=== PATIENT | female | born 1965 | race Caucasian/White ===

== ENCOUNTER 2018-04-23 11:00 | Emergency (ER) | payer OTHER ==
--- NOTE | 2018-04-23 12:38 | ED ---
General Adult HPI - General Chief complaint: Upper Respiratory Infection Stated complaint: cold symptoms, chest congestion Time Seen by Provider: 04/23/18 12:25 Source: patient, RN notes reviewed Mode of arrival: ambulatory Limitations: no limitations - History of Present Illness Initial comments: Patient 52-year-old female presents emergency room today with chief complaint of cough congestion over the last 2 weeks. She doesn't that started as a sinus infection. States it has been down into her chest. She does admit that she's had some sputum production as been clear and green in color. Patient doesn't that she's been treated times for ear infections with steroids and antibiotics in the past. States into the family doctor skin. Emergency room. She denies any other complaints or symptoms at this time. Patient denies any recent fever, chills, shortness of breath, chest pain, back pain, abdominal pain, nausea or vomiting, numbness or tingling, headaches or visual changes, or any other complaints. - Related Data Previous Rx's Medication Instructions Recorded Azithromycin [Zithromax Z-pack] 0 mg PO DIRECTED #6 tab 04/23/18 Fluticasone Propionate [Flonase 1 - 2 spray EA NOSTRIL DAILY 5 04/23/18 Allergy Relief] Days ml predniSONE 40 mg PO DAILY 5 Days tab 04/23/18 Allergies Allergy/AdvReac Type Severity Reaction Status Date / Time codeine Allergy Nausea & Verified 04/23/18 12:47 Vomiting Review of Systems ROS Statement: Those systems with pertinent positive or pertinent negative responses have been documented in the HPI. ROS Other: All systems not noted in ROS Statement are negative. Past Medical History Past Medical History: No Reported History History of Any Multi-Drug Resistant Organisms: None Reported Additional Past Surgical History / Comment(s): kidney bx Past Psychological History: No Psychological Hx Reported Smoking Status: Current every day smoker Past Alcohol Use History: Occasional Past Drug Use History: None Reported General Exam - General Exam Comments Initial Comments: General: The patient is awake and alert, in no distress, and does not appear acutely ill. Eye: Pupils are equal, round and reactive to light. Extra-ocular movements are intact. No nystagmus. There is normal conjunctiva bilaterally. No signs of icterus. Ears, nose, mouth and throat: There are moist mucous membranes and no oral lesions. Neck: The neck is supple, there is no tenderness or JVD. Cardiovascular: There is a regular rate and rhythm. No murmur, rub or gallop is appreciated. Respiratory: Lungs are clear to auscultation, respirations are non-labored, breath sounds are equal. No wheezes, stridor, rales, or rhonchi. Musculoskeletal: Normal ROM, no tenderness. Sensation intact. Strength 5/5. Pulses equal bilaterally 2+. Neurological: A&O x 3. CN II-XII intact, There are no obvious motor or sensory deficits. Coordination appears grossly intact. Speech is normal. Skin: Skin is warm and dry and no rashes or lesions are noted. Psychiatric: Cooperative, appropriate mood & affect, normal judgment. Limitations: no limitations Course Vital Signs 04/23/18 11:12 Temperature 98.2 F Pulse Rate 102 H Respiratory 20 Rate Blood Pressure 127/83 O2 Sat by Pulse 98 Oximetry Medical Decision Making - Medical Decision Making X-ray reviewed negative. Patient does admit that she's had sinus infection that has gone down onto the chest. She's had increased cough congestion. Patient's chest x-ray unremarkable and patient will be treated with antibiotics also course of steroids to cover for bronchitis and sinus infection. Disposition Clinical Impression: Sinusitis, Bronchitis Disposition: HOME SELF-CARE Condition: Good Instructions: Upper Respiratory Infection (ED) Additional Instructions: Please use medication as discussed. Please follow-up with family doctor in the next 2 days of symptoms have not improved. Please return to emergency room if the symptoms increase or worsen or for any other concerns. Prescriptions: Azithromycin [Zithromax Z-pack] 0 mg PO DIRECTED #6 tab Fluticasone Propionate [Flonase Allergy Relief] 1 - 2 spray EA NOSTRIL DAILY 5 Days ml predniSONE 40 mg PO DAILY 5 Days tab Is patient prescribed a controlled substance at d/c from ED?: No Referrals: Paxton Armendariz DO [Primary Care Provider] - 1-2 days Time of Disposition: 13:01
--- NOTE | 2018-04-23 12:56 | XR ---
EXAMINATION TYPE: XR chest 2V DATE OF EXAM: 04/23/2018 COMPARISON: 08/03/2015 HISTORY: 52-year-old female cough and difficulty breathing TECHNIQUE: PA and lateral views FINDINGS: The cardiomediastinal silhouette, aorta, and pulmonary vasculature are within normal limits. Lungs an d pleural spaces are clear. IMPRESSION: No acute cardiopulmonary process.
[2018-04-23 13:38] VITALS: BP 120/82; PULSE 84; RESP 16; TEMP 97.8
== END 2018-04-23 13:40 | disposition home or self-care (01) ==
LOC: EC 11:00
DX: J32.9 Chronic sinusitis, unspecified (principal); J40 Bronchitis, not specified as acute or chronic; F17.200 Nicotine dependence, unspecified, uncomplicated; Z88.5 Allergy status to narcotic agent
CPT/HCPCS: 71046; 99283

== ENCOUNTER 2019-03-13 11:09 | Inpatient (IN) | payer OTHER ==
[2019-03-13] MEDS ORDERED: SODIUM CHLORIDE 0.9% 500 ML 500 ML IV STA (11:39)
[2019-03-13] MEDS ORDERED: PANTOPRAZOLE 40 MG/10 ML VIAL IVP STA (11:39)
[2019-03-13] MEDS ORDERED: MORPHINE SULFATE 4 MG/ML SYRINGE IVP STA (11:40)
[2019-03-13] MEDS ORDERED: ONDANSETRON 4 MG/2 ML VIAL IVP STA (11:40)
--- NOTE | 2019-03-13 11:43 | ED ---
General Adult HPI - General Chief complaint: GI Bleed Stated complaint: back pain, blood in stool Time Seen by Provider: 03/13/19 11:17 Source: patient, RN notes reviewed Mode of arrival: ambulatory Limitations: no limitations - History of Present Illness Initial comments: 53-year-old female without any significant past medical history presents to the emergency department for multiple complaints. It seems patient's main complaint today is weakness. Patient says that a few days ago she started to get very nauseous. States that since that time she has also started to have diarrhea and has not been eating because she has a loss of appetite. States she has generalized pain from her abdomen down to her legs. Patient states she also noticed that diarrhea appears black and she thinks there is blood in her stool. States that she feels like she may have lost consciousness while having a bowel movement yesterday as well. Patient thinks she is dehydrated.Patient has no other complaints at this time including shortness of breath, chest pain, he adache, or visual changes. - Related Data Previous Rx's Medication Instructions Recorded Azithromycin [Zithromax Z-pack] 0 mg PO DIRECTED #6 tab 04/23/18 Fluticasone Propionate [Flonase 1 - 2 spray EA NOSTRIL DAILY 5 04/23/18 Allergy Relief] Days ml predniSONE 40 mg PO DAILY 5 Days tab 04/23/18 Allergies Allergy/AdvReac Type Severity Reaction Status Date / Time codeine Allergy Nausea & Verified 03/13/19 11:16 Vomiting Review of Systems ROS Statement: Those systems with pertinent positive or pertinent negative responses have been documented in the HPI. ROS Other: All systems not noted in ROS Statement are negative. Past Medical History Past Medical History: No Reported History History of Any Multi-Drug Resistant Organisms: None Reported Additional Past Surgical History / Comment(s): kidney bx Past Psychological History: No Psychological Hx Reported Smoking Status: Current every day smoker Past Alcohol Use History: Daily Past Drug Use History: None Reported General Exam Limitations: no limitations General appearance: alert, in no apparent distress Head exam: Present: atraumatic, normocephalic, normal inspection Eye exam: Present: normal appearance, PERRL, EOMI. Absent: scleral icterus, conjunctival injection, periorbital swelling ENT exam: Present: normal exam, mucous membranes moist Neck exam: Present: normal inspection. Absent: tenderness, meningismus, lymphadenopathy Respiratory exam: Present: normal lung sounds bilaterally. Absent: respiratory distress, wheezes, rales, rhonchi, stridor Cardiovascular Exam: Present: regular rate, normal rhythm, normal heart sounds. Absent: systolic murmur, diastolic murmur, rubs, gallop, clicks GI/Abdominal exam: Present: soft (Soft unremarkable abdomen), tenderness (Epigastric tenderness, no tenderness elsewhere in the abdomen.), normal bowel sounds. Absent: distended, guarding, rebound, rigid Extremities exam: Present: normal capillary refill (Capillary refill less than, DP pulse 2+ in RLE), other (Sensation intact, strength 5 out of 5 in lower extremities bilaterally) Neurological exam: Present: alert Psychiatric exam: Present: normal affect, normal mood Course Vital Signs 03/13/19 03/13/19 11:13 12:33 Temperature 97.7 F Pulse Rate 115 H 98 Respiratory 20 16 Rate Blood Pressure 114/82 133/86 O2 Sat by Pulse 100 99 Oximetry EKG Findings - EKG Comments: EKG Findings:: Normal sinus rhythm, ventricular rate 94, OK interval 122, QTc 400, T-wave inversions noted in the precordial leads Medical Decision Making - Medical Decision Making 53-year-old female without any significant past medical history presents for multiple complaints. Patient's main complaint today is weakness. States that she has been nauseous for the past 2 days and has not had an appetite. States she has started to have black diarrhea. States this was happening all night and was multiple episodes. States she feels more weak today and is having some abdominal cramping. On presentation patient has mild tachycardia with otherwise stable vitals. Occult blood is positive. CBC does show a hemoglobin of 10.5. Previously 13.9 however this was 4 years ago. CMP does reveal evidence of dehydration with prerenal azotemia and a BUN to creatinine ratio of 39. Started on IV fluids. EKG was obtained which does show T-wave inversions. Therefore troponin was ordered which was negative. However this will be trended. No previous EKGs to compare this to. Given positive occult blood and weakness as well as dehydration patient will be admitted for GI consultation. - Lab Data Result diagrams: 03/13/19 12:50 03/13/19 12:50 Lab Results 09/04/19 09/04/19 09/04/19 Range/Units 12:20 12:50 12:50 WBC 11.1 H (3.8-10.6) k/uL RBC 3.08 L (3.80-5.40) m/uL Hgb 10.5 L (11.4-16.0) gm/dL Hct 31.1 L (34.0-46.0) % MCV 101.1 H (80.0-100.0) fL MCH 34.0 (25.0-35.0) pg MCHC 33.7 (31.0-37.0) g/dL RDW 15.9 H (11.5-15.5) % Plt Count 376 (150-450) k/uL Neutrophils % 83 % Lymphocytes % 10 % Monocytes % 4 % Eosinophils % 1 % Basophils % 1 % Neutrophils # 9.2 H (1.3-7.7) k/uL Lymphocytes # 1.1 (1.0-4.8) k/uL Monocytes # 0.4 (0-1.0) k/uL Eosinophils # 0.1 (0-0.7) k/uL Basophils # 0.1 (0-0.2) k/uL Macrocytosis Slight PT 9.6 (9.0-12.0) sec INR 0.9 (<1.2) APTT 20.6 L (22.0-30.0) sec Sodium (137-145) mmol/L Potassium (3.5-5.1) mmol/L Chloride (98-107) mmol/L Carbon Dioxide (22-30) mmol/L Anion Gap mmol/L BUN (7-17) mg/dL Creatinine (0.52-1.04) mg/dL Est GFR (CKD-EPI)AfAm (>60 ml/min/1.73 sqM) Est GFR (CKD-EPI)NonAf (>60 ml/min/1.73 sqM) Glucose (74-99) mg/dL Calcium (8.4-10.2) mg/dL Magnesium (1.6-2.3) mg/dL Total Bilirubin (0.2-1.3) mg/dL AST (14-36) U/L ALT (9-52) U/L Alkaline Phosphatase (38-126) U/L Troponin I (0.000-0.034) ng/mL Total Protein (6.3-8.2) g/dL Albumin (3.5-5.0) g/dL Stool Occult Blood Positive H (Negative) Blood Type Blood Type Recheck Bld Type Recheck Status Antibody Screen Spec Expiration Date 03/13/19 03/13/19 03/13/19 Range/Units 12:50 12:50 12:50 WBC (3.8-10.6) k/uL RBC (3.80-5.40) m/uL Hgb (11.4-16.0) gm/dL Hct (34.0-46.0) % MCV (80.0-100.0) fL MCH (25.0-35.0) pg MCHC (31.0-37.0) g/dL RDW (11.5-15.5) % Plt Count (150-450) k/uL Neutrophils % % Lymphocytes % % Monocytes % % Eosinophils % % Basophils % % Neutrophils # (1.3-7.7) k/uL Lymphocytes # (1.0-4.8) k/uL Monocytes # (0-1.0) k/uL Eosinophils # (0-0.7) k/uL Basophils # (0-0.2) k/uL Macrocytosis PT (9.0-12.0) sec INR (<1.2) APTT (22.0-30.0) sec Sodium 138 (137-145) mmol/L Potassium 5.0 (3.5-5.1) mmol/L Chloride 109 H (98-107) mmol/L Carbon Dioxide 21 L (22-30) mmol/L Anion Gap 8 mmol/L BUN 43 H (7-17) mg/dL Creatinine 1.08 H (0.52-1.04) mg/dL Est GFR (CKD-EPI)AfAm 67 (>60 ml/min/1.73 sqM) Est GFR (CKD-EPI)NonAf 58 (>60 ml/min/1.73 sqM) Glucose 121 H (74-99) mg/dL Calcium 9.9 (8.4-10.2) mg/dL Magnesium 2.0 (1.6-2.3) mg/dL Total Bilirubin 0.2 (0.2-1.3) mg/dL AST 48 H (14-36) U/L ALT 47 (9-52) U/L Alkaline Phosphatase 107 (38-126) U/L Troponin I <0.012 (0.000-0.034) ng/mL Total Protein 6.9 (6.3-8.2) g/dL Albumin 4.0 (3.5-5.0) g/dL Stool Occult Blood (Negative) Blood Type O Positive Blood Type Recheck No Previous Record Bld Type Recheck Status CABO Indicated Antibody Screen NEGATIVE Spec Expiration Date 03/16/2019 - 235 Disposition Clinical Impression: Melena, Dehydration, Anemia Disposition: ADMITTED IP TO THIS [facility] Condition: Fair Referrals: Paxton Armendariz DO [Primary Care Provider] - 1-2 days Time of Disposition: 14:31
[2019-03-13 13:22] LABS: Calcium 9.9 mg/dL (8.4-10.2); Total Bilirubin 0.2 mg/dL (0.2-1.3); Total Protein 6.9 g/dL (6.3-8.2)
[2019-03-13 13:23] LABS: Basophils # (A) 0.1 k/uL (0-0.2); Basophils % (A) 1 %; Eosinophils # (A) 0.1 k/uL (0-0.7); Eosinophils % (A) 1 %; HCT 31.1 % (34.0-46.0); HGB 10.5 gm/dL (11.4-16.0); Lymphocytes # (A) 1.1 k/uL (1.0-4.8); Lymphocytes % (A) 10 %; MCHC 33.7 g/dL (31.0-37.0); MCV 101.1 fL (80.0-100.0); Macrocytosis Slight; Mean Platelet Volume 6.9; Monocytes # (A) 0.4 k/uL (0-1.0); Monocytes % (A) 4 %; Neutrophils # (A) 9.2 k/uL (1.3-7.7); Neutrophils % (A) 83 %; Platelet Count 376 k/uL (150-450); RBC 3.08 m/uL (3.80-5.40); RDW 15.9 % (11.5-15.5); WBC 11.1 k/uL (3.8-10.6)
[2019-03-13 13:26] LABS: INR 0.9 (<1.2); Prothrombin Time 9.6 sec (9.0-12.0)
[2019-03-13 13:42] LABS: Partial Thromboplastin Time 20.6 sec (22.0-30.0)
[2019-03-13] MEDS ORDERED: NALOXONE 0.4 MG/ML 1 ML VIAL IV PRN (14:34)
[2019-03-13] MEDS ORDERED: IOPAMIDOL-300 CONTRAST 30 ML VIAL (ORAL USE) PO PRN ×2 (15:42→16:06)
[2019-03-13] MEDS: SODIUM CHLORIDE 0.9% 1,000 ML IV SCH ×2 (15:45→20:01)
[2019-03-13] MEDS ORDERED: LORazepam 0.5 MG TAB PO PRN (15:45)
--- NOTE | 2019-03-13 15:57 | P.HPIM ---
History of Present Illness H&P Date: 03/13/19 53 years old very pleasant female patient of Dr. Armendariz presents in with acute abdominal pain associated with nausea or vomiting and diarrhea that started Monday evening. Patient started having diarrhea on Monday with the black stool followed by a bloody stools yesterday associated with lower a bdominal pain and back pain. She does endorses nausea but denies any vomiting. Patient does document history of peptic ulcer disease when she was in her early 20s. She is a alcohol drinker, drinks 5 days a week 3-4 drinks of Kahlua with milk. Last drink was one week ago as patient is having migraine. Patient is otherwise healthy. On evaluation in the ERPatient had a temp 97.7 pulse rate 1:15 and regular blood pressure 114/82 and saturating well on room air leukocytosis of 11.1 and hemoglobin 10.5 MCV 101.1 chloride 109 bicarb 21 BUN of 43 creatinine 1.08 glucose 121. Patient's presentation appears to be likely diverticulitis but with history of melena peptic ulcer disease cannot be ruled out. Stool studies including C. diff will be sent. Patient to be started on antibiotics including Flagyl and levofloxacin. Review of Systems Constitutional: Denies chills, Denies fever, Denies lethargy, Denies malaise, endorses loss of appetite, Denies weakness, Denies weight loss Eyes: denies decreased vision, denies diplopia, denies discharge, denies pain Ears: deny: decreased hearing Ears, nose, mouth and throat: Denies dental pain, Denies headache, Denies nasal discharge, Denies nose pain Cardiovascular: Denies chest pain, Denies decreased exercise tolerance, Denies edema, Denies high blood pressure, Denies irregular heart beat, Denies palpitations, Denies paroxysmal nocturnal dyspnea, Denies rapid heart beat, Denies shortness of breath Respiratory: Denies congestion, Denies cough, Denies cough with sputum, Denies dyspnea, Denies home oxygen, Denies wheezing Gastrointestinal: Endorses abdominal pain, diarrhea, nausea, melena, bright red blood per rectum Genitourinary: Denies dysuria, Denies flank pain, Denies kidney stones, Denies menorrhagia, Denies urgency, Denies urinary frequency Musculoskeletal: Denies gait dysfunction, Denies limitation of motion, Denies morning stiffness, endorses back pain Integumentary: Denies rash, Denies wounds, Denies brittle nails, Denies change in hair/nails, Denies darkening of skin Neurological: Denies balance difficulties, Denies change in speech, Denies double vision, Denies gait dysfunction, Denies loss of vision, Denies motor disturbance, Denies numbness, Denies paralysis, Denies paresthesias, Denies seizures Psychiatric: Denies anxiety, Denies depression Endocrine: Denies excessive sweating, Denies excessive thirst, Denies high blood sugars, Denies palpitations Hematologic/Lymphatic: Denies easy bruising, Denies lymphadenopathy Past Medical History Past Medical History: No Reported History, GERD/Reflux History of Any Multi-Drug Resistant Organisms: None Reported Additional Past Surgical History / Comment(s): kidney bx Past Psychological History: No Psychological Hx Reported Smoking Status: Current every day smoker Past Alcohol Use History: Daily Past Drug Use History: None Reported - Past Family History Father Family Medical History: No Reported History Mother Family Medical History: Liver Disease, Renal Disease Medications and Allergies Home Medications Medication Instructions Recorded Confirmed Type Ibuprofen [Motrin] 800 mg PO TID PRN 03/13/19 03/13/19 History LORazepam [Ativan] 0.5 mg PO TID PRN 03/13/19 03/13/19 History Phentermine HCl [Adipex-P] 18.75 mg PO DAILY 03/13/19 03/13/19 History Allergies Allergy/AdvReac Type Severity Reaction Status Date / Time codeine Allergy Nausea & Verified 03/13/19 14:43 Vomiting Physical Exam Vitals: Vital Signs Temp Pulse Resp BP Pulse Ox 03/13/19 12:33 98 16 133/86 99 03/13/19 11:13 97.7 F 115 H 20 114/82 100 Intake and Output 03/13/19 03/13/19 03/13/19 06:59 14:59 22:59 Other: Weight 86.183 kg - Constitutional General appearance: cooperative, no acute distress, obese - EENT Eyes: anicteric sclerae, PERRLA, normal appearance ENT: hearing grossly normal - Neck Neck: no lymphadenopathy, normal ROM, no other, no rigidity, no stridor, no thyromegaly - Respiratory Respiratory: bilateral: CTA, negative: diminished, dullness, rales, rhonchi - Cardiovascular Rhythm: regular Heart sounds: normal: S1, S2 Abnormal Heart Sounds: no systolic murmur, no diastolic murmur, no rub, no S3 Gallop, no S4 Gallop, no click, no other - Gastrointestinal General gastrointestinal: normal bowel sounds, soft tender in the pelvic and left lower quadrant no epigastric tenderness - Integumentary Integumentary: no rash - Neurologic Neurologic: CNII-XII intact - Musculoskeletal Musculoskeletal: gait normal, strength equal bilaterally - Psychiatric Psychiatric: A&O x's 3, appropriate affect Results CBC & Chem 7: 03/13/19 12:50 03/13/19 12:50 Labs: Abnormal Lab Results - Last 24 Hours (Table) 03/13/19 03/13/19 03/13/19 Range/Units 12:20 12:50 12:50 WBC 11.1 H (3.8-10.6) k/uL RBC 3.08 L (3.80-5.40) m/uL Hgb 10.5 L (11.4-16.0) gm/dL Hct 31.1 L (34.0-46.0) % MCV 101.1 H (80.0-100.0) fL RDW 15.9 H (11.5-15.5) % Neutrophils # 9.2 H (1.3-7.7) k/uL APTT 20.6 L (22.0-30.0) sec Chloride (98-107) mmol/L Carbon Dioxide (22-30) mmol/L BUN (7-17) mg/dL Creatinine (0.52-1.04) mg/dL Glucose (74-99) mg/dL AST (14-36) U/L Stool Occult Blood Positive H (Negative) 03/13/19 Range/Units 12:50 WBC (3.8-10.6) k/uL RBC (3.80-5.40) m/uL Hgb (11.4-16.0) gm/dL Hct (34.0-46.0) % MCV (80.0-100.0) fL RDW (11.5-15.5) % Neutrophils # (1.3-7.7) k/uL APTT (22.0-30.0) sec Chloride 109 H (98-107) mmol/L Carbon Dioxide 21 L (22-30) mmol/L BUN 43 H (7-17) mg/dL Creatinine 1.08 H (0.52-1.04) mg/dL Glucose 121 H (74-99) mg/dL AST 48 H (14-36) U/L Stool Occult Blood (Negative) Thrombosis Risk Factor Assmnt - DVT/VTE Prophylaxis DVT/VTE Prophylaxis: Mechanical Prophylaxis ordered Assessment and Plan Plan: #1 acute anemia likely secondary to GI bleed with possibility related to alcoholic liver disease. Iron studies and vitamin B12 ordered. Hemoccult pos itive patient presentation appears to be likely diverticulitis versus colitis. Stool studies would C. diff sent. Patient to be initiated on Flagyl and levofloxacin. Continue IV fluids at 75 mL per hour and encourage oral intake of fluids. CBC daily #2 melena. Hemoccult positive rule out peptic ulcer disease and GI consult placed Protonix initiated a [address] abdomen ordered to rule out diverticulitis #3 acute kidney injury K secondary to dehydration, versus GI bleed. Continue IV fluids at 75 mL per hour keep patient nothing by mouth after midnight #4 GI prophylaxis with Protonix 40 IV twice a day #5 DVT prophylaxis with mechanical prophylaxis rule out GI bleed hold heparin #6 disposition patient may need to 1-2 inpatient nights for stabilization
[2019-03-13] MEDS ORDERED: LEVOFLOXACIN 500MG-D5W PMX 500 MG in DEXTROSE/WATER 1 100ML.BAG IVPB SCH (16:00)
[2019-03-13] MEDS: metroNIDAZOLE-NS PMX 500 MG in SALINE 1 100ML.BAG IVPB SCH (16:29)
[2019-03-13] MEDS: MORPHINE SULFATE 2 MG/ML SYRINGE IV PRN ×2 (16:32→20:39)
--- NOTE | 2019-03-13 18:26 | CT ---
EXAMINATION TYPE: CT abdomen pelvis wo con DATE OF EXAM: 03/13/2019 COMPARISON: None HISTORY: Abdominal pain and diarrhea CT DLP: 636.7 mGycm Automated exposure control for dose reduction was used. TECHNIQUE: Helical acquisition of images was performed from the lung bases through the pelvis. FINDINGS: Lung bases are clear. There is no pleural effusion. Heart size is normal. There is no pericardial eff usion. Oral contrast opacification of the bowel is unremarkable. There is fatty infiltration of the liver. Bile ducts are not dilated. Gallbladder appears normal. Spl een appears normal. There is no pancreatic mass. Stomach appears normal. There is no adrenal mass. Kidneys have normal size and contour. There is no hydronephrosis. Ureters a re not dilated. There is no retroperitoneal adenopathy. There are scattered sigmoid diverticula. Blad luz marina distends smoothly. There is no inguinal hernia. There is no free fluid in the pelvis. Appendix appears normal. There is no mesenteric edema. There is no ascites or free air. There is no s ign of a bowel obstruction. Lumbar vertebra have normal spacing and alignment. There is no compression fracture. Bony pelvis is i ntact. I see no focal bone destruction. IMPRESSION: THERE IS SOME FATTY INFILTRATION OF THE LIVER. NO DILATED DUCTS. NO SIGN OF ACUTE ABDOMEN AND PELVIS. MILD SIGMOID DIVERTICULOSIS WITHOUT SIGN OF DIVERTICULITIS.
[2019-03-13] MEDS: PANTOPRAZOLE 40 MG/10 ML VIAL IVP SCH (20:00)
[2019-03-13 22:00] LABS: Basophils # (A) 0.1 k/uL (0-0.2); Basophils % (A) 1 %; Eosinophils # (A) 0.2 k/uL (0-0.7); Eosinophils % (A) 2 %; HCT 27.4 % (34.0-46.0); Lymphocytes # (A) 1.9 k/uL (1.0-4.8); Lymphocytes % (A) 18 %; MCH 32.8 pg (25.0-35.0); MCV 102.3 fL (80.0-100.0); Macrocytosis Slight; Mean Platelet Volume 6.9; Monocytes # (A) 0.7 k/uL (0-1.0); Monocytes % (A) 6 %; Neutrophils # (A) 7.5 k/uL (1.3-7.7); Neutrophils % (A) 69 %; Platelet Count 338 k/uL (150-450); RBC 2.67 m/uL (3.80-5.40); RDW 15.9 % (11.5-15.5); WBC 10.9 k/uL (3.8-10.6)
[2019-03-13 22:01] LABS: HGB 8.8 gm/dL (11.4-16.0)
[2019-03-14] MEDS: metroNIDAZOLE-NS PMX 500 MG in SALINE 1 100ML.BAG IVPB SCH ×2 (00:06→07:38)
[2019-03-14 00:16] LABS: Iron Saturation 21.65 (12.00-45.00)
[2019-03-14] MEDS: MORPHINE SULFATE 2 MG/ML SYRINGE IV PRN ×3 (01:04→16:52)
[2019-03-14 03:36] LABS: Basophils # (A) 0.1 k/uL (0-0.2); Basophils % (A) 1 %; Eosinophils # (A) 0.2 k/uL (0-0.7); Eosinophils % (A) 2 %; HCT 25.4 % (34.0-46.0); HGB 8.3 gm/dL (11.4-16.0); Lymphocytes # (A) 1.7 k/uL (1.0-4.8); Lymphocytes % (A) 19 %; MCH 33.9 pg (25.0-35.0); MCHC 32.8 g/dL (31.0-37.0); MCV 103.1 fL (80.0-100.0); Macrocytosis Slight; Mean Platelet Volume 6.8; Monocytes # (A) 0.4 k/uL (0-1.0); Monocytes % (A) 4 %; Neutrophils # (A) 6.2 k/uL (1.3-7.7); Neutrophils % (A) 70 %; Platelet Count 302 k/uL (150-450); RBC 2.46 m/uL (3.80-5.40); RDW 15.8 % (11.5-15.5); WBC 8.9 k/uL (3.8-10.6)
--- NOTE | 2019-03-14 04:34 | CONS ---
CONSULTATION DATE OF SURGERY: 03/13/2019 REQUESTING PHYSICIAN: Dr. Hsu REASON FOR CONSULTATION: Melena and epigastric pain. HISTORY OF PRESENT ILLNESS: The patient is a 53-year-old pleasant white female who came into the emergency room complaining of epigastric pain associated with nausea, vomiting, and black tarry stools that started on Monday evening. She had at least 10 or 15 of these episodes and came to the emergency room and was noted to have a hemoglobin of 10.5 g/dL and we are consulted for further evaluation. The patient denies any prior history of peptic ulcer disease. She has been taking Motrin every day for the last 1 year for chronic back pain. She did mention that she was diagnosed with peptic ulcer disease several years ago and was treated with Nexium for a few weeks and the symptoms subsided. PAST MEDICAL HISTORY: Significant for GERD and anxiety. MEDICATIONS AT HOME: Motrin, Ativan and Adipex. SOCIAL HISTORY: Chronic smoker. No alcohol use. FAMILY HISTORY: Father unremarkable. Mother had chronic liver disease and of liver cirrhosis a year ago. REVIEW OF SYSTEMS: Cardiopulmonary: No chest pain, shortness of breath. no dysuria hematuria. Musculoskeletal unremarkable. Skin unremarkable. Endocrine unremarkable. Psychiatric unremarkable. Neurology unremarkable. ENT/vision unremarkable. Constitutional: No recent weight loss. No fever, chills, night sweats. Hematology unremarkable. Endocrine unremarkable. PHYSICAL EXAMINATION: She appears comfortable. No apparent distress. Vital signs are stable. Blood pressure is 114/82, pulse is 115, temperature 97.7. HEENT examination unremarkable. Conjunctivae pink. Sclerae anicteric. Oral cavity, no lesions. NECK: No JVD or lymph node enlargement. CHEST: Clear to auscultation. HEART: Regular rate and rhythm. ABDOMEN: Soft. Mild tenderness in the epigastric area. Bowel sounds are positive. No organomegaly. EXTREMITIES: No pedal edema. SKIN: No rashes. NEUROLOGIC: Alert and oriented x3. No focal deficits. LABS: WBC 11.1, hemoglobin 10.5, platelets normal. BUN is 43, creatinine 1.08. PT/INR within normal limits. ALT, AST, bilirubin and alkaline phosphatase are within normal limits. Stool occult blood was positive. IMPRESSION: 1. Epigastric pain associated with nausea, vomiting, and black tarry stools for the last 2 days duration. Hemoglobin is 10.5 g/dL. The patient uses Motrin almost on a daily basis for the last 1 year. Most likely dealing with peptic ulcer disease/erosive gastritis. 2. Lower abdominal pain. The patient is scheduled for a CT of the abdomen and pelvis later today. She is already on empiric antibiotics for possible diverticulitis. 3. Elevated BUN most likely because of upper gastrointestinal source of bleeding. RECOMMENDATIONS: 1. Continue with IV Protonix 40 mg q.12 hours. 2. Start on clear liquid diet after a CT scan is done. 3. We will proceed with an upper endoscopy tomorrow. I discussed with the patient risks, benefits, and complications of the procedure and agreeable to it. 4. In the meantime, await CT abdomen results. We will follow the patient closely during the hospital stay. Thank you for this consultation. MMODL / IJN: [id number] /
[2019-03-14] MEDS: SODIUM CHLORIDE 0.9% 1,000 ML IV SCH ×2 (07:37→16:37)
[2019-03-14] MEDS: PANTOPRAZOLE 40 MG/10 ML VIAL IVP SCH ×2 (07:40→20:05)
[2019-03-14] MEDS ORDERED: PROPOFOL 10 MG/ML 20 ML VIAL IV ONE (07:55)
[2019-03-14] MEDS ORDERED: LIDOCAINE 1% INJ 10MG/ML (20 ML MDV) ONE (07:55)
[2019-03-14] MEDS ORDERED: IV FLUID CONTINUATION 1,000 ML IV ONE (07:59)
[2019-03-14] MEDS ORDERED: EPINEPHrine 10 ML SYRINGE (0.1 MG/ML) MISCELLANE ONE (08:22)
[2019-03-14 08:27] LABS: Basophils # (A) 0.1 k/uL (0-0.2); Basophils % (A) 1 %; Eosinophils # (A) 0.2 k/uL (0-0.7); Eosinophils % (A) 3 %; HCT 23.8 % (34.0-46.0); HGB 8.1 gm/dL (11.4-16.0); Lymphocytes # (A) 1.7 k/uL (1.0-4.8); Lymphocytes % (A) 21 %; MCH 34.1 pg (25.0-35.0); MCHC 34.3 g/dL (31.0-37.0); MCV 99.6 fL (80.0-100.0); Macrocytosis Slight; Mean Platelet Volume 8.7; Monocytes # (A) 0.5 k/uL (0-1.0); Monocytes % (A) 6 %; Neutrophils # (A) 5.3 k/uL (1.3-7.7); Neutrophils % (A) 65 %; Platelet Count 278 k/uL (150-450); RBC 2.39 m/uL (3.80-5.40); RDW 15.8 % (11.5-15.5); WBC 8.1 k/uL (3.8-10.6)
--- NOTE | 2019-03-14 08:48 | P.PCN ---
Date of Procedure: 03/14/19 Description of Procedure: BRIEF HISTORY: 53-year-old female who presented to the hospital with complaints of epigastric abdominal pain associated with nausea, vomiting and black tarry stools. This started earlier in the week and the patient reports at least 10-15 episodes pr ior to presentation to the hospital. Hemoglobin on presentation was 10.5. She reports a long-standing history of Motrin daily for chronic back pain. She also reports a remote history of peptic ulcer disease treated in the past with Nexium therapy. PROCEDURE PERFORMED: Esophagogastroduodenoscopy with epinephrine injection, and Endo Clip placement. PREOPERATIVE DIAGNOSIS: Anemia of acute blood loss, melena. ESTIMATED BLOOD LOSS: Minimal. IV sedation per anesthesia. PROCEDURE: After informed consent was obtained, the patient was brought into the endoscopy unit. IV sedation was administered by Anesthesia under continuous monitoring. Initially the Olympus GIF-190 video endoscope was inserted into the mouth. Esophagus intubated without any difficulty. It was gradually advanced into the stomach and duodenum and carefully examined. The bulb was significant for a cratered 1 cm ulcer with a clot. Lavage was performed and a visible vessel was seen after the clot has been cleared. Epinephrine injection was performed in a circumferential manner around the ulcer with 6 mL of epinephrine injected. 3 endoclips were then deployed with 2 successfully placed over the ulcer. There is no bleeding at the conclusion of the interventions. The second portion of the duodenum appeared normal. The scope at this time was withdrawn to the stomach, adequately insufflated with air, and upon careful examination, mucosa of the antrum, body, cardia and the fundus appeared normal except for some old blood in the stomach which was cleared with lavage. There is also mild scattered erythema and mild gastritis. The scope was then withdrawn into the esophagus. The GE junction was located at 37 cm from the incisors with a small hiatal hernia noted. The esophagus appeared normal. There were no erosions or ulcerations seen and the patient tolerated the procedure well. IMPRESSION: 1. Cratered duodenal ulcer with clot and visible vessel treated with epinephrine injection and Endo Clip placement. 2. Mild gastritis antrum and body. Small hiatal hernia. RECOMMENDATIONS: The findings of this examination were discussed with the patient and hematocrit. Would keep patient nothing by mouth except for ice chips, pills with sips of water for now. Continue to monitor hemoglobin and hematocrit and transfuse as needed. Continue IV PPI therapy. Avoid NSAID use.
--- NOTE | 2019-03-14 15:34 | P.PN ---
Subjective Progress Note Date: 03/14/19 53-year-old very pleasant female patient of Dr. Armendariz presents in with acute abdominal pain associated with nausea or vomiting and diarrhea that started Monday evening. Patient started having diarrhea on Monday with the black stool followed by a bloody stools yesterday associated with lower abdomina l pain and back pain. She does endorses nausea but denies any vomiting. Patient does document history of peptic ulcer disease when she was in her early 20s. She is a alcohol drinker, drinks 5 days a week 3-4 drinks of Kahlua with milk. Last drink was one week ago as patient is having migraine. Patient is otherwise healthy. On evaluation in the ERPatient had a temp 97.7 pulse rate 115 and regular blood pressure 114/82 and saturating well on room air leukocytosis of 11.1 and hemoglobin 10.5 MCV 101.1 chloride 109 bicarb 21 BUN of 43 creatinine 1.08 glucose 121. Patient's presentation appears to be likely diverticulitis but with history of melena peptic ulcer disease cannot be ruled out. Stool studies including C. diff will be sent. Patient to be started on antibiotics including Flagyl and levofloxacin. 03/14: CAT scan of the abdomen and pelvis without contrast revealed fatty infilt ration of the liver. No dilated ducts. No signs of acute abdomen and pelvis. Mild sigmoid diverticulosis without diverticulitis. Flagyl and Levaquin will be discontinued. Dr. Hsu performed EGD with epinephrine injection and Endo Clip placement for crater duodenal ulcer with clot and visible vessel. He recommended nothing by mouth except for ice chips and medications with sips of water for now. Continue to monitor hemoglobin and transfuse as needed, continue IV PPI. Avoid nonsteroidal anti-inflammatory medications. Repeat hemoglobin this morning is 8.1, white count is 8.1, platelet count 278. Objective - Vital Signs Vital signs: Vital Signs Temp 97.6 F 03/14/19 09:05 Pulse 86 03/14/19 09:05 Resp 16 03/14/19 09:05 BP 137/84 03/14/19 09:05 Pulse Ox 100 03/14/19 09:05 Intake & Output 03/13/19 03/14/19 03/14/19 18:59 06:59 18:59 Intake Total 1645 Output Total 750 Balance 895 Weight 86.183 kg Intake: Intake, IV Titration 1600 Amount Sodium Chloride 0.9% 1, 1500 000 ml @ 120 mls/hr IV . Q8H20M [facility] Rx#:[id number] metroNIDAZOLE-NS PMX 500 100 mg In Saline 1 100ml.bag @ 100 mls/hr IVPB Q8HR [facility] Rx#:[id number] Oral 45 Output: Stool 750 Other: Voiding Method Toilet # Voids 1 1 - Exam Review of Systems Constitutional: Denies chills, Denies fever, Denies lethargy, Denies malaise, endorses loss of appetite, Denies weakness, Denies weight loss Eyes: denies decreased vision, denies diplopia, denies discharge, denies pain Ears: deny: decreased hearing Ears, nose, mouth and throat: Denies dental pain, Denies headache, Denies nasal discharge, Denies nose pain Cardiovascular: Denies chest pain, Denies decreased exercise tolerance, Denies edema, Denies high blood pressure, Denies irregular heart beat, Denies palpitations, Denies paroxysmal nocturnal dyspnea, Denies rapid heart beat, Denies shortness of breath Respiratory: Denies congestion, Denies cough, Denies cough with sputum, Denies dyspnea, Denies home oxygen, Denies wheezing Gastrointestinal: Endorses abdominal pain-improved, diarrhea, nausea, melena, bright red blood per rectum Genitourinary: Denies dysuria, Denies flank pain, Denies kidney stones, Denies menorrhagia, Denies urgency, Denies urinary frequency Musculoskeletal: Denies gait dysfunction, Denies limitation of motion, Denies morning stiffness, endorses back pain Integumentary: Denies rash, Denies wounds, Denies brittle nails, Denies change in hair/nails, Denies darkening of skin Neurological: Denies balance difficulties, Denies change in speech, Denies double vision, Denies gait dysfunction, Denies loss of vision, Denies motor disturbance, Denies numbness, Denies paralysis, Denies paresthesias, Denies seizures Psychiatric: Denies anxiety, Denies depression Endocrine: Denies excessive sweating, Denies excessive thirst, Denies high blood sugars, Denies palpitations Hematologic/Lymphatic: Denies easy bruising, Denies lymphadenopathy - Constitutional General appearance: cooperative, no acute distress, obese - EENT Eyes: anicteric sclerae, PERRLA, normal appearance ENT: hearing grossly normal - Neck Neck: no lymphadenopathy, normal ROM, no other, no rigidity, no stridor, no thyromegaly - Respiratory Respiratory: bilateral: CTA, negative: diminished, dullness, rales, rhonchi - Cardiovascular Rhythm: regular Heart sounds: normal: S1, S2 Abnormal Heart Sounds: no systolic murmur, no diastolic murmur, no rub, no S3 Gallop, no S4 Gallop, no click, no other - Gastrointestinal General gastrointestinal: normal bowel sounds, no epigastric tenderness - Integumentary Integumentary: no rash - Neurologic Neurologic: CNII-XII intact - Musculoskeletal Musculoskeletal: gait normal, strength equal bilaterally - Psychiatric Psychiatric: A&O x's 3, appropriate affect - Labs CBC & Chem 7: 03/14/19 06:35 03/13/19 12:50 Labs: Abnormal Lab Results - Last 24 Hours (Table) 03/13/19 03/13/19 03/13/19 Range/Units 12:20 12:50 12:50 WBC 11.1 H (3.8-10.6) k/uL RBC 3.08 L (3.80-5.40) m/uL Hgb 10.5 L (11.4-16.0) gm/dL Hct 31.1 L (34.0-46.0) % MCV 101.1 H (80.0-100.0) fL RDW 15.9 H (11.5-15.5) % Neutrophils # 9.2 H (1.3-7.7) k/uL APTT 20.6 L (22.0-30.0) sec Chloride (98-107) mmol/L Carbon Dioxide (22-30) mmol/L BUN (7-17) mg/dL Creatinine (0.52-1.04) mg/dL Glucose (74-99) mg/dL AST (14-36) U/L Lipase (23-300) U/L Stool Occult Blood Positive H (Negative) 03/13/19 03/13/19 03/13/19 Range/Units 12:50 12:50 21:13 WBC 10.9 H (3.8-10.6) k/uL RBC 2.67 L (3.80-5.40) m/uL Hgb 8.8 L D (11.4-16.0) gm/dL Hct 27.4 L (34.0-46.0) % MCV 102.3 H (80.0-100.0) fL RDW 15.9 H (11.5-15.5) % Neutrophils # (1.3-7.7) k/uL APTT (22.0-30.0) sec Chloride 109 H (98-107) mmol/L Carbon Dioxide 21 L (22-30) mmol/L BUN 43 H (7-17) mg/dL Creatinine 1.08 H (0.52-1.04) mg/dL Glucose 121 H (74-99) mg/dL AST 48 H (14-36) U/L Lipase 334 H (23-300) U/L Stool Occult Blood (Negative) 03/14/19 03/14/19 Range/Units 03:12 06:35 WBC (3.8-10.6) k/uL RBC 2.46 L 2.39 L (3.80-5.40) m/uL Hgb 8.3 L 8.1 L (11.4-16.0) gm/dL Hct 25.4 L 23.8 L (34.0-46.0) % MCV 103.1 H (80.0-100.0) fL RDW 15.8 H 15.8 H (11.5-15.5) % Neutrophils # (1.3-7.7) k/uL APTT (22.0-30.0) sec Chloride (98-107) mmol/L Carbon Dioxide (22-30) mmol/L BUN (7-17) mg/dL Creatinine (0.52-1.04) mg/dL Glucose (74-99) mg/dL AST (14-36) U/L Lipase (23-300) U/L Stool Occult Blood (Negative) Assessment and Plan Plan: #1 Acute GI bleed with acute blood loss anemia secondary to crater duodenal ulcer with clot and visible vessel on EGD with possibility related to alcoholic liver disease. Iron studies and vitamin B12 ordered. Stool studies C. diff sent. Flagyl and levofloxacin will be discontinued as there is no evidence of diverticulitis. Continue IV fluids at 75 mL per hour. Diet is nothing by mouth except for ice chips and medications. CBC every 8 hours. Transfuse if hemoglobin less than 7. #2 melena. Continue as above. CT abdomen as above #3 acute kidney injury secondary to dehydration, versus GI bleed. Continue IV fluids at 75 mL per hour. Repeat lab work in the morning. #4 GI prophylaxis with Protonix 40 IV twice a day #5 DVT prophylaxis with mechanical prophylaxis Discharge plan: Return home Impression and plan of care have been directed as dictated by the signing physician. Cheli Musa nurse practitioner acting as scribe for signing physician.
[2019-03-14 17:14] LABS: Basophils # (A) 0.1 k/uL (0-0.2); Basophils % (A) 1 %; Eosinophils # (A) 0.2 k/uL (0-0.7); Eosinophils % (A) 2 %; HCT 22.3 % (34.0-46.0); HGB 7.6 gm/dL (11.4-16.0); Lymphocytes # (A) 1.4 k/uL (1.0-4.8); Lymphocytes % (A) 16 %; MCH 34.5 pg (25.0-35.0); MCHC 34.1 g/dL (31.0-37.0); MCV 101.2 fL (80.0-100.0); Macrocytosis Slight; Mean Platelet Volume 8.2; Monocytes # (A) 0.4 k/uL (0-1.0); Monocytes % (A) 5 %; Neutrophils # (A) 6.5 k/uL (1.3-7.7); Neutrophils % (A) 74 %; Platelet Count 311 k/uL (150-450); RDW 15.8 % (11.5-15.5); WBC 8.8 k/uL (3.8-10.6)
[2019-03-14 19:42] LABS: Basophils # (A) 0.1 k/uL (0-0.2); Basophils % (A) 1 %; Eosinophils # (A) 0.2 k/uL (0-0.7); Eosinophils % (A) 2 %; Lymphocytes # (A) 1.9 k/uL (1.0-4.8); Lymphocytes % (A) 21 %; MCH 34.2 pg (25.0-35.0); MCHC 33.3 g/dL (31.0-37.0); MCV 102.8 fL (80.0-100.0); Macrocytosis Slight; Monocytes # (A) 0.4 k/uL (0-1.0); Monocytes % (A) 4 %; Neutrophils # (A) 6.3 k/uL (1.3-7.7); Neutrophils % (A) 69 %; Platelet Count 311 k/uL (150-450); RBC 2.34 m/uL (3.80-5.40); RDW 15.7 % (11.5-15.5); WBC 9.1 k/uL (3.8-10.6)
[2019-03-15 03:55] LABS: Basophils % (A) 1 %; Eosinophils # (A) 0.1 k/uL (0-0.7); Eosinophils % (A) 2 %; HCT 21.6 % (34.0-46.0); HGB 7.1 gm/dL (11.4-16.0); Lymphocytes # (A) 1.3 k/uL (1.0-4.8); Lymphocytes % (A) 19 %; Macrocytosis Slight; Mean Platelet Volume 6.3; Monocytes # (A) 0.3 k/uL (0-1.0); Monocytes % (A) 4 %; Neutrophils # (A) 4.6 k/uL (1.3-7.7); Neutrophils % (A) 70 %; Platelet Count 278 k/uL (150-450); RBC 2.16 m/uL (3.80-5.40); RDW 14.9 % (11.5-15.5); WBC 6.6 k/uL (3.8-10.6)
[2019-03-15 04:05] LABS: ALT 42 U/L (9-52); AST 42 U/L (14-36); African American GFR (CKD) >90 (>60 ml/min/1.73 sqM); Albumin 2.9 g/dL (3.5-5.0); Alkaline Phosphatase 80 U/L (38-126); Anion Gap 7 mmol/L; Blood Urea Nitrogen 14 mg/dL (7-17); Calcium 8.5 mg/dL (8.4-10.2); Carbon Dioxide 17 mmol/L (22-30); Chloride 112 mmol/L (98-107); Glucose 80 mg/dL (74-99); Potassium 3.6 mmol/L (3.5-5.1); Sodium 136 mmol/L (137-145); Total Bilirubin 0.2 mg/dL (0.2-1.3); Total Protein 5.4 g/dL (6.3-8.2)
[2019-03-15] MEDS: SODIUM CHLORIDE 0.9% 1,000 ML IV SCH ×2 (06:07→20:59)
[2019-03-15] MEDS: PANTOPRAZOLE 40 MG/10 ML VIAL IVP SCH ×2 (08:07→22:10)
--- NOTE | 2019-03-15 12:52 | P.PN ---
Subjective Progress Note Date: 03/15/19 53-year-old very pleasant female patient of Dr. Armendariz presents in with acute abdominal pain associated with nausea or vomiting and diarrhea that started Monday evening. Patient started having diarrhea on Monday with the black stool followed by a bloody stools yesterday associated with lower abdomina l pain and back pain. She does endorses nausea but denies any vomiting. Patient does document history of peptic ulcer disease when she was in her early 20s. She is a alcohol drinker, drinks 5 days a week 3-4 drinks of Kahlua with milk. Last drink was one week ago as patient is having migraine. Patient is otherwise healthy. On evaluation in the ERPatient had a temp 97.7 pulse rate 115 and regular blood pressure 114/82 and saturating well on room air leukocytosis of 11.1 and hemoglobin 10.5 MCV 101.1 chloride 109 bicarb 21 BUN of 43 creatinine 1.08 glucose 121. Patient's presentation appears to be likely diverticulitis but with history of melena peptic ulcer disease cannot be ruled out. Stool studies including C. diff will be sent. Patient to be started on antibiotics including Flagyl and levofloxacin. 03/14: CAT scan of the abdomen and pelvis without contrast revealed fatty infilt ration of the liver. No dilated ducts. No signs of acute abdomen and pelvis. Mild sigmoid diverticulosis without diverticulitis. Flagyl and Levaquin will be discontinued. Dr. Hsu performed EGD with epinephrine injection and Endo Clip placement for crater duodenal ulcer with clot and visible vessel. He recommended nothing by mouth except for ice chips and medications with sips of water for now. Continue to monitor hemoglobin and transfuse as needed, continue IV PPI. Avoid nonsteroidal anti-inflammatory medications. Repeat hemoglobin this morning is 8.1, white count is 8.1, platelet count 278. 9/6: Patient had a drop in her hemoglobin down to 7.1 and transfuse 1 unit of packed RBCs this morning. She continues to have some epigastric soreness tenderness. She has not had any bowel movements since procedure. IV fluids changed to D5 normal saline. Patient continues on ice chips and medications with sips of water. Diet to be advanced by GI. Repeat CBC ordered for every 8 hours. Objective - Vital Signs Vital signs: Vital Signs Temp 97.9 F 03/15/19 07:00 Pulse 95 03/15/19 07:00 Resp 16 03/15/19 07:00 BP 102/68 03/15/19 07:00 Pulse Ox 100 03/15/19 07:00 Intake & Output 03/14/19 03/15/19 03/15/19 18:59 06:59 18:59 Intake Total 0 Output Total 50 Balance -50 0 Intake: Blood Product 0 Rc As-1 Unit 0 [id number] Output: Stool 50 Other: Voiding Method Toilet # Voids 1 1 # Bowel Movements 1 - Exam Review of Systems Constitutional: Denies chills, Denies fever, Denies lethargy, Denies malaise, endorses loss of appetite, Denies weakness, Denies weight loss Eyes: denies decreased vision, denies diplopia, denies discharge, denies pain Ears: deny: decreased hearing Ears, nose, mouth and throat: Denies dental pain, Denies headache, Denies nasal discharge, Denies nose pain Cardiovascular: Denies chest pain, Denies decreased exercise tolerance, Denies edema, Denies high blood pressure, Denies irregular heart beat, Denies palpitations, Denies paroxysmal nocturnal dyspnea, Denies rapid heart beat, Denies shortness of breath Respiratory: Denies congestion, Denies cough, Denies cough with sputum, Denies dyspnea, Denies home oxygen, Denies wheezing Gastrointestinal: Endorses abdominal pain-improved, diarrhea, nausea, melena, bright red blood per rectum-no bowel movements Genitourinary: Denies dysuria, Denies flank pain, Denies kidney stones, Denies menorrhagia, Denies urgency, Denies urinary frequency Musculoskeletal: Denies gait dysfunction, Denies limitation of motion, Denies morning stiffness, endorses back pain Integumentary: Denies rash, Denies wounds, Denies brittle nails, Denies change in hair/nails, Denies darkening of skin Neurological: Denies balance difficulties, Denies change in speech, Denies double vision, Denies gait dysfunction, Denies loss of vision, Denies motor disturbance, Denies numbness, Denies paralysis, Denies paresthesias, Denies seizures Psychiatric: Denies anxiety, Denies depression Endocrine: Denies excessive sweating, Denies excessive thirst, Denies high blood sugars, Denies palpitations Hematologic/Lymphatic: Denies easy bruising, Denies lymphadenopathy - Constitutional General appearance: cooperative, no acute distress, obese - EENT Eyes: anicteric sclerae, PERRLA, normal appearance ENT: hearing grossly normal - Neck Neck: no lymphadenopathy, normal ROM, no other, no rigidity, no stridor, no thyromegaly - Respiratory Respiratory: bilateral: CTA, negative: diminished, dullness, rales, rhonchi - Cardiovascular Rhythm: regular Heart sounds: normal: S1, S2 Abnormal Heart Sounds: no systolic murmur, no diastolic murmur, no rub, no S3 Gallop, no S4 Gallop, no click, no other - Gastrointestinal General gastrointestinal: normal bowel sounds, no epigastric tenderness - Integumentary Integumentary: no rash - Neurologic Neurologic: CNII-XII intact - Musculoskeletal Musculoskeletal: gait normal, strength equal bilaterally - Psychiatric Psychiatric: A&O x's 3, appropriate affect - Labs CBC & Chem 7: 03/15/19 03:34 03/15/19 03:34 Labs: Abnormal Lab Results - Last 24 Hours (Table) 03/13/19 03/14/19 03/14/19 Range/Units 12:50 14:30 19:04 RBC 2.20 L 2.34 L (3.80-5.40) m/uL Hgb 7.6 L 8.0 L (11.4-16.0) gm/dL Hct 22.3 L 24.0 L (34.0-46.0) % MCV 101.2 H 102.8 H (80.0-100.0) fL RDW 15.8 H 15.7 H (11.5-15.5) % Sodium (137-145) mmol/L Chloride (98-107) mmol/L Carbon Dioxide (22-30) mmol/L AST (14-36) U/L Total Protein (6.3-8.2) g/dL Albumin (3.5-5.0) g/dL Crossmatch See Detail 03/15/19 03/15/19 Range/Units 03:34 03:34 RBC 2.16 L (3.80-5.40) m/uL Hgb 7.1 L (11.4-16.0) gm/dL Hct 21.6 L (34.0-46.0) % MCV (80.0-100.0) fL RDW (11.5-15.5) % Sodium 136 L (137-145) mmol/L Chloride 112 H (98-107) mmol/L Carbon Dioxide 17 L (22-30) mmol/L AST 42 H (14-36) U/L Total Protein 5.4 L (6.3-8.2) g/dL Albumin 2.9 L (3.5-5.0) g/dL Crossmatch Assessment and Plan Plan: #1 Acute GI bleed with acute blood loss anemia secondary to crater duodenal ulcer with clot and visible vessel on EGD with possibility related to alcoholic liver disease. Iron studies and vitamin B12 ordered. Stool studies C. diff sent. Flagyl and levofloxacin will be discontinued as there is no evidence of diverticulitis. Continue IV fluids at 75 mL per hour. Diet is nothing by mouth except for ice chips and medications--to be advanced by GI. Patient transfuse 1 unit packed RBCs. CBC every 8 hours. #2 melena. Continue as above. CT abdomen as above #3 acute kidney injury secondary to dehydration, versus GI bleed. Continue IV fluids at 75 mL per hour. Repeat lab work in the morning. #4 GI prophylaxis with Protonix 40 IV twice a day #5 DVT prophylaxis with mechanical prophylaxis Discharge plan: Return home Impression and plan of care have been directed as dictated by the signing physician. Cheli Musa nurse practitioner acting as scribe for signing physician.
[2019-03-15 13:00] LABS: Anisocytosis Slight; Basophils # (A) 0.1 k/uL (0-0.2); Basophils % (A) 1 %; Eosinophils # (A) 0.2 k/uL (0-0.7); Eosinophils % (A) 2 %; HCT 26.7 % (34.0-46.0); Lymphocytes # (A) 1.3 k/uL (1.0-4.8); Lymphocytes % (A) 17 %; MCHC 34.5 g/dL (31.0-37.0); MCV 95.7 fL (80.0-100.0); Macrocytosis Slight; Mean Platelet Volume 8.1; Monocytes # (A) 0.5 k/uL (0-1.0); Monocytes % (A) 6 %; Neutrophils # (A) 5.6 k/uL (1.3-7.7); Neutrophils % (A) 70 %; Platelet Count 306 k/uL (150-450); RBC 2.78 m/uL (3.80-5.40); RDW 17.9 % (11.5-15.5); WBC 7.9 k/uL (3.8-10.6)
[2019-03-15 13:11] LABS: HGB 9.2 gm/dL (11.4-16.0)
[2019-03-15 20:22] LABS: Anisocytosis Slight; Basophils # (A) 0.1 k/uL (0-0.2); Basophils % (A) 1 %; Eosinophils # (A) 0.2 k/uL (0-0.7); Eosinophils % (A) 3 %; HCT 24.5 % (34.0-46.0); HGB 8.6 gm/dL (11.4-16.0); Lymphocytes # (A) 1.4 k/uL (1.0-4.8); Lymphocytes % (A) 20 %; MCH 33.6 pg (25.0-35.0); MCHC 35.3 g/dL (31.0-37.0); MCV 95.4 fL (80.0-100.0); Mean Platelet Volume 6.7; Monocytes # (A) 0.4 k/uL (0-1.0); Monocytes % (A) 6 %; Neutrophils # (A) 4.9 k/uL (1.3-7.7); Neutrophils % (A) 67 %; Platelet Count 313 k/uL (150-450); RBC 2.56 m/uL (3.80-5.40); RDW 17.8 % (11.5-15.5); WBC 7.3 k/uL (3.8-10.6)
[2019-03-15] MEDS: DEXTROSE 5%-0.9% NACL 1,000 ML IV SCH ×2 (20:59→22:10)
[2019-03-16 05:41] LABS: Anisocytosis Slight; Basophils % (A) 1 %; Eosinophils # (A) 0.2 k/uL (0-0.7); Eosinophils % (A) 3 %; Lymphocytes # (A) 1.2 k/uL (1.0-4.8); Lymphocytes % (A) 18 %; MCH 33.3 pg (25.0-35.0); MCHC 34.6 g/dL (31.0-37.0); MCV 96.2 fL (80.0-100.0); Macrocytosis Slight; Mean Platelet Volume 6.6; Monocytes # (A) 0.5 k/uL (0-1.0); Monocytes % (A) 7 %; Neutrophils # (A) 4.7 k/uL (1.3-7.7); Neutrophils % (A) 68 %; Platelet Count 319 k/uL (150-450); RDW 18.1 % (11.5-15.5); WBC 6.9 k/uL (3.8-10.6)
[2019-03-16] MEDS: SODIUM CHLORIDE 0.9% 1,000 ML IV SCH (08:07)
[2019-03-16] MEDS: DEXTROSE 5%-0.9% NACL 1,000 ML IV SCH (08:07)
[2019-03-16] MEDS: PANTOPRAZOLE 40 MG/10 ML VIAL IVP SCH (08:07)
[2019-03-16 08:34] VITALS: BP 121/77; PULSE 78; RESP 16; TEMP 98.1
--- NOTE | 2019-03-16 11:18 | P.PN ---
Subjective Progress Note Date: 03/15/19 Principal diagnosis: Upper GI bleed Patient is seen lying in bed reporting no bowel movements today. Last bowel movement was yesterday. No abdominal pain. Has tolerated diet. Objective - Vital Signs Vital signs: Vital Signs Temp 98.1 F 03/16/19 07:00 Pulse 78 03/16/19 07:00 Resp 16 03/16/19 07:00 BP 121/77 03/16/19 07:00 Pulse Ox 99 03/16/19 07:00 Intake & Output 03/15/19 03/16/19 03/16/19 18:59 06:59 18:59 Intake Total 310 20 Balance 310 20 Intake: Oral 20 Blood Product 310 Rc As-1 Unit 310 [id number] Other: Voiding Method Toilet # Voids 1 1 - Exam On physical examination, patient appears comfortable in no apparent distress. HEAD: Normocephalic, atraumatic. EYES: No scleral icterus. No conjunctival injection. MOUTH: No lesions, tongue midline. NECK: Trachea midline, no gross abnormalities. CHEST: Clear to auscultation with no wheezing or rhonchi appreciated. HEART: Regular rate and rhythm. ABDOMEN: Soft, obese. Bowel sounds are positive. No organomegaly. No guarding or rigidity. EXTREMITIES: No pedal edema. SKIN: No rashes, no jaundice. NEUROLOGIC: Alert and oriented x3. No focal deficits. - Labs CBC & Chem 7: 03/16/19 04:50 03/15/19 03:34 Labs: Abnormal Lab Results - Last 24 Hours (Table) 03/15/19 03/15/19 03/16/19 Range/Units 10:55 20:04 04:50 RBC 2.78 L 2.56 L 2.70 L (3.80-5.40) m/uL Hgb 9.2 L D 8.6 L 9.0 L (11.4-16.0) gm/dL Hct 26.7 L 24.5 L 26.0 L (34.0-46.0) % RDW 17.9 H 17.8 H 18.1 H (11.5-15.5) % Microbiology - Last 24 Hours (Table) 03/15/19 01:00 Stool Culture - Preliminary Stool Assessment and Plan (1) Anemia associated with acute blood loss Narrative/Plan: 53-year-old female presenting with complaints of melena and found to have anemia of acute blood loss. EGD was performed and significant for a large duodenal ulcer treated with epinephrine injection and clip placement. Patient has remained hemodynamically stable and hemoglobin has also remained stable. Diet advance to full liquids today, with plan for advancement to low fiber tomorrow if she remains stable. Current Visit: Yes Status: Acute Code(s): D62 - ACUTE POSTHEMORRHAGIC ANEMIA SNOMED Code(s): 378317423 (2) GI bleed due to NSAIDs Current Visit: Yes Status: Acute Code(s): K92.2 - GASTROINTESTINAL HEMORRHAGE, UNSPECIFIED; T39.395A - ADVERSE EFFECT OF NONSTEROIDAL ANTI- INFLAMMATORY DRUGS, INIT SNOMED Code(s): 96329158 (3) Melena Current Visit: Yes Status: Acute Code(s): K92.1 - MELENA SNOMED Code(s): 7603710 Plan: supportive care Okay for full liquids, advance to low fiber tomorrow if stable Continue 40 mg Protonix IV twice a day, with plan for discharge on 40 mg by mouth twice a day Avoid NSAID use Okay for discharge when medically stable Thank you for allowing us to participate in the care of the patient, the GI service will stand by, please call us back with any questions or concerns
--- NOTE | 2019-03-16 12:10 | P.DS ---
Providers Date of admission: 03/13/19 15:07 Expected date of discharge: 03/16/19 Attending physician: Ani Gonzalez MD Consults: 03/13/19 14:34 Consult Physician Routine Consulting Provider: Valeria Cordero Consult Reason/Comments: melena Do you want consulting provider notified?: Yes Primary care physician: Paxton Armendariz [facility] Course: 53-year-old very pleasant female patient of Dr. Armendariz presents in with acute abdominal pain associated with nausea or vomiting and diarrhea that started Monday evening. Patient started having diarrhea on Monday with the black stool followed by a bloody stools yesterday associated with lower abdominal pain and back pain. She does endorses nausea but denies any vomiting. Patient does document history of peptic ulcer disease when she was in her early 20s. She is a alcohol drinker, drinks 5 days a week 3-4 drinks of Kahlua with milk. Last drink was one week ago as patient is having migraine. Patient is otherwise healthy. On evaluation in the ERPatient had a temp 97.7 pulse rate 115 and regular blood pressure 114/82 and saturating well on room air leukocytosis of 11.1 and hemoglobin 10.5 MCV 101.1 chloride 109 bicarb 21 BUN of 43 creatinine 1.08 glucose 121. Patient's presentation appears to be likely diverticulitis but with history of melena peptic ulcer disease cannot be ruled out. Stool studies including C. diff will be sent. Patient to be started on antibiotics including Flagyl and levofloxacin. 03/14: CAT scan of the abdomen and pelvis without contrast revealed fatty infiltration of the liver. No dilated ducts. No signs of acute abdomen and pelvis. Mild sigmoid diverticulosis without diverticulitis. Flagyl and Levaquin will be discontinued. Dr. Hsu performed EGD with epinephrine injection and Endo Clip placement for crater duodenal ulcer with clot and visible vessel. He recommended nothing by mouth except for ice chips and medications with sips of water for now. Continue to monitor hemoglobin and transfuse as needed, continue IV PPI. Avoid nonsteroidal anti-inflammatory medications. Repeat hemoglobin this morning is 8.1, white count is 8.1, platelet count 278. 9/6: Patient had a drop in her hemoglobin down to 7.1 and transfuse 1 unit of packed RBCs this morning. She continues to have some epigastric soreness tenderness. She has not had any bowel movements since procedure. IV fluids changed to D5 normal saline. Patient continues on ice chips and medications with sips of water. Diet to be advanced by GI. Repeat CBC ordered for every 8 hours. 03/16: Patient's diet was advanced to full liquids by Dr. Hsu yesterday. Patient has been tolerating. No nausea or vomiting. She continues to have mild epigastric pain and tenderness. Hemoglobin this morning is at 9.0. Patient states she still has some cramping during abdomen when she eats. She did have a bowel movement yesterday that was dark. No bowel movement today. We will advance diet to soft and if she tolerates this well, discharge home if cleared by GI. Discharge diagnoses: #1 Acute GI bleed with acute blood loss anemia secondary to crater duodenal ulcer with clot and visible vessel on EGD with possibility related to alcoholic liver disease. #2 melena. #3 acute kidney injury secondary to dehydration #4 alcohol abuse Discharge plan: Return home Impression and plan of care have been directed as dictated by the signing physician. Cheli Musa nurse practitioner acting as scribe for signing physician. Patient Condition at Discharge: Good Plan - Discharge Summary Discharge Rx Participant: Yes New Discharge Prescriptions: New Pantoprazole Sodium [Protonix] 40 mg PO BID #60 tablet. Continue Phentermine HCl [Adipex-P] 18.75 mg PO DAILY LORazepam [Ativan] 0.5 mg PO TID PRN PRN Reason: Anxiety Discontinued Ibuprofen [Motrin] 800 mg PO TID PRN PRN Reason: Pain Discharge Medication List LORazepam [Ativan] 0.5 mg PO TID PRN 03/13/19 [History] Phentermine HCl [Adipex-P] 18.75 mg PO DAILY 03/13/19 [History] Pantoprazole Sodium [Protonix] 40 mg PO BID #60 tablet. 03/16/19 [Rx] Follow up Appointment(s)/Referral(s): Paxton Armendariz DO [Primary Care Provider] - 1 Week Hiren Hsu MD [STAFF PHYSICIAN] - 1 Week Activity/Diet/Wound Care/Special Instructions: Alcohol abstinence Discharge Disposition: HOME SELF-CARE
[2019-03-16 13:30] LABS: Anisocytosis Slight; Basophils # (A) 0.1 k/uL (0-0.2); Basophils % (A) 1 %; Eosinophils # (A) 0.2 k/uL (0-0.7); Eosinophils % (A) 2 %; HCT 27.6 % (34.0-46.0); HGB 9.1 gm/dL (11.4-16.0); Lymphocytes # (A) 1.3 k/uL (1.0-4.8); Lymphocytes % (A) 19 %; MCH 31.4 pg (25.0-35.0); MCHC 32.9 g/dL (31.0-37.0); MCV 95.4 fL (80.0-100.0); Mean Platelet Volume 6.3; Monocytes # (A) 0.3 k/uL (0-1.0); Monocytes % (A) 5 %; Neutrophils # (A) 4.6 k/uL (1.3-7.7); Neutrophils % (A) 69 %; Platelet Count 359 k/uL (150-450); RBC 2.89 m/uL (3.80-5.40); RDW 16.9 % (11.5-15.5); WBC 6.7 k/uL (3.8-10.6)
== END 2019-03-16 14:12 | disposition home or self-care (01) | DRG 378 ==
LOC: EC 11:09 → 4SSUR 15:07
PROVIDERS: ADMIT Internal Medicine; ATTEND Internal Medicine
PROC: 0W3P8ZZ Control Bleeding in Gastrointestinal Tract, Via Natural or Artificial Opening Endoscopic (ICD-10-PCS; principal; 2019-03-14 08:00)
PROC: 3E0G8GC Introduction of Other Therapeutic Substance into Upper GI, Via Natural or Artificial Opening Endoscopic (ICD-10-PCS; 2019-03-14 08:00)
DX: K26.4 Chronic or unspecified duodenal ulcer with hemorrhage (principal); D62 Acute posthemorrhagic anemia; N17.9 Acute kidney failure, unspecified; D72.829 Elevated white blood cell count, unspecified; E86.0 Dehydration; F10.10 Alcohol abuse, uncomplicated; F17.210 Nicotine dependence, cigarettes, uncomplicated; G43.909 Migraine, unspecified, not intractable, without status migrainosus; K21.9 Gastro-esophageal reflux disease without esophagitis; K29.60 Other gastritis without bleeding; K44.9 Diaphragmatic hernia without obstruction or gangrene; K57.30 Diverticulosis of large intestine without perforation or abscess without bleeding; K70.9 Alcoholic liver disease, unspecified; K76.0 Fatty (change of) liver, not elsewhere classified; T39.395A Adverse effect of other nonsteroidal anti-inflammatory drugs [NSAID], initial encounter; Z79.899 Other long term (current) drug therapy; Z79.1 Long term (current) use of non-steroidal anti-inflammatories (NSAID); M54.9 Dorsalgia, unspecified
CPT/HCPCS: 36415; 43243; 43255; 74176; 80053; 82272; 82728; 83540; 83550; 83690; 83735; 83993; 84484; 85025; 85610; 85730; 86850; 86900; 86901; 86920; 87045; 87046; 93005; 96374; 96375; 99285

== ENCOUNTER → 2019-04-24 | Outpatient (CLI) | payer OTHER ==
[2019-04-24 13:21] LABS: Anisocytosis Slight; Basophils # (A) 0.1 k/uL (0-0.2); Basophils % (A) 1 %; Eosinophils # (A) 0.2 k/uL (0-0.7); Eosinophils % (A) 3 %; HGB 10.3 gm/dL (11.4-16.0); Hypochromasia Moderate; Lymphocytes # (A) 1.3 k/uL (1.0-4.8); Lymphocytes % (A) 18 %; MCH 28.4 pg (25.0-35.0); MCHC 30.3 g/dL (31.0-37.0); MCV 93.8 fL (80.0-100.0); Mean Platelet Volume 6.1; Monocytes # (A) 0.5 k/uL (0-1.0); Monocytes % (A) 7 %; Neutrophils # (A) 4.8 k/uL (1.3-7.7); Neutrophils % (A) 67 %; Platelet Count 478 k/uL (150-450); RBC 3.62 m/uL (3.80-5.40); RDW 17.6 % (11.5-15.5); WBC 7.2 k/uL (3.8-10.6)
[2019-04-24 18:54] LABS: Iron Saturation 79.8 (12.00-45.00)
== END | disposition home or self-care (01) ==
LOC: LABWHC1 10:32
PROVIDERS: ATTEND Internal Medicine
DX: D50.9 Iron deficiency anemia, unspecified (principal)
CPT/HCPCS: 36415; 82728; 83540; 83550; 85025

== ENCOUNTER 2019-05-06 12:47 | Day surgery (SDC) | payer OTHER ==
[2019-05-03 10:26] VITALS: BMI 28.1
[~2019-05-06 12:47] MED LIST: LACTATED RINGERS 1,000 ML IV SCH
[2019-05-06 13:03] VITALS: RESP 16; TEMP 97
[2019-05-06] MEDS ORDERED: LIDOCAINE 1% 20 ML VIAL (10MG/ML) FOR IV START INTRADERMA ONE (13:04)
[2019-05-06] MEDS ORDERED: MIDAZOLAM 2 MG/2 ML VIAL ONE (13:30)
[2019-05-06] MEDS ORDERED: fentaNYL (PF) 50 MCG/ML 2 ML AMP ONE (13:30)
[2019-05-06] MEDS ORDERED: PROPOFOL 10 MG/ML 20 ML VIAL IV ONE (13:30)
--- NOTE | 2019-05-06 14:01 | P.PCN ---
Date of Procedure: 05/06/19 Description of Procedure: Brief history: Patient is a pleasant scheduled for an elective upper endoscopy as well as colonoscopy as a part of evaluation of iron deficiency anemia. Initially the patient had been seen in the hospital with complaints of vomiting and epigastric pain. At that time she was found to have a large duodenal ulcer and had reported use of Excedrin and Motrin frequently. The patient was seen in office in follow-up where she continued to report fatigue with a hemoglobin found to be 10.9 on on 03/19/2019. Currently she is on iron supplementation for iron deficiency anemia and is longer taking NSAID medications. Procedure performed: Esophagogastroduodenoscopy with biopsies Colonoscopy with biopsy Estimated blood loss: Minimal. Preoperative diagnosis: Iron deficiency anemia, no prior colonoscopies reported last this Anesthesia: MAC Procedure: After informed consent was obtained from the patient was brought into the endoscopy unit and IV sedation was administered by anesthesia under continuous monitoring. Initially upper endoscopy was done. The Olympus GF 160 video endoscope was inserted inserted into the mouth and esophagus intubated without any difficulty and was gradually advanced into the stomach and duodenum and carefully examined. The bulb and second part of the duodenum appeared normal, with previously seen cratered ulcer well-healed and biopsies taken. The scope was then withdrawn into the stomach adequately insufflated with air and upon careful examination the antrum and body, cardia and fundus appeared normal, except for some mild scattered erythema in the antrum and body suggestive of mild gastritis with biopsies taken. The scope was then withdrawn into the esophagus. The GE junction was located at 37 cm to the incisors, with a 3 cm hiatal hernia noted. It appeared regular with no erythema erosions or ulcerations. Rest of the esophagus appeared normal. Patient tolerated the procedure well. At this time the patient continued to remain sedation. Initial digital rectal examination was normal. Olympus CF 190 video colonoscope was then inserted into the rectum and gradually advanced to the cecum without any difficulty. Careful examination was performed as the scope was gradually being withdrawn. The prep was excellent. The cecum, ascending colon, transverse colon, descending colon, sigmoid colon and rectum appeared normal, with the terminal ileum intubated and appeared normal as well. Multiple small mouth diverticula in the sigmoid colon noted. Some erythema in the cecum likely related to barotrauma biopsies of the right colon taken. Retroflexion was performed in the rectum and no lesions were noted. Patient tolerated the procedure well. Impression: 1. Well-healed duodenal ulcer. Mild gastritis antrum body, biopsied. Duodenal biopsies. Hiatal hernia. 2. Normal-appearing colon from rectum to cecum, and normal-appearing terminal ileum. Mild sigmoid diverticulosis. Right colon biopsies. Recommendations: Findings of this examination were discussed with the patient as well as
[2019-05-06 14:43] VITALS: BP 135/86; PULSE 77
== END 2019-05-06 14:45 | disposition home or self-care (01) ==
LOC: ORWHC2ENDO 12:47
PROVIDERS: ATTEND Internal Medicine
DX: K29.50 Unspecified chronic gastritis without bleeding (principal); K29.80 Duodenitis without bleeding; K44.9 Diaphragmatic hernia without obstruction or gangrene; K21.9 Gastro-esophageal reflux disease without esophagitis; K52.9 Noninfective gastroenteritis and colitis, unspecified; D50.9 Iron deficiency anemia, unspecified; K57.30 Diverticulosis of large intestine without perforation or abscess without bleeding; F17.210 Nicotine dependence, cigarettes, uncomplicated; F41.9 Anxiety disorder, unspecified; Z88.5 Allergy status to narcotic agent; Z79.899 Other long term (current) drug therapy; Z98.890 Other specified postprocedural states; Z79.1 Long term (current) use of non-steroidal anti-inflammatories (NSAID); Z87.11 Personal history of peptic ulcer disease
CPT/HCPCS: 88305; 45380; 43239; J2250; J3010; J2704

== ENCOUNTER 2019-05-31 14:19 | Emergency (ER) | payer OTHER ==
[2019-05-31 14:27] VITALS: TEMP 97.4
[2019-05-31] MEDS ORDERED: ONDANSETRON 4 MG/2 ML VIAL IVP STA (14:42)
[2019-05-31] MEDS ORDERED: SODIUM CHLORIDE 0.9% 1,000 ML IV STA (14:42)
[2019-05-31] MEDS ORDERED: HYDROmorphone 0.5 MG/0.5 ML SYRINGE IVP STA (14:42)
[2019-05-31 15:29] LABS: Albumin 4.9 g/dL (3.5-5.0); Calcium 10.8 mg/dL (8.4-10.2); Potassium 4.8 mmol/L (3.5-5.1); Total Bilirubin 0.5 mg/dL (0.2-1.3); Total Protein 9.1 g/dL (6.3-8.2)
[2019-05-31 15:37] LABS: Anisocytosis Slight; Basophils # (A) 0.2 k/uL (0-0.2); Basophils % (A) 2 %; Eosinophils # (A) 0.1 k/uL (0-0.7); Eosinophils % (A) 2 %; HCT 43.1 % (34.0-46.0); Hypochromasia Slight; Lymphocytes # (A) 1.5 k/uL (1.0-4.8); Lymphocytes % (A) 19 %; MCH 29.3 pg (25.0-35.0); MCHC 32.5 g/dL (31.0-37.0); MCV 90.2 fL (80.0-100.0); Mean Platelet Volume 6.2; Monocytes # (A) 0.6 k/uL (0-1.0); Monocytes % (A) 8 %; Neutrophils # (A) 5.4 k/uL (1.3-7.7); Neutrophils % (A) 67 %; Platelet Count 535 k/uL (150-450); RBC 4.78 m/uL (3.80-5.40); RDW 18.9 % (11.5-15.5); WBC 8.1 k/uL (3.8-10.6)
[2019-05-31 15:38] LABS: D-Dimer 0.43 mg/L FEU (<0.60); INR 0.9 (<1.2); Partial Thromboplastin Time 23.9 sec (22.0-30.0); Prothrombin Time 9.5 sec (9.0-12.0)
[2019-05-31 15:45] LABS: Appearance,Urine Clear (Clear); Bacteria,Urine Rare /hpf; Bilirubin,Urine Negative (Negative); Blood,Urine Negative (Negative); Color,Urine Yellow; Glucose,Urine (UA) Trace (Negative); Hyaline Casts,Urine 19 /lpf (0-2); Ketones,Urine Trace (Negative); Leukocyte Esterase,Urine Small (Negative); Mucus,Urine Few /hpf; Nitrite,Urine Negative (Negative); PH, Urine 5.5 (5.0-8.0); Protein,Urine 1+ (Negative); RBC,Urine 1 /hpf (0-5); Specific Gravity,Urine 1.024 (1.001-1.035); Squamous Epithelial Cell,Urine 2 /hpf (0-4)
--- NOTE | 2019-05-31 15:45 | ED ---
Abdominal Pain HPI - General Chief Complaint: Abdominal Pain Stated Complaint: ulcer pain, sent by DR. hurd headed Time Seen by Provider: 05/31/19 14:31 Source: patient, RN notes reviewed Mode of arrival: ambulatory Limitations: no limitations - History of Present Illness Initial Comments: This 53-year-old female presents emergency Department with multiple complaints. Patient states that she's been having right flank pain, nausea vomiting and abdominal pain last few days. Patient is concern as she was recently diagnosed with an ulcer and had anemia associated with. She states her hemoglobin has been stable and was discontinued off her iron supplement. Patient states though she's been having symptoms consistent last time besides that she has not had any dark stools she states that she feels fatigued, having exertional dyspnea denies any chest pain or resting shortness of breath. Patient states that she's had decreased urine output decreased appetite. Patient has no history kidney stone or any prior kidney infections no dysuria no hematuria noted. - Related Data Home Medications Medication Instructions Recorded Confirmed LORazepam [Ativan] 0.5 mg PO HS PRN 03/13/19 05/06/19 Phentermine HCl [Adipex-P] 18.75 mg PO DAILY 03/13/19 05/06/19 Ferrous Sulfate [Iron] 325 mg PO DAILY 05/03/19 05/06/19 Guaifen/Phenyleph/Acetaminophn 1 each PO DIRECTED PRN 05/03/19 05/06/19 [Tylenol Sinus Severe Caplet] Previous Rx's Medication Instructions Recorded Pantoprazole Sodium [Protonix] 40 mg PO BID #60 tablet. 03/16/19 Allergies Allergy/AdvReac Type Severity Reaction Status Date / Time codeine Allergy Nausea & Verified 05/31/19 14:27 Vomiting Review of Systems ROS Statement: Those systems with pertinent positive or pertinent negative responses have been documented in the HPI. ROS Other: All systems not noted in ROS Statement are negative. Past Medical History Past Medical History: Osteoarthritis (OA) Additional Past Medical History / Comment(s): occ migraines, sinus congestion from allergies, hx pleurisy, bleeding ulcer Mar 2019, change in bowel movements, anemia, History of Any Multi-Drug Resistant Organisms: None Reported Additional Past Surgical History / Comment(s): kidney biopsy, laparoscopy, Past Anesthesia/Blood Transfusion Reactions: Previous Problems w/ Anesthesia Additional Past Anesthesia/Blood Transfusion Reaction / Comment(s): had blood transfusion 03/2019-no problems, "takes a while to come out" Past Psychological History: No Psychological Hx Reported Smoking Status: Current every day smoker Past Alcohol Use History: Daily Past Drug Use History: None Reported - Past Family History Father Family Medical History: No Reported History Mother Family Medical History: No Reported History General Exam Limitations: no limitations General appearance: alert, in no apparent distress Head exam: Present: atraumatic, normocephalic, normal inspection Eye exam: Present: normal appearance, PERRL, EOMI. Absent: scleral icterus, conjunctival injection, periorbital swelling ENT exam: Present: normal exam, normal oropharynx, mucous membranes moist Neck exam: Present: normal inspection, full ROM. Absent: tenderness, meningismus, lymphadenopathy Respiratory exam: Present: normal lung sounds bilaterally. Absent: respiratory distress, wheezes, rales, rhonchi, stridor Cardiovascular Exam: Present: regular rate, normal rhythm, normal heart sounds. Absent: systolic murmur, diastolic murmur, rubs, gallop, clicks GI/Abdominal exam: Present: soft, tenderness (Mild right-sided), normal bowel sounds. Absent: distended, guarding, rebound, rigid Back exam: Present: CVA tenderness (R). Absent: CVA tenderness (L) Neurological exam: Present: alert, oriented X3, CN II-XII intact Skin exam: Present: warm, dry, intact, normal color. Absent: rash Course Vital Signs 05/31/19 05/31/19 14:25 16:04 Temperature 97.4 F L Pulse Rate 55 L 81 Respiratory 20 18 Rate Blood Pressure 144/88 141/92 O2 Sat by Pulse 99 99 Oximetry Medical Decision Making - Medical Decision Making Patient had labs, urinalysis, EKG. Patient CT is unremarkable left shoulder mild dehydration she was hydrated patient's symptoms do improve. Patient does have some mild occasional exertional dyspnea advise follow-up for neck. There are no acute EKG changes troponin is negative. Patient is comfortable discharged and return parameters were discussed. - Lab Data Result diagrams: 05/31/19 15:03 05/31/19 15:03 Lab Results 05/31/19 05/31/19 05/31/19 Range/Units 15:03 15:03 15:03 WBC 8.1 (3.8-10.6) k/uL RBC 4.78 (3.80-5.40) m/uL Hgb 14.0 D (11.4-16.0) gm/dL Hct 43.1 (34.0-46.0) % MCV 90.2 (80.0-100.0) fL MCH 29.3 (25.0-35.0) pg MCHC 32.5 (31.0-37.0) g/dL RDW 18.9 H (11.5-15.5) % Plt Count 535 H (150-450) k/uL Neutrophils % 67 % Lymphocytes % 19 % Monocytes % 8 % Eosinophils % 2 % Basophils % 2 % Neutrophils # 5.4 (1.3-7.7) k/uL Lymphocytes # 1.5 (1.0-4.8) k/uL Monocytes # 0.6 (0-1.0) k/uL Eosinophils # 0.1 (0-0.7) k/uL Basophils # 0.2 (0-0.2) k/uL Hypochromasia Slight Anisocytosis Slight PT (9.0-12.0) sec INR (<1.2) APTT (22.0-30.0) sec D-Dimer (<0.60) mg/L FEU Sodium 138 (137-145) mmol/L Potassium 4.8 (3.5-5.1) mmol/L Chloride 106 (98-107) mmol/L Carbon Dioxide 20 L (22-30) mmol/L Anion Gap 12 mmol/L BUN 22 H (7-17) mg/dL Creatinine 1.20 H (0.52-1.04) mg/dL Est GFR (CKD-EPI)AfAm 59 (>60 ml/min/1.73 sqM) Est GFR (CKD-EPI)NonAf 51 (>60 ml/min/1.73 sqM) Glucose 109 H (74-99) mg/dL Calcium 10.8 H (8.4-10.2) mg/dL Total Bilirubin 0.5 (0.2-1.3) mg/dL AST 54 H (14-36) U/L ALT 48 (9-52) U/L Alkaline Phosphatase 141 H (38-126) U/L Troponin I <0.012 (0.000-0.034) ng/mL Total Protein 9.1 H (6.3-8.2) g/dL Albumin 4.9 (3.5-5.0) g/dL Amylase 89 (30-110) U/L Lipase 382 H (23-300) U/L Urine Color Urine Appearance (Clear) Urine pH (5.0-8.0) Ur Specific [place] (1.001-1.035) Urine Protein (Negative) Urine Glucose (UA) (Negative) Urine Ketones (Negative) Urine Blood (Negative) Urine Nitrite (Negative) Urine Bilirubin (Negative) Urine Urobilinogen (<2.0) mg/dL Ur Leukocyte Esterase (Negative) Urine RBC (0-5) /hpf Urine WBC (0-5) /hpf Ur Squamous Epith Cells (0-4) /hpf Urine Bacteria (None) /hpf Hyaline Casts (0-2) /lpf Urine Mucus (None) /hpf 05/31/19 05/31/19 Range/Units 15:03 15:35 WBC (3.8-10.6) k/uL RBC (3.80-5.40) m/uL Hgb (11.4-16.0) gm/dL Hct (34.0-46.0) % MCV (80.0-100.0) fL MCH (25.0-35.0) pg MCHC (31.0-37.0) g/dL RDW (11.5-15.5) % Plt Count (150-450) k/uL Neutrophils % % Lymphocytes % % Monocytes % % Eosinophils % % Basophils % % Neutrophils # (1.3-7.7) k/uL Lymphocytes # (1.0-4.8) k/uL Monocytes # (0-1.0) k/uL Eosinophils # (0-0.7) k/uL Basophils # (0-0.2) k/uL Hypochromasia Anisocytosis PT 9.5 (9.0-12.0) sec INR 0.9 (<1.2) APTT 23.9 (22.0-30.0) sec D-Dimer 0.43 (<0.60) mg/L FEU Sodium (137-145) mmol/L Potassium (3.5-5.1) mmol/L Chloride (98-107) mmol/L Carbon Dioxide (22-30) mmol/L Anion Gap mmol/L BUN (7-17) mg/dL Creatinine (0.52-1.04) mg/dL Est GFR (CKD-EPI)AfAm (>60 ml/min/1.73 sqM) Est GFR (CKD-EPI)NonAf (>60 ml/min/1.73 sqM) Glucose (74-99) mg/dL Calcium (8.4-10.2) mg/dL Total Bilirubin (0.2-1.3) mg/dL AST (14-36) U/L ALT (9-52) U/L Alkaline Phosphatase (38-126) U/L Troponin I (0.000-0.034) ng/mL Total Protein (6.3-8.2) g/dL Albumin (3.5-5.0) g/dL Amylase (30-110) U/L Lipase (23-300) U/L Urine Color Yellow Urine Appearance Clear (Clear) Urine pH 5.5 (5.0-8.0) Ur Specific [place] 1.024 (1.001-1.035) Urine Protein 1+ H (Negative) Urine Glucose (UA) Trace H (Negative) Urine Ketones Trace H (Negative) Urine Blood Negative (Negative) Urine Nitrite Negative (Negative) Urine Bilirubin Negative (Negative) Urine Urobilinogen 2.0 (<2.0) mg/dL Ur Leukocyte Esterase Small H (Negative) Urine RBC 1 (0-5) /hpf Urine WBC 2 (0-5) /hpf Ur Squamous Epith Cells 2 (0-4) /hpf Urine Bacteria Rare H (None) /hpf Hyaline Casts 19 H (0-2) /lpf Urine Mucus Few H (None) /hpf Disposition Clinical Impression: Nausea & vomiting, Dehydration, Abdominal pain, Dyspnea Disposition: HOME SELF-CARE Condition: Stable Instructions (If sedation given, give patient instructions): Abdominal Pain (ED) Additional Instructions: Please return to the Emergency Department if symptoms worsen or any other concerns. Is patient prescribed a controlled substance at d/c from ED?: No Referrals: Paxton Armendariz DO [Primary Care Provider] - 1-2 days Time of Disposition: 17:21
--- NOTE | 2019-05-31 16:50 | CT ---
EXAMINATION TYPE: CT abdomen pelvis w con DATE OF EXAM: 05/31/2019 HISTORY: Abdominal and right flank pain. CT DLP: 915mGycm Automated Exposure Control for Dose Reduction was Utilized. CONTRAST: CT scan of the abdomen and pelvis is performed with IV Contrast, patient injected with 80 mL of Isovu e 300. COMPARISON: 03/13/2019 FINDINGS: LUNG BASES: Mild subsegmental dependent atelectasis. LIVER/GB: No significant abnormality is appreciated. Hepatic parenchyma is diffusely hypoattenuated i n comparison to that of the spleen, most commonly seen in hepatic steatosis. This finding limits eval uation for hepatic masses. Probable focal fatty sparing around the gallbladder fossa. No intrahepatic biliary ductal dilatation. No cholelithiasis on CT. PANCREAS: No significant abnormality is seen. SPLEEN: No significant abnormality is seen. No spinal megaly. ADRENALS: No nodules or thickening. KIDNEYS: Kidneys enhance and excrete symmetrically without hydronephrosis. Retroaortic left renal vei n is incidentally seen. BOWEL: Appendix is air-filled and within normal limits. There are scattered colonic diverticula witho ut pericolonic fat stranding. Bowel is overall suboptimally distended.. LYMPH NODES: No greater than 1cm abdominal or pelvic lymph nodes are appreciated. OSSEOUS STRUCTURES: No significant abnormality is seen. OTHER: Moderate calcific atheromatous change of the abdominal aorta and its branches. IMPRESSION: 1. No acute CT finding is seen to account for patient's clinical symptoms. No CT evidence of bowel ob struction, acute appendicitis, or hydronephrosis of either kidney. 2. At least moderate grade hepatic steatosis with probable focal fatty sparing.
[2019-05-31 17:27] VITALS: BP 148/92; PULSE 78; RESP 16
== END 2019-05-31 17:35 | disposition home or self-care (01) ==
LOC: EC 14:19
DX: E86.0 Dehydration (principal); R10.9 Unspecified abdominal pain; R11.2 Nausea with vomiting, unspecified; R06.09 Other forms of dyspnea; M19.90 Unspecified osteoarthritis, unspecified site; D64.9 Anemia, unspecified; F17.200 Nicotine dependence, unspecified, uncomplicated; Z88.5 Allergy status to narcotic agent; Z79.891 Long term (current) use of opiate analgesic; Z79.899 Other long term (current) drug therapy; Z87.19 Personal history of other diseases of the digestive system
CPT/HCPCS: 36415; 93005; 85379; 80053; 82150; 83690; 84484; 85025; 85610; 85730; 81001; 74177; 99284; 96374; 96375; 96361; J2405; J1170; Q9967

== ENCOUNTER → 2019-08-07 | Outpatient (CLI) | payer OTHER ==
--- NOTE | 2019-08-07 12:36 | XR ---
EXAMINATION TYPE: XR chest 2V DATE OF EXAM: 08/07/2019 COMPARISON: 04/23/2018 HISTORY: Shortness of breath. TECHNIQUE: Frontal and lateral views of the chest are obtained. FINDINGS: There is no focal air space opacity, pleural effusion, or pneumothorax seen. The cardiac silhouette size is within normal limits. The osseous structures are intact. Mild multilevel degener ative change of the thoracic spine. IMPRESSION: No acute cardiopulmonary process.
--- NOTE | 2019-08-07 12:42 | P.STRESS ---
- Stress Test Note Stress Test Results/Findings: Exam Performed: stress test Exam Date: 08/07/19 Reason for Exam: CHEST PAIN Height: 11 ft 8 in Weight: 165 kg Protocol: OWEN Stage: 1 Duration of Exercise: 3:47 MINUTES Resting Heart Rate: 82 Resting Blood Pressure: 146/100 Maximum Achieved Heart Rate: 137 Maximum Achieved Blood Pressure: 215/95 85% PMHR: 140 100% PMHR: 165 METS: 5.4 Technologist Comment: Stress Test Results/Findings: This is a 53-year-old female being evaluated for chest pain and shortness of breath. History of smoking. Stress data: Recent EKG showed sinus rhythm with T-wave inversions in inferolateral leads. Blood pressure at rest is 146 100 with pulse rate of 82. Patient walked on the Owen protocol for 3 minutes and 47 seconds achieving a maximal heart rate of 137 with blood pressure 215/95. EKGs taken during the exercise showed mild ST-T changes in inferolateral leads, which are felt to be nonspecific. Given his baseline EKG abnormalities. Patient complained of shortness of breath but no chest pain . Final impression: #1. Nondiagnostic stress test because of baseline EKG changes #2 patient complained of shortness of breath with exercise #3. Patient has hypertensive response to exercise #4. Occasional PVCs are noted
--- NOTE | 2019-08-07 13:00 | ECHOF ---
Referral Reason:R07.9 chest pain MEASUREMENTS -------- HEIGHT: 170.2 cm WEIGHT: 83.9 kg BP: 146/100 RVIDd: 3.0 cm (< 3.3) IVSd: 1.2 cm (0.6 - 1.1) LVIDd: 3.7 cm (3.9 - 5.3) LVPWd: 1.2 cm (0.6 - 1.1) IVSs: 1.6 cm LVIDs: 2.4 cm LVPWs: 1.6 cm LA Diam: 3.0 cm (2.7 - 3.8) LAESV Index (A-L): 17.98 ml/m Ao Diam: 2.8 cm (2.0 - 3.7) AV Cusp: 1.9 cm (1.5 - 2.6) MV EXCURSION: 13.991 mm (> 18.000) MV EF SLOPE: 82 mm/s (70 - 150) EPSS: 0.3 cm MV E Sang: 0.64 m/s MV DecT: 236 ms MV A Sang: 0.75 m/s MV E/A Ratio: 0.86 RAP: 5.00 mmHg RVSP: 29.49 mmHg TAPSE: 25.38 mm FINDINGS -------- Sinus rhythm. This was a technically good study. The left ventricular size is normal. There is borderline concentric left ventricular hypertrophy. Overall left ventricular systolic function is normal with, an EF between 60 - 65 %. The right ventricle is normal in size. Normal LA size by volume 22+/-6 ml/m2. The right atrium is normal in size. Interatrial and interventricular septum intact. The aortic valve is trileaflet and appears structurally normal. Trace amount of aortic regurgitatio n. There is trace to mild mitral regurgitation. Mild tricuspid regurgitation present. Right ventricular systolic pressure is normal at < 35 mmHg. Trace/mild (physiologic) pulmonic regurgitation. The aortic root size is normal. Normal inferior vena cava with normal inspiratory collapse consistent with estimated right atrial pre ssure of 5 mmHg. There is no pericardial effusion. CONCLUSIONS -------- 1. Sinus rhythm. 2. This was a technically good study. 3. The left ventricular size is normal. 4. There is borderline concentric left ventricular hypertrophy. 5. Overall left ventricular systolic function is normal with, an EF between 60 - 65 %. 6. The right ventricle is normal in size. 7. Normal LA size by volume 22+/-6 ml/m2. 8. The right atrium is normal in size. 9. Interatrial and interventricular septum intact. 10. The aortic valve is trileaflet and appears structurally normal. 11. Trace amount of aortic regurgitation. 12. There is trace to mild mitral regurgitation. 13. Mild tricuspid regurgitation present. 14. Right ventricular systolic pressure is normal at < 35 mmHg. 15. Trace/mild (physiologic) pulmonic regurgitation. 16. The aortic root size is normal. 17. Normal inferior vena cava with normal inspiratory collapse consistent with estimated right atrial pressure of 5 mmHg. 18. There is no pericardial effusion. [employer] DISPATCHER: Latha Avila RDCS
== END | disposition home or self-care (01) ==
LOC: RADNMMAIN 10:23
PROVIDERS: ATTEND Family Medicine
DX: I08.1 Rheumatic disorders of both mitral and tricuspid valves (principal); R07.9 Chest pain, unspecified; F17.210 Nicotine dependence, cigarettes, uncomplicated
CPT/HCPCS: 71046; 93017; 93306

== ENCOUNTER → 2019-09-05 | Outpatient (CLI) | payer OTHER ==
--- NOTE | 2019-09-05 08:19 | US ---
EXAMINATION TYPE: US venous doppler duplex LE DATE OF EXAM: 09/05/2019 7:50 AM COMPARISON: NONE CLINICAL HISTORY: I70.213 claudication. Pain SIDE PERFORMED: Bilateral TECHNIQUE: The lower extremity deep venous system is examined utilizing real time linear array sonog celine with graded compression, doppler sonography and color-flow sonography. VESSELS IMAGED: External Iliac Vein (EIV) Common Femoral Vein Deep Femoral Vein Greater Saphenous Vein * Femoral Vein Popliteal Vein Small Saphenous Vein * Proximal Calf Veins (* superficial vessels) Right Leg: Negative for DVT Left Leg: Negative for DVT IMPRESSION: 1. Bilateral lower extremity ultrasound negative for deep venous thrombosis.
== END | disposition home or self-care (01) ==
LOC: RADUSWWP 07:27
PROVIDERS: ATTEND Family Medicine
DX: I70.213 Atherosclerosis of native arteries of extremities with intermittent claudication, bilateral legs (principal); Z88.5 Allergy status to narcotic agent
CPT/HCPCS: 93970

== ENCOUNTER 2019-09-27 14:15 | Emergency (ER) | payer OTHER ==
[2019-09-27] MEDS ORDERED: PANTOPRAZOLE 40 MG/10 ML VIAL IVP STA (14:40)
[2019-09-27] MEDS ORDERED: SODIUM CHLORIDE 0.9% 1,000 ML IV STA (14:40)
[2019-09-27] MEDS ORDERED: MORPHINE SULFATE 4 MG/ML SYRINGE IV STA (14:42)
--- NOTE | 2019-09-27 15:13 | ED ---
General Adult HPI - General Chief complaint: Abdominal Pain Stated complaint: abd & back pain Time Seen by Provider: 09/27/19 14:28 Source: patient, RN notes reviewed, old records reviewed Mode of arrival: ambulatory Limitations: no limitations - History of Present Illness Initial comments: 53-year-old female patient presents to ED for evaluation of abdominal pain. Patient does report that she has history of a peptic ulcer which was bleeding in March 2019. Since then she has had a upper and lower GI scope which apparently showed that the ulcer was healing. Patient states that the plastic states she's been having right lower quadrant abdominal pain and cramping. She reports that she has also been having very dark stools. Reports that she had one episode of nausea and emesis. Denies any other complaints. Denies any dysuria. She does take Protonix 40 mg once per day. Patient denies any coronavirus exposures fevers or cough. Patient reports that she was in this emergency department one month ago for the same symptoms. Denies any si gnificant change. Systemic: Pt denies fatigue, fever/chills, rash. Pt denies weakness, night sweats, weight loss. Neuro: Pt denies headache, visual disturbances, syncope or pre-syncope. HEENT: Pt denies ocular discharge or irritation, otalgia, rhinorrhea, pharyngitis or notable lymphadenopathy. Cardiopulmonary: Pt denies chest pain, SOB, heart palpitations, dyspnea on exertion. . : Pt denies dysuria, burning w/ urination, frequency/urgency. Denies new onset urinary or bowel incontinence. MSK: Pt denies myalgia, loss of strength or function in extremities. Neuro: Pt denies new onset weakness, paresthesias. - Related Data Home Medications Medication Instructions Recorded Confirmed LORazepam [Ativan] 0.5 mg PO HS PRN 03/13/19 05/06/19 Phentermine HCl [Adipex-P] 18.75 mg PO DAILY 03/13/19 05/06/19 Ferrous Sulfate [Iron] 325 mg PO DAILY 05/03/19 05/06/19 Guaifen/Phenyleph/Acetaminophn 1 each PO DIRECTED PRN 05/03/19 05/06/19 [Tylenol Sinus Severe Caplet] Previous Rx's Medication Instructions Recorded Pantoprazole Sodium [Protonix] 40 mg PO BID #60 tablet. 03/16/19 Allergies Allergy/AdvReac Type Severity Reaction Status Date / Time azithromycin Allergy Nausea & Verified 09/27/19 14:24 [From Zithromax Z-Francisco] Vomiting & Diarrhea codeine Allergy Nausea & Verified 09/27/19 14:24 Vomiting Review of Systems ROS Statement: Those systems with pertinent positive or pertinent negative responses have been documented in the HPI. ROS Other: All systems not noted in ROS Statement are negative. Past Medical History Past Medical History: GERD/Reflux, Osteoarthritis (OA) Additional Past Medical History / Comment(s): occ migraines, sinus congestion from allergies, hx pleurisy, bleeding ulcer Mar 2019, change in bowel movements, anemia, fatty liver disease, bleeding ulcer in 03/28 History of Any Multi-Drug Resistant Organisms: None Reported Additional Past Surgical History / Comment(s): kidney biopsy, laparoscopy, Past Anesthesia/Blood Transfusion Reactions: Previous Problems w/ Anesthesia Additional Past Anesthesia/Blood Transfusion Reaction / Comment(s): had blood transfusion 03/2019-no problems, "takes a while to come out" Past Psychological History: Anxiety Smoking Status: Current every day smoker Past Alcohol Use History: Occasional Past Drug Use History: None Reported - Past Family History Father Family Medical History: No Reported History Mother Family Medical History: No Reported History General Exam - General Exam Comments Initial Comments: Constitutional: NAD, AOX3, Pt has pleasant affect. HEENT: NC/AT, trachea midline, neck supple, no lymphadenopathy. Posterior pharynx non erythematous, without exudates. External ears appear normal, without discharge. Mucous membranes moist. Eyes PERRLA, EOM intact. There is no scleral icterus. No pallor noted. Cardiopulmonary: RRR, no murmurs, rubs or gallops, no JVD noted. Lungs CTAB in anterior and posterior fraire. No peripheral edema. Abdominal exam: Abdomen soft and non-distended. Abdomen mildly tender to palpation in right lower quadrant region. No guarding or rigidity. No CVA tenderness.. Bowel sounds active in LLQ. No hepatosplenomegaly. No ecchymosis. Fecal occult was performed chaperoned by PAULY Hernandez. Neuro: CN II-XII grossly intact. No nuchal rigidity. No raccon eyes, no wang sign, no hemotympanum. No cervical spinal tenderness. MSK: No posterior calf tenderness bilaterally, homans sign negative bilaterally. Posterior tibialis and radial pulse +2 bilaterally. Sensation intact in upper and lower extremities. Full active ROM in upper and lower extremities, 5/5 stregnth. Limitations: no limitations Course Vital Signs 09/27/19 09/27/19 09/27/19 14:19 15:15 16:20 Temperature 98.0 F 98.6 F Pulse Rate 99 80 82 Respiratory 18 20 16 Rate Blood Pressure 154/78 133/88 136/88 O2 Sat by Pulse 100 98 98 Oximetry Medical Decision Making - Medical Decision Making 53-year-old female patient presents to ED for evaluation of abdominal pain. Patient does report that she has history of a peptic ulcer which was bleeding in March 2019. Since then she has had a upper and lower GI scope which apparently showed that the ulcer was healing. Patient states that the plastic states she's been having right lower quadrant abdominal pain and cramping. She reports that she has also been having very dark stools. Reports that she had one episode of nausea and emesis. Denies any other complaints. Denies any dysuria. She does take Protonix 40 mg once per day. Patient denies any coronavirus exposures fevers or cough. Patient reports that she was in this emergency department one month ago for the same symptoms. Denies any significant change. Patient will tender stable, afebrile. Physical exam displayed right lower quadrant region mildly tender to palpation. No CVA tenderness. Laboratory investigations are obtained and while does show mildly elevated liver enzymes and calcium does not show any acute change from prior. UA is unremarkable. Fecal occult blood is negative. Abdominal x-ray displayed nonacute bowel gas pattern. Patient feeling much improved. Patient is declining CT at this time as she has had 2 within the last few months for similar complaints and wishes to decline due to radiation burden. Pt will be discharged, will follow up with PCP and return to ED if condition worsens in anyway. Case discussed with Dr. Ware. - Lab Data Result diagrams: 09/27/19 14:52 09/27/19 14:52 Lab Results 09/27/19 09/27/19 09/27/19 Range/Units 14:52 14:52 14:52 WBC 9.2 (3.8-10.6) k/uL RBC 4.70 (3.80-5.40) m/uL Hgb 13.3 (11.4-16.0) gm/dL Hct 41.8 (34.0-46.0) % MCV 88.8 (80.0-100.0) fL MCH 28.2 (25.0-35.0) pg MCHC 31.7 (31.0-37.0) g/dL RDW 17.0 H (11.5-15.5) % Plt Count 395 (150-450) k/uL Neutrophils % (Manual) 72 % Lymphocytes % (Manual) 18 % Monocytes % (Manual) 7 % Eosinophils % (Manual) 3 % Neutrophils # (Manual) 6.62 (1.3-7.7) k/uL Lymphocytes # (Manual) 1.66 (1.0-4.8) k/uL Monocytes # (Manual) 0.64 (0-1.0) k/uL Eosinophils # (Manual) 0.28 (0-0.7) k/uL Nucleated RBCs 0 (0-0) /100 WBC Manual Slide Review Performed Poikilocytosis (manual Present Anisocytosis Slight Sodium 137 (137-145) mmol/L Potassium 4.7 (3.5-5.1) mmol/L Chloride 106 (98-107) mmol/L Carbon Dioxide 19 L (22-30) mmol/L Anion Gap 12 mmol/L BUN 17 (7-17) mg/dL Creatinine 1.33 H (0.52-1.04) mg/dL Est GFR (CKD-EPI)AfAm 52 (>60 ml/min/1.73 sqM) Est GFR (CKD-EPI)NonAf 45 (>60 ml/min/1.73 sqM) Glucose 105 H (74-99) mg/dL Plasma Lactic Acid Rafael (0.7-2.0) mmol/L Calcium 10.5 H (8.4-10.2) mg/dL Total Bilirubin 0.5 (0.2-1.3) mg/dL AST 47 H (14-36) U/L ALT 34 (4-34) U/L Alkaline Phosphatase 153 H (38-126) U/L Total Protein 8.9 H (6.3-8.2) g/dL Albumin 5.1 H (3.5-5.0) g/dL Lipase 252 (23-300) U/L Urine Color Yellow Urine Appearance Clear (Clear) Urine pH 6.0 (5.0-8.0) Ur Specific Hardy 1.024 (1.001-1.035) Urine Protein 1+ H (Negative) Urine Glucose (UA) Negative (Negative) Urine Ketones Trace H (Negative) Urine Blood Negative (Negative) Urine Nitrite Negative (Negative) Urine Bilirubin Negative (Negative) Urine Urobilinogen 2.0 (<2.0) mg/dL Ur Leukocyte Esterase Trace H (Negative) Urine RBC 1 (0-5) /hpf Urine WBC 3 (0-5) /hpf Ur Squamous Epith Cells 3 (0-4) /hpf Urine Bacteria Rare H (None) /hpf Hyaline Casts 47 H (0-2) /lpf Urine Mucus Few H (None) /hpf Stool Occult Blood (Negative) 09/27/19 09/27/19 Range/Units 14:52 14:52 WBC (3.8-10.6) k/uL RBC (3.80-5.40) m/uL Hgb (11.4-16.0) gm/dL Hct (34.0-46.0) % MCV (80.0-100.0) fL MCH (25.0-35.0) pg MCHC (31.0-37.0) g/dL RDW (11.5-15.5) % Plt Count (150-450) k/uL Neutrophils % (Manual) % Lymphocytes % (Manual) % Monocytes % (Manual) % Eosinophils % (Manual) % Neutrophils # (Manual) (1.3-7.7) k/uL Lymphocytes # (Manual) (1.0-4.8) k/uL Monocytes # (Manual) (0-1.0) k/uL Eosinophils # (Manual) (0-0.7) k/uL Nucleated RBCs (0-0) /100 WBC Manual Slide Review Poikilocytosis (manual Anisocytosis Sodium (137-145) mmol/L Potassium (3.5-5.1) mmol/L Chloride (98-107) mmol/L Carbon Dioxide (22-30) mmol/L Anion Gap mmol/L BUN (7-17) mg/dL Creatinine (0.52-1.04) mg/dL Est GFR (CKD-EPI)AfAm (>60 ml/min/1.73 sqM) Est GFR (CKD-EPI)NonAf (>60 ml/min/1.73 sqM) Glucose (74-99) mg/dL Plasma Lactic Acid Rafael 2.0 (0.7-2.0) mmol/L Calcium (8.4-10.2) mg/dL Total Bilirubin (0.2-1.3) mg/dL AST (14-36) U/L ALT (4-34) U/L Alkaline Phosphatase (38-126) U/L Total Protein (6.3-8.2) g/dL Albumin (3.5-5.0) g/dL Lipase (23-300) U/L Urine Color Urine Appearance (Clear) Urine pH (5.0-8.0) Ur Specific Hardy (1.001-1.035) Urine Protein (Negative) Urine Glucose (UA) (Negative) Urine Ketones (Negative) Urine Blood (Negative) Urine Nitrite (Negative) Urine Bilirubin (Negative) Urine Urobilinogen (<2.0) mg/dL Ur Leukocyte Esterase (Negative) Urine RBC (0-5) /hpf Urine WBC (0-5) /hpf Ur Squamous Epith Cells (0-4) /hpf Urine Bacteria (None) /hpf Hyaline Casts (0-2) /lpf Urine Mucus (None) /hpf Stool Occult Blood Negative (Negative) Disposition Clinical Impression: Abdominal pain Disposition: HOME SELF-CARE Condition: Stable Instructions (If sedation given, give patient instructions): Abdominal Pain (ED) Additional Instructions: Follow-up with primary care provider and Dr. Hsu tomorrow. Return to ED if condition worsens in anyway. Is patient prescribed a controlled substance at d/c from ED?: No Referrals: Paxton Armendariz DO [Primary Care Provider] - 1-2 days Hiren Hsu MD [Family Provider] - 1-2 days
[2019-09-27 15:14] LABS: Appearance,Urine Clear (Clear); Bacteria,Urine Rare /hpf; Bilirubin,Urine Negative (Negative); Blood,Urine Negative (Negative); Color,Urine Yellow; Glucose,Urine (UA) Negative (Negative); Hyaline Casts,Urine 47 /lpf (0-2); Ketones,Urine Trace (Negative); Leukocyte Esterase,Urine Trace (Negative); Mucus,Urine Few /hpf; Nitrite,Urine Negative (Negative); Protein,Urine 1+ (Negative); RBC,Urine 1 /hpf (0-5); Specific Gravity,Urine 1.024 (1.001-1.035); Squamous Epithelial Cell,Urine 3 /hpf (0-4); WBC,Urine 3 /hpf (0-5)
[2019-09-27 15:22] LABS: Anisocytosis Slight; HCT 41.8 % (34.0-46.0); HGB 13.3 gm/dL (11.4-16.0); MCH 28.2 pg (25.0-35.0); MCHC 31.7 g/dL (31.0-37.0); MCV 88.8 fL (80.0-100.0); Mean Platelet Volume 7.4; Platelet Count 395 k/uL (150-450); WBC 9.2 k/uL (3.8-10.6)
[2019-09-27 15:36] LABS: Eosinophils # (M) 0.28 k/uL (0-0.7); Lymphocytes # (M) 1.66 k/uL (1.0-4.8); Monocytes # (M) 0.64 k/uL (0-1.0); Neutrophils # (M) 6.62 k/uL (1.3-7.7); Neutrophils % (M) 72 %; Nucleated Red Blood Cells 0 /100 WBC (0-0); Total Cells Counted 100
[2019-09-27 15:37] LABS: Poikilocytosis (M) Present
[2019-09-27 15:50] LABS: Albumin 5.1 g/dL (3.5-5.0); Calcium 10.5 mg/dL (8.4-10.2); Potassium 4.7 mmol/L (3.5-5.1); Total Bilirubin 0.5 mg/dL (0.2-1.3); Total Protein 8.9 g/dL (6.3-8.2)
--- NOTE | 2019-09-27 16:21 | XR ---
Abdomen 2 view HISTORY: Pain 2 views the abdomen Correlation CT dated 08/28/2019 The lung bases are clear. There is no evident pneumoperitoneum or bowel obstruction. There are overly ing cardiac leads. Bone mineralization is normal. Phlebolith present within the left pelvis. IMPRESSION: Nonobstructive bowel gas pattern.
[2019-09-27 17:59] VITALS: BP 137/78; PULSE 87; RESP 18; TEMP 98.4
== END 2019-09-27 17:20 | disposition home or self-care (01) ==
LOC: EC 14:15
DX: R10.31 Right lower quadrant pain (principal); I49.8 Other specified cardiac arrhythmias; R74.8 Abnormal levels of other serum enzymes; R11.2 Nausea with vomiting, unspecified; K92.1 Melena; D64.9 Anemia, unspecified; F17.200 Nicotine dependence, unspecified, uncomplicated; Z88.1 Allergy status to other antibiotic agents; Z88.5 Allergy status to narcotic agent; Z87.11 Personal history of peptic ulcer disease
CPT/HCPCS: 36415; 93005; 80053; 83605; 83690; 85025; 82272; 81001; 74019; 96374; 96361; 99285; J2270

== ENCOUNTER → 2019-11-20 | Outpatient (CLI) | payer SELFPAY | END | disposition home or self-care (01) | LOC: LABWHC1 07:09 | PROVIDERS: ATTEND Family Medicine | DX: R05 Cough (principal); R06.02 Shortness of breath | CPT/HCPCS: 87635 ==

== ENCOUNTER → 2019-11-29 | Outpatient (CLI) | payer OTHER ==
[2019-11-29 11:11] LABS: Anisocytosis Slight; Basophils # (A) 0.1 k/uL (0-0.2); Basophils % (A) 1 %; Eosinophils # (A) 0.3 k/uL (0-0.7); Eosinophils % (A) 3 %; HGB 11.9 gm/dL (11.4-16.0); Hypochromasia Moderate; Lymphocytes # (A) 1.5 k/uL (1.0-4.8); Lymphocytes % (A) 14 %; MCH 27.9 pg (25.0-35.0); MCHC 31.3 g/dL (31.0-37.0); MCV 89.2 fL (80.0-100.0); Mean Platelet Volume 7.2; Monocytes # (A) 0.6 k/uL (0-1.0); Monocytes % (A) 6 %; Neutrophils # (A) 7.8 k/uL (1.3-7.7); Neutrophils % (A) 72 %; Platelet Count 453 k/uL (150-450); RBC 4.26 m/uL (3.80-5.40); RDW 16.3 % (11.5-15.5); WBC 10.8 k/uL (3.8-10.6)
[2019-11-29 15:27] LABS: % Iron Saturation 11.03 (12.00-45.00)
[2019-11-29 15:50] LABS: Ferritin 11.5 ng/mL (10.0-291.0)
== END | disposition home or self-care (01) ==
LOC: LABWHC1 09:24
PROVIDERS: ATTEND Internal Medicine
DX: D50.9 Iron deficiency anemia, unspecified (principal)
CPT/HCPCS: 36415; 82728; 83540; 83550; 85025

== ENCOUNTER → 2020-06-18 | Outpatient (CLI) | payer OTHER ==
--- NOTE | 2020-06-18 09:16 | XR ---
EXAMINATION TYPE: XR lumbosacral spine min 4V DATE OF EXAM: 06/18/2020 COMPARISON: None HISTORY: Pain TECHNIQUE: Five-view lumbar spine FINDINGS: There 5 lumbar-type vertebral bodies. Pedicles are intact. Disc heights are preserved. Vert ebral body heights are preserved. Alignment is normal. Early facet degenerative change may be in the lower lumbar spine. IMPRESSION: 1. No acute abnormality lumbar spine
--- NOTE | 2020-06-18 09:53 | XR ---
EXAMINATION TYPE: XR pelvis AP view DATE OF EXAM: 06/18/2020 COMPARISON: None HISTORY: Low back pain TECHNIQUE: AP pelvis FINDINGS: Femoral heads articulate with the acetabulum. No acute fractures or dislocations are eviden t. Sacroiliac joints and symphysis pubis are normal. Normal bowel gas is present. IMPRESSION: 1. Normal AP pelvis
--- NOTE | 2020-06-22 11:06 | MM ---
Reason for exam: screening (asymptomatic). Last mammogram was performed 8 years and 1 month ago. History: Patient is postmenopausal. Family history of breast cancer in aunt. Took hormonal contraceptives for 30 years. Physical Findings: A clinical breast exam by your physician is recommended on an annual basis and results should be correlated with mammographic findings. MG Screening Mammo w CAD Bilateral CC and MLO view(s) were taken. Prior study comparison: May 14, 2012, mammogram, performed at [facility]. There are scattered fibroglandular densities. No significant changes when compared with prior studies. ASSESSMENT: Benign, BI-RAD 2 RECOMMENDATION: Routine screening mammogram of both breasts in 1 year.
== END | disposition home or self-care (01) ==
LOC: RADMAMWWP 08:02
PROVIDERS: ATTEND Family Medicine
DX: Z12.31 Encounter for screening mammogram for malignant neoplasm of breast (principal); Z80.3 Family history of malignant neoplasm of breast; M25.551 Pain in right hip; G89.29 Other chronic pain
CPT/HCPCS: 72110; 72170; 77067

== ENCOUNTER → 2020-09-09 | Outpatient (CLI) | payer OTHER ==
--- NOTE | 2020-09-09 08:57 | US ---
EXAMINATION TYPE: US gallbladder DATE OF EXAM: 09/09/2020 COMPARISON: CT 08/28/19 CLINICAL HISTORY: 54-year-old female K80.20 w/o cholecystitis , K82.8 diseases of gallbladder. Abdomi nal pain and vomiting. TECHNIQUE: Multiple sonographic images of the right upper quadrant are obtained. FINDINGS: EXAM MEASUREMENTS: Liver Length: 18.0 cm Gallbladder Wall: 0.1 cm CBD: 0.2 cm Right Kidney: 10.1 x 5.9 x 4.3 cm Pancreas: No gross anomaly. Liver: Echogenic and attenuating. This secondarily limits assessment for focal lesions. Hypoechoic a efrem measuring 2 cm on the gallbladder fossa suggesting focal fatty sparing. Gallbladder: No stones seen Evidence for sonographic Michael's sign: No CBD: wnl Right Kidney: No hydronephrosis. IMPRESSION: 1. Moderate to severe hepatic steatosis. Correlate with LFTs, lipid profile, and patient risk factors . 2. No gallstones or biliary ductal dilatation.
== END ==
LOC: RADUSWWP 06:55
PROVIDERS: ATTEND Surgery
DX: K76.0 Fatty (change of) liver, not elsewhere classified (principal)
CPT/HCPCS: 76705

== ENCOUNTER → 2020-09-10 | Outpatient (CLI) | payer OTHER ==
--- NOTE | 2020-09-10 15:59 | NM ---
EXAMINATION TYPE: NM hepatobiliary w CCK DATE OF EXAM: 09/10/2020 COMPARISON: Gallbladder ultrasound from yesterday. HISTORY: Right upper quadrant pain. Disease of gallbladder. TECHNIQUE: After the intravenous administration of 4.9 mCi Tc 99m Mebrofenin hepatobiliary scintigrap hy is performed. Immediate images post injection. FINDINGS: There is satisfactory initial accumulation of tracer by the liver. The gallbladder is visualized wit hin 30 minutes. The small bowel activity is noted within 25 minutes. At one hour CCK was administer ed, patient was injected with 1.8 mcg of Kinevac, and gallbladder ejection fraction is calculated at 10 %, diminished from the the normal range. Therefore there is no scintigraphic evidence of cystic o r common bile duct obstruction to suggest acute cholecystitis . IMPRESSION: Ejection fraction is 10%, diminished from the normal range, scintigraphic findings consis tent with underlying gallbladder dyskinesia.
== END ==
LOC: RADNMMAIN 12:51
PROVIDERS: ATTEND Surgery
DX: K82.8 Other specified diseases of gallbladder (principal)
CPT/HCPCS: 78227; A9537; J2805

== ENCOUNTER 2020-09-28 06:22 | Day surgery (SDC) | payer OTHER ==
[2020-09-23 15:39] VITALS: BMI 30.4
[~2020-09-28 06:22] MED LIST changes: +ACETAMINOPHEN TAB 500 MG TAB PO PRN; +DEXAMETHASONE SOD PHOSPHATE 4 MG/ML 1 ML VIAL IV ONE; +HEPARIN SODIUM,PORCINE 5,000 UNIT/ML 1 ML VIAL SQ PRN; -LACTATED RINGERS 1,000 ML IV SCH; +ONDANSETRON 4 MG/2 ML VIAL IVP ONE
[2020-09-28] MEDS ORDERED: LIDOCAINE 1% (10MG/ML) FOR IV START INTRADERMA ONE (07:13)
[2020-09-28] MEDS: LACTATED RINGERS 1,000 ML IV SCH ×2 (07:14→09:26)
[2020-09-28] MEDS ORDERED: BUPIVACAINE-EPI 0.5%-1:200,000 10 ML VIAL SQ ONE ×2 (07:28→08:00)
[2020-09-28] MEDS ORDERED: PHENYLEPHRINE-0.9% NACL SYG 1,000 MCG/10 ML SYRINGE ONE (07:41)
[2020-09-28] MEDS ORDERED: KETOROLAC 15 MG/ML 1 ML VIAL ONE (07:41)
[2020-09-28] MEDS ORDERED: fentaNYL (PF) 50 MCG/ML 2 ML AMP ONE (07:41)
[2020-09-28] MEDS ORDERED: SUCCINYLCHOLINE CHLORIDE 100 MG/5 ML SYR IV ONE (07:41)
[2020-09-28] MEDS ORDERED: ROCURONIUM 10 MG/ML (5 ML VIAL) IV ONE (07:41)
[2020-09-28] MEDS ORDERED: LIDOCAINE 1% INJ 10MG/ML (20 ML MDV) ONE (07:41)
[2020-09-28] MEDS ORDERED: NEOSTIGMINE 1 MG/ML 10 ML VIAL ONE (07:41)
[2020-09-28] MEDS ORDERED: GLYCOPYRROLATE 0.2 MG/ML 2 ML VIAL ONE (07:41)
[2020-09-28] MEDS ORDERED: PROPOFOL 10 MG/ML 20 ML VIAL IV ONE (07:41)
[2020-09-28] MEDS ORDERED: SUGAMMADEX SODIUM 500 MG/5 ML SDV IV ONE (07:41)
[2020-09-28] MEDS ORDERED: MIDAZOLAM 2 MG/2 ML VIAL ONE (07:41)
--- NOTE | 2020-09-28 08:34 | P.GSHP ---
History of Present Illness H&P Date: 09/28/20 Chief Complaint: Right upper quadrant pain Is a 54-year-old female who presents today for laparoscopic cholecystectomy. Patient's complaints were quadrant pain. Her recent HIDA scan shows abnormal ejection fraction consistent with chronic cholecystitis. Past Medical History Past Medical History: GERD/Reflux, GI Bleed, Liver Disease, Osteoarthritis (OA) Additional Past Medical History / Comment(s): occ migraines, sinus congestion from allergies, hx pleurisy, bleeding ulcer Mar 2019, hx anemia, fatty liver disease, hiatal hernia, IBS/constipation. History of Any Multi-Drug Resistant Organisms: None Reported Past Surgical History: Heart Catheterization Additional Past Surgical History / Comment(s): kidney biopsy, laparoscopy, Past Anesthesia/Blood Transfusion Reactions: Previous Problems w/ Anesthesia, Family History of Problems w/ Anesthesia, Motion Sickness Additional Past Anesthesia/Blood Transfusion Reaction / Comment(s): had blood transfusion 03/2019-no problems, "takes a while to come out", 'sister had hard time coming out of it" Smoking Status: Current every day smoker - Past Family History Father Family Medical History: No Reported History Mother Family Medical History: No Reported History Medications and Allergies Home Medications Medication Instructions Recorded Confirmed Type Phentermine HCl [Adipex-P] 18.75 mg PO DIRECTED 03/13/19 09/28/20 History Pantoprazole Sodium [Protonix] 40 mg PO BID #60 tablet. 03/16/19 09/28/20 Rx Amitriptyline HCl [Elavil] 25 mg PO HS 09/23/20 09/28/20 History Aspirin [Adult Low Dose Aspirin EC] 81 mg PO DAILY 09/23/20 09/28/20 History Atorvastatin [Lipitor] 20 mg PO HS 09/23/20 09/28/20 History Brimonidine(Dose Unknown) 1 drop RIGHT EYE BID 09/23/20 09/28/20 History Dicyclomine [Bentyl] 20 mg PO QID PRN 09/23/20 09/28/20 History LORazepam [Ativan] 1 mg PO BID PRN 09/23/20 09/28/20 History Sennosides/Docusate Sodium [Esther 1 tab PO HS 09/23/20 09/28/20 History Colace] Verapamil HCl [Verapamil ER] 120 mg PO QAM 09/23/20 09/28/20 History Allergies Allergy/AdvReac Type Severity Reaction Status Date / Time azithromycin Allergy Nausea & Verified 09/28/20 06:55 [From Zithromax Z-Francisco] Vomiting & Diarrhea codeine Allergy Nausea & Verified 09/28/20 06:55 Vomiting Surgical - Exam Vital Signs Temp Pulse Resp BP Pulse Ox 97.7 F 98 16 124/84 96 09/28/20 07:12 09/28/20 07:12 09/28/20 07:12 09/28/20 07:12 09/28/20 07:12 - General well developed, well nourished, no distress - Eyes PERRL - ENT normal pinna - Neck no masses - Respiratory normal expansion - Cardiovascular Rhythm: regular - Abdomen Abdomen: soft, non tender Assessment and Plan Assessment: Chronically status. We'll perform laparoscopic cholecystectomy.
[2020-09-28] MEDS ORDERED: ONDANSETRON 4 MG/2 ML VIAL IVP ONE (08:40)
[2020-09-28 08:47] VITALS: RESP 16
[2020-09-28 08:51] VITALS: TEMP 96.9
[2020-09-28] MEDS: HYDROmorphone 0.5 MG/0.5 ML SYRINGE IVP PRN ×2 (09:10→09:15)
[2020-09-28 09:35] VITALS: PULSE 82
[2020-09-28 10:24] VITALS: BP 121/73
--- NOTE | 2020-10-07 11:20 | P.OP ---
Date of Procedure: 10/07/20 Preoperative Diagnosis: Cholecystitis Postoperative Diagnosis: Cholecystitis Procedure(s) Performed: Laparoscopic cholecystectomy Anesthesia: FERN Surgeon: Florencio Stewart Estimated Blood Loss (ml): 5 Pathology: other (gallBladder) Condition: stable Disposition: PACU Description of Procedure: The patient was placed on the operating table. The patient received a general endotracheal tube anesthesia. The patients abdomen was prepped and draped in the usual sterile fashion. Through an infraumbilical stab incision, the fascia of the anterior abdominal wall was grasped with a pair of Kochers and then the Veress needle was placed in the peritoneal cavity. Position of the Veress needle was confirmed with positive drop test. The abdomen was then insufflated. After adequate insufflation, the 10 mm trocar was placed in the peritoneal cavity. Following this the laparoscope was placed in the peritoneal cavity. The patient was placed in the head-up, right side up position and then a 5 mm trocar was placed in the right lateral and right subcostal position under direct visualization. A 8 mm trocar was placed in the epigastric position. The gallbladder was grasped in the fundus and infundibulum. Traction on the gallbladder was placed in the lateral and the cephalad positions. The triangle of Calot was visualized.. The cystic duct was bluntly dissected until the union of the cystic duct and common bile duct was seen. A critical view of safety was achieved. The cystic duct was then divided and sealed with the Harmonic scissors. A PDS Endoloop was then placed throughout the cystic duct stump. The cystic artery divided and sealed with the Harmonic scissors. The gallbladder was then removed from the liver bed using Harmonic scissors. The gallbladder was then extracted through the epigastric port site. Operative field was checked for any bleeding spots and Harmonic scissors was used to coagulate the liver bed. The abdomen was irrigated. The trocars were removed. The skin was closed using interrupted 3-0 Vicryl suture. Dermabond dressing were applied. The patient tolerated the procedure well.
== END 2020-09-28 10:49 | disposition home or self-care (01) ==
LOC: OR 06:22
PROVIDERS: ATTEND Surgery
DX: K81.1 Chronic cholecystitis (principal); K21.9 Gastro-esophageal reflux disease without esophagitis; K76.0 Fatty (change of) liver, not elsewhere classified; M19.90 Unspecified osteoarthritis, unspecified site; K44.9 Diaphragmatic hernia without obstruction or gangrene; K58.1 Irritable bowel syndrome with constipation; F17.210 Nicotine dependence, cigarettes, uncomplicated; Z87.19 Personal history of other diseases of the digestive system; Z86.69 Personal history of other diseases of the nervous system and sense organs; Z87.09 Personal history of other diseases of the respiratory system; Z86.2 Personal history of diseases of the blood and blood-forming organs and certain disorders involving the immune mechanism; Z98.890 Other specified postprocedural states; Z91.89 Other specified personal risk factors, not elsewhere classified; Z87.898 Personal history of other specified conditions; Z79.899 Other long term (current) drug therapy; Z79.82 Long term (current) use of aspirin; Z88.1 Allergy status to other antibiotic agents; Z88.5 Allergy status to narcotic agent; Z97.2 Presence of dental prosthetic device (complete) (partial); Z84.89 Family history of other specified conditions
CPT/HCPCS: 88304; 47562; J2250; J1644; J1100; J2710; J0690; J2405; J2001; J3010; J1885; J2370; J0330; J2704; J1170

== ENCOUNTER → 2021-11-04 | Outpatient (CLI) | payer OTHER ==
--- NOTE | 2021-11-05 13:58 | MM ---
Reason for exam: screening (asymptomatic). Last mammogram was performed 1 year and 5 months ago. History: Patient is postmenopausal. Family history of breast cancer in aunt. Took hormonal contraceptives for 30 years. Physical Findings: A clinical breast exam by your physician is recommended on an annual basis and results should be correlated with mammographic findings. MG Screening Mammo w CAD Bilateral CC and MLO view(s) were taken. Prior study comparison: June 18, 2020, bilateral MG screening mammo w CAD. May 14, 2012, mammogram, performed at [facility]. There are scattered fibroglandular densities. No significant changes when compared with prior studies. ASSESSMENT: Benign, BI-RAD 2 RECOMMENDATION: Routine screening mammogram of both breasts in 1 year.
== END | disposition home or self-care (01) ==
LOC: RADMAMWWP 09:26
PROVIDERS: ATTEND Family Medicine
DX: Z12.31 Encounter for screening mammogram for malignant neoplasm of breast (principal); Z78.0 Asymptomatic menopausal state; Z80.3 Family history of malignant neoplasm of breast
CPT/HCPCS: 77067

== ENCOUNTER → 2021-12-21 | Outpatient (CLI) | payer OTHER ==
--- NOTE | 2021-12-22 05:31 | MR ---
EXAMINATION TYPE: MR pelvis wo con DATE OF EXAM: 12/21/2021 COMPARISON: None HISTORY: Pelvic pain, low abdominal pain, perineal pain. Multiplanar multiecho imaging of the pelvis with no contrast. Uterus is anteverted and has normal size and contour. Endometrium appears normal. No free fluid in th e pelvis. The bladder distends smoothly. No sign of inguinal hernia. No evidence of a pelvic mass. No adnexal mass. The bony pelvis is intact. Hip joints appear normal. Sacroiliac joints are intact. No evidence of pelvic lymphadenopathy. Rectum appears normal. There are few sigmoid diverticula without diverticulitis. IMPRESSION: Negative MR scan of the pelvis. No evidence of a pelvic mass. No free fluid. Mild sigmoid diverticulo sis.
== END | disposition home or self-care (01) ==
LOC: RADMRIMAIN 16:23
PROVIDERS: ATTEND Family Medicine
DX: K57.30 Diverticulosis of large intestine without perforation or abscess without bleeding (principal)
CPT/HCPCS: 72195

== ENCOUNTER → 2022-03-09 | Outpatient (CLI) | payer OTHER ==
--- NOTE | 2022-03-09 11:25 | XR ---
EXAMINATION TYPE: XR chest 2V DATE OF EXAM: 03/09/2022 COMPARISON: NONE HISTORY: Shortness of breath TECHNIQUE: Frontal and lateral views of the chest are obtained. FINDINGS: Scattered senescent parenchymal changes noted. Hyperinflation compatible with COPD. No evidence for infiltrate. No evidence for atelectasis. Heart size is stable. Mediastinal structures are stable and grossly unremarkable. No evidence for hilar prominence. Degenerative changes dorsal spine. IMPRESSION: 1. No evidence for acute pulmonary disease.
== END | disposition home or self-care (01) ==
LOC: RADXRMAIN 10:58
PROVIDERS: ATTEND Family Medicine
DX: R06.02 Shortness of breath (principal); Z87.891 Personal history of nicotine dependence
CPT/HCPCS: 71046

== ENCOUNTER 2022-04-11 10:32 | Emergency (ER) | payer OTHER ==
[2022-04-11 11:00] VITALS: RESP 18; TEMP 97.7
[2022-04-11] MEDS ORDERED: KETOROLAC 15 MG/ML 1 ML VIAL IVP STA (11:16)
[2022-04-11] MEDS ORDERED: SODIUM CHLORIDE 0.9% 500 ML 500 ML IV STA (11:16)
[2022-04-11] MEDS ORDERED: PANTOPRAZOLE 40 MG/10 ML VIAL IVP STA (11:18)
--- NOTE | 2022-04-11 11:20 | ED ---
General Adult HPI - General Chief complaint: Nausea/Vomiting/Diarrhea Stated complaint: Chest and abd pain Time Seen by Provider: 04/11/22 11:04 Source: patient, RN notes reviewed, old records reviewed Mode of arrival: ambulatory Limitations: no limitations - History of Present Illness Initial comments: Nontoxic-appearing 56-year-old female presents to the emergency room with epigastric type abdominal pain for one week. Patient states has not had a bowel movement in 3 or 4 days. She does have a history of irritable bowel syndrome. She denies any fevers, nausea or vomiting. She does have a history of GERD and states her pain is epigastric in nature. -: week(s) (1) Location: abdomen (epigastric) Radiation: non-radiation Severity scale (1-10): 8 Quality: constant Consistency: constant Improves with: none Worsens with: other (palpation) Associated Symptoms: other (low back pain, no bowel movement in 3 days) Treatments Prior to Arrival: none - Related Data Home Medications Medication Instructions Recorded Confirmed Atorvastatin [Lipitor] 20 mg PO HS 09/23/20 04/11/22 Dicyclomine [Bentyl] 20 mg PO BID 09/23/20 04/11/22 LORazepam [Ativan] 1 mg PO BID PRN 09/23/20 04/11/22 Verapamil HCl [Verapamil ER] 120 mg PO DAILY 09/23/20 04/11/22 Amitriptyline HCl [Elavil] 50 mg PO HS 04/11/22 04/11/22 Brimonidine Tartrate [Alphagan P 1 drop RIGHT EYE BID 04/11/22 04/11/22 0.2% Ophth Soln] Cyclobenzaprine [Flexeril] 10 mg PO HS 04/11/22 04/11/22 Docusate [Colace] 100 mg PO HS 04/11/22 04/11/22 Ergocalciferol [Vitamin D2 (1250 1,250 mcg PO NAVAS 04/11/22 04/11/22 Mcg = 98968 Iu)] Omeprazole 40 mg PO DAILY 04/11/22 04/11/22 Allergies Allergy/AdvReac Type Severity Reaction Status Date / Time azithromycin AdvReac Nausea & Verified 04/11/22 13:17 [From Zithromax Z-Francisco] Vomiting & Diarrhea codeine AdvReac Nausea & Verified 04/11/22 13:17 Vomiting Review of Systems ROS Statement: Those systems with pertinent positive or pertinent negative responses have been documented in the HPI. ROS Other: All systems not noted in ROS Statement are negative. Past Medical History Past Medical History: GERD/Reflux, GI Bleed, Liver Disease, Osteoarthritis (OA) Additional Past Medical History / Comment(s): occ migraines, sinus congestion from allergies, hx pleurisy, bleeding ulcer Mar 2019, hx anemia, fatty liver disease, hiatal hernia, IBS/constipation. History of Any Multi-Drug Resistant Organisms: None Reported Past Surgical History: Heart Catheterization Additional Past Surgical History / Comment(s): kidney biopsy, laparoscopy, Past Anesthesia/Blood Transfusion Reactions: Previous Problems w/ Anesthesia, Family History of Problems w/ Anesthesia, Motion Sickness Additional Past Anesthesia/Blood Transfusion Reaction / Comment(s): had blood transfusion 03/2019-no problems, "takes a while to come out", 'sister had hard time coming out of it" Past Psychological History: Anxiety Smoking Status: Current every day smoker Past Alcohol Use History: Daily Past Drug Use History: None Reported - Past Family History Father Family Medical History: No Reported History Mother Family Medical History: No Reported History General Exam Limitations: no limitations General appearance: alert, in no apparent distress Head exam: Present: atraumatic Neck exam: Present: full ROM. Absent: tenderness, meningismus Respiratory exam: Present: normal lung sounds bilaterally. Absent: respiratory distress, wheezes, rales, rhonchi, stridor, chest wall tenderness, accessory muscle use Cardiovascular Exam: Present: tachycardia GI/Abdominal exam: Present: soft, tenderness (Epigastric), normal bowel sounds. Absent: distended, guarding, rebound, rigid Extremities exam: Present: full ROM, normal capillary refill. Absent: pedal edema Back exam: Present: normal inspection, full ROM, tenderness (Lumbar sacral). Absent: CVA tenderness (R), CVA tenderness (L), rash noted Neurological exam: Present: alert, oriented X3 Psychiatric exam: Present: normal affect, normal mood Skin exam: Present: warm, dry, intact, normal color. Absent: cyanosis, diaphoretic, petechiae, pallor Course Vital Signs 04/11/22 04/11/22 10:55 16:06 Temperature 97.7 F Pulse Rate 109 H 94 Respiratory 18 18 Rate Blood Pressure 117/84 113/84 O2 Sat by Pulse 100 100 Oximetry - Reevaluation(s) Reevaluation #1: 04/11/22 14:23 On reassessment patient states that the pain is now in her chest and worse with palpation. 04/11/22 18:52 Time: 14:23 EKG Findings - EKG Comments: EKG Findings:: Repeat EKG done at 1500 shows sinus rhythm with a ventricular rate of 84, HI interval 0.1 0.3, QRS 0.7, QTC 0.373. No evidence of ST elevation - EKG Results: EKG: sinus rhythm EKG shows: tachycardia (Ventricular rate 103, HI interval 0.134, QRS 0.74, QTC 0.405; left axis deviation; T-wave inversion in leads 1, 2 and V3 compared to old dated 09/27/2019) Medical Decision Making - Medical Decision Making Patient presents with multiple complaints including epigastric discomfort with nausea, body aches, low back pain and palpable chest pain. She does have history of GERD, fatty liver disease, osteoarthritis, migraines, and irritable bowel syndrome. Surgical history of cholecystectomy. X-ray shows nonspecific bowel gas pattern without dilated loops of small bowel or large bowel. No pneumoperitoneum. Fecal matter and gas throughout the colon and rectum. There is no evidence of leukocytosis, hemoglobin and hematocrit are stable. Patient was given Bentyl, Toradol, Protonix, GI cocktail and IV fluids. On reassessment, patient complains of chest pain that is worse with palpation. Lungs sounds are clear to auscultation. Patient has no cough. Troponin 2 is negative. EKG shows sinus rhythm at a rate of [address] elevation Patient has been afebrile. Vital signs are stable. At this time I do not have a source for all of the patient's symptoms. We did discuss the possibility of viral illness causing costochondritis combined with nausea and body aches. She'll be referred to her primary care doctor this week and directed to return to the emergency room with any new or concerning symptoms. Case discussed with Dr. La who was also at bedside to speak with patient. - Lab Data Result diagrams: 04/11/22 11:28 04/11/22 11:28 Lab Results 04/11/22 04/11/22 04/11/22 Range/Units 11:28 11:28 11:28 WBC 9.6 (3.8-10.6) k/uL RBC 4.37 (3.80-5.40) m/uL Hgb 13.5 (11.4-16.0) gm/dL Hct 41.2 (34.0-46.0) % MCV 94.3 (80.0-100.0) fL MCH 30.8 (25.0-35.0) pg MCHC 32.7 (31.0-37.0) g/dL RDW 17.1 H (11.5-15.5) % Plt Count 418 (150-450) k/uL MPV 7.7 Neutrophils % 78 % Lymphocytes % 12 % Monocytes % 5 % Eosinophils % 3 % Basophils % 1 % Neutrophils # 7.5 (1.3-7.7) k/uL Lymphocytes # 1.1 (1.0-4.8) k/uL Monocytes # 0.4 (0-1.0) k/uL Eosinophils # 0.3 (0-0.7) k/uL Basophils # 0.1 (0-0.2) k/uL Anisocytosis Slight PT 9.5 (9.0-12.0) sec INR 0.8 (<1.2) APTT 23.9 (22.0-30.0) sec Sodium 133 L (137-145) mmol/L Potassium 4.6 (3.5-5.1) mmol/L Chloride 101 (98-107) mmol/L Carbon Dioxide 16 L (22-30) mmol/L Anion Gap 16 mmol/L BUN 16 (7-17) mg/dL Creatinine 1.38 H (0.52-1.04) mg/dL Est GFR (CKD-EPI)AfAm 49 (>60 ml/min/1.73 sqM) Est GFR (CKD-EPI)NonAf 42 (>60 ml/min/1.73 sqM) Glucose 90 (74-99) mg/dL Plasma Lactic Acid Rafael (0.7-2.0) mmol/L Calcium 10.2 (8.4-10.2) mg/dL Total Bilirubin 0.6 (0.2-1.3) mg/dL AST 35 (14-36) U/L ALT 28 (4-34) U/L Alkaline Phosphatase 157 H (38-126) U/L Troponin I (0.000-0.034) ng/mL Total Protein 7.9 (6.3-8.2) g/dL Albumin 4.7 (3.5-5.0) g/dL Amylase 52 (30-110) U/L Lipase 259 (23-300) U/L Urine Color Urine Appearance (Clear) Urine pH (5.0-8.0) Ur Specific [place] (1.001-1.035) Urine Protein (Negative) Urine Glucose (UA) (Negative) Urine Ketones (Negative) Urine Blood (Negative) Urine Nitrite (Negative) Urine Bilirubin (Negative) Urine Urobilinogen (<2.0) mg/dL Ur Leukocyte Esterase (Negative) Urine RBC (0-5) /hpf Urine WBC (0-5) /hpf Ur Squamous Epith Cells (0-4) /hpf Urine Bacteria (None) /hpf Hyaline Casts (0-2) /lpf Urine Mucus (None) /hpf 04/11/22 04/11/22 04/11/22 Range/Units 11:28 11:28 13:28 WBC (3.8-10.6) k/uL RBC (3.80-5.40) m/uL Hgb (11.4-16.0) gm/dL Hct (34.0-46.0) % MCV (80.0-100.0) fL MCH (25.0-35.0) pg MCHC (31.0-37.0) g/dL RDW (11.5-15.5) % Plt Count (150-450) k/uL MPV Neutrophils % % Lymphocytes % % Monocytes % % Eosinophils % % Basophils % % Neutrophils # (1.3-7.7) k/uL Lymphocytes # (1.0-4.8) k/uL Monocytes # (0-1.0) k/uL Eosinophils # (0-0.7) k/uL Basophils # (0-0.2) k/uL Anisocytosis PT (9.0-12.0) sec INR (<1.2) APTT (22.0-30.0) sec Sodium (137-145) mmol/L Potassium (3.5-5.1) mmol/L Chloride (98-107) mmol/L Carbon Dioxide (22-30) mmol/L Anion Gap mmol/L BUN (7-17) mg/dL Creatinine (0.52-1.04) mg/dL Est GFR (CKD-EPI)AfAm (>60 ml/min/1.73 sqM) Est GFR (CKD-EPI)NonAf (>60 ml/min/1.73 sqM) Glucose (74-99) mg/dL Plasma Lactic Acid Rafael 1.8 (0.7-2.0) mmol/L Calcium (8.4-10.2) mg/dL Total Bilirubin (0.2-1.3) mg/dL AST (14-36) U/L ALT (4-34) U/L Alkaline Phosphatase (38-126) U/L Troponin I <0.012 (0.000-0.034) ng/mL Total Protein (6.3-8.2) g/dL Albumin (3.5-5.0) g/dL Amylase (30-110) U/L Lipase (23-300) U/L Urine Color Yellow Urine Appearance Clear (Clear) Urine pH 6.0 (5.0-8.0) Ur Specific [place] 1.023 (1.001-1.035) Urine Protein 1+ H (Negative) Urine Glucose (UA) Negative (Negative) Urine Ketones 2+ H (Negative) Urine Blood Negative (Negative) Urine Nitrite Negative (Negative) Urine Bilirubin 2+ H (Negative) Urine Urobilinogen 4.0 (<2.0) mg/dL Ur Leukocyte Esterase Negative (Negative) Urine RBC <1 (0-5) /hpf Urine WBC 1 (0-5) /hpf Ur Squamous Epith Cells <1 (0-4) /hpf Urine Bacteria Rare H (None) /hpf Hyaline Casts 45 H (0-2) /lpf Urine Mucus Few H (None) /hpf 04/11/22 Range/Units 14:59 WBC (3.8-10.6) k/uL RBC (3.80-5.40) m/uL Hgb (11.4-16.0) gm/dL Hct (34.0-46.0) % MCV (80.0-100.0) fL MCH (25.0-35.0) pg MCHC (31.0-37.0) g/dL RDW (11.5-15.5) % Plt Count (150-450) k/uL MPV Neutrophils % % Lymphocytes % % Monocytes % % Eosinophils % % Basophils % % Neutrophils # (1.3-7.7) k/uL Lymphocytes # (1.0-4.8) k/uL Monocytes # (0-1.0) k/uL Eosinophils # (0-0.7) k/uL Basophils # (0-0.2) k/uL Anisocytosis PT (9.0-12.0) sec INR (<1.2) APTT (22.0-30.0) sec Sodium (137-145) mmol/L Potassium (3.5-5.1) mmol/L Chloride (98-107) mmol/L Carbon Dioxide (22-30) mmol/L Anion Gap mmol/L BUN (7-17) mg/dL Creatinine (0.52-1.04) mg/dL Est GFR (CKD-EPI)AfAm (>60 ml/min/1.73 sqM) Est GFR (CKD-EPI)NonAf (>60 ml/min/1.73 sqM) Glucose (74-99) mg/dL Plasma Lactic Acid Rafael (0.7-2.0) mmol/L Calcium (8.4-10.2) mg/dL Total Bilirubin (0.2-1.3) mg/dL AST (14-36) U/L ALT (4-34) U/L Alkaline Phosphatase (38-126) U/L Troponin I <0.012 (0.000-0.034) ng/mL Total Protein (6.3-8.2) g/dL Albumin (3.5-5.0) g/dL Amylase (30-110) U/L Lipase (23-300) U/L Urine Color Urine Appearance (Clear) Urine pH (5.0-8.0) Ur Specific [place] (1.001-1.035) Urine Protein (Negative) Urine Glucose (UA) (Negative) Urine Ketones (Negative) Urine Blood (Negative) Urine Nitrite (Negative) Urine Bilirubin (Negative) Urine Urobilinogen (<2.0) mg/dL Ur Leukocyte Esterase (Negative) Urine RBC (0-5) /hpf Urine WBC (0-5) /hpf Ur Squamous Epith Cells (0-4) /hpf Urine Bacteria (None) /hpf Hyaline Casts (0-2) /lpf Urine Mucus (None) /hpf Disposition Clinical Impression: Abdominal pain, Acute costochondritis Disposition: HOME SELF-CARE Condition: Good Instructions (If sedation given, give patient instructions): Costochondritis (ED), Abdominal Pain (ED) Additional Instructions: Increase your fluid intake. Continue taking your previously prescribed medications. Follow up with the primary care doctor this week and advise him of your complaints of chest pain. Discuss with your primary care doctor the potential need for endoscopy to check for any ulcerations. Return to the emergency room with any new or concerning symptoms including fever, persistent nausea vomiting, or worsening chest pain. Is patient prescribed a controlled substance at d/c from ED?: No Referrals: Paxton Armendariz DO [Primary Care Provider] - 1-2 days Time of Disposition: 15:43
[2022-04-11 11:39] LABS: Anisocytosis Slight; Basophils # (A) 0.1 k/uL (0-0.2); Basophils % (A) 1 %; Eosinophils # (A) 0.3 k/uL (0-0.7); Eosinophils % (A) 3 %; HCT 41.2 % (34.0-46.0); HGB 13.5 gm/dL (11.4-16.0); Lymphocytes # (A) 1.1 k/uL (1.0-4.8); Lymphocytes % (A) 12 %; MCH 30.8 pg (25.0-35.0); MCHC 32.7 g/dL (31.0-37.0); MCV 94.3 fL (80.0-100.0); Mean Platelet Volume 7.7; Monocytes # (A) 0.4 k/uL (0-1.0); Monocytes % (A) 5 %; Neutrophils # (A) 7.5 k/uL (1.3-7.7); Neutrophils % (A) 78 %; Platelet Count 418 k/uL (150-450); RBC 4.37 m/uL (3.80-5.40); RDW 17.1 % (11.5-15.5); WBC 9.6 k/uL (3.8-10.6)
[2022-04-11 11:51] LABS: INR 0.8 (<1.2); Partial Thromboplastin Time 23.9 sec (22.0-30.0); Prothrombin Time 9.5 sec (9.0-12.0)
[2022-04-11 12:03] LABS: Albumin 4.7 g/dL (3.5-5.0); Calcium 10.2 mg/dL (8.4-10.2); Potassium 4.6 mmol/L (3.5-5.1); Total Bilirubin 0.6 mg/dL (0.2-1.3); Total Protein 7.9 g/dL (6.3-8.2)
--- NOTE | 2022-04-11 13:28 | XR ---
EXAMINATION TYPE: XR KUB DATE OF EXAM: 04/11/2022 11:36 AM INDICATION: Patient age:Female; 56 years old; Reason for study: abdominal pain; PHH. COMPARISON: None. TECHNIQUE: One radiographic view of the abdomen was obtained. FINDINGS: Small osseous molly projecting over the right kidney could represent nonobstructing stone m easuring 4 mm. The bowel gas pattern is nonspecific without dilated loops of small or large bowel. Th ere is no evidence for organomegaly or pneumoperitoneum. The osseous structures are intact. Fecal m aterial and gas are demonstrated throughout the colon and rectum. IMPRESSION: Possible right renal calculus.
[2022-04-11] MEDS ORDERED: MAG HYDROX/AL HYDROX/SIMETH 30 ML, HYOSCYAMINE ELIXIR 10 ML, LIDOCAINE VISCOUS 2% 10 ML PO STA ×3 (13:39)
[2022-04-11 13:45] LABS: Appearance,Urine Clear (Clear); Bacteria,Urine Rare /hpf; Bilirubin,Urine 2+ (Negative); Blood,Urine Negative (Negative); Color,Urine Yellow; Glucose,Urine (UA) Negative (Negative); Hyaline Casts,Urine 45 /lpf (0-2); Ketones,Urine 2+ (Negative); Leukocyte Esterase,Urine Negative (Negative); Mucus,Urine Few /hpf; Nitrite,Urine Negative (Negative); Protein,Urine 1+ (Negative); RBC,Urine <1 /hpf (0-5); Specific Gravity,Urine 1.023 (1.001-1.035); Squamous Epithelial Cell,Urine <1 /hpf (0-4); WBC,Urine 1 /hpf (0-5)
[2022-04-11] MEDS ORDERED: DICYCLOMINE 20 MG TAB PO STA (14:09)
[2022-04-11 16:07] VITALS: BP 113/84; PULSE 94
== END 2022-04-11 16:08 | disposition home or self-care (01) ==
LOC: EC 10:32
DX: M94.0 Chondrocostal junction syndrome [Tietze] (principal); K21.9 Gastro-esophageal reflux disease without esophagitis; M19.90 Unspecified osteoarthritis, unspecified site; F41.9 Anxiety disorder, unspecified; F17.200 Nicotine dependence, unspecified, uncomplicated; Z88.1 Allergy status to other antibiotic agents; Z88.5 Allergy status to narcotic agent; Z79.899 Other long term (current) drug therapy
CPT/HCPCS: 36415; 93005; 80053; 82150; 83605; 83690; 84484; 85025; 85610; 85730; 81001; 74018; 99285; 96374; 96375; 96361 ×4; J1885; C9113

== ENCOUNTER 2022-04-15 14:03 | Emergency (ER) | payer OTHER ==
[2022-04-15] MEDS ORDERED: ASPIRIN 81 MG PO STA (17:40)
[2022-04-15] MEDS ORDERED: SODIUM CHLORIDE 0.9% 1,000 ML IV STA (17:40)
[2022-04-15] MEDS ORDERED: ONDANSETRON 4 MG/2 ML VIAL IVP STA (17:42)
[2022-04-15] MEDS ORDERED: MORPHINE SULFATE 4 MG/ML SYRINGE IVP STA ×2 (17:42→20:00)
[2022-04-15] MEDS ORDERED: MAG HYDROX/AL HYDROX/SIMETH 30 ML, HYOSCYAMINE ELIXIR 10 ML, LIDOCAINE VISCOUS 2% 10 ML PO STA ×3 (17:42)
--- NOTE | 2022-04-15 18:31 | XR ---
EXAMINATION TYPE: XR chest 2V DATE OF EXAM: 04/15/2022 COMPARISON: 03/09/2022 HISTORY: Chest pain TECHNIQUE: 2 views FINDINGS: Heart and mediastinum are normal. Lungs are clear. Diaphragm is normal. Bony thorax is inta ct. IMPRESSION: Normal chest. No change.
[2022-04-15 18:38] LABS: Albumin 4.3 g/dL (3.5-5.0); Calcium 10.1 mg/dL (8.4-10.2); Magnesium 1.7 mg/dL (1.6-2.3); Potassium 4.2 mmol/L (3.5-5.1); Total Bilirubin 0.3 mg/dL (0.2-1.3); Total Protein 7.1 g/dL (6.3-8.2)
[2022-04-15 18:41] LABS: Anisocytosis Slight; HCT 36.3 % (34.0-46.0); HGB 12.2 gm/dL (11.4-16.0); MCH 30.8 pg (25.0-35.0); MCHC 33.6 g/dL (31.0-37.0); MCV 91.8 fL (80.0-100.0); Mean Platelet Volume 8.6; Platelet Count 395 k/uL (150-450); RBC 3.95 m/uL (3.80-5.40); RDW 17.4 % (11.5-15.5)
[2022-04-15 18:47] LABS: INR 0.9 (<1.2); Partial Thromboplastin Time 24.6 sec (22.0-30.0); Prothrombin Time 9.6 sec (9.0-12.0)
--- NOTE | 2022-04-15 18:56 | ED ---
General Adult HPI - General Chief complaint: Chest Pain Stated complaint: Chest Pain,ABD Pain,Leg Pain Time Seen by Provider: 04/15/22 17:30 Source: patient, RN notes reviewed, old records reviewed Mode of arrival: wheelchair Limitations: no limitations - History of Present Illness Initial comments: Patient is a 48-year-old female with past medical history remarkable for acid reflux, motor disease, prior GI bleed who presents emergency Department comp laining of chest pain and stomach pain. Was previously evaluated here on Monday, work up was negative and she was discharged home. Describes the pain as sharp and achy sensation located she states in her chest but points to her epigastric abdomen. Denies any lower abdominal pain in the right lower quadrant but does endorse mild left lower quadrant abdominal pain. Pain does not radiate from one side to the other. Endorses nausea. Denies diarrhea. He is passing flatus. Last bowel movement she thinks is 4 days ago but she also hasn't been eating much. Denies any chest pain otherwise, shortness of breath. Denies fevers, chills, cough. Denies any headaches. His no other acute complaints at this time. States that the left lower quadrant abdominal pain does somewhat go down into her leg. Presents for further evaluation due to recurrence of her pain. - Related Data Home Medications Medication Instructions Recorded Confirmed Atorvastatin [Lipitor] 20 mg PO HS 09/23/20 04/15/22 Dicyclomine [Bentyl] 20 mg PO BID 09/23/20 04/15/22 LORazepam [Ativan] 1 mg PO BID PRN 09/23/20 04/15/22 Verapamil HCl [Verapamil ER] 120 mg PO DAILY 09/23/20 04/15/22 Amitriptyline HCl [Elavil] 50 mg PO HS 04/11/22 04/15/22 Brimonidine Tartrate [Alphagan P 1 drop RIGHT EYE BID 04/11/22 04/15/22 0.2% Ophth Soln] Cyclobenzaprine [Flexeril] 10 mg PO HS 04/11/22 04/15/22 Docusate [Colace] 100 mg PO HS 04/11/22 04/15/22 Ergocalciferol [Vitamin D2 (1250 1,250 mcg PO NAVAS 04/11/22 04/15/22 Mcg = 59590 Iu)] Omeprazole 40 mg PO DAILY 04/11/22 04/15/22 Aspirin EC [Ecotrin Low Dose] 81 mg PO DAILY 04/15/22 04/15/22 Previous Rx's Medication Instructions Recorded Famotidine 20 mg PO DAILY 7 Days #7 tablet 04/15/22 HYDROcodone/APAP 5-325MG [[place] 1 tab PO Q6HR PRN 3 Days #12 tab 04/15/22 5-325] Mag Hydrox/Al Hydrox/Simeth 30 ml PO BID PRN #300 ml 04/15/22 [Maalox] Ondansetron Odt [Zofran Odt] 4 mg PO Q8HR PRN #6 tab 04/15/22 Allergies Allergy/AdvReac Type Severity Reaction Status Date / Time azithromycin AdvReac Nausea & Verified 04/15/22 20:51 [From Zithromax Z-Francisco] Vomiting & Diarrhea codeine AdvReac Nausea & Verified 04/15/22 20:51 Vomiting Review of Systems ROS Statement: Those systems with pertinent positive or pertinent negative responses have been documented in the HPI. Review of Systems: CONST: Denies fever EYES: Denies blurry vision ENT: Denies nasal congestion C/V: Endorses chest pain, but points to her stomach. RESP: Denies shortness of breath GI: Endorses abdominal pain : Denies dysuria SKIN: Denies rash. MSK: Denies joint pain. NEURO: Denies headache ROS Other: All systems not noted in ROS Statement are negative. Past Medical History Past Medical History: GERD/Reflux, GI Bleed, Liver Disease, Osteoarthritis (OA) Additional Past Medical History / Comment(s): occ migraines, sinus congestion from allergies, hx pleurisy, bleeding ulcer Mar 2019, hx anemia, fatty liver disease, hiatal hernia, IBS/constipation. History of Any Multi-Drug Resistant Organisms: None Reported Past Surgical History: Heart Catheterization Additional Past Surgical History / Comment(s): kidney biopsy, laparoscopy, Past Anesthesia/Blood Transfusion Reactions: Previous Problems w/ Anesthesia, Family History of Problems w/ Anesthesia, Motion Sickness Additional Past Anesthesia/Blood Transfusion Reaction / Comment(s): had blood transfusion 03/2019-no problems, "takes a while to come out", 'sister had hard time coming out of it" Past Psychological History: Anxiety Smoking Status: Current every day smoker Past Alcohol Use History: Daily Past Drug Use History: None Reported - Past Family History Father Family Medical History: No Reported History Mother Family Medical History: No Reported History General Exam - General Exam Comments Initial Comments: General: Appears in no acute distress. HEAD: Normal with no signs of head trauma. EYES: PERRLA, EOMI, conjunctiva normal, no discharge. ENT: Hearing grossly intact, normal oropharynx. RESPIRATORY: Clear breath sounds bilaterally. No wheezes, rales, or rhonchi. C/V: Regular rate and rhythm. S1 and S2 auscultated, no edema, peripheral pulses 2+ and intact throughout ABD: Abdomen is soft, nondistended. Tender to palpation left lower quadrant as well as epigastric abdominal regions. No guarding. No peritoneal signs. No rebound tenderness. No CVA tenderness to percussion. EXT: Normal range of motion, no obvious deformity SKIN: No rashes or lesions observed on exposed skin. NEURO: Alert and oriented 4. Limitations: no limitations Course Vital Signs 04/15/22 04/15/22 04/15/22 14:18 17:16 17:17 Temperature 98 F Pulse Rate 47 L 89 Pulse Rate [ 86 [employer] ] Respiratory 18 16 Rate Blood Pressure 83/58 126/93 O2 Sat by Pulse 100 100 Oximetry 04/15/22 04/15/22 19:55 21:53 Temperature 98.2 F Pulse Rate 96 75 Pulse Rate [ [employer] ] Respiratory 20 18 Rate Blood Pressure 140/92 112/81 O2 Sat by Pulse 96 98 Oximetry Medical Decision Making - Medical Decision Making A 7 patient's presentation and physical exam, I'm concerned for possible cardiac etiology for her current symptoms. She is having primarily abdominal pain now, and we will repeat abdominal laboratory studies. They do not obtain a computed tomography scan last time, and we will obtain a CT abdomen and pelvis. She'll be symptomatic be treated as well with IV medications. Patient was in agreement this plan. Vital signs within normal limits. I evaluated the patient and she was placed in a room and at bedside when I evaluated her, vital signs are within normal limits. We'll continue to monitor. She was in agreement this plan. EKG showed no signs of acute ischemia. A second EKG was also obtained which also showed no signs of acute ischemia. Laboratory studies remarkable for mild hyponatremia of 134. Urinalysis is still pending. Remainder of the abdominal labs are unremarkable. Chest x-ray shows no acute cardio pulmonary process. Patient's laboratory studies are remarkable for an undetectable troponin. Remainder of the labs are within normal limits. Chest x-ray shows no acute cardio pulmonary process. Abdominal CT reveals diverticulosis without diverticulitis. No other findings. There is concern for possible infiltrate in the right lower lobe, however she has no upper respiratory symptoms. I discussed the results of the patient. She is feeling improved. I will discharge her home at this time. I did recommend that she obtain both EGD as well as colonoscopy with her GI specialist. She has an appointment with them soon. She was in agreement this plan. Strict return precautions were discussed. She states she already has a appointment with her follow GI doctor. I will provide the patient with a prescription for Zofran, Maalox, famotidine, [place]. I instructed the patient to follow up with their PCP in the next 1-3 days. I explained that the patient should return to the emergency department if they experience any worsening symptoms. Strict return precautions were discussed with the patient. The patient expressed understanding of these instructions. I answered all questions that the patient had. The patient was discharged home in good condition with their prescriptions and follow up information. - Lab Data Result diagrams: 04/15/22 18:12 04/15/22 18:12 Lab Results 04/15/22 04/15/22 04/15/22 Range/Units 18:12 18:12 18:12 WBC 7.8 (3.8-10.6) k/uL RBC 3.95 (3.80-5.40) m/uL Hgb 12.2 (11.4-16.0) gm/dL Hct 36.3 (34.0-46.0) % MCV 91.8 (80.0-100.0) fL MCH 30.8 (25.0-35.0) pg MCHC 33.6 (31.0-37.0) g/dL RDW 17.4 H (11.5-15.5) % Plt Count 395 (150-450) k/uL MPV 8.6 Neutrophils % (Manual) 74 % Lymphocytes % (Manual) 14 % Monocytes % (Manual) 10 % Eosinophils % (Manual) 2 % Neutrophils # (Manual) 5.77 (1.3-7.7) k/uL Lymphocytes # (Manual) 1.09 (1.0-4.8) k/uL Monocytes # (Manual) 0.78 (0-1.0) k/uL Eosinophils # (Manual) 0.16 (0-0.7) k/uL Nucleated RBCs 1 H (0-0) /100 WBC Polychromasia Present Anisocytosis Slight PT 9.6 (9.0-12.0) sec INR 0.9 (<1.2) APTT 24.6 (22.0-30.0) sec Sodium (137-145) mmol/L Potassium (3.5-5.1) mmol/L Chloride (98-107) mmol/L Carbon Dioxide (22-30) mmol/L Anion Gap mmol/L BUN (7-17) mg/dL Creatinine (0.52-1.04) mg/dL Est GFR (CKD-EPI)AfAm (>60 ml/min/1.73 sqM) Est GFR (CKD-EPI)NonAf (>60 ml/min/1.73 sqM) Glucose (74-99) mg/dL Calcium (8.4-10.2) mg/dL Magnesium (1.6-2.3) mg/dL Total Bilirubin (0.2-1.3) mg/dL AST (14-36) U/L ALT (4-34) U/L Alkaline Phosphatase (38-126) U/L Troponin I (0.000-0.034) ng/mL Total Protein (6.3-8.2) g/dL Albumin (3.5-5.0) g/dL Amylase (30-110) U/L Lipase (23-300) U/L Urine Color Yellow Urine Appearance Clear (Clear) Urine pH 6.0 (5.0-8.0) Ur Specific [place] >1.050 H (1.001-1.035) Urine Protein 1+ H (Negative) Urine Glucose (UA) Negative (Negative) Urine Ketones 2+ H (Negative) Urine Blood Negative (Negative) Urine Nitrite Negative (Negative) Urine Bilirubin 1+ H (Negative) Urine Urobilinogen 2.0 (<2.0) mg/dL Ur Leukocyte Esterase Negative (Negative) Urine RBC 1 (0-5) /hpf Urine WBC 2 (0-5) /hpf Ur Squamous Epith Cells 1 (0-4) /hpf Hyaline Casts 4 H (0-2) /lpf Urine Mucus Few H (None) /hpf 04/15/22 04/15/22 Range/Units 18:12 18:12 WBC (3.8-10.6) k/uL RBC (3.80-5.40) m/uL Hgb (11.4-16.0) gm/dL Hct (34.0-46.0) % MCV (80.0-100.0) fL MCH (25.0-35.0) pg MCHC (31.0-37.0) g/dL RDW (11.5-15.5) % Plt Count (150-450) k/uL MPV Neutrophils % (Manual) % Lymphocytes % (Manual) % Monocytes % (Manual) % Eosinophils % (Manual) % Neutrophils # (Manual) (1.3-7.7) k/uL Lymphocytes # (Manual) (1.0-4.8) k/uL Monocytes # (Manual) (0-1.0) k/uL Eosinophils # (Manual) (0-0.7) k/uL Nucleated RBCs (0-0) /100 WBC Polychromasia Anisocytosis PT (9.0-12.0) sec INR (<1.2) APTT (22.0-30.0) sec Sodium 134 L (137-145) mmol/L Potassium 4.2 (3.5-5.1) mmol/L Chloride 103 (98-107) mmol/L Carbon Dioxide 17 L (22-30) mmol/L Anion Gap 14 mmol/L BUN 15 (7-17) mg/dL Creatinine 1.23 H (0.52-1.04) mg/dL Est GFR (CKD-EPI)AfAm 56 (>60 ml/min/1.73 sqM) Est GFR (CKD-EPI)NonAf 49 (>60 ml/min/1.73 sqM) Glucose 91 (74-99) mg/dL Calcium 10.1 (8.4-10.2) mg/dL Magnesium 1.7 (1.6-2.3) mg/dL Total Bilirubin 0.3 (0.2-1.3) mg/dL AST 27 (14-36) U/L ALT 20 (4-34) U/L Alkaline Phosphatase 153 H (38-126) U/L Troponin I <0.012 (0.000-0.034) ng/mL Total Protein 7.1 (6.3-8.2) g/dL Albumin 4.3 (3.5-5.0) g/dL Amylase 47 (30-110) U/L Lipase 254 (23-300) U/L Urine Color Urine Appearance (Clear) Urine pH (5.0-8.0) Ur Specific [place] (1.001-1.035) Urine Protein (Negative) Urine Glucose (UA) (Negative) Urine Ketones (Negative) Urine Blood (Negative) Urine Nitrite (Negative) Urine Bilirubin (Negative) Urine Urobilinogen (<2.0) mg/dL Ur Leukocyte Esterase (Negative) Urine RBC (0-5) /hpf Urine WBC (0-5) /hpf Ur Squamous Epith Cells (0-4) /hpf Hyaline Casts (0-2) /lpf Urine Mucus (None) /hpf - EKG Data -: EKG Interpreted by Me EKG Comments: 12-lead Electrocardiogram Interpretation Note EKG was reviewed and interpreted by myself. 12-lead ECG performed at 1422 is interpreted by me as revealing sinus tachycardia at a rate of 107 beats per minute. [place] is normal. CT intervals 136 ms, QRS duration is 76 ms, QTC is 350 milliseconds.. There were no ST or T wave abnormalities to suggest myocardial ischemia or injury. R wave progression across the precordium was satisfactory. By my interpretation this EKG is non-diagnostic for acute ischemia. 12-lead Electrocardiogram Interpretation Note EKG was reviewed and interpreted by myself. 12-lead ECG performed at 1707 is interpreted by me as revealing normal sinus rhythm at a rate of 95 beats per minute. [place] is normal. CT interval is 135 ms, QRS duration 77 ms, QTc is 291 ms.. There were no ST or T wave abnormalities to suggest myocardial ischemia or injury. R wave progression across the precordium was satisfactory. By my interpretation this EKG is non-diagnostic for acute ischemia. There is a good deal of baseline artifact which makes interpretation difficult in the lateral precordial leads. Disposition Clinical Impression: Abdominal pain of unknown cause, Diverticulosis Disposition: HOME SELF-CARE Condition: Good Instructions (If sedation given, give patient instructions): Diverticulosis (ED), Abdominal Pain (ED) Prescriptions: Famotidine 20 mg PO DAILY 7 Days #7 tablet Mag Hydrox/Al Hydrox/Simeth [Maalox] 30 ml PO BID PRN #300 ml PRN Reason: Dyspepsia HYDROcodone/APAP 5-325MG [[place] 5-325] 1 tab PO Q6HR PRN 3 Days #12 tab PRN Reason: Pain Ondansetron Odt [Zofran Odt] 4 mg PO Q8HR PRN #6 tab PRN Reason: Nausea Is patient prescribed a controlled substance at d/c from ED?: Yes When asked, does pt state using other controlled substances?: No If prescribed controlled substance>3 days was MAPS reviewed?: Prescribed <3 Days If opioid is for acute pain is fill amount 7 days or less?: Yes If Rx opioid, was Start Talking consent form obtained?: Yes Referrals: Paxton Armendariz DO [Primary Care Provider] - 1-2 days Time of Disposition: 21:15
[2022-04-15 18:59] LABS: Eosinophils # (M) 0.16 k/uL (0-0.7); Lymphocytes # (M) 1.09 k/uL (1.0-4.8); Monocytes # (M) 0.78 k/uL (0-1.0); Neutrophils # (M) 5.77 k/uL (1.3-7.7); Neutrophils % (M) 74 %; Nucleated Red Blood Cells 1 /100 WBC (0-0); Polychromasia Present; Total Cells Counted 100; WBC 7.8 k/uL (3.8-10.6)
--- NOTE | 2022-04-15 19:58 | CT ---
EXAMINATION TYPE: CT abdomen pelvis w con DATE OF EXAM: 04/15/2022 COMPARISON: None HISTORY: abdominal pain CT DLP: 1003.9 mGycm Automated exposure control for dose reduction was used. CONTRAST: Performed with IV Contrast, patient injected with 80 mL of Isovue 370. Images obtained from the diaphragm to the floor of the pelvis with the IV contrast. There is a rounded 1.5 cm reticular subpleural infiltrate right lower lobe posteriorly. No pleural ef fusion. Heart size is normal. No pericardial effusion. Liver spleen and stomach pancreas appear intac t. The bile duct are not dilated. There are clips from cholecystectomy. There is no adrenal mass. Kid neys have normal size. No hydronephrosis. Ureters are not dilated. Delayed images show normal renal e xcretion. Appendix is posterior and appears normal. No retroperitoneal adenopathy. The bladder disten ds smoothly. No inguinal hernia. No free fluid in the pelvis. There are some sigmoid diverticula. No diverticulitis. There is no mesenteric edema. No ascites or free air. No sign of a bowel obstruction. Delayed images show normal renal excretion. The lumbar vertebrae have normal spacing and alignment. No compression f racture. Posterior elements are intact. Bony pelvis is intact. The hip joints are intact. IMPRESSION: Normal appendix. No renal stone or obstruction. There is colonic diverticulosis without diverticuliti s. There is a small area of subpleural low-density reticular infiltrate in the right lower lobe. This area is not included on previous exam. This is likely inflammatory.
[2022-04-15 21:16] LABS: Appearance,Urine Clear (Clear); Bilirubin,Urine 1+ (Negative); Blood,Urine Negative (Negative); Color,Urine Yellow; Glucose,Urine (UA) Negative (Negative); Hyaline Casts,Urine 4 /lpf (0-2); Ketones,Urine 2+ (Negative); Leukocyte Esterase,Urine Negative (Negative); Mucus,Urine Few /hpf; Nitrite,Urine Negative (Negative); Protein,Urine 1+ (Negative); RBC,Urine 1 /hpf (0-5); Squamous Epithelial Cell,Urine 1 /hpf (0-4); WBC,Urine 2 /hpf (0-5)
[2022-04-15 21:18] LABS: Specific Gravity,Urine >1.050 (1.001-1.035)
[2022-04-15] MEDS ORDERED: LIDOCAINE VISCOUS 2% 15 ML CUP MUCOUS MEM STA (21:30)
[2022-04-15 21:55] VITALS: BP 112/81; PULSE 75; RESP 18; TEMP 98.2
== END 2022-04-15 21:55 | disposition home or self-care (01) ==
LOC: EC 14:03
DX: K57.30 Diverticulosis of large intestine without perforation or abscess without bleeding (principal); Z88.5 Allergy status to narcotic agent; Z88.1 Allergy status to other antibiotic agents; K21.9 Gastro-esophageal reflux disease without esophagitis; F17.200 Nicotine dependence, unspecified, uncomplicated
CPT/HCPCS: 36415; 80053; 82150; 83690; 83735; 84484; 85025; 85610; 85730; 81001; 71046; 74177; 99285; 96374; 96375; 96376; 96361; J2270; J2405; Q9967

== ENCOUNTER → 2022-05-06 | Outpatient (CLI) | payer OTHER ==
--- NOTE | 2022-05-06 11:40 | XR ---
EXAMINATION TYPE: XR lumbosacral spine min 4V DATE OF EXAM: 05/06/2022 CLINICAL HISTORY: pain COMPARISON: NONE TECHNIQUE: Frontal, lateral, and oblique images of the lumbar spine are obtained. FINDINGS: There are 5 lumbar type vertebral bodies identified. The lumbar spine shows satisfactory alignment without evidence of acute fracture or dislocation. Vertebral body heights are within normal limits. Disc spaces are well preserved. The overlying soft tissue appears unremarkable. IMPRESSION: No acute fracture or dislocation is seen in the lumbar spine.ICD 10 NO FRACTURE, INITIAL EVALUATION
== END | disposition home or self-care (01) ==
LOC: RADXRMAIN 10:08
PROVIDERS: ATTEND Family Medicine
DX: R52 Pain, unspecified (principal)
CPT/HCPCS: 72110

== ENCOUNTER → 2022-10-12 | Outpatient (CLI) | payer OTHER ==
[2022-10-12 21:54] LABS: ALT 29 U/L (8-44); AST 33 U/L (13-35); African American GFR (CKD) 60.7 (60.0-200.0); Albumin 4.1 g/dL (3.8-4.9); Albumin/Globulin Ratio 1.43 (1.60-3.17); Alkaline Phosphatase 144 U/L (41-126); BUN/Creat Ratio 8.03 Ratio (12.00-20.00); Blood Urea Nitrogen 9.2 mg/dL (9.0-27.0); Calcium 9.6 mg/dL (8.7-10.3); Carbon Dioxide 23.4 mmol/L (20.0-27.5); Chloride 101 mmol/L (96-109); Globulin 2.8 g/dL (1.6-3.3); Glucose 93 mg/dL (70-110); Non-African American GFR(CKD) 52.4 (60.0-200.0); Potassium 4.8 mmol/L (3.5-5.5); Sodium 137 mmol/L (135-145); Total Bilirubin <0.15 mg/dL (0.30-1.20); Total Protein 6.9 g/dL (6.2-8.2)
[2022-10-12 22:20] LABS: Chol/HDL Ratio 6.08 Ratio
== END | disposition home or self-care (01) ==
LOC: LABWHC1 11:56
PROVIDERS: ATTEND Family Medicine
DX: E78.5 Hyperlipidemia, unspecified (principal); M54.50 Low back pain, unspecified
CPT/HCPCS: 36415; 80053; 80061; 83721; 84439; 84443; 85379

== ENCOUNTER 2023-03-21 12:58 | Emergency (ER) | payer OTHER ==
[2023-03-21 13:06] VITALS: TEMP 98
[2023-03-21] MEDS ORDERED: HYDROmorphone 0.5 MG/0.5 ML SYRINGE IVP STA ×2 (13:35→15:34)
--- NOTE | 2023-03-21 14:06 | XR ---
EXAMINATION TYPE: XR ribs LT w pa chest xray DATE OF EXAM: 03/21/2023 Comparison: 04/15/2022 Clinical History: 57-year-old female with left rib pain after fall Findings: Heart normal size. However, somewhat prominent appearance to the superior mediastinum. Interstitial p rominence and mild patchy left basilar opacity. No pneumothorax or pleural effusion. There are minima lly offset fractures of the left lateral eighth, ninth, 10th ribs. Impression: 1. Minimally displaced fractures of the left lateral eighth, ninth, and 10th ribs. No pneumothorax or pleural effusion seen. 2. Interstitial prominence could reflect bronchitis or atypical pneumonias. 3. Prominent appearance to the superior mediastinum may be projectional due to AP technique. Recommen d dedicated high-quality PA view to exclude any abnormal mediastinal widening.
--- NOTE | 2023-03-21 14:40 | ED ---
Fall HPI - General Chief Complaint: Fall Stated Complaint: L Rib Pain Time Seen by Provider: 03/21/23 13:02 Source: patient, EMS, RN notes reviewed Mode of arrival: EMS Limitations: no limitations - History of Present Illness Initial Comments: 57-year-old female presents emergency from via EMS chief complaint of left-sided rib injury. Patient states she slipped rest night on her porch/back patient herself on the edge. Patient went left-sided rib pain no head injury no loss conscious no hip pain. Patient did receive fentanyl by EMS. - Related Data Home Medications Medication Instructions Recorded Confirmed Atorvastatin [Lipitor] 20 mg PO HS 09/23/20 04/15/22 Dicyclomine [Bentyl] 20 mg PO BID 09/23/20 04/15/22 LORazepam [Ativan] 1 mg PO BID PRN 09/23/20 04/15/22 Verapamil HCl [Verapamil ER] 120 mg PO DAILY 09/23/20 04/15/22 Amitriptyline HCl [Elavil] 50 mg PO HS 04/11/22 04/15/22 Brimonidine Tartrate [Alphagan P 1 drop RIGHT EYE BID 04/11/22 04/15/22 0.2% Ophth Soln] Cyclobenzaprine [Flexeril] 10 mg PO HS 04/11/22 04/15/22 Docusate [Colace] 100 mg PO HS 04/11/22 04/15/22 Ergocalciferol [Vitamin D2 (1250 1,250 mcg PO NAVAS 04/11/22 04/15/22 Mcg = 35467 Iu)] Omeprazole 40 mg PO DAILY 04/11/22 04/15/22 Aspirin EC [Ecotrin Low Dose] 81 mg PO DAILY 04/15/22 04/15/22 Previous Rx's Medication Instructions Recorded Famotidine 20 mg PO DAILY 7 Days #7 tablet 04/15/22 HYDROcodone/APAP 5-325MG [[place] 1 tab PO Q6HR PRN 3 Days #12 tab 04/15/22 5-325] Mag Hydrox/Al Hydrox/Simeth 30 ml PO BID PRN #300 ml 04/15/22 [Maalox] Ondansetron Odt [Zofran Odt] 4 mg PO Q8HR PRN #6 tab 04/15/22 HYDROcodone/APAP 7.5-325MG [[place] 1 tab PO Q6HR PRN 3 Days #12 tab 03/21/23 7.5-325] Allergies Allergy/AdvReac Type Severity Reaction Status Date / Time azithromycin AdvReac Nausea & Verified 04/15/22 20:51 [From Zithromax Z-Francisco] Vomiting & Diarrhea codeine AdvReac Nausea & Verified 04/15/22 20:51 Vomiting Review of Systems ROS Statement: Those systems with pertinent positive or pertinent negative responses have been documented in the HPI. ROS Other: All systems not noted in ROS Statement are negative. Past Medical History Past Medical History: GERD/Reflux, GI Bleed, Liver Disease, Osteoarthritis (OA) Additional Past Medical History / Comment(s): occ migraines, sinus congestion from allergies, hx pleurisy, bleeding ulcer Mar 2019, hx anemia, fatty liver disease, hiatal hernia, IBS/constipation. History of Any Multi-Drug Resistant Organisms: None Reported Past Surgical History: Heart Catheterization Additional Past Surgical History / Comment(s): kidney biopsy, laparoscopy, Past Anesthesia/Blood Transfusion Reactions: Previous Problems w/ Anesthesia, Family History of Problems w/ Anesthesia, Motion Sickness Additional Past Anesthesia/Blood Transfusion Reaction / Comment(s): had blood transfusion 03/2019-no problems, "takes a while to come out", 'sister had hard time coming out of it" Past Psychological History: Anxiety Smoking Status: Current some day smoker Past Alcohol Use History: Daily Past Drug Use History: None Reported - Past Family History Father Family Medical History: No Reported History Mother Family Medical History: No Reported History General Exam Limitations: no limitations General appearance: alert, in no apparent distress Head exam: Present: atraumatic, normocephalic, normal inspection Neck exam: Present: normal inspection, full ROM. Absent: tenderness, meningismus, lymphadenopathy Respiratory exam: Present: normal lung sounds bilaterally, chest wall tenderness. Absent: respiratory distress, wheezes, rales, rhonchi, stridor Cardiovascular Exam: Present: regular rate, normal rhythm, normal heart sounds. Absent: systolic murmur, diastolic murmur, rubs, gallop, clicks GI/Abdominal exam: Present: soft, normal bowel sounds. Absent: distended, tenderness, guarding, rebound, rigid Course Vital Signs 03/21/23 13:00 Temperature 98.0 F Pulse Rate 98 Respiratory 20 Rate Blood Pressure 125/87 O2 Sat by Pulse 93 L Oximetry Medical Decision Making - Medical Decision Making Was pt. sent in by a medical professional or institution (GEORGE Gant, MANAGER GOVERNMENT, urgent care, hospital, or fpc...) When possible be specific @ -No Did you speak to anyone other than the patient for history (EMS, parent, family, police, friend...)? What history was obtained from this source @ -EMS providing prehospital care, treatment and complaint Did you review nursing and triage notes (agree or disagree)? Why? @ -I reviewed and agree with nursing and triage notes Were old charts reviewed (outside hosp., previous admission, EMS record, old EKG, old radiological studies, urgent care reports/EKG's, fpc records)? Report findings @ -No old charts were reviewed Differential Diagnosis (chest pain, altered mental status, abdominal pain women, abdominal pain men, vaginal bleeding, weakness, fever, dyspnea, syncope, headache, dizziness, GI bleed, back pain, seizure, CVA, palpatations, mental health, musculoskeletal)? @ -Pneumothorax, rib contusion, rib fracture EKG interpreted by me (3pts min.). @ -None X-rays interpreted by me (1pt min.). @ -Rib x-rays show was 2 rib fractures or pneumothorax CT interpreted by me (1pt min.). @ -CT chest showing rib fractures 7-8-9-10 labs no pneumothorax there is small effusion, subcutaneous emphysema U/S interpreted by me (1pt. min.). @ -None done What testing was considered but not performed or refused? (CT, X-rays, U/S, labs)? Why? @ -None What meds were considered but not given or refused? Why? @ -None Did you discuss the management of the patient with other professionals (professionals i.e. GEORGE Gant, MANAGER GOVERNMENT, lab, RT, psych nurse, social media specialist, office rental clerk, teacher, school services officer, egg caser)? Give summary @ -No Was smoking cessation discussed for >3mins.? @ -No Was critical care preformed (if so, how long)? @ -No Were there social determinants of health that impacted care today? How? (Homelessness, low income, unemployed, alcoholism, drug addiction, transportation, low edu. Level, literacy, decrease access to med. care, retirement, rehab)? @ -No Was there de-escalation of care discussed even if they declined (Discuss DNR or withdrawal of care, Hospice)? DNR status @ -No What co-morbidities impacted this encounter? (DM, HTN, Smoking, COPD, CAD, Cancer, CVA, ARF, Chemo, Hep., AIDS, mental health diagnosis, sleep apnea, morbid obesity)? @ -None Was patient admitted / discharged? Hospital course, mention meds given and route, prescriptions, significant lab abnormalities, going to OR and other pertinent info. @ -Patient provided adequate pain control patient is discharged with incentive spirometer, analgesics. Patient's agrees this plan return for any worsening changes symptoms Undiagnosed new problem with uncertain prognosis? @ -No Drug Therapy requiring intensive monitoring for toxicity (Heparin, Nitro, Insulin, Cardizem)? @ -No Were any procedures done? @ -No Diagnosis/symptom? @ -Multiple rib fractures, fall Acute, or Chronic, or Acute on Chronic? @ -Acute Uncomplicated (without systemic symptoms) or Complicated (systemic symptoms)? @ -Uncomplicated, Side effects of treatment? @ -No Exacerbation, Progression, or Severe Exacerbation? @ -No Poses a threat to life or bodily function? How? (Chest pain, [place], [place], pneumonia, PE, COPD, DKA, ARF, appy, cholecystitis, CVA, Diverticulitis, Homicidal, Suicidal, threat to staff... and all critical care pts) @ -No Disposition Clinical Impression: Fall, Multiple fractures of ribs of left side Disposition: HOME SELF-CARE Condition: Stable Instructions (If sedation given, give patient instructions): Rib Fracture (ED) Additional Instructions: Please return to the Emergency Department if symptoms worsen or any other concerns. Prescriptions: HYDROcodone/APAP 7.5-325MG [[place] 7.5-325] 1 tab PO Q6HR PRN 3 Days #12 tab PRN Reason: pain Is patient prescribed a controlled substance at d/c from ED?: Yes When asked, does pt state using other controlled substances?: No If prescribed controlled substance>3 days was MAPS reviewed?: Prescribed <3 Days If opioid is for acute pain is fill amount 7 days or less?: Yes If Rx opioid, was Start Talking consent form obtained?: Yes Referrals: Paxton Armendariz DO [Primary Care Provider] - 1-2 days Time of Disposition: 15:45
--- NOTE | 2023-03-21 15:00 | CT ---
EXAMINATION TYPE: CT chest wo con DATE OF EXAM: 03/21/2023 COMPARISON: None HISTORY: fall CT DLP: 427.[address] of the chest was performed with lung and mediastinal window settings submitted. The la ck of contrast limits evaluation of the vascular, mediastinal and parenchymal structures including th e upper abdomen. LUNGS: The lungs are clear and free of infiltrate. No atelectasis. No pulmonary nodule or mass is de tected. Small left-sided pleural effusion could reflect a degree of hemothorax with Hounsfield unit m easurement of 27. There is evidence of basilar subpleural fibrosis and mild compressive atelectasis. MEDIASTINUM/DALTON: Thoracic aorta is of normal caliber with limited evaluation given lack of contrast . The heart is not enlarged. No evidence for mediastinal mass. No lymph nodes greater than 1cm. UPPER ABDOMEN: Small hiatal hernia noted. OTHER: Ribs 11 and 12 are not included on the field of view. Noted are fractures of left lateral ribs 7, 8, 9 and 10 with adjacent subcutaneous emphysema. IMPRESSION: 1. Ribs 11 and 12 are not included on the field of view. Noted are fractures of left lateral ribs 7, 8, 9 and 10 with adjacent subcutaneous emphysema. 2. No sizable pneumothorax present. 3. Small left pleural effusion may reflect hemopneumothorax.
[2023-03-21] MEDS ORDERED: KETOROLAC 15 MG/ML 1 ML VIAL IVP STA (15:34)
[2023-03-21 16:20] VITALS: BP 117/82; PULSE 91; RESP 18
== END 2023-03-21 16:42 | disposition home or self-care (01) ==
LOC: EC 12:58
DX: S22.42XA Multiple fractures of ribs, left side, initial encounter for closed fracture (principal); J90 Pleural effusion, not elsewhere classified; K21.9 Gastro-esophageal reflux disease without esophagitis; F41.9 Anxiety disorder, unspecified; F17.200 Nicotine dependence, unspecified, uncomplicated; Z79.82 Long term (current) use of aspirin; Z79.899 Other long term (current) drug therapy; Z88.1 Allergy status to other antibiotic agents; Z88.5 Allergy status to narcotic agent; W01.0XXA Fall on same level from slipping, tripping and stumbling without subsequent striking against object, initial encounter
CPT/HCPCS: 71101; 71250; 99285; 96374; 96375; 96376; J1885; J1170

== ENCOUNTER 2023-03-23 14:54 | Inpatient (IN) | payer OTHER ==
--- NOTE | 2023-03-23 16:24 | CT ---
EXAMINATION TYPE: CT brain clarence urias DATE OF EXAM: 03/23/2023 COMPARISON: None HISTORY: Fall. CT DLP: 1620.[address] of the brain was performed. The ventricles, basal cisterns and sulci overlying the cerebral convexities demonstrate mild enlargem ent. There is no evidence for intracranial hemorrhage or sulcal effacement. There is decreased attenuatio n about the periventricular white matter and deep white matter of both cerebral hemispheres, compatib le with chronic small vessel ischemia. No mass effects are seen. If symptoms persist consider MRI. Osseous calvarium is intact. IMPRESSION: 1. Age related atrophic and chronic small vessel ischemic change without acute intracranial process seen at this time. CT Cervical Spine: Unenhanced CT of the cervical spine was performed with bone and soft tissue window settings submitted . Coronal and sagittal reconstruction is obtained. There is normal alignment and prevertebral soft tissues. No evidence for acute cervical fracture . Scattered degenerative disc disease and spondylosis. Biapical scarring. IMPRESSION: 1. No evidence for acute fracture or subluxation of the cervical spine.
--- NOTE | 2023-03-23 16:34 | ED ---
General Adult HPI - General Chief complaint: Weakness Stated complaint: immobillity Time Seen by Provider: 03/23/23 15:12 Source: patient, EMS, RN notes reviewed, old records reviewed Mode of arrival: EMS - History of Present Illness Initial comments: 57-year-old female presenting for evaluation of right leg weakness. Patient states she woke this morning and had difficulty ambulating secondary to weakness. She states she woke at 8 AM. She states she had gone to bed without complaint although she is uncertain of exactly the time course of her symptoms. She states she did fall 2 days prior and has known rib fractures. She denies head or neck trauma with this fall. She denies back pain or back trauma with the fall. She denies any pain in the right extremity she states she can feel it normally but is unable to move it. - Related Data Home Medications Medication Instructions Recorded Confirmed Atorvastatin [Lipitor] 20 mg PO HS 09/23/20 03/23/23 LORazepam [Ativan] 1 mg PO BID PRN 09/23/20 03/23/23 Verapamil HCl [Verapamil ER] 120 mg PO DAILY 09/23/20 03/23/23 Amitriptyline HCl [Elavil] 50 mg PO HS 04/11/22 03/23/23 Brimonidine Tartrate [Alphagan P 1 drop RIGHT EYE BID 04/11/22 03/23/23 0.2% Ophth Soln] Cyclobenzaprine [Flexeril] 10 mg PO HS 04/11/22 03/23/23 Ergocalciferol [Vitamin D2 (1250 1,250 mcg PO NAVAS 04/11/22 03/23/23 Mcg = 69810 Iu)] Omeprazole 40 mg PO DAILY 04/11/22 03/23/23 Aspirin EC [Ecotrin Low Dose] 81 mg PO DAILY 04/15/22 03/23/23 Gabapentin [Neurontin] 300 mg PO TID 03/23/23 03/23/23 HYDROcodone/APAP 7.5-325MG [[place] 1 tab PO Q6HR PRN 03/23/23 03/23/23 7.5-325] Allergies Allergy/AdvReac Type Severity Reaction Status Date / Time azithromycin AdvReac Nausea & Verified 04/15/22 20:51 [From Zithromax Z-Francisco] Vomiting & Diarrhea codeine AdvReac Nausea & Verified 04/15/22 20:51 Vomiting Review of Systems ROS Statement: Those systems with pertinent positive or pertinent negative responses have been documented in the HPI. ROS Other: All systems not noted in ROS Statement are negative. Past Medical History Past Medical History: GERD/Reflux, GI Bleed, Liver Disease, Osteoarthritis (OA) Additional Past Medical History / Comment(s): occ migraines, sinus congestion from allergies, hx pleurisy, bleeding ulcer Mar 2019, hx anemia, fatty liver disease, hiatal hernia, IBS/constipation. History of Any Multi-Drug Resistant Organisms: None Reported Past Surgical History: Heart Catheterization Additional Past Surgical History / Comment(s): kidney biopsy, laparoscopy, Past Anesthesia/Blood Transfusion Reactions: Previous Problems w/ Anesthesia, Family History of Problems w/ Anesthesia, Motion Sickness Additional Past Anesthesia/Blood Transfusion Reaction / Comment(s): had blood transfusion 03/2019-no problems, "takes a while to come out", 'sister had hard time coming out of it" Past Psychological History: Anxiety Smoking Status: Current some day smoker Past Alcohol Use History: Daily Past Drug Use History: None Reported - Past Family History Father Family Medical History: No Reported History Mother Family Medical History: No Reported History General Exam General appearance: alert, in no apparent distress Head exam: Present: atraumatic, normocephalic Eye exam: Present: normal appearance, PERRL ENT exam: Present: mucous membranes dry Neck exam: Present: normal inspection, full ROM. Absent: tenderness Respiratory exam: Present: chest wall tenderness. Absent: respiratory distress Cardiovascular Exam: Present: regular rate, normal rhythm GI/Abdominal exam: Present: soft. Absent: distended, tenderness Extremities exam: Present: full ROM, normal capillary refill. Absent: tenderness, calf tenderness Back exam: Present: normal inspection. Absent: tenderness, paraspinal tenderness, vertebral tenderness Neurological exam: Present: alert, oriented X3, CN II-XII intact, motor sensory deficit (Right leg paralysis) Psychiatric exam: Present: anxious Skin exam: Present: warm, dry, intact. Absent: cyanosis, diaphoretic Course Vital Signs 03/23/23 03/23/23 03/23/23 14:59 15:56 16:10 Pulse Rate 100 99 91 Respiratory 20 18 20 Rate Blood Pressure 127/86 127/86 130/75 O2 Sat by Pulse 94 L 93 L 94 L Oximetry 03/23/23 03/23/23 03/23/23 16:11 16:30 16:45 Pulse Rate 91 88 90 Respiratory 20 18 16 Rate Blood Pressure 130/75 133/84 117/74 O2 Sat by Pulse 94 L 93 L 95 Oximetry 03/23/23 03/23/23 03/23/23 17:00 17:15 17:30 Pulse Rate 90 93 86 Respiratory 16 16 18 Rate Blood Pressure 128/77 117/86 133/82 O2 Sat by Pulse 16 L 94 L 94 L Oximetry 03/23/23 17:45 Pulse Rate 86 Respiratory 18 Rate Blood Pressure 139/82 O2 Sat by Pulse 94 L Oximetry - Reevaluation(s) Reevaluation #1: 03/23/23 [address] Casas, covering for stroke. Reevaluation #2: 03/23/23 19:25 Patient reevaluated, symptoms have significantly improved, she is moving her right leg she has persistent weakness but this is significantly improved. Medical Decision Making - Medical Decision Making Was pt. sent in by a medical professional or institution (, PA, VAULT CUSTODIAN, urgent care, hospital, or group home...) When possible be specific @ -No Did you speak to anyone other than the patient for history (EMS, parent, family, police, friend...)? What history was obtained from this source @ -No Did you review nursing and triage notes (agree or disagree)? Why? @ -I reviewed and agree with nursing and triage notes Were old charts reviewed (outside hosp., previous admission, EMS record, old EKG, old radiological studies, urgent care reports/EKG's, group home records)? Report findings @ -No old charts were reviewed Differential Diagnosis (chest pain, altered mental status, abdominal pain women, abdominal pain men, vaginal bleeding, weakness, fever, dyspnea, syncope, headache, dizziness, GI bleed, back pain, seizure, CVA, palpatations, mental health, musculoskeletal)? @ -Differential CVA Ischemic stroke, hemorrhagic stroke, brain tumor, atypical migraine, Wernicke's encephalopathy, seizure, multiple sclerosis, meningitis, encephalitis, hypoglycemia, Guillain-Puentes, electrolytes disturbance, myasthenia gravis.... This is not meant to be an all-inclusive list EKG interpreted by me (3pts min.). @Sinus rhythm, low voltage, rate of 88, MA interval 136, QRS duration 80, QTC 372, no ST segment elevation T-wave flattening and inversion in the lateral precordial leads. X-rays interpreted by me (1pt min.). @ -None done CT interpreted by me (1pt min.). @ -CT brain negative for intracranial hemorrhage or mass effect, CT angiography negative for stenosis or acute occlusion. U/S interpreted by me (1pt. min.). @ -None done What testing was considered but not performed or refused? (CT, X-rays, U/S, l abs)? Why? @ -None What meds were considered but not given or refused? Why? @ -None Did you discuss the management of the patient with other professionals (professionals i.e. , PA, VAULT CUSTODIAN, lab, RT, psych nurse, rn social services, online merchandising specialist, teacher, flight communications officer, case management associate)? Give summary @ -Dr. Campa Was smoking cessation discussed for >3mins.? @ -No Was critical care preformed (if so, how long)? @ -No Were there social determinants of health that impacted care today? How? (Homelessness, low income, unemployed, alcoholism, drug addiction, transportation, low edu. Level, literacy, decrease access to med. care, residential, rehab)? @ -No Was there de-escalation of care discussed even if they declined (Discuss DNR or withdrawal of care, Hospice)? DNR status @ -No What co-morbidities impacted this encounter? (DM, HTN, Smoking, COPD, CAD, Cancer, CVA, ARF, Chemo, Hep., AIDS, mental health diagnosis, sleep apnea, morbid obesity)? @ -[Alcohol abuse, Was patient admitted / discharged? Hospital course, mention meds given and route, prescriptions, significant lab abnormalities, going to OR and other pertinent info. @ -57-year-old female presented for gait instability, right leg weakness. On exam the patient was initially completely flaccid paralysis in the right leg. She had described some arm symptoms which had resolved prior to arrival. Her symptoms began with waking up this morning about 8 AM. She was not a candidate for TPA given the duration of symptoms. However she was a code stroke activation and I discussed the case with the stroke neurologist. She received a CT of the brain without contrast and CT angiography which were negative. Patient's symptoms improved while she was in the emergency department however she will require further stroke evaluation. She's will be admitted to internal medicine with neurology on consult. Undiagnosed new problem with uncertain prognosis? @ -No Drug Therapy requiring intensive monitoring for toxicity (Heparin, Nitro, Insulin, Cardizem)? @ -No Were any procedures done? @ -[Right leg weakness, rule out CVA Diagnosis/symptom? @Acute Acute, or Chronic, or Acute on Chronic? @ -default Uncomplicated (without systemic symptoms) or Complicated (systemic symptoms)? @ -default Side effects of treatment? @ -No Exacerbation, Progression, or Severe Exacerbation? @ -No Poses a threat to life or bodily function? How? (Chest pain, [place], [place], pneumonia, PE, COPD, DKA, ARF, appy, cholecystitis, CVA, Diverticulitis, Homicidal, Suicidal, threat to staff... and all critical care pts) @ -[Yes, CVA - Lab Data Result diagrams: 03/23/23 16:24 03/23/23 16:24 Lab Results 03/23/23 03/23/23 03/23/23 Range/Units 16:23 16:23 16:24 WBC 8.7 (3.8-10.6) k/uL RBC 3.20 L (3.80-5.40) m/uL Hgb 10.6 L (11.4-16.0) gm/dL Hct 32.3 L (34.0-46.0) % MCV 100.8 H (80.0-100.0) fL MCH 33.0 (25.0-35.0) pg MCHC 32.7 (31.0-37.0) g/dL RDW 16.8 H (11.5-15.5) % Plt Count 265 (150-450) k/uL MPV 7.4 Neutrophils % 81 % Lymphocytes % 10 % Monocytes % 5 % Eosinophils % 2 % Basophils % 0 % Neutrophils # 7.0 (1.3-7.7) k/uL Lymphocytes # 0.8 L (1.0-4.8) k/uL Monocytes # 0.5 (0-1.0) k/uL Eosinophils # 0.2 (0-0.7) k/uL Basophils # 0.0 (0-0.2) k/uL Anisocytosis Slight Macrocytosis Slight PT (9.0-12.0) sec INR (<1.2) APTT (22.0-30.0) sec Sodium (137-145) mmol/L Potassium (3.5-5.1) mmol/L Chloride (98-107) mmol/L Carbon Dioxide (22-30) mmol/L Anion Gap mmol/L BUN (7-17) mg/dL Creatinine (0.52-1.04) mg/dL Est GFR (CKD-EPI)AfAm (>60 ml/min/1.73 sqM) Est GFR (CKD-EPI)NonAf (>60 ml/min/1.73 sqM) Glucose (74-99) mg/dL POC Glucose (mg/dL) (70-110) mg/dL POC Glu [employer]hanger Contractor ID Plasma Lactic Acid Rafael 1.4 (0.7-2.0) mmol/L Calcium (8.4-10.2) mg/dL Magnesium (1.6-2.3) mg/dL Total Bilirubin (0.2-1.3) mg/dL AST (14-36) U/L ALT (4-34) U/L Alkaline Phosphatase (38-126) U/L Troponin I <0.012 (0.000-0.034) ng/mL Total Protein (6.3-8.2) g/dL Albumin (3.5-5.0) g/dL Serum Alcohol mg/dL 03/23/23 03/23/23 03/23/23 Range/Units 16:24 16:24 16:44 WBC (3.8-10.6) k/uL RBC (3.80-5.40) m/uL Hgb (11.4-16.0) gm/dL Hct (34.0-46.0) % MCV (80.0-100.0) fL MCH (25.0-35.0) pg MCHC (31.0-37.0) g/dL RDW (11.5-15.5) % Plt Count (150-450) k/uL MPV Neutrophils % % Lymphocytes % % Monocytes % % Eosinophils % % Basophils % % Neutrophils # (1.3-7.7) k/uL Lymphocytes # (1.0-4.8) k/uL Monocytes # (0-1.0) k/uL Eosinophils # (0-0.7) k/uL Basophils # (0-0.2) k/uL Anisocytosis Macrocytosis PT 9.5 (9.0-12.0) sec INR 0.9 (<1.2) APTT 17.1 L (22.0-30.0) sec Sodium 134 L (137-145) mmol/L Potassium 3.8 (3.5-5.1) mmol/L Chloride 106 (98-107) mmol/L Carbon Dioxide 24 (22-30) mmol/L Anion Gap 4 mmol/L BUN 18 H (7-17) mg/dL Creatinine 1.20 H (0.52-1.04) mg/dL Est GFR (CKD-EPI)AfAm 57 (>60 ml/min/1.73 sqM) Est GFR (CKD-EPI)NonAf 50 (>60 ml/min/1.73 sqM) Glucose 96 (74-99) mg/dL POC Glucose (mg/dL) 99 (70-110) mg/dL POC Glu [employer] Contractor ID October Plasma Lactic Acid Rafael (0.7-2.0) mmol/L Calcium 9.2 (8.4-10.2) mg/dL Magnesium 1.6 (1.6-2.3) mg/dL Total Bilirubin 0.5 (0.2-1.3) mg/dL AST 37 H (14-36) U/L ALT 25 (4-34) U/L Alkaline Phosphatase 129 H (38-126) U/L Troponin I (0.000-0.034) ng/mL Total Protein 6.2 L (6.3-8.2) g/dL Albumin 3.4 L (3.5-5.0) g/dL Serum Alcohol <10 mg/dL Disposition Clinical Impression: Right leg weakness, CVA (cerebral vascular accident) Disposition: ADMITTED IP TO THIS HOSP Condition: Stable Is patient prescribed a controlled substance at d/c from ED?: No Referrals: None,Stated [Primary Care Provider] - 1-2 days Time of Disposition: 19:30
[2023-03-23 16:47] LABS: Glucose,Whole Blood 99 mg/dL (70-110)
[2023-03-23 16:49] LABS: Anisocytosis Slight; Basophils % (A) 0 %; Eosinophils # (A) 0.2 k/uL (0-0.7); Eosinophils % (A) 2 %; HCT 32.3 % (34.0-46.0); HGB 10.6 gm/dL (11.4-16.0); Lymphocytes # (A) 0.8 k/uL (1.0-4.8); Lymphocytes % (A) 10 %; MCHC 32.7 g/dL (31.0-37.0); MCV 100.8 fL (80.0-100.0); Macrocytosis Slight; Mean Platelet Volume 7.4; Monocytes # (A) 0.5 k/uL (0-1.0); Monocytes % (A) 5 %; Neutrophils % (A) 81 %; Platelet Count 265 k/uL (150-450); RDW 16.8 % (11.5-15.5); WBC 8.7 k/uL (3.8-10.6)
--- NOTE | 2023-03-23 16:57 | CT ---
EXAMINATION TYPE: CT angio head neck CT DLP: 1620 mGycm, Automated exposure control for dose reduction was used. DATE OF EXAM: 03/23/2023 4:39 PM COMPARISON: CT same day. CLINICAL INDICATION:Female, 57 years old with history of right leg weakness; PHH, TECHNIQUE: Axially acquired helical CT angiogram of the head and neck was obtained with contrast. Axi al images are supplemented with 3D reconstructions [facility] NASCET criteria used. Contrast used: 100 cc of Isovue-370. Oral contrast used: None. FINDINGS: CTA HEAD: No evidence of acute intracranial hemorrhage, mass effect, or midline shift. The ventricles, sulci, a nd cisterns are unremarkable. The visualized portions of the internal carotid arteries, middle cerebral arteries, anterior cerebral arteries, and posterior cerebral arteries are patent. The basilar and vertebral arteries are patent. CTA NECK: Right Carotid System: The common carotid artery and external carotid artery are patent. The carotid bifurcation demonstrate s no evidence of hemodynamically significant stenosis. The remaining portions of the internal carotid artery demonstrate normal size without significant narrowing. Left Carotid System: The common carotid artery and external carotid artery are patent. The carotid bifurcation demonstrate s no evidence of hemodynamically significant stenosis. The remaining portions of the internal carotid artery demonstrate normal size without significant narrowing. Vertebral arteries are patent without evidence hemodynamically significant stenosis. There is a three-vessel aortic arch. The origins of the great vessels are patent. No evidence of hemo dynamically significant stenosis. Upper thorax: Mild centrilobular emphysema changes in the lung apices. IMPRESSION: 1. No evidence of dissection of the cervical internal carotid arteries or vertebral arteries or any e vidence of significant stenosis at the carotid bifurcations. 2. No evidence of intracranial high-grade stenosis or intracranial aneurysm.
[2023-03-23 17:02] LABS: ALT 25 U/L (4-34); AST 37 U/L (14-36); African American GFR (CKD) 57 (>60 ml/min/1.73 sqM); Albumin 3.4 g/dL (3.5-5.0); Alcohol <10 mg/dL; Alkaline Phosphatase 129 U/L (38-126); Anion Gap 4 mmol/L; Blood Urea Nitrogen 18 mg/dL (7-17); Calcium 9.2 mg/dL (8.4-10.2); Carbon Dioxide 24 mmol/L (22-30); Chloride 106 mmol/L (98-107); Glucose 96 mg/dL (74-99); Magnesium 1.6 mg/dL (1.6-2.3); Non-African American GFR(CKD) 50 (>60 ml/min/1.73 sqM); Potassium 3.8 mmol/L (3.5-5.1); Sodium 134 mmol/L (137-145); Total Bilirubin 0.5 mg/dL (0.2-1.3); Total Protein 6.2 g/dL (6.3-8.2)
[2023-03-23 17:14] LABS: INR 0.9 (<1.2); Prothrombin Time 9.5 sec (9.0-12.0)
[2023-03-23] MEDS ORDERED: SODIUM CHLORIDE 0.9% 1,000 ML IV ONE (17:16)
[2023-03-23] MEDS ORDERED: ASPIRIN 325 MG TAB PO STA (17:16)
[2023-03-23 17:37] LABS: Partial Thromboplastin Time 17.1 sec (22.0-30.0)
[2023-03-23] MEDS ORDERED: HYDROmorphone 0.5 MG/0.5 ML SYRINGE IVP STA (17:40)
[2023-03-23] MEDS ORDERED: THIAMINE 100 MG/ML 2 ML VIAL IM STA (19:10)
[2023-03-23] MEDS ORDERED: LORazepam 2 MG/ML INJ IV PRN ×3 (19:10)
[2023-03-23] MEDS: SODIUM CHLORIDE 0.9% 1,000 ML IV SCH (20:01)
[2023-03-23] MEDS: ATORVASTATIN 80 MG TAB PO SCH (21:07)
[2023-03-23] MEDS: HYDROmorphone 0.5 MG/0.5 ML SYRINGE IVP PRN (21:09)
[2023-03-24] MEDS: HYDROmorphone 0.5 MG/0.5 ML SYRINGE IVP PRN ×4 (02:53→20:10)
[2023-03-24 03:35] LABS: Appearance,Urine Clear (Clear); Bacteria,Urine Few /hpf; Bilirubin,Urine Negative (Negative); Blood,Urine Negative (Negative); Color,Urine Yellow; Glucose,Urine (UA) Negative (Negative); Ketones,Urine Negative (Negative); Leukocyte Esterase,Urine Moderate (Negative); Mucus,Urine Rare /hpf; Nitrite,Urine Positive (Negative); PH, Urine 5.5 (5.0-8.0); Protein,Urine 1+ (Negative); RBC,Urine 2 /hpf (0-5); Squamous Epithelial Cell,Urine 8 /hpf (0-4); Urobilinogen,Urine <2.0 mg/dL (<2.0); WBC,Urine 37 /hpf (0-5)
[2023-03-24 03:36] LABS: Specific Gravity,Urine >1.050 (1.001-1.035)
[2023-03-24] MEDS: THIAMINE 100 MG TAB PO SCH (08:39)
[2023-03-24 08:50] LABS: LDL Cholesterol,Calculated 133.2 mg/dL (0.0-131.0)
[2023-03-24] MEDS ORDERED: ASPIRIN 325 MG TAB PO SCH (09:00)
[2023-03-24] MEDS ORDERED: ACETAMINOPHEN TAB 325 MG TAB PO PRN (09:28)
[2023-03-24] MEDS ORDERED: ONDANSETRON 4 MG/2 ML VIAL IVP PRN (09:28)
[2023-03-24] MEDS: PANTOPRAZOLE 40 MG TABLET PO SCH (11:44)
[2023-03-24] MEDS: GABAPENTIN 100 MG CAP PO SCH ×3 (11:44→20:10)
[2023-03-24] MEDS: BRIMONIDINE TARTRATE 0.2% DROPS 5 ML BTL RIGHT EYE SCH ×2 (11:45→20:11)
[2023-03-24] MEDS: KETOROLAC 15 MG/ML 1 ML VIAL IVP SCH ×3 (14:12→23:29)
--- NOTE | 2023-03-24 15:36 | P.CNNES ---
History of Present Illness Consult date: 03/24/23 Requesting physician: Wesley Ware Reason for Consult: right leg weakness History of Present Illness: This is a 57-year-old woman who presents to the emergency department because of right leg weakness and numbness. Patient was not great historian. She stated that in the last 1 week she noticed that she is having numbness and weakness in the right lower extremity. She's been having the recurrent falls in the last couple months. He does have minimal lower back pain denies any radiation. Denies any urinary or bowel incontinence overall frequency. She feels subjectively she has some weakness in the right upper extremity. But mostly it's her right lower extremity that's weak and numb. Denies any speech difficulty or swallowing difficulty. Denies any visual disturbance. As stated earlier, she stated she has been having falls in the last couple months and she followed up with Dr. Davis and she got MRI of the brain cervical thoracic lumbar as outpatient within last 1-2 month. She was told that she has a disc herniation in the lower back and she had the small minor strokes on MRI the brain. She denies any head trauma. Otherwise does not recall any stroke besides from the imaging. Some other workup during his hospital visit consisted of Urinalysis is positive for nitrates, urine leukocyte Estrace is moderate and urine white blood cell 37 which seems suggestive of underlying ureter tract infection Serum alcohol was less than 10 Calcium is 9.6, magnesium is 1.6, AST is 37 ALTs 25 Lipid panel is triglyceride of 208, cholesterol 235, LDLs [address] of the head is reported as age-related atrophic and chronic small vessel ischemic change without acute intracranial process seen at this time. I personally reviewed the CT of the head and I agree with the report CT cervical spine is reported as no evidence of acute or subluxation cervical spine. I agree there is no significant stenosis on the CT cervical spine. CT angiography of the head and neck is reported as no evidence of dissection cervical internal carotid artery or vertebral artery or any evidence of significant stenosis at the carotid bifurcation. No evidence of intracranial high-grade stenosis or intracranial aneurysm. Review of Systems 10 point system was reviewed and the pertinent positive and negative as per HPI. Past Medical History Past Medical History: GERD/Reflux, GI Bleed, Liver Disease, Osteoarthritis (OA) Additional Past Medical History / Comment(s): occ migraines, sinus congestion from allergies, hx pleurisy, bleeding ulcer Mar 2019, hx anemia, fatty liver disease, hiatal hernia, IBS/constipation. History of Any Multi-Drug Resistant Organisms: None Reported Past Surgical History: Heart Catheterization Additional Past Surgical History / Comment(s): kidney biopsy, laparoscopy, Past Anesthesia/Blood Transfusion Reactions: Previous Problems w/ Anesthesia, Family History of Problems w/ Anesthesia, Motion Sickness Additional Past Anesthesia/Blood Transfusion Reaction / Comment(s): had blood transfusion 03/2019-no problems, "takes a while to come out", 'sister had hard time coming out of it" Past Psychological History: Anxiety Smoking Status: Current some day smoker Past Alcohol Use History: Daily Additional Past Alcohol Use History / Comment(s): smokes 1/2 PPD, has smoked for 30 yrs, Past Drug Use History: None Reported - Past Family History Father Family Medical History: No Reported History Mother Family Medical History: No Reported History Medications and Allergies Home Medications Medication Instructions Recorded Confirmed Type Atorvastatin [Lipitor] 20 mg PO HS 09/23/20 03/23/23 History LORazepam [Ativan] 1 mg PO BID PRN 09/23/20 03/23/23 History Verapamil HCl [Verapamil ER] 120 mg PO DAILY 09/23/20 03/23/23 History Amitriptyline HCl [Elavil] 50 mg PO HS 04/11/22 03/23/23 History Brimonidine Tartrate [Alphagan P 1 drop RIGHT EYE BID 04/11/22 03/23/23 History 0.2% Ophth Soln] Cyclobenzaprine [Flexeril] 10 mg PO HS 04/11/22 03/23/23 History Ergocalciferol [Vitamin D2 (1250 1,250 mcg PO NAVAS 04/11/22 03/23/23 History Mcg = 87835 Iu)] Omeprazole 40 mg PO DAILY 04/11/22 03/23/23 History Aspirin EC [Ecotrin Low Dose] 81 mg PO DAILY 04/15/22 03/23/23 History Gabapentin [Neurontin] 300 mg PO TID 03/23/23 03/23/23 History HYDROcodone/APAP 7.5-325MG [[place] 1 tab PO Q6HR PRN 03/23/23 03/23/23 History 7.5-325] Allergies Allergy/AdvReac Type Severity Reaction Status Date / Time azithromycin AdvReac Nausea & Verified 04/15/22 20:51 [From Zithromax Z-Francisco] Vomiting & Diarrhea codeine AdvReac Nausea & Verified 04/15/22 20:51 Vomiting Physical Examination - Vital Signs Vital Signs: Vital Signs Temp Pulse Pulse Resp BP BP Pulse Ox 03/24/23 11:49 86 16 129/81 92 L 03/24/23 08:08 94 L 03/24/23 08:00 97.5 F L 83 16 129/86 92 L 03/24/23 04:00 91 16 100/63 94 L 03/24/23 00:00 87 16 110/72 94 L 03/23/23 20:55 98.1 F 81 16 164/83 94 L 03/23/23 20:00 98 16 131/87 95 03/23/23 19:45 86 16 145/87 95 03/23/23 19:30 88 16 139/99 94 L 03/23/23 19:15 96 18 148/89 94 L 03/23/23 19:14 96 16 148/82 94 L 03/23/23 19:00 90 157/86 95 03/23/23 18:45 86 16 139/82 95 03/23/23 18:30 86 16 133/82 95 03/23/23 18:15 93 18 117/86 94 L 03/23/23 18:00 93 16 128/77 95 03/23/23 17:45 86 18 139/82 94 L 03/23/23 17:30 86 18 133/82 94 L 03/23/23 17:15 93 16 117/86 94 L 03/23/23 17:00 90 16 128/77 16 L 03/23/23 16:45 90 16 117/74 95 03/23/23 16:30 88 18 133/84 93 L 03/23/23 16:11 91 20 130/75 94 L 03/23/23 16:10 91 20 130/75 94 L 03/23/23 15:56 99 18 127/86 93 L FiO2 03/24/23 11:49 03/24/23 08:08 21 03/24/23 08:00 03/24/23 04:00 03/24/23 00:00 03/23/23 20:55 03/23/23 20:00 03/23/23 19:45 03/23/23 19:30 03/23/23 19:15 03/23/23 19:14 03/23/23 19:00 03/23/23 18:45 03/23/23 18:30 03/23/23 18:15 03/23/23 18:00 03/23/23 17:45 03/23/23 17:30 03/23/23 17:15 03/23/23 17:00 03/23/23 16:45 03/23/23 16:30 03/23/23 16:11 03/23/23 16:10 03/23/23 15:56 Intake and Output 03/24/23 03/24/23 03/24/23 06:59 14:59 22:59 Intake Total 540 Balance 540 Intake: Oral 540 Other: Voiding Method Toilet Toilet # Voids 1 GENERAL: The patient is sitting on side of bed and is not in acute distress. NEUROLOGICAL: Higher mental function: The patient is awake, alert, oriented to self, place and time. Patient is following commands. No aphasia and no neglect. Cranial nerves: The pupils are round, equal and reactive to light and accommodation. Visual fraire are full to confrontation throughout. Extraocular movement is intact no nystagmus is noted. Facial sensation is normal to touch throughout. The facial strength is normal throughout. Hearing is mildly decreased bilaterally to hand rub. Tongue is midline and moved [id number] without any difficulty. No dysarthria is noted. Shoulder shrug is normal bila terally. Motor: The strength is right lower extremity is 4-4+. Otherwise 5 over 5 throughout. Normal tone and bulk. Cerebellum: Normal finger to nose bilaterally. Sensation: Sensation is normal to touch throughout. Reflexes (right/left): Right patellar and ankle are 1+. Otherwise 2+ throughout. Plantars are downgoing bilaterally. Results - Laboratory Findings CBC and BMP: 03/23/23 16:24 03/23/23 16:24 Abnormal Lab Findings: Abnormal Labs 03/23/23 03/23/23 03/23/23 16:24 16:24 16:24 RBC 3.20 L Hgb 10.6 L Hct 32.3 L MCV 100.8 H RDW 16.8 H Lymphocytes # 0.8 L APTT 17.1 L Sodium 134 L BUN 18 H Creatinine 1.20 H AST 37 H Alkaline Phosphatase 129 H Total Protein 6.2 L Albumin 3.4 L Triglycerides Cholesterol LDL Cholesterol, Calc VLDL Cholesterol, Calc HDL Cholesterol Ur Specific [place] Urine Protein Urine Nitrite Ur Leukocyte Esterase Urine WBC Urine WBC Clumps Ur Squamous Epith Cells Urine Bacteria Urine Mucus 03/23/23 03/24/23 16:24 03:03 RBC Hgb Hct MCV RDW Lymphocytes # APTT Sodium BUN Creatinine AST Alkaline Phosphatase Total Protein Albumin Triglycerides 208.00 H Cholesterol 235.00 H LDL Cholesterol, Calc 133.2 H VLDL Cholesterol, Calc 41.60 H HDL Cholesterol 60.20 H Ur Specific [place] >1.050 H Urine Protein 1+ H Urine Nitrite Positive H Ur Leukocyte Esterase Moderate H Urine WBC 37 H Urine WBC Clumps Occasional H Ur Squamous Epith Cells 8 H Urine Bacteria Few H Urine Mucus Rare H Assessment and Plan Assessment: This is a 57-year-old woman who has been having recurrent falls for the past couple months and in the last 1 week she noticed that she's having right lower extremity weakness with numbness. She had MRI brain and cervical thoracic rashawn mbar at her neurologist office (Dr. Davis) and was told she had the discrimination in the lumbar region. Recurrent falls with right lower extremity weakness and numbness on examination she had hyporeflexia: Probable right lumbar radiculopathy. Stroke is low on differential Dyslipidemia History of alcohol use Plan: We'll obtain her MRI imaging results from her neurologist office that she had in last one to 2 month in which she had MRI the brain cervical thoracic lumbar. Recommend orthopedic consultation Is on aspirin 81 mg and Lipitor 80 mg daily at bedtime. She is on thiamine 100 mg daily for alcohol use Patient had TSH in 01/31/2023 which was normal and the free T4 was also normal. She also had hemoglobin A1c during that time and it was normal 5.5. No need for repeat it. I ordered vitamin B12 and folate level. PT OT are consulted We'll defer the rest of the medical management to primary team Plan discussed with the patient and the primary team [employer] Thank you for the consultation Time with Patient: Greater than 30
--- NOTE | 2023-03-24 16:35 | P.HPIM ---
History of Present Illness H&P Date: 03/24/23 This is a pleasant 57 year old female with medical history of TIA, Gastroesophageal reflux disease, migraine, osteoarthritis and spinal disc herniation, fatty liver disease, former smoker and daily alcohol use. Patient presents to the ER with complaints of right leg heaviness and weakness started yesterday morning around 8am. Patient also reports mild right upper extremity weakness. Patient did slip and fall on her deck stairs 3 days ago came in to the ER for evaluation and then and was found to have left lateral 7, 8,9,10 ribs minimally displaced. There was a small left pleural effusion may reflect hemopneumothorax also noted. Patient was discharged home. Patient presents now with concern for stroke. Neurology has been consulted. Had a head and cervical spine CT showing age related atrophic and chronic small vessel ischemic change no acute process seen and no acute fracture or subluxation of the cervical spine. CT angiography head and neck shows no dissection of the cervical ICA's or vertebral arteries. No high grade stenosis or aneurysm. Patient reports heaviness and weakness in the right leg and having difficulty with mobility, straight leg raise test is positive and feel this may be more of a musculoskeletal injury from the fall. Patient admits to lower back worse than her usual pain about a 6/10. Some radiation into the right leg. Does report having an outpatient MRI done at [facility] and states it showed disc herniation, reports will be obtained. Blood work shows normal white blood cell count, hemoglobin of 10.6, MCV 100.8, sodium 134, BUN 18, creatinine 1.20. Troponin negative. Triglycerides 208, cholesterol 235, LDL 133, HDL 60. Urinalysis is abnomal patient does not report dysuria, urgency or frequency. Also not having any loss of bowel or bladder. REVIEW OF SYSTEMS: CONSTITUTIONAL: No fever, no malaise, no fatigue. HEENT: No recent visual problems or hearing problems. Denied any sore throat. CARDIOVASCULAR: No chest pain, orthopnea, PND, no palpitations, no syncope. PULMONARY: No shortness of breath, no cough, no hemoptysis. GASTROINTESTINAL: No diarrhea, no nausea, no vomiting, no abdominal pain. NEUROLOGICAL: No headaches. Reports weakness and leg heaviness on the right HEMATOLOGICAL: Denies any bleeding or petechiae. GENITOURINARY: Denies any burning micturition, frequency, or urgency. MUSCULOSKELETAL/RHEUMATOLOGICAL: Reports left sided rib pain ENDOCRINE: Denies any polyuria or polydipsia. The rest of the 14-point review of systems is negative. PHYSICAL EXAMINATION: GENERAL: The patient is alert and oriented x3, not in any acute distress. Well developed, well nourished. HEENT: Pupils are round and equally reacting to light. EOMI. No scleral icterus. No conjunctival pallor. Normocephalic, atraumatic. No pharyngeal erythema. No thyromegaly. CARDIOVASCULAR: S1 and S2 present. No murmurs, rubs, or gallops. PULMONARY: Chest is clear to auscultation, no wheezing or crackles. ABDOMEN: Soft, nontender, nondistended, normoactive bowel sounds. No palpable organomegaly. MUSCULOSKELETAL: No joint swelling or deformity. EXTREMITIES: No cyanosis, clubbing, or pedal edema. Bilateral upper extremity strength 5/5, patient having pain throughout exam due to the rib fractures on the left. The right leg has limited mobilty and worsening back pain with straight leg raise. NEUROLOGICAL: Right lower extremity weakness SKIN: No rashes. Assesssment Right lower extremity weakness and heaviness s/p fall rule out acute stroke vs. musculoskeletal injury. Fall with trauma and left sided rib fracture to rib # 7-10 Chronic alcohol abuse Hyperlipidemia history of fatty liver disease and component of alcoholic hepatitis Hyponatremia Mild acute kidney injury likely prerenal Macrocytic anemia Pt reports history of "multiple areas of mini stroke" Gastroesophageal reflux disease Hx of GI bleed due to bleeding ulcer Anxiety Former nicotine use quit 30 days ago GI prophylaxis DVT prophylaxis Plan Neurology and orthopedics consultation Echocardiogram ordered as part of stroke work up PT/OT consultation Patient started on ativan CIWA protocol Pain management in place Will order incentive spirometer and f/u chest xray Check vitamin B12 and Folate, repeat labs in AM The impression and plan of care has been dictated by Katherine Acuña Nurse Practitioner as directed. Dr. Janae MD I have performed a history and physical examination and medical decision making of this patient, discussed the same with the dictator, and agree with the dictators assessment and plan as written, documented as a scribe. Based on total visit time, I have performed more than 50% of this visit. Past Medical History Past Medical History: GERD/Reflux, GI Bleed, Liver Disease, Osteoarthritis (OA) Additional Past Medical History / Comment(s): occ migraines, sinus congestion from allergies, hx pleurisy, bleeding ulcer Mar 2019, hx anemia, fatty liver disease, hiatal hernia, IBS/constipation. History of Any Multi-Drug Resistant Organisms: None Reported Past Surgical History: Heart Catheterization Additional Past Surgical History / Comment(s): kidney biopsy, laparoscopy, Past Anesthesia/Blood Transfusion Reactions: Previous Problems w/ Anesthesia, Family History of Problems w/ Anesthesia, Motion Sickness Additional Past Anesthesia/Blood Transfusion Reaction / Comment(s): had blood transfusion 03/2019-no problems, "takes a while to come out", 'sister had hard t ede coming out of it" Past Psychological History: Anxiety Smoking Status: Current some day smoker Past Alcohol Use History: Daily Additional Past Alcohol Use History / Comment(s): smokes 1/2 PPD, has smoked for 30 yrs, Past Drug Use History: None Reported - Past Family History Father Family Medical History: No Reported History Mother Family Medical History: No Reported History Medications and Allergies Home Medications Medication Instructions Recorded Confirmed Type Atorvastatin [Lipitor] 20 mg PO HS 09/23/20 03/23/23 History LORazepam [Ativan] 1 mg PO BID PRN 09/23/20 03/23/23 History Verapamil HCl [Verapamil ER] 120 mg PO DAILY 09/23/20 03/23/23 History Amitriptyline HCl [Elavil] 50 mg PO HS 04/11/22 03/23/23 History Brimonidine Tartrate [Alphagan P 1 drop RIGHT EYE BID 04/11/22 03/23/23 History 0.2% Ophth Soln] Cyclobenzaprine [Flexeril] 10 mg PO HS 04/11/22 03/23/23 History Ergocalciferol [Vitamin D2 (1250 1,250 mcg PO NAVAS 04/11/22 03/23/23 History Mcg = 08136 Iu)] Omeprazole 40 mg PO DAILY 04/11/22 03/23/23 History Aspirin EC [Ecotrin Low Dose] 81 mg PO DAILY 04/15/22 03/23/23 History Gabapentin [Neurontin] 300 mg PO TID 03/23/23 03/23/23 History HYDROcodone/APAP 7.5-325MG [[place] 1 tab PO Q6HR PRN 03/23/23 03/23/23 History 7.5-325] Allergies Allergy/AdvReac Type Severity Reaction Status Date / Time azithromycin AdvReac Nausea & Verified 04/15/22 20:51 [From Zithromax Z-Francisco] Vomiting & Diarrhea codeine AdvReac Nausea & Verified 04/15/22 20:51 Vomiting Physical Exam Vitals: Vital Signs Temp Pulse Pulse Resp BP BP Pulse Ox 03/24/23 08:08 94 L 03/24/23 08:00 97.5 F L 83 16 129/86 92 L 03/24/23 04:00 91 16 100/63 94 L 03/24/23 00:00 87 16 110/72 94 L 03/23/23 20:55 98.1 F 81 16 164/83 94 L 03/23/23 20:00 98 16 131/87 95 03/23/23 19:45 86 16 145/87 95 03/23/23 19:30 88 16 139/99 94 L 03/23/23 19:15 96 18 148/89 94 L 03/23/23 19:14 96 16 148/82 94 L 03/23/23 19:00 90 157/86 95 03/23/23 18:45 86 16 139/82 95 03/23/23 18:30 86 16 133/82 95 03/23/23 18:15 93 18 117/86 94 L 03/23/23 18:00 93 16 128/77 95 03/23/23 17:45 86 18 139/82 94 L 03/23/23 17:30 86 18 133/82 94 L 03/23/23 17:15 93 16 117/86 94 L 03/23/23 17:00 90 16 128/77 16 L 03/23/23 16:45 90 16 117/74 95 03/23/23 16:30 88 18 133/84 93 L 03/23/23 16:11 91 20 130/75 94 L 03/23/23 16:10 91 20 130/75 94 L 03/23/23 15:56 99 18 127/86 93 L 03/23/23 14:59 100 20 127/86 94 L FiO2 03/24/23 08:08 21 03/24/23 08:00 03/24/23 04:00 03/24/23 00:00 03/23/23 20:55 03/23/23 20:00 03/23/23 19:45 03/23/23 19:30 03/23/23 19:15 03/23/23 19:14 03/23/23 19:00 03/23/23 18:45 03/23/23 18:30 03/23/23 18:15 03/23/23 18:00 03/23/23 17:45 03/23/23 17:30 03/23/23 17:15 03/23/23 17:00 03/23/23 16:45 03/23/23 16:30 03/23/23 16:11 03/23/23 16:10 03/23/23 15:56 03/23/23 14:59 Intake and Output 03/23/23 03/24/23 03/24/23 22:59 06:59 14:59 Intake Total 540 540 Balance 540 540 Intake: Oral 540 540 Other: Voiding Method Toilet Toilet # Voids 1 1 Weight 83.915 kg Results CBC & Chem 7: 03/23/23 16:24 03/23/23 16:24 Labs: Abnormal Lab Results - Last 24 Hours (Table) 03/23/23 03/23/23 03/23/23 Range/Units 16:24 16:24 16:24 RBC 3.20 L (3.80-5.40) m/uL Hgb 10.6 L (11.4-16.0) gm/dL Hct 32.3 L (34.0-46.0) % MCV 100.8 H (80.0-100.0) fL RDW 16.8 H (11.5-15.5) % Lymphocytes # 0.8 L (1.0-4.8) k/uL APTT 17.1 L (22.0-30.0) sec Sodium 134 L (137-145) mmol/L BUN 18 H (7-17) mg/dL Creatinine 1.20 H (0.52-1.04) mg/dL AST 37 H (14-36) U/L Alkaline Phosphatase 129 H (38-126) U/L Total Protein 6.2 L (6.3-8.2) g/dL Albumin 3.4 L (3.5-5.0) g/dL Triglycerides (0.00-149.00) mg/dL Cholesterol (0.00-200.00) mg/dL LDL Cholesterol, Calc (0.0-131.0) mg/dL VLDL Cholesterol, Calc (5.00-40.00) mg/dL HDL Cholesterol (40.00-60.00) mg/dL Ur Specific [place] (1.001-1.035) Urine Protein (Negative) Urine Nitrite (Negative) Ur Leukocyte Esterase (Negative) Urine WBC (0-5) /hpf Urine WBC Clumps (None) /hpf Ur Squamous Epith Cells (0-4) /hpf Urine Bacteria (None) /hpf Urine Mucus (None) /hpf 03/23/23 03/24/23 Range/Units 16:24 03:03 RBC (3.80-5.40) m/uL Hgb (11.4-16.0) gm/dL Hct (34.0-46.0) % MCV (80.0-100.0) fL RDW (11.5-15.5) % Lymphocytes # (1.0-4.8) k/uL APTT (22.0-30.0) sec Sodium (137-145) mmol/L BUN (7-17) mg/dL Creatinine (0.52-1.04) mg/dL AST (14-36) U/L Alkaline Phosphatase (38-126) U/L Total Protein (6.3-8.2) g/dL Albumin (3.5-5.0) g/dL Triglycerides 208.00 H (0.00-149.00) mg/dL Cholesterol 235.00 H (0.00-200.00) mg/dL LDL Cholesterol, Calc 133.2 H (0.0-131.0) mg/dL VLDL Cholesterol, Calc 41.60 H (5.00-40.00) mg/dL HDL Cholesterol 60.20 H (40.00-60.00) mg/dL Ur Specific [place] >1.050 H (1.001-1.035) Urine Protein 1+ H (Negative) Urine Nitrite Positive H (Negative) Ur Leukocyte Esterase Moderate H (Negative) Urine WBC 37 H (0-5) /hpf Urine WBC Clumps Occasional H (None) /hpf Ur Squamous Epith Cells 8 H (0-4) /hpf Urine Bacteria Few H (None) /hpf Urine Mucus Rare H (None) /hpf Assessment and Plan Time with Patient: Less than 30
--- NOTE | 2023-03-24 17:41 | CA ---
Transthoracic Echo Report Name: Kate Mccullough Age: 57 Gender: F : 1965 Exam Date: 03/24/2023 07:33 Exam Location: [place] [facility] Ht (in): 67 Wt (lb): 185 Ordering Physician: Wesley Ware MD Attending/Referring Phys: [id number], Jeanie Announcer Bradley Beltran Procedure CPT: Indications: Thrombus Cardiac Hx: Technical Quality: Technically difficult study Contrast 1: Total Dose (mL): Contrast 2: Total Dose (mL): MEASUREMENTS (Male / Female) Normal Values 2D ECHO LV Diastolic Diameter PLAX 3.9 cm 4.2 - 5.9 / 3.9 - 5.3 cm LV Systolic Diameter PLAX 2.8 cm IVS Diastolic Thickness 1.1 cm 0.6 - 1.0 / 0.6 - 0.9 cm LVPW Diastolic Thickness 1.3 cm 0.6 - 1.0 / 0.6 - 0.9 cm LV Relative Wall Thickness 0.6 RV Internal Dim ED PLAX 2.5 cm LVOT Diameter 2.1 cm Aortic Root Diameter 3.0 cm LA Systolic Diameter LX 2.2 cm 3.0 - 4.0 / 2.7 - 3.8 cm LV Diastolic Volume MOD BP 37.7 cm??? 67 - 155 / 56 - 104 cm??? LV Systolic Volume MOD BP 13.5 cm??? 22 - 58 / 19 - 49 cm??? LV Ejection Fraction MOD BP 64.2 % >= 55 % LV Cardiac Index MOD BP 1142.5 cm???/min???m??? LV Diastolic Volume MOD 4C 47.3 cm??? LV Systolic Volume MOD 4C 15.4 cm??? LV Ejection Fraction MOD 4C 67.4 % LV Cardiac Index MOD 4C 1504.0 cm???/min???m??? LV Diastolic Length 4C 7.1 cm LV Systolic Length 4C 6.0 cm LV Diastolic Volume MOD 2C 28.4 cm??? LV Systolic Volume MOD 2C 12.0 cm??? LV Ejection Fraction MOD 2C 57.7 % LV Cardiac Index MOD 2C 774.6 cm???/min???m??? LV Diastolic Length 2C 6.6 cm LV Systolic Length 2C 6.1 cm LA Volume 29.3 cm??? 18 - 58 / 22 - 52 cm??? Ascending Aorta Diameter 3.2 cm DOPPLER AV Peak Velocity 100.7 cm/s AV Peak Gradient 4.1 mmHg LVOT Peak Velocity 106.4 cm/s LVOT Peak Gradient 4.5 mmHg AV Area Cont Eq pk 3.6 cm??? MV Peak Velocity 91.4 cm/s MV Peak Gradient 3.3 mmHg MV Mean Velocity 47.0 cm/s MV Mean Gradient 1.1 mmHg MV Velocity Time Integral 24.7 cm MR Peak Velocity 381.5 cm/s MR Peak Gradient 58.2 mmHg Mitral E Point Velocity 63.7 cm/s Mitral A Point Velocity 86.1 cm/s Mitral E to A Ratio 0.7 MV Deceleration Time 250.1 ms MV E' Velocity 7.5 cm/s Mitral E to MV E' Ratio 8.5 TR Peak Velocity 154.3 cm/s TR Peak Gradient 9.5 mmHg Right Ventricular Systolic Press 14.5 mmHg FINDINGS Left Ventricle Normal LV size and wall thickness. Left ventricular ejection fraction is estimated at 60-65 %.normal left ventricular wall motion. Right Ventricle Normal right ventricular size. Right Atrium Normal right atrial size. Left Atrium Normal left atrial size. Mitral Valve Structurally normal mitral valve. Trace MR. Aortic Valve Trileaflet aortic valve. No aortic valve stenosis or regurgitation. Tricuspid Valve Tricuspid valve not well visualized. Trace TR. Pulmonic Valve Pulmonic valve not well visualized. No pulmonic regurgitation. Pericardium Normal pericardium. Aorta Normal size aortic root and proximal ascending aorta. CONCLUSIONS 1. Normal left ventricle size and systolic function 2. Trace mitral and tricuspid regurgitation Previewed by: Dr. Marco Cummins MD (Electronically Signed) Final Date: 24 March 2023 17:40
--- NOTE | 2023-03-24 19:41 | XR ---
EXAMINATION TYPE: XR chest 2V DATE OF EXAM: 03/24/2023 COMPARISON: 03/21/2023 HISTORY: Shortness of breath TECHNIQUE: Frontal and lateral views of the chest are obtained. FINDINGS: Scattered senescent parenchymal changes noted. Hyperinflation compatible with COPD. No evidence for infiltrate. Basilar linear atelectasis without sizable effusion. No pneumothorax pres ent. Heart size is stable. Mediastinal structures are stable and grossly unremarkable. No evidence for hilar prominence. Left-sided rib fractures are redemonstrated. IMPRESSION: 1. Basilar linear atelectasis without sizable effusion. No pneumothorax present.
[2023-03-24] MEDS: HEPARIN SODIUM,PORCINE 5,000 UNIT/ML 1 ML VIAL SQ SCH (20:10)
[2023-03-24] MEDS: MAGNESIUM OXIDE 400 MG TAB PO SCH (20:10)
[2023-03-24] MEDS: AMITRIPTYLINE HCL 50 MG TAB PO SCH (20:10)
[2023-03-24] MEDS: ATORVASTATIN 80 MG TAB PO SCH (20:10)
[2023-03-25] MEDS: SODIUM CHLORIDE 0.9% 1,000 ML IV SCH ×2 (04:24→08:10)
[2023-03-25] MEDS: HYDROmorphone 0.5 MG/0.5 ML SYRINGE IVP PRN (04:25)
[2023-03-25] MEDS: PANTOPRAZOLE 40 MG TABLET PO SCH (06:05)
[2023-03-25] MEDS: KETOROLAC 15 MG/ML 1 ML VIAL IVP SCH ×4 (06:05→23:17)
[2023-03-25] MEDS: HEPARIN SODIUM,PORCINE 5,000 UNIT/ML 1 ML VIAL SQ SCH ×2 (08:08→20:32)
[2023-03-25] MEDS: MAGNESIUM OXIDE 400 MG TAB PO SCH ×2 (08:08→20:32)
[2023-03-25] MEDS: HYDROcodone/APAP 7.5-325MG 1 EACH TAB PO PRN ×3 (08:08→23:16)
[2023-03-25] MEDS: ASPIRIN 81 MG PO SCH (08:09)
[2023-03-25] MEDS: GABAPENTIN 100 MG CAP PO SCH ×3 (08:09→20:32)
[2023-03-25] MEDS: THIAMINE 100 MG TAB PO SCH (08:09)
[2023-03-25] MEDS: BRIMONIDINE TARTRATE 0.2% DROPS 5 ML BTL RIGHT EYE SCH ×2 (08:13→20:32)
[2023-03-25 08:37] LABS: African American GFR (CKD) 68 (>60 ml/min/1.73 sqM); Anion Gap 6 mmol/L; Blood Urea Nitrogen 14 mg/dL (7-17); Calcium 8.9 mg/dL (8.4-10.2); Carbon Dioxide 16 mmol/L (22-30); Chloride 113 mmol/L (98-107); Glucose 72 mg/dL (74-99); Magnesium 1.7 mg/dL (1.6-2.3); Non-African American GFR(CKD) 59 (>60 ml/min/1.73 sqM); Sodium 135 mmol/L (137-145)
[2023-03-25] MEDS ORDERED: MAGNESIUM SULFATE-D5W PMX 1 GM in DEXTROSE/WATER 1 100ML.BAG IVPB ONE (09:09)
--- NOTE | 2023-03-25 11:34 | P.PN ---
Subjective Progress Note Date: 03/25/23 The patient is seen at bedside and feels about the same. Denies of any new neurological issues. Objective - Vital Signs Vital signs: Vital Signs Temp 97.8 F 03/25/23 08:00 Pulse 91 03/25/23 08:00 Resp 16 03/25/23 08:00 BP 135/85 03/25/23 08:00 Pulse Ox 95 03/25/23 08:00 FiO2 21 03/24/23 08:08 Intake & Output 03/24/23 03/25/23 03/25/23 18:59 06:59 18:59 Intake Total 180 1080 Output Total 200 Balance 180 880 Intake: Oral 180 1080 Output: Urine 200 Other: Voiding Method Toilet Toilet Toilet # Voids 1 - Exam GENERAL: The patient is laying in bed and is not in acute distress. NEUROLOGICAL: Higher mental function: The patient is awake, alert, oriented to self, place and time. Patient is following commands. No aphasia and no neglect. Cranial nerves: The pupils are round, equal and reactive to light and accomm odation. Visual fraire are full to confrontation throughout. Extraocular movement is intact no nystagmus is noted. Facial sensation is normal to touch throughout. The facial strength is normal throughout. Hearing is mildly decreased bilaterally to hand rub. Tongue is midline and moved [id number] without any difficulty. No dysarthria is noted. Shoulder shrug is normal bilaterally. Motor: The strength is right lower extremity is 4-4+. Otherwise 5 over 5 throughout. Normal tone and bulk. Cerebellum: Normal finger to nose bilaterally. Sensation: Sensation is normal to touch throughout. Reflexes (right/left): Right patellar and ankle are 1+. Otherwise 2+ throughout. Plantars are downgoing bilaterally. Some other workup during his hospital visit consisted of Urinalysis is positive for nitrates, urine leukocyte Estrace is moderate and urine white blood cell 37 which seems suggestive of underlying ureter tract infection Serum alcohol was less than 10 Calcium is 9.6, magnesium is 1.6, AST is 37 ALTs 25 Vitamin B-12 is 505 Folate level is 4 Lipid panel is triglyceride of 208, cholesterol 235, LDLs [address] of the head is reported as age-related atrophic and chronic small vessel ischemic change without acute intracranial process seen at this time. I pe rsonally reviewed the CT of the head and I agree with the report CT cervical spine is reported as no evidence of acute or subluxation cervical spine. I agree there is no significant stenosis on the CT cervical spine. CT angiography of the head and neck is reported as no evidence of dissection cervical internal carotid artery or vertebral artery or any evidence of significant stenosis at the carotid bifurcation. No evidence of intracranial high-grade stenosis or intracranial aneurysm. 2D echo was reported as normal left ventricle size and systolic function. Trace mitral and tricuspid regurgitation. - Labs CBC & Chem 7: 03/23/23 16:24 03/25/23 06:56 Labs: Abnormal Lab Results - Last 24 Hours (Table) 03/23/23 03/25/23 Range/Units 16:23 06:56 Sodium 135 L (137-145) mmol/L Chloride 113 H (98-107) mmol/L Carbon Dioxide 16 L (22-30) mmol/L Glucose 72 L (74-99) mg/dL Folate 4.00 L (4.40-31.00) ng/mL Assessment and Plan Assessment: This is a 57-year-old woman who has been having recurrent falls for the past couple months and in the last 1 week she noticed that she's having right lower extremity weakness with numbness. She had MRI brain and cervical thoracic lumbar at her neurologist office (Dr. Davis) and was told she had the dis crimination in the lumbar region. Recurrent falls with right lower extremity weakness and numbness on examination she had hyporeflexia: Probable right lumbar radiculopathy. Stroke is low on differential Folate deficiency (4 and normal level is 4.4-31) Dyslipidemia History of alcohol use Plan: We'll obtain her MRI imaging results from her neurologist office (Dr. Davis's office) that she had in last 1-2 month in which she had MRI the brain cervical thoracic lumbar. Recommend orthopedic consultation Is on aspirin 81 mg and Lipitor 80 mg daily at bedtime. For folate deficiency, she was started on folic acid 1mg daily. She is on thiamine 100 mg daily for alcohol use Patient had TSH in 01/31/2023 which was normal and the free T4 was also normal. She also had hemoglobin A1c during that time and it was normal 5.5. No need for repeat it. 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
[2023-03-25] MEDS: FOLIC ACID 1 MG TAB PO SCH (12:21)
--- NOTE | 2023-03-25 14:38 | P.CNOR ---
History of Present Illness - [facility] Consult date: 03/25/23 Consult reason: other (Right lower extremity weakness) History of present illness: Patient is a 57-year-old female who presented to [facility] for her hospital on 03/23/2023 with strokelike symptoms. Patient underwent significant imaging and lab testing. Patient is being followed by both internal medicine and neurology. Due to the right leg weakness, our orthopedic team was also consulted. Acute stroke workup at this time has been negative. Patient was evaluated at bedside today, she is resting in her hospital bed. Patient admits to chronic low back pain. She states that she's been dealing with the right lower extremity symptoms for the last few months. She states over the last few weeks has gotten worse, she has fallen a few times. Her most recent fall resulted in a few left-sided rib fractures which she was evaluated at this hospital for. Patient has been seeing a pain doctor in the area, ap parently she had a brain, cervical, thoracic and lumbar spine MRI done about 12 months ago. They are in the process of getting these reports. Patient has not followed up with that DrAdolfo since having those tests. Patient does take gabapentin for neuropathy of the bilateral lower extremities, she was also placed on Flexeril. Patient denies any narcotic drug use at this time for her pain. Patient denies any previous lumbar surgery or bilateral lower extremity surgery. Patient states that her back has been bothering her on and off for many years. She feels that the weakness in the right lower extremity has been getting worse over the last few months. She denies any lili weakness to the bilateral upper extremities. She does state she feels she has carpal tunnel the bilateral hands which she is done with 3 years also. Normally she does not utilize a walker or cane for ambulation. She denies any left lower extremity symptoms at this time. She denies any loss of bowel or bladder function at this time. Review of Systems Constitutional: Reports as per [facility] Past Medical History Past Medical History: GERD/Reflux, GI Bleed, Liver Disease, Osteoarthritis (OA) Additional Past Medical History / Comment(s): occ migraines, sinus congestion from allergies, hx pleurisy, bleeding ulcer Mar 2019, hx anemia, fatty liver disease, hiatal hernia, IBS/constipation. History of Any Multi-Drug Resistant Organisms: None Reported Past Surgical History: Heart Catheterization Additional Past Surgical History / Comment(s): kidney biopsy, laparoscopy, Past Anesthesia/Blood Transfusion Reactions: Previous Problems w/ Anesthesia, Family History of Problems w/ Anesthesia, Motion Sickness Additional Past Anesthesia/Blood Transfusion Reaction / Comm: had blood transf usion 03/2019-no problems, "takes a while to come out", 'sister had hard time coming out of it" Past Psychological History: Anxiety Smoking Status: Current some day smoker Past Alcohol Use History: Daily Additional Past Alcohol Use History / Comment(s): smokes 1/2 PPD, has smoked for 30 yrs, Past Drug Use History: None Reported - Past Family History Father Family Medical History: No Reported History Mother Family Medical History: No Reported History Medications and Allergies Home Medications Medication Instructions Recorded Confirmed Type Atorvastatin [Lipitor] 20 mg PO HS 09/23/20 03/23/23 History LORazepam [Ativan] 1 mg PO BID PRN 09/23/20 03/23/23 History Verapamil HCl [Verapamil ER] 120 mg PO DAILY 09/23/20 03/23/23 History Amitriptyline HCl [Elavil] 50 mg PO HS 04/11/22 03/23/23 History Brimonidine Tartrate [Alphagan P 1 drop RIGHT EYE BID 04/11/22 03/23/23 History 0.2% Ophth Soln] Cyclobenzaprine [Flexeril] 10 mg PO HS 04/11/22 03/23/23 History Ergocalciferol [Vitamin D2 (1250 1,250 mcg PO NAVAS 04/11/22 03/23/23 History Mcg = 38151 Iu)] Omeprazole 40 mg PO DAILY 04/11/22 03/23/23 History Aspirin EC [Ecotrin Low Dose] 81 mg PO DAILY 04/15/22 03/23/23 History Gabapentin [Neurontin] 300 mg PO TID 03/23/23 03/23/23 History HYDROcodone/APAP 7.5-325MG [York 1 tab PO Q6HR PRN 03/23/23 03/23/23 History 7.5-325] Allergies Allergy/AdvReac Type Severity Reaction Status Date / Time azithromycin AdvReac Nausea & Verified 04/15/22 20:51 [From Zithromax Z-Francisco] Vomiting & Diarrhea codeine AdvReac Nausea & Verified 04/15/22 20:51 Vomiting Physical Examination Gen: AOx3, NAD VSS stable at this time Integument: No obvious open lesions or sores are visualized throughout cervical, thoracic or lumbar spine. Bruising is noted in the left flank, likely from previous fall Palpation: No significant tenderness with palpation of the midline or paraspinal region of the cervical, thoracic or lumbar spine. No significant tenderness to the SI joints bilaterally. No point tenderness is appreciated to the bilateral upper or lower extremities Range of motion: Full range of motion in all major muscle groups of the bilateral upper and lower extremity's, no focal deficits Sensory Exam: Senory exam to light touch is intact C5-T1 Senosry exam to light touch is intact L2-S1 Motor: 5/5 strength appreciated in the bilateral upper extremities with shoulder abduction, shoulder elevation, elbow extension, elbow flexion, wrist extension, wrist flexion, program analyst 5/5 strength appreciated in the left lower extremity with hip flexion, knee extension, knee flexion, plantar flexion, dorsiflexion, EHL, FHL 4+/5 strength appreciated in the right lower extremity with hip flexion, 4/5 strength appreciated in the right lower extremity with knee extension, knee flexion, 4-/5 strength appreciated in the right lower extremity with plantar flexion, dorsiflexion, EHL, FHL Reflexes: Negative Idalmis's bilaterally, negative Babinski bilaterally, negative clonus bilaterally Special Test: Negative straight leg raise bilaterally Negative logroll maneuver bilaterally Results - Labs Labs: Abnormal Lab Results - Last 24 Hours (Table) 03/23/23 03/25/23 Range/Units 16:23 06:56 Sodium 135 L (137-145) mmol/L Chloride 113 H (98-107) mmol/L Carbon Dioxide 16 L (22-30) mmol/L Glucose 72 L (74-99) mg/dL Folate 4.00 L (4.40-31.00) ng/mL H & H 03/23/23 Range/Units 16:24 Hgb 10.6 L (11.4-16.0) gm/dL Hct 32.3 L (34.0-46.0) % Coagulation 03/23/23 Range/Units 16:24 INR 0.9 (<1.2) Result Diagrams: 03/23/23 16:24 03/25/23 06:56 Assessment and Plan Assessment: Low back pain Right lower extremity weakness Right lower extremity radiculopathy Other medical comorbidities Plan: I was able to discuss the case, this including imaging findings and physical exam findings of my attending Dr. Bradford. No emergent orthopedic surgical intervention recommended at this time Recommend obtaining both images and reports of cervical, thoracic and lumbar spine MRI Recommending conservative measures initially, this including continuous use of gabapentin and Flexeril. Could consider IV steroid taper versus oral steroid ta per Consider pain management consult for possible RENEA depending MRI results DVT prophylaxis per primary medical service Other medical special recommendations appreciated We'll continue to follow during hospital stay Time with Patient: Less than 30
[2023-03-25] MEDS: AMITRIPTYLINE HCL 50 MG TAB PO SCH (20:32)
[2023-03-25] MEDS: ATORVASTATIN 80 MG TAB PO SCH (20:32)
--- NOTE | 2023-03-25 22:58 | P.PN ---
Subjective Progress Note Date: 03/25/23 This is a pleasant 57 year old female with medical history of TIA, Gastroesophageal reflux disease, migraine, osteoarthritis and spinal disc herniation, fatty liver disease, former smoker and daily alcohol use. Patient presents to the ER with complaints of right leg heaviness and weakness started yesterday morning around 8am. Patient also reports mild right upper extremity weakness. Patient did slip and fall on her deck stairs 3 days ago came in to the ER for evaluation and then and was found to have left lateral 7, 8,9,10 ribs minimally displaced. There was a small left pleural effusion may reflect hemopneumothorax also noted. Patient was discharged home. Patient presents now with concern for stroke. Neurology has been consulted. Had a head and cervical spine CT showing age related atrophic and chronic small vessel ischemic change no acute process seen and no acute fracture or subluxation of the cervical spine. CT angiography head and neck shows no dissection of the cervical ICA's or vertebral arteries. No high grade stenosis or aneurysm. Patient reports heaviness and weakness in the right leg and having difficulty with mobility, straight leg raise test is positive and feel this may be more of a musculoskeletal injury from the fall. Patient admits to lower back worse than her usual pain about a 6/10. Some radiation into the right leg. Does report having an outpatient MRI done at [facility] and states it showed disc herniation, reports will be obtained. Blood work shows normal white blood cell count, hemoglobin of 10.6, MCV 100.8, sodium 134, BUN 18, creatinine 1.20. Troponin negative. Triglycerides 208, cholesterol 235, LDL 133, HDL 60. Urinalysis is abnomal patient does not report dysuria, urgency or frequency. Also not having any loss of bowel or bladder. 03/25/2023 Patient evaluated on medical floor. no acute complaints. No evidence of acute alcohol withdrawal. Patient continues to report lower back pain. Pending evaluation by orthopedics. F/U chest xray shows basilar linear atelectasis without sizable effusion. Hyperinflation compatible with COPD. No pneumothorax present. Echocardiogram showing normal LV size and systolic function and trace MR and TR. Creatinine has normalized. REVIEW OF SYSTEMS: CONSTITUTIONAL: No fever, no malaise, no fatigue. HEENT: No recent visual problems or hearing problems. Denied any sore throat. CARDIOVASCULAR: No chest pain, orthopnea, PND, no palpitations, no syncope. PULMONARY: No shortness of breath, no cough, no hemoptysis. GASTROINTESTINAL: No diarrhea, no nausea, no vomiting, no abdominal pain. NEUROLOGICAL: No headaches. Reports weakness and leg heaviness on the right PHYSICAL EXAMINATION: GENERAL: The patient is alert and oriented x3, not in any acute distress. Well developed, well nourished. HEENT: Pupils are round and equally reacting to light. EOMI. No scleral icterus. No conjunctival pallor. Normocephalic, atraumatic. No pharyngeal erythema. No thyromegaly. CARDIOVASCULAR: S1 and S2 present. No murmurs, rubs, or gallops. PULMONARY: Chest is clear to auscultation, no wheezing or crackles. ABDOMEN: Soft, nontender, nondistended, normoactive bowel sounds. No palpable organomegaly. MUSCULOSKELETAL: No joint swelling or deformity. EXTREMITIES: No cyanosis, clubbing, or pedal edema. Bilateral upper extremity strength 5/5, patient having pain throughout exam due to the rib fractures on the left. The right leg has limited mobilty and worsening back pain with straight leg raise. NEUROLOGICAL: Right lower extremity weakness SKIN: No rashes. Assesssment Right lower extremity weakness and heaviness s/p fall rule out acute stroke vs. musculoskeletal injury. Fall with trauma and left sided rib fracture to rib # 7-10 Chronic alcohol abuse Hyperlipidemia history of fatty liver disease and component of alcoholic hepatitis Hyponatremia Mild acute kidney injury likely prerenal Macrocytic anemia Pt reports history of "multiple areas of mini stroke" Gastroesophageal reflux disease Hx of GI bleed due to bleeding ulcer Anxiety Former nicotine use quit 30 days ago GI prophylaxis DVT prophylaxis Plan Neurology and orthopedics consultation PT/OT consultation Patient started on ativan CIWA protocol Pain management in place Continue incentive spirometer The impression and plan of care has been dictated by Katherine Acuña Nurse Practitioner as directed. Dr. Janae MD I have performed a history and physical examination and medical decision making of this patient, discussed the same with the dictator, and agree with the dictators assessment and plan as written, documented as a scribe. Based on total visit time, I have performed more than 50% of this visit. Objective - Vital Signs Vital signs: Vital Signs Temp 97.6 F 03/25/23 20:00 Pulse 83 03/25/23 20:00 Resp 16 03/25/23 20:00 BP 134/77 03/25/23 20:00 Pulse Ox 91 L 03/25/23 20:00 FiO2 21 03/24/23 08:08 Intake & Output 03/25/23 03/25/23 03/26/23 06:59 18:59 06:59 Intake Total 1080 1360 540 Output Total 200 Balance 880 1360 540 Intake: Intake, IV Titration 700 Amount Magnesium Sulfate-D5w Pmx 100 1 gm In Dextrose/Water 1 100ml.bag @ 100 mls/hr IVPB ONCE ONE Rx#: [id number] Sodium Chloride 0.9% 1, 600 000 ml @ 75 mls/hr IV . [id number] [facility] Rx#:[id number] Oral 1080 660 540 Output: Urine 200 Other: Voiding Method Toilet Toilet Toilet # Voids 1 1 - Labs CBC & Chem 7: 03/23/23 16:24 03/25/23 06:56 Labs: Abnormal Lab Results - Last 24 Hours (Table) 03/25/23 Range/Units 06:56 Sodium 135 L (137-145) mmol/L Chloride 113 H (98-107) mmol/L Carbon Dioxide 16 L (22-30) mmol/L Glucose 72 L (74-99) mg/dL Assessment and Plan Time with Patient: Less than 30
[2023-03-26] MEDS: KETOROLAC 15 MG/ML 1 ML VIAL IVP SCH ×4 (06:06→23:42)
[2023-03-26] MEDS: PANTOPRAZOLE 40 MG TABLET PO SCH (06:06)
[2023-03-26 06:50] LABS: African American GFR (CKD) 61 (>60 ml/min/1.73 sqM); Anion Gap 3 mmol/L; Blood Urea Nitrogen 14 mg/dL (7-17); Calcium 8.9 mg/dL (8.4-10.2); Carbon Dioxide 22 mmol/L (22-30); Chloride 112 mmol/L (98-107); Glucose 86 mg/dL (74-99); Non-African American GFR(CKD) 53 (>60 ml/min/1.73 sqM); Potassium 4.1 mmol/L (3.5-5.1); Sodium 137 mmol/L (137-145)
[2023-03-26] MEDS: ASPIRIN 81 MG PO SCH (08:42)
[2023-03-26] MEDS: HEPARIN SODIUM,PORCINE 5,000 UNIT/ML 1 ML VIAL SQ SCH ×2 (08:42→19:51)
[2023-03-26] MEDS: THIAMINE 100 MG TAB PO SCH (08:42)
[2023-03-26] MEDS: FOLIC ACID 1 MG TAB PO SCH (08:42)
[2023-03-26] MEDS: HYDROcodone/APAP 7.5-325MG 1 EACH TAB PO PRN ×2 (08:42→19:50)
[2023-03-26] MEDS: MAGNESIUM OXIDE 400 MG TAB PO SCH ×2 (08:42→19:50)
[2023-03-26] MEDS: GABAPENTIN 100 MG CAP PO SCH ×3 (08:42→19:50)
[2023-03-26] MEDS ORDERED: CYCLOBENZAPRINE 5 MG TAB PO PRN (09:04)
--- NOTE | 2023-03-26 11:00 | P.PN ---
Subjective Progress Note Date: 03/26/23 I am following-up with patient and she feels she is about the same. Pending her work-up from her neurologist (Dr. Davis) to be send to us. Objective - Vital Signs Vital signs: Vital Signs Temp 97.6 F 03/25/23 20:00 Pulse 86 03/26/23 08:00 Resp 16 03/26/23 08:00 BP 135/72 03/26/23 08:00 Pulse Ox 95 03/26/23 08:00 FiO2 21 03/24/23 08:08 Intake & Output 03/25/23 03/26/23 03/26/23 18:59 06:59 18:59 Intake Total 1360 540 Balance 1360 540 Intake: Intake, IV Titration 700 Amount Magnesium Sulfate-D5w Pmx 100 1 gm In Dextrose/Water 1 100ml.bag @ 100 mls/hr IVPB ONCE ONE Rx#: [id number] Sodium Chloride 0.9% 1, 600 000 ml @ 75 mls/hr IV . [id number] [facility] Rx#:[id number] Oral 660 540 Other: Voiding Method Toilet Toilet # Voids 1 - Labs CBC & Chem 7: 03/23/23 16:24 03/26/23 06:23 Labs: Abnormal Lab Results - Last 24 Hours (Table) 03/26/23 Range/Units 06:23 Chloride 112 H (98-107) mmol/L Creatinine 1.14 H (0.52-1.04) mg/dL Assessment and Plan Assessment: This is a 57-year-old woman who has been having recurrent falls for the past couple months and in the last 1 week she noticed that she's having right lower extremity weakness with numbness. She had MRI brain and cervical thoracic lumbar at her neurologist office (Dr. Davis) and was told she had the discrimination in the lumbar region. Recurrent falls with right lower extremity weakness and numbness on examination she had hyporeflexia: Probable right lumbar radiculopathy. Stroke is low on di fferential Folate deficiency (4 and normal level is 4.4-31) Dyslipidemia History of alcohol use Plan: We'll obtain her MRI imaging results from her neurologist office (Dr. Davis's office) that she had in last 1-2 month in which she had MRI the brain cervical thoracic lumbar. Orthopedic team is on board. Is on aspirin 81 mg and Lipitor 80 mg daily at bedtime. For folate deficiency, she was started on folic acid 1mg daily. She is on thiamine 100 mg daily for alcohol use Patient had TSH in 01/31/2023 which was normal and the free T4 was also normal. She also had hemoglobin A1c during that time and it was normal 5.5. No need for repeat it. 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 Time with Patient: Less than 30
[2023-03-26] MEDS: BRIMONIDINE TARTRATE 0.2% DROPS 5 ML BTL RIGHT EYE SCH ×2 (11:43→19:51)
--- NOTE | 2023-03-26 12:35 | P.PN ---
Subjective Progress Note Date: 03/26/23 Principal diagnosis: Low back pain, right lower extremity weakness Patient was evaluated today at bedside, she is resting comfortably. Patient states his symptoms remain about the same. She states that she did have a episode of the right leg giving out on her when she was attempting to go to the bathroom yesterday. She denies any loss of bowel or bladder function at this ti me. She denies headaches, lightheadedness, chest pain or shortness of breath. Objective - Vital Signs Vital signs: Vital Signs Temp 97.6 F 03/25/23 20:00 Pulse 86 03/26/23 08:00 Resp 16 03/26/23 08:00 BP 135/72 03/26/23 08:00 Pulse Ox 95 03/26/23 08:00 FiO2 21 03/24/23 08:08 Intake & Output 03/25/23 03/26/23 03/26/23 18:59 06:59 18:59 Intake Total 1360 540 Balance 1360 540 Intake: Intake, IV Titration 700 Amount Magnesium Sulfate-D5w Pmx 100 1 gm In Dextrose/Water 1 100ml.bag @ 100 mls/hr IVPB ONCE ONE Rx#: [id number] Sodium Chloride 0.9% 1, 600 000 ml @ 75 mls/hr IV . [id number] [facility] Rx#:[id number] Oral 660 540 Other: Voiding Method Toilet Toilet # Voids 1 - Exam Gen: AOx3, NAD VSS stable at this time Integument: No obvious open lesions or sores are visualized throughout cervical, thoracic or lumbar spine. Bruising is noted in the left flank, likely from previous fall Palpation: No significant tenderness with palpation of the midline or paraspinal region of the cervical, thoracic or lumbar spine. No significant tenderness to the SI joints bilaterally. No point tenderness is appreciated to the bilateral upper or lower extremities Range of motion: Full range of motion in all major muscle groups of the bilateral upper and lower extremity's, no focal deficits Sensory Exam: Senory exam to light touch is intact C5-T1 Senosry exam to light touch is intact L2-S1 Motor: 5/5 strength appreciated in the bilateral upper extremities with shoulder abduction, shoulder elevation, elbow extension, elbow flexion, wrist extension, wrist flexion, residential installer 5/5 strength appreciated in the left lower extremity with hip flexion, knee extension, knee flexion, plantar flexion, dorsiflexion, EHL, FHL 4+/5 strength appreciated in the right lower extremity with hip flexion, 4/5 strength appreciated in the right lower extremity with knee extension, knee flexion, 4-/5 strength appreciated in the right lower extremity with plantar flexion, dorsiflexion, EHL, FHL Reflexes: Negative Idalmis's bilaterally, negative Babinski bilaterally, negative clonus bilaterally Special Test: Negative straight leg raise bilaterally Negative logroll maneuver bilaterally - Labs CBC & Chem 7: 03/23/23 16:24 03/26/23 06:23 Labs: Abnormal Lab Results - Last 24 Hours (Table) 03/26/23 Range/Units 06:23 Chloride 112 H (98-107) mmol/L Creatinine 1.14 H (0.52-1.04) mg/dL Assessment and Plan Assessment: Low back pain Right lower extremity weakness Right lower extremity radiculopathy Other medical comorbidities Plan: Continue conservative measures initially, this including continuous use of gabapentin and Flexeril. Could consider IV steroid taper versus oral steroid taper Consider pain management consult for possible RENEA depending MRI results DVT prophylaxis per primary medical service Other medical special recommendations appreciated Discharge planning: Pending patient's overall symptoms, hopeful follow-up in the outpatient setting with Dr. Bradford. Discussed the patient the need to have both report and disc of the cervical, thoracic and lumbar spine MRIs to review and discuss. Time with Patient: Less than 30
--- NOTE | 2023-03-26 13:01 | P.PN ---
Subjective Progress Note Date: 03/26/23 This is a pleasant 57 year old female with medical history of TIA, Gastroesophageal reflux disease, migraine, osteoarthritis and spinal disc herniation, fatty liver disease, former smoker and daily alcohol use. Patient presents to the ER with complaints of right leg heaviness and weakness started yesterday morning around 8am. Patient also reports mild right upper extremity weakness. Patient did slip and fall on her deck stairs 3 days ago came in to the ER for evaluation and then and was found to have left lateral 7, 8,9,10 ribs minimally displaced. There was a small left pleural effusion may reflect hemopneumothorax also noted. Patient was discharged home. Patient presents now with concern for stroke. Neurology has been consulted. Had a head and cervical spine CT showing age related atrophic and chronic small vessel ischemic change no acute process seen and no acute fracture or subluxation of the cervical spine. CT angiography head and neck shows no dissection of the cervical ICA's or vertebral arteries. No high grade stenosis or aneurysm. Patient reports heaviness and weakness in the right leg and having difficulty with mobility, straight leg raise test is positive and feel this may be more of a musculoskeletal injury from the fall. Patient admits to lower back worse than her usual pain about a 6/10. Some radiation into the right leg. Does report having an outpatient MRI done at [facility] and states it showed disc herniation, reports will be obtained. Blood work shows normal white blood cell count, hemoglobin of 10.6, MCV 100.8, sodium 134, BUN 18, creatinine 1.20. Troponin negative. Triglycerides 208, cholesterol 235, LDL 133, HDL 60. Urinalysis is abnomal patient does not report dysuria, urgency or frequency. Also not having any loss of bowel or bladder. 03/25/2023 Patient evaluated on medical floor. no acute complaints. No evidence of acute alcohol withdrawal. Patient continues to report lower back pain. Pending evaluation by orthopedics. F/U chest xray shows basilar linear atelectasis without sizable effusion. Hyperinflation compatible with COPD. No pneumothorax present. Echocardiogram showing normal LV size and systolic function and trace MR and TR. Creatinine has normalized. 03/26/2023 Patient evaluated today sitting up in the bed. She does report improvement in her low back pain. There is bruising to the lumbar region. She was seen in consultation by orthopedics who would like to see the reports of the cervical thoracic and lumbar MRI. Reports likely will be obtained on Monday as this is the weekend. Pending MRI reports patient may be a candidate for pain management services. Sodium is 137. Hemodynamically she is stable. She is still pending PT consultation. REVIEW OF SYSTEMS: CONSTITUTIONAL: No fever, no malaise, no fatigue. HEENT: No recent visual problems or hearing problems. Denied any sore throat. CARDIOVASCULAR: No chest pain, orthopnea, PND, no palpitations, no syncope. PULMONARY: No shortness of breath, no cough, no hemoptysis. GASTROINTESTINAL: No diarrhea, no nausea, no vomiting, no abdominal pain. NEUROLOGICAL: No headaches. Reports weakness and leg heaviness on the right PHYSICAL EXAMINATION: GENERAL: The patient is alert and oriented x3, not in any acute distress. Well developed, well nourished. HEENT: Pupils are round and equally reacting to light. EOMI. No scleral icterus. No conjunctival pallor. Normocephalic, atraumatic. No pharyngeal erythema. No thyromegaly. CARDIOVASCULAR: S1 and S2 present. No murmurs, rubs, or gallops. PULMONARY: Chest is clear to auscultation, no wheezing or crackles. ABDOMEN: Soft, nontender, nondistended, normoactive bowel sounds. No palpable o rganomegaly. MUSCULOSKELETAL: No joint swelling or deformity. EXTREMITIES: No cyanosis, clubbing, or pedal edema. Bilateral upper extremity strength 5/5, patient having pain throughout exam due to the rib fractures on the left. The right leg has limited mobilty and worsening back pain with straight leg raise. NEUROLOGICAL: Right lower extremity weakness SKIN: No rashes. She has ecchymosis to the lumbar region. Assesssment Right lower extremity weakness and heaviness s/p fall likely due to m usculoskeletal injury and lumbar radiculopathy. Neurology felt stroke is less likely. Fall with trauma and left sided rib fracture to rib # 7-10 Chronic alcohol abuse Hyperlipidemia history of fatty liver disease and component of alcoholic hepatitis Hyponatremia Mild acute kidney injury likely prerenal Macrocytic anemia Pt reports history of "multiple areas of mini stroke" Gastroesophageal reflux disease Hx of GI bleed due to bleeding ulcer Anxiety Former nicotine use quit 30 days ago GI prophylaxis DVT prophylaxis Plan Neurology and orthopedics consultation PT/OT consultation Patient started on ativan CIWA protocol no signs of acute alcohol withdrawal. Pain management in place and pending MRI results may need pain management consultation. Patient does state that pain is better today. Continue incentive spirometer The impression and plan of care has been dictated by Katherine Acuña, Nurse Practitioner as directed. Dr. Janae MD I have performed a history and physical examination and medical decision making of this patient, discussed the same with the dictator, and agree with the dictators assessment and plan as written, documented as a scribe. Based on total visit time, I have performed more than 50% of this visit. Objective - Vital Signs Vital signs: Vital Signs Temp 97.6 F 03/25/23 20:00 Pulse 86 03/26/23 08:00 Resp 16 03/26/23 08:00 BP 135/72 03/26/23 08:00 Pulse Ox 95 03/26/23 08:00 FiO2 21 03/24/23 08:08 Intake & Output 03/25/23 03/26/23 03/26/23 18:59 06:59 18:59 Intake Total 1360 540 Balance 1360 540 Intake: Intake, IV Titration 700 Amount Magnesium Sulfate-D5w Pmx 100 1 gm In Dextrose/Water 1 100ml.bag @ 100 mls/hr IVPB ONCE ONE Rx#: [id number] Sodium Chloride 0.9% 1, 600 000 ml @ 75 mls/hr IV . [id number] [facility] Rx#:[id number] Oral 660 540 Other: Voiding Method Toilet Toilet # Voids 1 - Labs CBC & Chem 7: 03/23/23 16:24 03/26/23 06:23 Labs: Abnormal Lab Results - Last 24 Hours (Table) 03/26/23 Range/Units 06:23 Chloride 112 H (98-107) mmol/L Creatinine 1.14 H (0.52-1.04) mg/dL Assessment and Plan Time with Patient: Less than 30
[2023-03-26] MEDS: AMITRIPTYLINE HCL 50 MG TAB PO SCH (19:50)
[2023-03-26] MEDS: ATORVASTATIN 80 MG TAB PO SCH (19:51)
[2023-03-27] MEDS: PANTOPRAZOLE 40 MG TABLET PO SCH (06:29)
[2023-03-27] MEDS: KETOROLAC 15 MG/ML 1 ML VIAL IVP SCH ×2 (06:29→11:34)
[2023-03-27] MEDS: FOLIC ACID 1 MG TAB PO SCH (08:09)
[2023-03-27] MEDS: GABAPENTIN 100 MG CAP PO SCH (08:09)
[2023-03-27] MEDS: MAGNESIUM OXIDE 400 MG TAB PO SCH (08:09)
[2023-03-27] MEDS: THIAMINE 100 MG TAB PO SCH (08:09)
[2023-03-27] MEDS: HEPARIN SODIUM,PORCINE 5,000 UNIT/ML 1 ML VIAL SQ SCH (08:09)
[2023-03-27] MEDS: BRIMONIDINE TARTRATE 0.2% DROPS 5 ML BTL RIGHT EYE SCH (08:09)
[2023-03-27] MEDS: ASPIRIN 81 MG PO SCH (08:09)
--- NOTE | 2023-03-27 08:34 | P.PN ---
Subjective Progress Note Date: 03/27/23 Principal diagnosis: Low back pain Right lower extremity weakness Patient seen and examined this morning. Patient is resting comfortably in bed. Patient reports she attempted to ambulate to the restroom and her right leg became weak and she needed to grab handrails to support herself. Instructed patient to use a walker when ambulating to prevent falls. Patient verbalizes understanding. She reports that she does have a walker at home. Informed patient that PT will be in to work with her today. If patient is feeling well and is safe to be discharged home today, she is cleared from Orthopedic standpoint. She has been instructed to follow up outpatient and bring in her MRI discs and reports. Objective - Vital Signs Vital signs: Vital Signs Temp 98.4 F 03/26/23 20:00 Pulse 96 03/27/23 04:00 Resp 16 03/27/23 04:00 BP 132/80 03/27/23 04:00 Pulse Ox 98 03/27/23 04:00 FiO2 21 03/24/23 08:08 Intake & Output 03/26/23 03/27/23 03/27/23 18:59 06:59 18:59 Other: Voiding Method Toilet Toilet # Voids 1 - Exam Inspection: Negative for any open fractures, ecchymosis, significant erythema/ulcers. Sensation: Sensation is equal, symmetric, bilaterally intact throughout the upper and lower extremities Palpation: Nontender to palpation throughout bilateral upper and lower extremities and throughout spine exam Range of motion: Patient does have full range of motion bilateral upper and lower extremities on exam Motor: 5/5 in all major motor groups in the bilateral upper and left lower extremities, 4/5 in right lower extremity Special tests: Negative Homans bilaterally. Negative Idalmis bilaterally. Negative clonus bilaterally. Neurovascular: Radial pulse intact, 2+ bilaterally. Cap refill under 3 seconds in digits upper extremities. - Labs CBC & Chem 7: 03/23/23 16:24 03/26/23 06:23 Assessment and Plan Assessment: Low back pain Right lower extremity weakness Right lower extremity radiculopathy Other medical comorbidities Plan: Continue conservative measures with use of Gabapentin and Flexeril. May benefit from a trial of IV vs Oral steroids. DVT prophylaxis per primary medical service Other medical special recommendations appreciated Discharge planning: Pending patient's overall symptoms, follow-up in the outpatient setting with Dr. Bradford. Discussed the patient the need to have both report and disc of the cervical, thoracic and lumbar spine MRIs to review and discuss at follow up. I reviewed and discussed this case with my attending Dr. Bradford, whom has reviewed this chart and films and is in agreement with assessment and plan of care as outlined above. I have personally seen and examined the patient, performed the documentation and the assessment and plan as written. Number of minutes spent on the visit: 20m.
[2023-03-27 10:01] VITALS: TEMP 98.1
[2023-03-27 12:04] VITALS: BP 160/92; PULSE 90; RESP 17
--- NOTE | 2023-03-29 19:22 | P.DS ---
Providers Date of admission: 03/23/23 19:15 Attending physician: Christos Mccoy Consults: 03/23/23 19:14 Consult Physician Routine Consulting Provider: Vance Daniel Consult Reason/Comments: Rt leg weakness Do you want consulting provider notified?: Yes 03/25/23 08:53 Consult Physician Stat Consulting Provider: Trey Bradford Consult Reason/Comments: back pain rt leg weakness Do you want consulting provider notified?: Yes Primary care physician: Paxton Armendariz [facility] Course: Final Diagnosis Right lower extremity weakness and heaviness s/p fall likely due to musculoskeletal injury and lumbar radiculopathy. Neurology felt stroke is less likely. Fall with trauma and left sided rib fracture to rib # 7-10 Chronic alcohol abuse Hyperlipidemia history of fatty liver disease and component of alcoholic hepatitis Hyponatremia Mild acute kidney injury likely prerenal Macrocytic anemia Pt reports history of "multiple areas of mini stroke" Gastroesophageal reflux disease Hx of GI bleed due to bleeding ulcer Anxiety Former nicotine use quit 30 days ago GI prophylaxis DVT prophylaxis Discharge Disposition Patient is stable for discharge home. Recommending to use walker for ambulating and transfers. Patient to obtain MRI of cervical thoracic and lumbar spine from [facility] and bring to follow up appointment with Dr. Bradford. Patient advised for total alcohol cessation patient verabalizes agreement and understanding. Continue home medications of gabapentin, flexeril and norco. Atorvastatin was increased to 40 mg HS. Started on low dose amlodipine for blood pressure control. Also recommending thiamine supplementation. Repeat BMP in 2 to 3 days. Follow up with PCP Dr Armendariz, [facility] and Dr. Galvan office. Hospital Course This is a pleasant 57 year old female with medical history of TIA, Gastroesophageal reflux disease, migraine, osteoarthritis and spinal disc herniation, fatty liver disease, former smoker and daily alcohol use. Patient presents to the ER with complaints of right leg heaviness and weakness started yesterday morning around 8am. Patient also reports mild right upper extremity weakness. Patient did slip and fall on her deck stairs 3 days ago came in to the ER for evaluation and then and was found to have left lateral 7, 8,9,10 ribs minimally displaced. There was a small left pleural effusion may reflect h emopneumothorax also noted. Patient was discharged home. Patient presents now with concern for stroke. Neurology has been consulted. Had a head and cervical spine CT showing age related atrophic and chronic small vessel ischemic change no acute process seen and no acute fracture or subluxation of the cervical spine. CT angiography head and neck shows no dissection of the cervical ICA's or vertebral arteries. No high grade stenosis or aneurysm. Patient reports heaviness and weakness in the right leg and having difficulty with mobility, straight leg raise test is positive and feel this may be more of a musculoskeletal injury from the fall. Patient admits to lower back worse than her usual pain about a 6/10. Some radiation into the right leg. Does report having an outpatient MRI done at [facility] and states it showed disc herniation, reports will be obtained. Blood work shows normal white blood cell count, hemoglobin of 10.6, MCV 100.8, sodium 134, BUN 18, creatinine 1.20. Troponin negative. Triglycerides 208, cholesterol 235, LDL 133, HDL 60. Urinalysis is abnomal patient does not report dysuria, urgency or frequency. Also not having any loss of bowel or bladder. Addmitted with neurology consultation. Patient had Echocardiogram showing normal LV size and systolic function and trace MR and TR. Creatinine has normalized. Neurology felt stroke less likely and feels symptoms are likely musculoskeletal which is more likely due to the recent fall with injury. Orthopedics was consulted and evaluated the patient will make further recommendations outpatient once MRI reports are obtained from neurology office. She does report improvement in her low back pain. There is bruising to the lumbar region. Physical therapy saw the patient and recommending home with homecare. Patient has not had any evidence of acute alcohol withdrawal. Labs are showing sodium 137, BUN 14, creatinine 1.14. Denying chest pain, Denying shortness of breath. No dizziness or lightheadedne ss. Back pain about 3/10. Urinating without difficulty. Does have continued right leg weakness with knee buckling. Lungs are clear S1 S2 auscultated abdomen is soft and nontender. Focal neurological exam is negative. Patient will be discharged home with above recommendations. Please see medication reconciliation for a list of current medications. Thank you for allowing us to participate in the care of this patient. The impression and plan of care has been dictated by Katherine Acuña, Nurse Practitioner as directed. Dr. Janae MD I have performed a history and physical examination and medical decision making of this patient, discussed the same with the dictator, and agree with the dictators assessment and plan as written, documented as a scribe. Based on total visit time, I have performed more than 50% of this visit. Patient Condition at Discharge: Stable Plan - Discharge Summary Discharge Rx Participant: Yes New Discharge Prescriptions: New Folic Acid 1 mg PO DAILY #30 tab amLODIPine [Norvasc] 2.5 mg PO DAILY #30 tablet Pantoprazole [Protonix] 40 mg PO AC-BRKFST #30 tab Thiamine [Vitamin B-1] 100 mg PO DAILY #30 tab Atorvastatin [Lipitor] 40 mg PO DAILY #30 tablet Continue LORazepam [Ativan] 1 mg PO BID PRN PRN Reason: Anxiety Brimonidine Tartrate [Alphagan P 0.2% Ophth Soln] 1 drop RIGHT EYE BID Ergocalciferol [Vitamin D2 (1250 Mcg = 09146 Iu)] 1,250 mcg PO NAVAS Omeprazole 40 mg PO DAILY HYDROcodone/APAP 7.5-325MG [[place] 7.5-325] 1 tab PO Q6HR PRN PRN Reason: Pain Gabapentin [Neurontin] 300 mg PO TID Amitriptyline HCl [Elavil] 50 mg PO HS Cyclobenzaprine [Flexeril] 10 mg PO HS Aspirin EC [Ecotrin Low Dose] 81 mg PO DAILY Discontinued Verapamil HCl [Verapamil ER] 120 mg PO DAILY Atorvastatin [Lipitor] 20 mg PO HS Discharge Medication List LORazepam [Ativan] 1 mg PO BID PRN 09/23/20 [History] Amitriptyline HCl [Elavil] 50 mg PO HS 04/11/22 [History] Brimonidine Tartrate [Alphagan P 0.2% Ophth Soln] 1 drop RIGHT EYE BID 04/11/22 [History] Cyclobenzaprine [Flexeril] 10 mg PO HS 04/11/22 [History] Ergocalciferol [Vitamin D2 (1250 Mcg = 74580 Iu)] 1,250 mcg PO NAVAS 04/11/22 [History] Omeprazole 40 mg PO DAILY 04/11/22 [History] Aspirin EC [Ecotrin Low Dose] 81 mg PO DAILY 04/15/22 [History] Gabapentin [Neurontin] 300 mg PO TID 03/23/23 [History] HYDROcodone/APAP 7.5-325MG [[place] 7.5-325] 1 tab PO Q6HR PRN 03/23/23 [History] Atorvastatin [Lipitor] 40 mg PO DAILY #30 tablet 03/27/23 [Rx] Folic Acid 1 mg PO DAILY #30 tab 03/27/23 [Rx] Pantoprazole [Protonix] 40 mg PO AC-BRKFST #30 tab 03/27/23 [Rx] Thiamine [Vitamin B-1] 100 mg PO DAILY #30 tab 03/27/23 [Rx] amLODIPine [Norvasc] 2.5 mg PO DAILY #30 tablet 03/27/23 [Rx] Follow up Appointment(s)/Referral(s): [facility], [NON-STAFF] - Paxton Armendariz DO [Primary Care Provider] - 1-2 Days Luly Davis MD [Medical Doctor] - 1 Week Trey Bradford DO [Doctor of Osteopathic Medicine] - 1 Week Ambulatory/Diagnostic Orders: Basic Metabolic Panel [LAB.AMB] Time Frame: 3 Days, Location: None Selected Activity/Diet/Wound Care/Special Instructions: Recommend to avoid alcohol Continue on gabapentin and flexeril Get records from [facility] the cervical, thoracic and lumbar MRI and bring to Dr. Bradford's office at your follow up appointment Recommend to repeat labs in 2 to 3 days Continue to use walker for ambulating Continue incentive spirometer 10 x an hour while awake Discharge/Stand Alone Forms: AA Meetings [place], Who Do I Call?, Community Resources, Help In The Home, Outpatient Counseling, In Substance Abuse Facilities, Personal Financial Aid Officer Discharge Disposition: HOME SELF-CARE
== END 2023-03-27 14:47 | disposition home or self-care (01) | DRG 45 ==
LOC: EC 14:54 → 3SCARD 19:15
PROVIDERS: ADMIT Hospitalist; ATTEND Hospitalist
DX: I63.9 Cerebral infarction, unspecified (principal); K76.0 Fatty (change of) liver, not elsewhere classified; E53.8 Deficiency of other specified B group vitamins; E78.5 Hyperlipidemia, unspecified; F41.9 Anxiety disorder, unspecified; G89.29 Other chronic pain; K58.9 Irritable bowel syndrome, unspecified; K70.10 Alcoholic hepatitis without ascites; D64.9 Anemia, unspecified; J98.11 Atelectasis; J44.9 Chronic obstructive pulmonary disease, unspecified; M54.16 Radiculopathy, lumbar region; K21.9 Gastro-esophageal reflux disease without esophagitis; M19.90 Unspecified osteoarthritis, unspecified site; I08.1 Rheumatic disorders of both mitral and tricuspid valves; R29.6 Repeated falls; Z79.82 Long term (current) use of aspirin; Z79.899 Other long term (current) drug therapy; Z86.73 Personal history of transient ischemic attack (TIA), and cerebral infarction without residual deficits; Z87.891 Personal history of nicotine dependence; Z88.1 Allergy status to other antibiotic agents; Z88.5 Allergy status to narcotic agent; Z91.81 History of falling; Z87.19 Personal history of other diseases of the digestive system
CPT/HCPCS: 36415; 70450; 70496; 70498; 71046; 72125; 80048; 80053; 80061; 80320; 81001; 82607; 82746; 82747; 83605; 83735; 84484; 85025; 85610; 85730; 93005; 93306; 94760; 96361; 96372; 96374; 99285

== ENCOUNTER 2023-04-29 07:43 | Emergency (ER) | payer OTHER ==
[2023-04-29 07:48] VITALS: TEMP 97.8
--- NOTE | 2023-04-29 08:05 | ED ---
General Adult HPI - General Chief complaint: Neuro Symptoms/Deficit Stated complaint: Poss Stroke, Fall Time Seen by Provider: 04/29/23 07:50 Source: patient, EMS, RN notes reviewed, old records reviewed Mode of arrival: EMS Limitations: altered mental status - History of Present Illness Initial comments: This is a 57-year-old female who presents emergency Department complaining of having left-sided paralysis sided facial droop. Patient states last time she was normal was 11:00 last night. Patient states she woke up this morning and her right side of her face was drooping and she could not move her arm and barely move her leg. Patient denies any significant head trauma. Patient denies any recent fever chills per patient denies any chest pain difficulty breathing or palpitations. Patient denies any back pain. Patient states any abdominal pain. - Related Data Home Medications Medication Instructions Recorded Confirmed LORazepam [Ativan] 1 mg PO BID PRN 09/23/20 03/23/23 Amitriptyline HCl [Elavil] 50 mg PO HS 04/11/22 03/23/23 Brimonidine Tartrate [Alphagan P 1 drop RIGHT EYE BID 04/11/22 03/23/23 0.2% Ophth Soln] Cyclobenzaprine [Flexeril] 10 mg PO HS 04/11/22 03/23/23 Ergocalciferol [Vitamin D2 (1250 1,250 mcg PO NAVAS 04/11/22 03/23/23 Mcg = [id number] Iu)] Omeprazole 40 mg PO DAILY 04/11/22 03/23/23 Aspirin EC [Ecotrin Low Dose] 81 mg PO DAILY 04/15/22 03/23/23 Gabapentin [Neurontin] 300 mg PO TID 03/23/23 03/23/23 HYDROcodone/APAP 7.5-325MG [[place] 1 tab PO Q6HR PRN 03/23/23 03/23/23 7.5-325] Previous Rx's Medication Instructions Recorded Atorvastatin [Lipitor] 40 mg PO DAILY #30 tablet 03/27/23 Folic Acid 1 mg PO DAILY #30 tab 03/27/23 Pantoprazole [Protonix] 40 mg PO AC-BRKFST #30 tab 03/27/23 Thiamine [Vitamin B-1] 100 mg PO DAILY #30 tab 03/27/23 amLODIPine [Norvasc] 2.5 mg PO DAILY #30 tablet 03/27/23 Allergies Allergy/AdvReac Type Severity Reaction Status Date / Time azithromycin AdvReac Nausea & Verified 04/29/23 08:46 [From Zithromax Z-Francisco] Vomiting & Diarrhea codeine AdvReac Nausea & Verified 04/29/23 08:46 Vomiting Review of Systems ROS Statement: Those systems with pertinent positive or pertinent negative responses have been documented in the HPI. ROS Other: All systems not noted in ROS Statement are negative. Past Medical History Past Medical History: GERD/Reflux, GI Bleed, Liver Disease, Osteoarthritis (OA) Additional Past Medical History / Comment(s): occ migraines, sinus congestion from allergies, hx pleurisy, bleeding ulcer Mar 2019, hx anemia, fatty liver disease, hiatal hernia, IBS/constipation. History of Any Multi-Drug Resistant Organisms: None Reported Past Surgical History: Heart Catheterization Additional Past Surgical History / Comment(s): kidney biopsy, laparoscopy, Past Anesthesia/Blood Transfusion Reactions: Previous Problems w/ Anesthesia, Family History of Problems w/ Anesthesia, Motion Sickness Additional Past Anesthesia/Blood Transfusion Reaction / Comment(s): had blood transfusion 03/2019-no problems, "takes a while to come out", 'sister had hard time coming out of it" Past Psychological History: Anxiety Smoking Status: Current some day smoker Past Alcohol Use History: Daily Past Drug Use History: None Reported - Past Family History Father Family Medical History: No Reported History Mother Family Medical History: No Reported History General Exam - General Exam Comments Initial Comments: GENERAL: Patient is well-developed and well-nourished. Patient is nontoxic and well- hydrated and is in no acute distress. ENT: Neck is soft and supple. No significant lymphadenopathy is noted. Oropharynx is clear. Moist mucous membranes. Neck has full range of motion without eliciting any pain. EYES: The sclera were anicteric and conjunctiva were pink and moist. Extraocular movements were intact and pupils were equal round and reactive to light. Eyelids were unremarkable. PULMONARY: Unlabored respirations. Good breath sounds bilaterally. No audible rales rhonchi or wheezing was noted. CARDIOVASCULAR: There is a regular rate and rhythm without any murmurs gallops or rubs. ABDOMEN: Soft and nontender with normal bowel sounds. No palpable organomegaly was noted. There is no palpable pulsatile mass. SKIN: Skin is clear with no lesions or rashes and otherwise unremarkable. NEUROLOGIC: Patient is alert and oriented x3. Patient has complete paralysis of the left side of her face. Patient has complete paralysis of the left arm and she has 2 out of 5 strength in the dorsi and plantar flexion of her left leg. Patient has decreased sensation in both arm and leg. MUSCULOSKELETAL: Normal extremities with adequate strength and full range of motion. LYMPHATICS: No significant lymphadenopathy is noted PSYCHIATRIC: Normal psychiatric evaluation. Limitations: altered mental status Course Vital Signs 04/29/23 04/29/23 04/29/23 07:44 08:02 08:15 Temperature 97.8 F Pulse Rate 76 70 100 Respiratory 20 18 18 Rate Blood Pressure 130/75 135/84 135/84 O2 Sat by Pulse 98 93 L 98 Oximetry Medical Decision Making - Medical Decision Making EKG was interpreted by myself. EKG shows a sinus rhythm at 97 bpm AR interval 135 QRS C5 Q-T intervals 55 QTC is 409. Patient's EKG shows no ST segment elevation or depression.. Was pt. sent in by a medical professional or institution (, PA, MAINTENANCE CRAFTSMAN, urgent care, hospital, or jail...) When possible be specific @ -No Did you speak to anyone other than the patient for history (EMS, parent, family, police, friend...)? What history was obtained from this source @ -EMS gave us quite a bit of the history Did you review nursing and triage notes (agree or disagree)? Why? @ -I reviewed and agree with nursing and triage notes Were old charts reviewed (outside hosp., previous admission, EMS record, old EKG, old radiological studies, urgent care reports/EKG's, jail records)? Report findings @ -I reviewed Prior charts and prior lab work on this patient. Differential Diagnosis (chest pain, altered mental status, abdominal pain women, abdominal pain men, vaginal bleeding, weakness, fever, dyspnea, syncope, headache, dizziness, GI bleed, back pain, seizure, CVA, palpatations, mental h ealth, musculoskeletal)? @ -Differential CVA Ischemic stroke, hemorrhagic stroke, brain tumor, atypical migraine, Wernicke's encephalopathy, seizure, multiple sclerosis, meningitis, encephalitis, hypoglycemia, Guillain-Puentes, electrolytes disturbance, myasthenia gravis.... This is not meant to be an all-inclusive list EKG interpreted by me (3pts min.). @ -As above X-rays interpreted by me (1pt min.). @ -Chest x-ray shows no acute abnormality CT interpreted by me (1pt min.). @ -CT of the brain shows no acute abnormality. CTA was read by the radiologist showed no significant stenosis and Dr. Sandhu stated that he believed there to be some fairly significant stenosis. U/S interpreted by me (1pt. min.). @ -None done What testing was considered but not performed or refused? (CT, X-rays, U/S, labs)? Why? @ -None What meds were considered but not given or refused? Why? @ -None Did you discuss the management of the patient with other professionals (professionals i.e. , PA, MAINTENANCE CRAFTSMAN, lab, RT, psych nurse, social professionals, photographer's assistant, teacher, quality officer, pillowcase turner)? Give summary @ -I spoke with Dr. Sandhu on 2 occasions. He wanted the patient transferred to [facility] I spoke with the [facility] ER doctor Dr. molina and they accept the transfer Was smoking cessation discussed for >3mins.? @ -No Was critical care preformed (if so, how long)? @ -35 minutes Were there social determinants of health that impacted care today? How? (Homelessness, low income, unemployed, alcoholism, drug addiction, tr ansportation, low edu. Level, literacy, decrease access to med. care, correction, rehab)? @ -No Was there de-escalation of care discussed even if they declined (Discuss DNR or withdrawal of care, Hospice)? DNR status @ -No What co-morbidities impacted this encounter? (DM, HTN, Smoking, COPD, CAD, Cancer, CVA, ARF, Chemo, Hep., AIDS, mental health diagnosis, sleep apnea, morbid obesity)? @ -None Was patient admitted / discharged? Hospital course, mention meds given and route, prescriptions, significant lab abnormalities, going to OR and other pertinent info. @ -Patient was brought in and a code stroke was called. Patient had a CT and a CTA head and neck. Patient symptoms drastically improved. Patient received 180 of Brilinta 325 of aspirin and Lipitor 80 and a liter of fluid Undiagnosed new problem with uncertain prognosis? @ -No Drug Therapy requiring intensive monitoring for toxicity (Heparin, Nitro, Insulin, Cardizem)? @ -No Were any procedures done? @ -No Diagnosis/symptom? @ -CVA Acute, or Chronic, or Acute on Chronic? @ -Acute Uncomplicated (without systemic symptoms) or Complicated (systemic symptoms)? @ -Complicated Side effects of treatment? @ -No Exacerbation, Progression, or Severe Exacerbation? @ -No Poses a threat to life or bodily function? How? (Chest pain, [place], [place], pneumonia, PE, COPD, DKA, ARF, appy, cholecystitis, CVA, Diverticulitis, Homicidal, Suicidal, threat to staff... and all critical care pts) @ -Yes this could lead to worsening symptoms and - Lab Data Result diagrams: 04/29/23 07:53 04/29/23 07:53 Lab Results 04/29/23 04/29/23 04/29/23 Range/Units 07:53 07:53 07:53 WBC 14.9 H (3.8-10.6) k/uL RBC 3.84 (3.80-5.40) m/uL Hgb 11.6 (11.4-16.0) gm/dL Hct 36.9 (34.0-46.0) % MCV 96.1 (80.0-100.0) fL MCH 30.1 (25.0-35.0) pg MCHC 31.3 (31.0-37.0) g/dL RDW 15.6 H (11.5-15.5) % Plt Count 397 (150-450) k/uL MPV 8.6 Neutrophils % 81 % Lymphocytes % 6 % Monocytes % 4 % Eosinophils % 6 % Basophils % 0 % Neutrophils # 12.0 H (1.3-7.7) k/uL Lymphocytes # 1.0 (1.0-4.8) k/uL Monocytes # 0.6 (0-1.0) k/uL Eosinophils # 0.9 H (0-0.7) k/uL Basophils # 0.0 (0-0.2) k/uL Hypochromasia Moderate Sodium 140 (137-145) mmol/L Potassium 3.8 (3.5-5.1) mmol/L Chloride 109 H (98-107) mmol/L Carbon Dioxide 14 L (22-30) mmol/L Anion Gap 17 mmol/L BUN 10 (7-17) mg/dL Creatinine 1.33 H (0.52-1.04) mg/dL Est GFR (CKD-EPI)AfAm 50 (>60 ml/min/1.73 sqM) Est GFR (CKD-EPI)NonAf 44 (>60 ml/min/1.73 sqM) Glucose 113 H (74-99) mg/dL Calcium 9.6 (8.4-10.2) mg/dL Total Bilirubin 0.4 (0.2-1.3) mg/dL AST 50 H (14-36) U/L ALT 33 (4-34) U/L Alkaline Phosphatase 139 H (38-126) U/L Creatine Kinase 143 H (30-135) U/L Troponin I <0.012 (0.000-0.034) ng/mL Total Protein 7.1 (6.3-8.2) g/dL Albumin 3.8 (3.5-5.0) g/dL Critical Care Time Critical Care Time: Yes Total Critical Care Time: 35 Disposition Clinical Impression: CVA (cerebral vascular accident) Disposition: OTHER INSTITUTION NOT DEFINED Referrals: Paxton Armendariz DO [Primary Care Provider] - 1-2 days Time of Disposition: 08:55 - Out of Hospital Transfer - Req. Specs Out of Hospital Transfer - Requested Specifics: Other Emergency Center ([facility])
--- NOTE | 2023-04-29 08:06 | CT ---
EXAMINATION TYPE: CT brain wo con CT DLP: 1075.6 mGycm, Automated exposure control for dose reduction was used. DATE OF EXAM: 04/29/2023 7:56 AM COMPARISON: None. CLINICAL INDICATION:Female, 57 years old with history of Neuro deficit, acute, stroke suspected, CODE STROKE TECHNIQUE: Brain: Axial CT images of the brain were obtained with coronal and sagittal reformats created and rev iewed. Contrast used: None. Oral contrast used: None. FINDINGS: Brain: Extra-axial spaces: No abnormal extra-axial fluid collections. Ventricular system: Within normal limits Cerebral parenchyma: No acute intraparenchymal hemorrhage or mass effect. The rosario-white junction is well differentiated. Cerebellum: Unremarkable. Mass effect: No evidence of midline shift. Intracranial vasculature: Mild atherosclerotic calcifications of the intracranial vessels. Soft tissues: Normal. Calvarium/osseous structures: No depressed skull fracture. Paranasal sinuses and mastoid air cells: No significant fluid in the paranasal sinuses. Visualized orbits: Orbital contents are intact. MRI is more sensitive for detecting acute processes such as infarct, and may be considered if clinica lly warranted. IMPRESSION: No acute intracranial CT abnormality.
[2023-04-29] MEDS ORDERED: SODIUM CHLORIDE 0.9% 1,000 ML IV ONE (08:15)
[2023-04-29] MEDS ORDERED: TICAGRELOR 90 MG TAB PO STA (08:16)
[2023-04-29] MEDS ORDERED: ASPIRIN 325 MG TAB PO STA (08:16)
[2023-04-29] MEDS ORDERED: ATORVASTATIN 80 MG TAB PO STA (08:17)
[2023-04-29 08:40] LABS: ALT 33 U/L (4-34); AST 50 U/L (14-36); African American GFR (CKD) 50 (>60 ml/min/1.73 sqM); Albumin 3.8 g/dL (3.5-5.0); Alkaline Phosphatase 139 U/L (38-126); Anion Gap 17 mmol/L; Blood Urea Nitrogen 10 mg/dL (7-17); Calcium 9.6 mg/dL (8.4-10.2); Carbon Dioxide 14 mmol/L (22-30); Chloride 109 mmol/L (98-107); Creatine Kinase 143 U/L (30-135); Glucose 113 mg/dL (74-99); Non-African American GFR(CKD) 44 (>60 ml/min/1.73 sqM); Potassium 3.8 mmol/L (3.5-5.1); Sodium 140 mmol/L (137-145); Total Bilirubin 0.4 mg/dL (0.2-1.3); Total Protein 7.1 g/dL (6.3-8.2)
--- NOTE | 2023-04-29 08:42 | CT ---
EXAMINATION TYPE: CT angio head neck CT DLP: 544.3 mGycm, Automated exposure control for dose reduction was used. DATE OF EXAM: 04/29/2023 8:19 AM COMPARISON: Same day noncontrast CT head. CLINICAL INDICATION:Female, 57 years old with history of Neuro deficit, acute, stroke suspected; PHH, Fall, possible stroke TECHNIQUE: Axially acquired helical CT angiogram of the head and neck was obtained with contrast. Axi al images are supplemented with 3D reconstructions which were post-processed at an independent workst atcritical access hospital. NASCET criteria used. Contrast used:65 mL of Isovue 370 with IV Contrast, Oral contrast used: None. FINDINGS: CTA HEAD: No evidence of acute intracranial hemorrhage, mass effect, or midline shift. The ventricles, sulci, a nd cisterns are unremarkable. Mild atherosclerotic calcification of the carotid siphons. The visualized portions of the internal ca rotid arteries, middle cerebral arteries, anterior cerebral arteries, and posterior cerebral arteries are patent. The basilar and vertebral arteries are patent. CTA NECK: Right Carotid System: The common carotid artery and external carotid artery are patent. Mild atherosclerotic calcification of the proximal right external carotid. The carotid bifurcation demonstrates no evidence of hemodynam ically significant stenosis. The remaining portions of the internal carotid artery demonstrate normal size without significant narrowing. Left Carotid System: The common carotid artery and external carotid artery are patent. The carotid bifurcation demonstrate s no evidence of hemodynamically significant stenosis. The remaining portions of the internal carotid artery demonstrate normal size without significant narrowing. Vertebral arteries are patent without evidence hemodynamically significant stenosis. There is a three-vessel aortic arch. The origins of the great vessels are patent, with mild narrowing of the proximal right brachiocephalic artery by calcified plaque.. No evidence of hemodynamically si gnificant stenosis. Upper thorax: Moderate background emphysematous changes. [id number]-[id number] left pleural effusion with associated opacity, likely compressive atelectasis. Small groundglass infiltrate in the right upper lobe. Osseous structures show mild degenerative changes without acute bony abnormality. IMPRESSION: 1. No evidence of dissection of the cervical internal carotid arteries or vertebral arteries or any evidence of significant stenosis at the carotid bifurcations. 2. No evidence of intracranial high-grade stenosis, major vascular occlusion, or intracranial aneury sm. 3. Moderate pulmonary emphysematous changes. 4. Small to moderate left pleural effusion with associated opacity, likely compressive atelectasis. 5. Small groundglass infiltrate in the right upper lobe, can be seen with infectious/inflammatory pr ocess.
[2023-04-29 08:45] LABS: Basophils % (A) 0 %; Eosinophils # (A) 0.9 k/uL (0-0.7); Eosinophils % (A) 6 %; HCT 36.9 % (34.0-46.0); HGB 11.6 gm/dL (11.4-16.0); Hypochromasia Moderate; Lymphocytes % (A) 6 %; MCH 30.1 pg (25.0-35.0); MCHC 31.3 g/dL (31.0-37.0); MCV 96.1 fL (80.0-100.0); Mean Platelet Volume 8.6; Monocytes # (A) 0.6 k/uL (0-1.0); Monocytes % (A) 4 %; Neutrophils % (A) 81 %; Platelet Count 397 k/uL (150-450); RBC 3.84 m/uL (3.80-5.40); RDW 15.6 % (11.5-15.5); WBC 14.9 k/uL (3.8-10.6)
--- NOTE | 2023-04-29 08:51 | XR ---
EXAM: XR chest 1V portable CLINICAL INDICATION:Female, 57 years old with history of altered mental status; [facility] COMPARISON: 03/24/2023 TECHNIQUE: Chest single view. FINDINGS: Lines/tubes/devices: None. Cardiomediastinum: Cardiac silhouette appears normal in size. Unremarkable mediastinal silhouette. Vasculature: Mild central congestion. Lungs/pleura: Obscured left costophrenic angle suggesting small to moderate pleural effusion. Adjacent opacity like ly atelectasis, with infection not excluded in the proper setting. No sizable pleural effusion on the right. No pneumothorax seen. Bones/soft tissues: Bony thorax appears grossly intact as seen. Regional soft tissues appear unremarkable. IMPRESSION: 1. Mild pulmonary vascular congestion. 2. Small to moderate left pleural effusion. Adjacent opacity likely atelectasis, with infection not excluded in the proper setting.
[2023-04-29 08:58] LABS: INR 0.9 (<1.2); Prothrombin Time 9.6 sec (10.0-12.5)
[2023-04-29 09:49] VITALS: BP 142/86; PULSE 18; RESP 20
== END 2023-04-29 09:40 | disposition other institution (70) ==
LOC: EC 07:43
DX: I63.9 Cerebral infarction, unspecified (principal); J90 Pleural effusion, not elsewhere classified; F41.9 Anxiety disorder, unspecified; K21.9 Gastro-esophageal reflux disease without esophagitis; M19.90 Unspecified osteoarthritis, unspecified site; F17.200 Nicotine dependence, unspecified, uncomplicated; Z88.1 Allergy status to other antibiotic agents; Z88.5 Allergy status to narcotic agent; Z79.899 Other long term (current) drug therapy; Z79.82 Long term (current) use of aspirin
CPT/HCPCS: 36415; 93005; 80053; 82550; 84484; 85025; 85610; 85730; 71045; 70496; 70450; 70498; 99291; 96360; Q9967

== ENCOUNTER → 2023-08-21 | Outpatient (CLI) | payer OTHER ==
--- NOTE | 2023-08-21 18:21 | BD ---
EXAMINATION TYPE: Axial Bone Density DATE OF EXAM: 08/21/2023 CLINICAL HISTORY: 57 years old Female. ICD-10 CODE: M81.0 osteoporosis Height: 67.5 Weight: 157.5 FRAX RISK QUESTIONS: Alcohol (3 or more units per day): no Family History (Parent hip fracture): no Glucocorticoids (More than 3mos): no (Ex: prednisone, prednisolone, methylprednisolone, dexamethasone, and hydrocortisone). History of Fracture in Adulthood: yes Secondary Osteoporosis: 1. Type 1 Diabetes: no 2. Hyperthyroidism: no 3. Menopause before 45: no 4. Malnutrition: no 5. Chronic liver disease: no Rheumatoid Arthritis: no Current Tobacco Use: no RISK FACTORS HISTORY OF: Surgery to Spine/Hip(right/left)/Wrist (right/left): no EXAM MEASUREMENTS: Bone mineral densitometry was performed using the [employer] System. Bone mineral density as measured about the Lumbar spine is: ----- L1-L4(G/cm2): 1.293 T Score Values are as follows: ----- L1: 0.7 ----- L2: 0.8 ----- L3: 1.7 ----- L4: 0.3 ----- L1-L4: 0.9 Z Score Values are as follows: ----- L1: 1.7 ----- L2: 1.7 ----- L3: 2.7 ----- L4: 1.3 ----- L1-L4: 1.9 Bone mineral density : baseline Bone mineral density about the R hip (g/cm2): 1.139 Bone mineral density about the L hip (g/cm2): 1.138 T Score values are as follows: -----R Neck: 0.0 -----L Neck: 0.0 -----R Total: 1.0 -----L Total: 1.0 Z Score values are as follows: -----R Neck: 1.1 -----L Neck: 1.0 -----R Total: 1.8 -----L Total: 1.8 Bone mineral density : baseline FRAX%s: The graph provided illustrates a 10.5% chance for a major osteoporotic fx and a 0.3% chance f or the hips probability for fx in 10 years time. IMPRESSION: Normal (Values between +1 and -1 indicate normal bone mass). Consider repeating this study in 5 year s or sooner if there is some new clinical indication. NOTE: T-SCORE=SD OF THE YOUNG ADULT MEAN.
--- NOTE | 2023-08-22 08:20 | MM ---
Reason for Exam: Screening (asymptomatic). Last mammogram was performed 1 year(s) and 10 month(s) ago. Patient History: Menarche at age 15. First Full-Term at age 25. Postmenopausal. Patient used Hormonal Contraceptives for 30 years. Maternal aunt had breast cancer. Risk Values: Ada 5 year model risk: 1.4%. NCI Lifetime model risk: 7.6%. Prior Study Comparison: 05/14/2012 Screening Mammogram, [facility]. 06/18/2020 Bilateral Screening Mammogram, [facility]. 11/04/2021 Bilateral Screening Mammogram, [facility]. Tissue Density: The breast tissue is almost entirely fat. Findings: Analyzed By CAD. There is no suspicious group of microcalcifications or new suspicious mass. Overall Assessment: Negative, BI-RAD 1 Management: Screening Mammogram of both breasts in [address] [facility] will attempt to contact patient to return for supplemental views and ultrasound if indicated. Patient should continue monthly self-breast exams. A clinical breast exam by your physician is recommended on an annual basis. This exam should not preclude additional follow-up of suspicious palpable abnormalities. Note on Ada scores and lifetime risk: 1. A Ada score greater than 3% is considered moderate risk. If this is the case, consider specialist referral to assess eligibility for a risk reducing agent. 2. If overall lifetime risk for the development of breast cancer is 20% or higher, the patient may qualify for future screening with alternating mammogram and breast MRI. Electronically signed and approved by: Wesley Rivera DO
== END | disposition home or self-care (01) ==
LOC: RADMAMWWP 15:27
PROVIDERS: ATTEND Family Medicine
DX: Z12.31 Encounter for screening mammogram for malignant neoplasm of breast (principal); M81.0 Age-related osteoporosis without current pathological fracture; Z78.0 Asymptomatic menopausal state; Z80.3 Family history of malignant neoplasm of breast
CPT/HCPCS: 77067; 77080

== ENCOUNTER 2023-09-12 09:10 | Day surgery (SDC) | payer OTHER ==
[2023-09-08 16:34] VITALS: BMI 24.0
[2023-09-12] MEDS: SODIUM CHLORIDE 0.9% 500 ML 500 ML IV ONE (09:38)
[2023-09-12 09:48] VITALS: TEMP 98
[2023-09-12] MEDS ORDERED: fentaNYL (PF) 50 MCG/ML 2 ML AMP ONE (10:14)
[2023-09-12] MEDS: BENZOCAINE SPRAY 1 CAN TOPICAL ONE (10:40)
[2023-09-12] MEDS: fentaNYL (PF) 50 MCG/ML 2 ML AMP IVP ONE (10:41)
[2023-09-12] MEDS: MIDAZOLAM 2 MG/2 ML VIAL IVP ONE (10:41)
[2023-09-12 10:57] VITALS: RESP 14
[2023-09-12 11:33] VITALS: BP 139/76
--- NOTE | 2023-09-12 11:38 | ECHOT ---
TRANSESOPHAGEAL ECHOCARDIOGRAM INDICATIONS: Recurrent episodes of TIA. PROCEDURE NOTE: After obtaining informed consent, transesophageal echocardiogram is performed in left lateral position using an Omniplane probe. Local and IV sedation were obtained using Xylocaine spray, 2 mg of Versed, and 50 mcg of fentanyl. The patient tolerated the procedure well without any obvious immediate complications. The patient received moderate conscious sedation. Total sedation time was 10 minutes. FINDINGS: 1. There is no intracardiac thrombus within the left atrial appendage, left atrium, right atrium, or right ventricle are seen. 2. Left ventricle has normal size and systolic function. 3. Mitral valve is anatomically normal. There is mild mitral regurgitation noted. Aortic valve is a 3-leaflet valve. There is no evidence of aortic stenosis or regurgitation. Tricuspid valve appears normal. Aorta appears normal. Interatrial septum, there is lipomatous hypertrophy of the interatrial septum noted. There is no evidence of zrux-cv-carsv shunt by color-flow Doppler. There is evidence of zhuvq-uv-oezu shunt with agitated saline contrast study. CONCLUSION: This transesophageal echo reveals PFO with evidence of uqcyf-uv-uuqs shunt on agitated saline contrast study. PLAN: I am going to have Dr. Coe review the GENA and if necessary perform Amplatz device closure. MMODL / IJN: [id number] /
[2023-09-12 12:07] VITALS: PULSE 86
== END 2023-09-12 12:03 | disposition home or self-care (01) ==
LOC: CATHCVL 09:10
PROVIDERS: ATTEND Internal Medicine Cardiovascular Disease
DX: I34.0 Nonrheumatic mitral (valve) insufficiency (principal); Q21.12 Patent foramen ovale; G45.9 Transient cerebral ischemic attack, unspecified; I10 Essential (primary) hypertension; E78.5 Hyperlipidemia, unspecified; Z79.82 Long term (current) use of aspirin; Z79.899 Other long term (current) drug therapy; Z88.5 Allergy status to narcotic agent
CPT/HCPCS: 93312; 93320; 93325; J2250; J3010

== ENCOUNTER 2023-10-11 09:31 | Day surgery (SDC) | payer OTHER ==
[~2023-10-11 09:31] MED LIST changes: -ACETAMINOPHEN TAB 500 MG TAB PO PRN; +ALPRAZolam 0.25 MG TAB PO PRN; +ALPRAZolam 0.5 MG TAB PO PRN; +ASPIRIN 325 MG TAB PO STA; -DEXAMETHASONE SOD PHOSPHATE 4 MG/ML 1 ML VIAL IV ONE; -HEPARIN SODIUM,PORCINE 5,000 UNIT/ML 1 ML VIAL SQ PRN; +NITROGLYCERIN SL TABS 0.4 MG TAB SUBLINGUAL PRN; -ONDANSETRON 4 MG/2 ML VIAL IVP ONE
[2023-10-11] MEDS: SODIUM CHLORIDE 0.9% 1,000 ML in EMPTY BAG 1 BAG IV ONE (09:53)
[2023-10-11 09:57] VITALS: RESP 18; TEMP 97.7
[2023-10-11] MEDS ORDERED: LIDOCAINE 1% INJ 10MG/ML (20 ML MDV) ONE (09:58)
[2023-10-11 10:11] LABS: Anisocytosis Slight; Basophils # (A) 0.1 k/uL (0-0.2); Basophils % (A) 1 %; Eosinophils # (A) 0.2 k/uL (0-0.7); Eosinophils % (A) 2 %; HCT 35.7 % (34.0-46.0); HGB 11.1 gm/dL (11.4-16.0); Lymphocytes # (A) 1.7 k/uL (1.0-4.8); Lymphocytes % (A) 16 %; MCH 29.6 pg (25.0-35.0); MCHC 31.1 g/dL (31.0-37.0); MCV 95.2 fL (80.0-100.0); Mean Platelet Volume 7.2; Monocytes # (A) 0.4 k/uL (0-1.0); Monocytes % (A) 4 %; Neutrophils # (A) 7.6 k/uL (1.3-7.7); Neutrophils % (A) 73 %; Platelet Count 621 k/uL (150-450); RBC 3.75 m/uL (3.80-5.40); RDW 16.7 % (11.5-15.5); WBC 10.4 k/uL (3.8-10.6)
[2023-10-11] MEDS ORDERED: HEPARIN SODIUM 1,000 UN/ML (10ML VL) ONE (10:17)
[2023-10-11] MEDS: LIDOCAINE 1% INJ 10MG/ML (20 ML MDV) SQ ONE (10:26)
[2023-10-11] MEDS: MIDAZOLAM 2 MG/2 ML VIAL IVP ONE ×3 (10:27→10:42)
[2023-10-11] MEDS: HEPARIN SODIUM 1,000 UN/ML (10ML VL) IVP ONE (10:32)
[2023-10-11] MEDS ORDERED: fentaNYL (PF) 50 MCG/ML 2 ML AMP ONE (10:33)
[2023-10-11] MEDS: fentaNYL (PF) 50 MCG/1 ML VIAL IVP ONE (10:34)
--- NOTE | 2023-10-11 11:18 | P.PCN ---
Date of Procedure: 10/11/23 Operative Findings: Intracardiac echocardiogram (ICE) procedure PERFORMING PHYSICIAN: Zhang Coe MD, RPVI PROCEDURE PERFORMED: 1. Intracardiac echocardiogram imaging. 2. Ultrasound-guided access of right common femoral vein x 2 INDICATION: Stroke in this 57-year-old female patient who underwent transesophageal echocardiogram and was found to have patent porter ovale APPROACH: Right common femoral vein 2 COMPLICATION: None. LEVEL OF SEDATION: Moderate with sedation length of 32 minutes. PROCEDURE DESCRIPTION: After obtaining informed consent, the patient was brought to the cardiac pathology laboratory technologist. The right common femoral vein was cannulated x2 using micropuncture technique under ultrasound guidance, the micropuncture wire passed easily, then I placed two 8-Nigerien sheath in the right groin. Subsequently I cannulated the left common femoral vein with the same technique and I placed an 8-Nigerien sheath there as well. At that point, anticoagulation was initiated using heparin and the patient was given a bolus of 5,000 units of heparin IV with continuous ACT monitoring throughout the procedure. After that, the intracardiac echocardiogram probe was advanced through one of the venous sheath all the way to the right atrium where we did interrogate the interatrial septum and in spite of multiple attempts across the PFO I was unsuccessful. I did interrogation of the interatrial septum using color-flow Doppler but there is no flow across the interatrial septum. At that point I decided to do a bubble study. Bubble study was performed and showed no crossing across the interatrial septum. The PFO probably sealed. At that point we decided to stop. The procedure was completed with no complication. The right common femoral vein was sealed using Vascade. The procedure was completed without any complication. POSTPROCEDURE MANAGEMENT: The patient to be seen as an outpatient with Dr. Cordero
[2023-10-11 15:12] VITALS: BP 131/74; PULSE 76
== END 2023-10-11 15:03 | disposition home or self-care (01) ==
LOC: CATHCVL 09:31
PROVIDERS: ATTEND Internal Medicine Interventional Cardiology
DX: I63.9 Cerebral infarction, unspecified (principal); I10 Essential (primary) hypertension; E78.2 Mixed hyperlipidemia; Z88.5 Allergy status to narcotic agent; Z79.82 Long term (current) use of aspirin; Z79.899 Other long term (current) drug therapy
CPT/HCPCS: 93580; 93662; 86900; 86901; 85025; 86850; 86870; 86880; J2250; J0690; J2001; J1644; J3010

== ENCOUNTER 2023-11-03 09:56 | Inpatient (IN) | payer OTHER ==
[2023-11-03 10:27] LABS: Glucose,Whole Blood 140 mg/dL (70-110)
[2023-11-03 10:53] LABS: ALT 31 U/L (4-34); AST 77 U/L (14-36); African American GFR (CKD) 30 (>60 ml/min/1.73 sqM); Alkaline Phosphatase 121 U/L (38-126); Anion Gap 11 mmol/L; Blood Urea Nitrogen 15 mg/dL (7-17); Calcium 9.5 mg/dL (8.4-10.2); Carbon Dioxide 17 mmol/L (22-30); Chloride 111 mmol/L (98-107); Glucose 131 mg/dL (74-99); Non-African American GFR(CKD) 26 (>60 ml/min/1.73 sqM); Potassium 5.4 mmol/L (3.5-5.1); Sodium 139 mmol/L (137-145); Total Bilirubin 0.4 mg/dL (0.2-1.3); Total Protein 7.3 g/dL (6.3-8.2)
--- NOTE | 2023-11-03 10:53 | ED ---
Fall HPI - General Chief Complaint: Fall Stated Complaint: Fall Time Seen by Provider: 11/03/23 10:32 Source: patient, family, EMS, RN notes reviewed Mode of arrival: EMS Limitations: altered mental status - History of Present Illness Initial Comments: This is a 57-year-old female who presents to the emergency department for a fall. Per EMS, the patient had a fall and was found outside on the ground. It is unclear when the patient fell or how she fell. She did hit her head and is on blood thinners. Patient currently covered in bruises. Patient is somewhat confused on initial discussion. I called the patient's sister for additional information. States that the patient lives with her father. Her father found her on the porch detention on the deck outside and detention in the house. He is not sure how long she had been there and was unable to move her. Family states that she had a stroke several months ago and has been struggling to recover since. Patient believes that she only fell this morning, however family again is not entirely sure. MD Complaint: fall - Related Data Home Medications Medication Instructions Recorded Confirmed LORazepam [Ativan] 1 mg PO BID PRN 09/23/20 11/03/23 Amitriptyline HCl [Elavil] 50 mg PO HS 04/11/22 11/03/23 Brimonidine Tartrate [Alphagan P 1 drop RIGHT EYE BID 04/11/22 11/03/23 0.2% Ophth Soln] Cyclobenzaprine [Flexeril] 10 mg PO BID PRN 04/11/22 11/03/23 Ergocalciferol [Vitamin D2 (1250 1,250 mcg PO NAVAS 04/11/22 11/03/23 Mcg = 34466 Iu)] Omeprazole 40 mg PO DAILY 04/11/22 11/03/23 Aspirin EC [Ecotrin Low Dose] 81 mg PO DAILY 04/15/22 11/03/23 Gabapentin [Neurontin] 300 mg PO TID 03/23/23 11/03/23 Albuterol Inhaler [Ventolin Hfa 1 - 2 puff INHALATION RT-Q6H PRN 09/08/23 11/03/23 Inhaler] Atorvastatin [Lipitor] 40 mg PO HS 09/08/23 11/03/23 Dicyclomine HCl 20 mg PO BID 09/08/23 11/03/23 Multivitamins, Thera [Multivitamin 1 tab PO DAILY 09/08/23 11/03/23 (formulary)] Ticagrelor [Brilinta] 90 mg PO BID 09/08/23 11/03/23 Tiotropium Br/Olodaterol HCl 2 puff INHALATION RT-DAILY 09/08/23 11/03/23 [Stiolto Respimat Inhal Forbes] HYDROcodone/APAP 7.5-325MG [Donna 1 tab PO TID 11/03/23 11/03/23 7.5-325] Levofloxacin [Levaquin] 500 mg PO DAILY 11/03/23 11/03/23 Nicotine 21Mg/24Hr Patch [Habitrol] 1 patch TRANSDERM DAILY 11/03/23 11/03/23 Allergies Allergy/AdvReac Type Severity Reaction Status Date / Time azithromycin AdvReac Nausea & Verified 11/03/23 11:26 [From Zithromax Z-Francisco] Vomiting & Diarrhea codeine AdvReac Nausea & Verified 11/03/23 11:26 Vomiting Review of Systems ROS Statement: Those systems with pertinent positive or pertinent negative responses have been documented in the HPI. ROS Other: All systems not noted in ROS Statement are negative. 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,had left facial [id number] w/ Dr Janelle Oneill,occ migraines, sinus congestion from allergies, hx pleurisy, bleeding ulcer Mar 2019, hx anemia, fatty liver disease, hiatal hernia, IBS/constipation,fatty liver History of Any Multi-Drug Resistant Organisms: None Reported Past Surgical History: Heart Catheterization Additional Past Surgical History / Comment(s): kidney biopsy, laparoscopy Past Anesthesia/Blood Transfusion Reactions: Previous Problems w/ Anesthesia, Family History of Problems w/ Anesthesia, Motion Sickness Additional Past Anesthesia/Blood Transfusion Reaction / Comment(s): had blood transfusion 03/2019-no problems, "takes a while to come out", 'sister had hard time coming out of it" Past Psychological History: Anxiety Smoking Status: Current every day smoker Past Alcohol Use History: Daily Past Drug Use History: None Reported - Past Family History Father Family Medical History: No Reported History Mother Family Medical History: Liver Disease Additional Family Medical History / Comment(s): fatty liver disease General Exam Limitations: no limitations General appearance: alert, in no apparent distress Head exam: Present: atraumatic, normocephalic, normal inspection Eye exam: Present: normal appearance, PERRL, EOMI. Absent: scleral icterus, conjunctival injection, periorbital swelling Respiratory exam: Present: normal lung sounds bilaterally. Absent: respiratory distress, wheezes, rales, rhonchi, stridor Cardiovascular Exam: Present: regular rate, normal rhythm, normal heart sounds. Absent: systolic murmur, diastolic murmur, rubs, gallop, clicks GI/Abdominal exam: Present: soft, normal bowel sounds. Absent: distended, tenderness, guarding, rebound, rigid Extremities exam: Present: other (Swelling, ecchymosis, and abrasions to the bilateral knees. There is also ecchymosis to the bilateral shoulders. 2+ radial pulses and 2+ DP and PT pulses.) Neurological exam: Present: alert, oriented X3, CN II-XII intact Psychiatric exam: Present: normal affect, normal mood Skin exam: Present: other (Patient has diffuse ecchymosis to the chest, abdomen, pelvis, and upper and lower extremities. No obvious deformities.) Course Vital Signs 11/03/23 11/03/23 11/03/23 10:10 10:20 10:40 Temperature 91.8 F L Pulse Rate 93 93 90 Respiratory 20 16 18 Rate Blood Pressure 98/80 98/80 107/83 O2 Sat by Pulse 99 99 98 Oximetry 11/03/23 11/03/23 11/03/23 10:50 11:00 11:10 Temperature Pulse Rate 86 86 83 Respiratory 22 22 14 Rate Blood Pressure 117/91 119/83 128/87 O2 Sat by Pulse 98 98 100 Oximetry 11/03/23 11/03/23 11/03/23 11:20 11:30 12:00 Temperature Pulse Rate 86 88 89 Respiratory 18 22 22 Rate Blood Pressure 137/88 150/80 112/82 O2 Sat by Pulse 99 98 99 Oximetry 11/03/23 11/03/23 11/03/23 12:10 12:20 13:00 Temperature 97.0 F L Pulse Rate 87 87 90 Respiratory 20 22 22 Rate Blood Pressure 117/97 135/87 145/98 O2 Sat by Pulse 98 99 98 Oximetry 11/03/23 11/03/23 11/03/23 18:42 20:26 20:52 Temperature 98.8 F 99.3 F Pulse Rate 96 98 93 Respiratory 20 18 Rate Blood Pressure 120/84 114/76 O2 Sat by Pulse 98 97 Oximetry 11/03/23 11/03/23 11/03/23 21:03 21:16 23:10 Temperature Pulse Rate 97 100 87 Respiratory 18 18 Rate Blood Pressure 126/75 107/62 O2 Sat by Pulse 98 97 Oximetry 11/04/23 11/04/23 11/04/23 00:29 04:00 05:00 Temperature Pulse Rate 88 88 87 Respiratory 18 18 18 Rate Blood Pressure 109/69 130/78 136/80 O2 Sat by Pulse 98 96 97 Oximetry 11/04/23 11/04/23 11/04/23 06:00 07:00 08:00 Temperature Pulse Rate 84 86 82 Respiratory 18 16 16 Rate Blood Pressure 133/82 134/70 130/74 O2 Sat by Pulse 96 96 97 Oximetry 11/04/23 11/04/23 11/04/23 08:04 08:15 09:00 Temperature Pulse Rate 89 90 88 Respiratory 16 Rate Blood Pressure 136/78 O2 Sat by Pulse 97 Oximetry 11/04/23 11/04/23 11/04/23 10:52 11:13 16:13 Temperature Pulse Rate 86 60 89 Respiratory 18 18 18 Rate Blood Pressure 135/77 115/72 123/87 O2 Sat by Pulse 98 99 96 Oximetry Medical Decision Making - Medical Decision Making This is a 57 year old female who presents to the emergency department for a fall and weakness. Was pt. sent in by a medical professional or institution? @ -No Did you speak to anyone other than the patient for history? @ -EMS and the patient's sister provided the majority of the information. Did you review nursing and triage notes? @ -Yes, and I agree, it is accurate with regards to the patient's symptoms. Were old charts reviewed? @ -No Differential Diagnosis? @ -Differential Weakness: Hypoglycemia, shock, sepsis, hyponatremia, anemia, infection, OH, ETOH, adverse medicine reaction, overdose, stroke, this is not meant to be an all-inclusive list. EKG interpreted by me (3pts min.)? @ -EKG interpreted by me demonstrating the following: Sinus rhythm. Ventricular rate 95 bpm, MA interval 158 ms, QRS duration 87 ms, QTc 420 ms. X-rays interpreted by me (1pt min.)? @ -X-rays of the bilateral knees, clavicles, and shoulders obtained. My interpretation identifies no acute fractures. CT interpreted by me (1pt min.)? @ -Computed tomography scan of the brain and c-spine obtained. My interpretation identifies no evidence of an acute intracranial hemorrhage, skull fracture, or cervical spine fracture. CT scan of the chest, abdomen, and pelvis obtained. My interpretation identifies left-sided rib fractures. U/S interpreted by me (1pt. min.)? @ -Not obtained What testing was considered but not performed? (CT, X-rays, U/S, labs)? Why? @ -None What meds were considered but not given? Why? @ -None Did you discuss the management of the patient with other professionals? @ -Yes, Dr. Stewart, who accepts the patient for admission to trauma. Did you reconcile home meds? @ -Yes Was smoking cessation discussed for >3mins.? @ -No Was critical care preformed (if so, how long)? @ -No Were there social determinants of health that impacted care today? How? (Homelessness, low income, unemployed, alcoholism, drug addiction, tr ansportation, low edu. Level, literacy, decrease access to med. care, fpc, rehab)? @ -No Was there de-escalation of care discussed even if they declined? (Discuss DNR or withdrawal of care, Hospice)? @ -No What co-morbidities impacted this encounter? (DM, HTN, Smoking, COPD, CAD, Cancer, CVA, Hep., AIDS, mental health diagnosis, sleep apnea, morbid obesity)? @ -Hx of CVA Was patient admitted / discharged? @ -Admitted. Patient had a rectal temperature of 91.8 F on arrival. She was given multiple warm blankets and a bear hugger was applied. Lab work demonstrates leukocytosis with a white blood cell count of 20.7. Creatinine elevated at 2.03 and GFR 26, which is decreased from patient's baseline renal function. She also has a lactic acid of 5.4 and creatinine kinase of 2026. Urinalysis negative for signs of infection. She was hydrated with a total of 2.5 L of IV fluids and started on maintenance fluids at 150 mL an hour. Tetanus vaccine was updated due to abrasions on the patient's extremities. CT scan of the brain and C-spine demonstrates interval development of extensive encephalomalacia to the right MCA territory relating to interval infarct. There is also an old small area of superior left frontal paramedian cortical infarct which was present in 2022. Additionally, there is a new fluid collection measuring 3.8 cm above the sternal notch probably arising from a degenerative and subluxed left sternoclavicular joint. They advised correlation for any palpable abnormality. CT scan of the chest, abdomen, and pelvis obtained as well. This demonstrates minimally displaced fractures of the left lateral eighth, ninth, and 10th ribs. However, she did have a chest CT scan on 03/21/2023 due to a fall. At that time she also had left lateral rib fractures to 7, 8, 9, and 10. CT scan from today also demonstrates possible T7 spinous process fracture. Patient admitted to trauma surgery due to presentation being related to a fall. Consult placed for anesthesia and pulmonology with regards to the rib fractures. Neurology consult placed due to history of stroke and interval development of encephalomalacia. Orthopedics consulted for possible T7 fracture. Medicine consulted for medical management. Undiagnosed new problem with uncertain prognosis? @ -None Drug Therapy requiring intensive monitoring for toxicity (Heparin, Nitro, I nsulin, Cardizem)? @ -None Were any procedures done? @ -None Diagnosis/symptom? @ -Fall, rhabdomyolysis, PRESTON, rib fractures, T7 fracture Acute, or Chronic, or Acute on Chronic? @ -Acute Uncomplicated (without systemic symptoms) or Complicated (systemic symptoms)? @ -Complicated Side effects of treatment? @ -None Exacerbation, Progression, or Severe Exacerbation] @ -Not applicable Poses a threat to life or bodily function? @ -Yes This case was discussed in detail with the attending ED physician, Dr. Fernando. Presentation, findings, and treatment plan discussed in detail as well. - Lab Data Result diagrams: 11/04/23 08:21 11/04/23 08:21 Lab Results 11/03/23 11/03/23 11/03/23 Range/Units 10:26 10:30 10:30 WBC (3.8-10.6) k/uL RBC (3.80-5.40) m/uL Hgb (11.4-16.0) gm/dL Hct (34.0-46.0) % MCV (80.0-100.0) fL MCH (25.0-35.0) pg MCHC (31.0-37.0) g/dL RDW (11.5-15.5) % Plt Count (150-450) k/uL MPV Neutrophils % % Lymphocytes % % Monocytes % % Eosinophils % % Basophils % % Neutrophils # (1.3-7.7) k/uL Lymphocytes # (1.0-4.8) k/uL Monocytes # (0-1.0) k/uL Eosinophils # (0-0.7) k/uL Basophils # (0-0.2) k/uL Hypochromasia PT (10.0-12.5) sec INR (<1.2) APTT (22.0-30.0) sec Sodium 139 (137-145) mmol/L Potassium 5.4 H (3.5-5.1) mmol/L Chloride 111 H (98-107) mmol/L Carbon Dioxide 17 L (22-30) mmol/L Anion Gap 11 mmol/L BUN 15 (7-17) mg/dL Creatinine 2.03 H (0.52-1.04) mg/dL Est GFR (CKD-EPI)AfAm 30 (>60 ml/min/1.73 sqM) Est GFR (CKD-EPI)NonAf 26 (>60 ml/min/1.73 sqM) Glucose 131 H (74-99) mg/dL POC Glucose (mg/dL) 140 H (70-110) mg/dL POC Glu Lugger ID Grayson Wong Lactic Ac Sepsis Rflx Plasma Lactic Acid Rafael 5.4 H* (0.7-2.0) mmol/L Calcium 9.5 (8.4-10.2) mg/dL Phosphorus (2.5-4.5) mg/dL Magnesium (1.6-2.3) mg/dL Total Bilirubin 0.4 (0.2-1.3) mg/dL AST 77 H (14-36) U/L ALT 31 (4-34) U/L Alkaline Phosphatase 121 (38-126) U/L Creatine Kinase 2027 H* (30-135) U/L Troponin I (0.000-0.034) ng/mL Total Protein 7.3 (6.3-8.2) g/dL Albumin 4.0 (3.5-5.0) g/dL Blood Type Blood Type Recheck Bld Type Recheck Status Antibody Screen Antibody Identification Direct Antiglob Test Spec Expiration Date 11/03/23 11/03/23 11/03/23 Range/Units 10:30 10:30 10:30 WBC 20.7 H (3.8-10.6) k/uL RBC 3.67 L (3.80-5.40) m/uL Hgb 11.0 L (11.4-16.0) gm/dL Hct 35.5 (34.0-46.0) % MCV 96.9 (80.0-100.0) fL MCH 29.9 (25.0-35.0) pg MCHC 30.9 L (31.0-37.0) g/dL RDW 15.3 (11.5-15.5) % Plt Count 505 H (150-450) k/uL MPV 7.7 Neutrophils % 84 % Lymphocytes % 6 % Monocytes % 7 % Eosinophils % 0 % Basophils % 0 % Neutrophils # 17.4 H (1.3-7.7) k/uL Lymphocytes # 1.3 (1.0-4.8) k/uL Monocytes # 1.4 H (0-1.0) k/uL Eosinophils # 0.0 (0-0.7) k/uL Basophils # 0.1 (0-0.2) k/uL Hypochromasia Slight PT 10.3 (10.0-12.5) sec INR 0.9 (<1.2) APTT 21.6 L (22.0-30.0) sec Sodium (137-145) mmol/L Potassium (3.5-5.1) mmol/L Chloride (98-107) mmol/L Carbon Dioxide (22-30) mmol/L Anion Gap mmol/L BUN (7-17) mg/dL Creatinine (0.52-1.04) mg/dL Est GFR (CKD-EPI)AfAm (>60 ml/min/1.73 sqM) Est GFR (CKD-EPI)NonAf (>60 ml/min/1.73 sqM) Glucose (74-99) mg/dL POC Glucose (mg/dL) (70-110) mg/dL POC Glu Lugger ID Lactic Ac Sepsis Rflx Plasma Lactic Acid Rafael (0.7-2.0) mmol/L Calcium (8.4-10.2) mg/dL Phosphorus (2.5-4.5) mg/dL Magnesium (1.6-2.3) mg/dL Total Bilirubin (0.2-1.3) mg/dL AST (14-36) U/L ALT (4-34) U/L Alkaline Phosphatase (38-126) U/L Creatine Kinase (30-135) U/L Troponin I <0.012 (0.000-0.034) ng/mL Total Protein (6.3-8.2) g/dL Albumin (3.5-5.0) g/dL Blood Type Blood Type Recheck Bld Type Recheck Status Antibody Screen Antibody Identification Direct Antiglob Test Spec Expiration Date 11/03/23 11/03/23 11/03/23 Range/Units 10:30 10:35 11:14 WBC (3.8-10.6) k/uL RBC (3.80-5.40) m/uL Hgb (11.4-16.0) gm/dL Hct (34.0-46.0) % MCV (80.0-100.0) fL MCH (25.0-35.0) pg MCHC (31.0-37.0) g/dL RDW (11.5-15.5) % Plt Count (150-450) k/uL MPV Neutrophils % % Lymphocytes % % Monocytes % % Eosinophils % % Basophils % % Neutrophils # (1.3-7.7) k/uL Lymphocytes # (1.0-4.8) k/uL Monocytes # (0-1.0) k/uL Eosinophils # (0-0.7) k/uL Basophils # (0-0.2) k/uL Hypochromasia PT (10.0-12.5) sec INR (<1.2) APTT (22.0-30.0) sec Sodium (137-145) mmol/L Potassium (3.5-5.1) mmol/L Chloride (98-107) mmol/L Carbon Dioxide (22-30) mmol/L Anion Gap mmol/L BUN (7-17) mg/dL Creatinine (0.52-1.04) mg/dL Est GFR (CKD-EPI)AfAm (>60 ml/min/1.73 sqM) Est GFR (CKD-EPI)NonAf (>60 ml/min/1.73 sqM) Glucose (74-99) mg/dL POC Glucose (mg/dL) (70-110) mg/dL POC Glu Lugger ID Lactic Ac Sepsis Rflx Y Plasma Lactic Acid Rafael (0.7-2.0) mmol/L Calcium (8.4-10.2) mg/dL Phosphorus 5.0 H (2.5-4.5) mg/dL Magnesium 1.8 (1.6-2.3) mg/dL Total Bilirubin (0.2-1.3) mg/dL AST (14-36) U/L ALT (4-34) U/L Alkaline Phosphatase (38-126) U/L Creatine Kinase (30-135) U/L Troponin I (0.000-0.034) ng/mL Total Protein (6.3-8.2) g/dL Albumin (3.5-5.0) g/dL Blood Type O Positive Blood Type Recheck O Pos Bld Type Recheck Status No Antibody Screen POSITIVE Antibody Identification Anti-K Direct Antiglob Test Negative Spec Expiration Date 11/06/20232329 - Radiology Data Radiology results: report reviewed, image reviewed Disposition Clinical Impression: Fall, Multiple fractures of ribs of left side, PRESTON (acute kidney injury), Rhabdomyolysis, T7 vertebral fracture Disposition: ADMITTED IP TO THIS [facility] Time of Disposition: 13:30
[2023-11-03 10:58] LABS: INR 0.9 (<1.2); Prothrombin Time 10.3 sec (10.0-12.5)
[2023-11-03 11:01] LABS: Basophils # (A) 0.1 k/uL (0-0.2); Basophils % (A) 0 %; Eosinophils % (A) 0 %; HCT 35.5 % (34.0-46.0); Hypochromasia Slight; Lymphocytes # (A) 1.3 k/uL (1.0-4.8); Lymphocytes % (A) 6 %; MCH 29.9 pg (25.0-35.0); MCHC 30.9 g/dL (31.0-37.0); MCV 96.9 fL (80.0-100.0); Mean Platelet Volume 7.7; Monocytes # (A) 1.4 k/uL (0-1.0); Monocytes % (A) 7 %; Neutrophils # (A) 17.4 k/uL (1.3-7.7); Neutrophils % (A) 84 %; Platelet Count 505 k/uL (150-450); RBC 3.67 m/uL (3.80-5.40); RDW 15.3 % (11.5-15.5); WBC 20.7 k/uL (3.8-10.6)
[2023-11-03 11:14] LABS: Creatine Kinase 2027 U/L (30-135)
[2023-11-03 11:34] LABS: Partial Thromboplastin Time 21.6 sec (22.0-30.0)
--- NOTE | 2023-11-03 12:39 | CT ---
EXAMINATION TYPE: CT brain clarence gould con DATE OF EXAM: 11/03/2023 COMPARISON: 04/29/2023 HISTORY: 57-year-old female pain, Unwitnessed fall CT DLP: 2289.2 mGycm Automated exposure control for dose reduction was used. Technique: Examination of the head was done in axial plane without intravenous contrast. Coronal and sagittal reconstructions performed. CT of the cervical spine was obtained in axial plane without intravenous injection of contrast mater ial. Coronal and sagittal reformatted images were obtained from the axial views for evaluation of f ractures, spinal alignment and canal. FINDINGS: Head: Encephalomalacia now present lateral right frontal lobe, anterior inferior right frontal lobe, and ri ght frontoparietal junction. Mild ventricular prominence likely central cerebral atrophy. Some old encephalomalacia superior left paramedian frontal lobe remains unchanged from 2022. No evidence for acute intracranial hemorrhage, acute ischemic change, mass, mass effect, midline shif t, or extra-axial fluid collection. Paranasal sinuses and mastoid air cells well pneumatized. The globes are intact. Cervical spine: There appears to be anterior subluxation at the left sternoclavicular joint with degenerative change and a new cystic lesion situated above the sternal notch measuring 3.8 x 2.4 x 3.3 cm. No craniocervical junction and probably, predental space widening, or prevertebral soft tissue swelli ng. Degenerative change C1 dens articulation. Moderate degenerative disc disease C4-C5 and C6-C7. Facet arthropathy. Degenerative grade 1 retrolisthesis C4-C5. No acute fracture seen of the cervical spine. Moderate right neural foraminal stenosis at C3-C4 and moderate to severe left and mild right C4-C5, m oderate right C5-C6, moderate to severe left C6-C7. Sagittal and coronal reformatted images confirm above findings. COMBINED IMPRESSION: 1. Interval development of extensive encephalomalacia right MCA territory relating to interval infarc t. Old, small area of superior left frontal paramedian cortical infarct which was present in 2022. 2. Mild central cerebral atrophy. Otherwise, no acute intracranial abnormality seen. 3. New fluid collection measuring 3.8 x 3.3 x 2.4 cm above the sternal notch probably arising from a degenerative and subluxed left sternoclavicular joint. Correlate for any palpable abnormality. Target ed ultrasound to further evaluate. Biopsy/aspiration if concern for mass or infection. A large gangli on cyst is possible. 4. Multilevel moderate multilevel spondylotic change of the cervical spine. Degenerative grade 1 retr olisthesis at C4-C5. No acute fracture seen.
--- NOTE | 2023-11-03 13:18 | CT ---
EXAMINATION TYPE: CT Chest Abd Pelvis wo con CT DLP: 2289.2 mGycm, Automated exposure control for dose reduction was used. DATE OF EXAM: 11/03/2023 12:06 PM COMPARISON: None. CLINICAL INDICATION:Female, 57 years old with history of Trauma; PHH, Unwitnessed fall, pt not able t o raise arms. Technique: CT Chest Abd Pelvis wo con; Multiple axial images were obtained. Two-dimensional coronal a nd sagittal reconstructions were obtained. Contrast used: mL of , Oral contrast used: without Oral Contrast Findings: CHEST: LUNGS/ PLEURA: The lung parenchyma appears unremarkable. AIRWAY: Patent and unremarkable. HEART: Size within normal limits. MEDIASTINUM: No gross evidence of adenopathy. VASCULATURE: No aortic aneurysm. MUSCULOSKELETAL: No acute osseous abnormalities. SOFT TISSUES/LYMPH NODES: Unremarkable. LOWER NECK: No significant findings. SOFT TISSUE/ABDOMINAL WALL: Left lateral 10th, 9th and 8th77 rib fractures. Possible T7 spinous proc ess fracture. Correlate clinically for point tenderness at this location. ABDOMEN: ABDOMEN LIVER: Unremarkable GALLBLADDER AND BILE DUCTS: Unremarkable. PANCREAS: Unremarkable. SPLEEN: Unremarkable. ADRENAL GLANDS: Unremarkable. KIDNEYS AND URETERS: No evidence of hydronephrosis or renal calculus. The ureters are unremarkable. PELVIS BLADDER: Unremarkable REPRODUCTIVE: Unremarkable. ABDOMEN & PELVIS STOMACH AND BOWEL: Stomach and duodenum are unremarkable. No evidence of bowel obstruction. PERITONEUM: No evidence of pneumoperitoneum or free fluid. VASCULATURE: No evidence of aortic aneurysm. MUSCULOSKELETAL: No acute osseous abnormalities LYMPH NODES: No gross evidence for lymphadenopathy. SOFT TISSUE/ABDOMINAL WALL: Unremarkable IMPRESSION: Left lateral 10th, 9th and 8th77 rib fractures. Possible T7 spinous process fracture. Correlate clin ically for point tenderness at this location. Follow up recommendations for incidental pulmonary nodules are per [employer] or [employer].
[2023-11-03] MEDS: DIPH,PERTUS(ACELL)TETVAC-LF 0.5 ML VIAL IM ONE (13:47)
[2023-11-03] MEDS ORDERED: NALOXONE 0.4 MG/ML 1 ML VIAL IV PRN (13:48)
[2023-11-03] MEDS: SODIUM CHLORIDE 0.9% 1,000 ML IV STA ×3 (13:48→18:42)
[2023-11-03] MEDS: SODIUM CHLORIDE 0.9% 500 ML 500 ML IV STA (13:48)
[2023-11-03] MEDS ORDERED: ONDANSETRON 4 MG/2 ML VIAL IVP PRN (13:52)
[2023-11-03] MEDS ORDERED: ACETAMINOPHEN TAB 325 MG TAB PO PRN (13:52)
--- NOTE | 2023-11-03 13:52 | XR ---
EXAMINATION TYPE: XR shoulder complete BILAT DATE OF EXAM: 11/03/2023 CLINICAL HISTORY: pain TECHNIQUE: Three views of the bilateral shoulders are obtained. COMPARISON: None FINDINGS: There is no acute fracture/dislocation evident. The acromioclavicular and glenohumeral cirilo int spaces appear within normal limits. The visualized ribs are intact and unremarkable. IMPRESSION: 1. There is no acute fracture or dislocation. ICD 10 NO FRACTURE, INITIAL EVALUATION
[2023-11-03] MEDS ORDERED: CYCLOBENZAPRINE 10 MG TAB PO PRN (13:54)
[2023-11-03] MEDS ORDERED: ALBUTEROL NEBULIZED 2.5 MG/3 ML INHALATION PRN (13:54)
--- NOTE | 2023-11-03 14:03 | XR ---
EXAMINATION TYPE: XR knee complete bilateral DATE OF EXAM: 11/03/2023 CLINICAL HISTORY: pain TECHNIQUE: Three views of the bilateral knees are obtained. COMPARISON: None. FINDINGS: There is no acute fracture/dislocation. The tri-compartment joint spaces appear within no rmal limits. The overlying soft tissue appears unremarkable. Slightly xena positioning of the left p atella relative to its right-sided counterpart. IMPRESSION: There is no acute fracture or dislocation.ICD 10 NO FRACTURE, INITIAL EVALUATION
--- NOTE | 2023-11-03 14:14 | XR ---
EXAMINATION TYPE: XR clavicle bilateral DATE OF EXAM: 11/03/2023 COMPARISON: NONE HISTORY: Fall, pain TECHNIQUE: 5 views of the bilateral clavicles submitted. FINDINGS: No evidence for fracture or dislocation. IMPRESSION: Negative
--- NOTE | 2023-11-03 15:17 | P.GSHP ---
History of Present Illness H&P Date: 11/03/23 CHIEF COMPLAINT: Fall HISTORY OF PRESENT ILLNESS: This is a 57-year-old female who presented to the emergency room after a fall. Patient reports that her legs felt weak and she fell outside on the porch. She thinks she may have been on the ground for about 2 hours. She did not lose consciousness or hit her head. She reports that she was calling out for help. And her father heard her and called EMS. Patient is on Eliquis for history of CVA. She is also on Brilinta. Patient denies any abd ominal pain. Denies any nausea or vomiting. She has been admitted to the trauma service. She was found to have evidence of left-sided rib fractures and a possible T7 spinal fracture on imaging. Temp low at 97. Has warming blanket on. PAST MEDICAL HISTORY: See below PAST SURGICAL HISTORY: See below MEDICATIONS: See below ALLERGIES: See below SOCIAL HISTORY: No illicit drug use. REVIEW OF SYSTEMS: CONSTITUTIONAL: Denies fever or chills. HEENT: Denies blurred vision, vision changes, or eye pain. Denies hemoptysis CARDIOVASCULAR: Denies chest pain or pressure. RESPIRATORY: No shortness of breath. GASTROINTESTINAL: See HPI for pertinent findings HEMATOLOGIC: Denies bleeding disorders. GENITOURINARY: Denies any blood in urine or increased urinary frequency. SKIN: Denies pruitis. Denies rash. PHYSICAL EXAM: VITAL SIGNS: Reviewed GENERAL: no acute distress. Patient has warming blanket on HEENT: No sclera icterus. Extraocular movements grossly intact. Moist buccal mucosa. Head is atraumatic, normocephalic. No nasal drainage. ABDOMEN: Soft. Nondistended. nontender NEUROLOGIC: Alert and oriented. Cranial nerves II through XII grossly intact. SKIN: Patient has diffuse ecchymosis on the chest, left shoulder upper and lower extremities, left hip Extremities: Left shoulder swelling with bruising. Left hip ecchymosis tender with palpation LABORATORY DATA: WBC 20.7 Hgb 11 platelets 505 Sodium is 139 potassium is 5.4 creatinine 2.03 Lactic acid 5.4 Total bili 0.4 AST 77 ALT 31 alk phos 121 Creatinine kinase 2026 IMAGING: CT scan of the head and cervical spine interval development of extensive encephalomalacia right MCA territory relating to interval infarct. Old, small area of superior left frontal paramedial cortical infarct which was present in 2022. Mild central cerebral atrophy. New fluid collection at the sternal notch arising from degenerative and subluxed left sternal clavicle joint. No acute fracture cervical spine CT scan chest abdomen pelvis left lateral 10th, ninth eighth and seventh rib fractures. Possible T7 spinous process fracture X-ray left shoulder no acute fracture or dislocation X-ray bilateral knees no acute fracture or dislocation Bilateral clavicle x-ray negative ASSESSMENT: 1. Fall to ground for prolonged period of time 2. Left lateral 10th and ninth, eighth and seventh rib fracture 3. Possible T7 spinous fracture 4. Interval development of extensive encephalomalacia right MCA territory relating to interval infarct noted on CT 5. Extensive ecchymosis over the chest, abdomen, left hip, legs arms and shoulders 6. History of CVA on Eliquis at home 7. Leukocytosis 8. Acute rhabdomyolysis 9. Elevated lactic acid level 10. Mildly elevated AST 11. Hyperkalemia PLAN: -Continue IV fluids -Continue warming blanket -Incentive spirometer ordered -Continue pain management -Consult placed for pulmonary service regarding rib fractures -Consult placed for orthopedic service regarding spinal fracture -Consult placed for medicine service for medical management -Consult placed for neurology -Consult placed for pain management -Repeat labs in a.m. Physician Merchandise Appraiser note has been reviewed by physician. Signing provider agrees with the documented findings, assessment, and plan of care. 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,had left facial [id number] w/ Dr Janelle Oneill,occ migraines, sinus congestion from allergies, hx pleurisy, bleeding ulcer Mar 2019, hx anemia, fatty liver disease, hiatal hernia, IBS/constipation,fatty liver History of Any Multi-Drug Resistant Organisms: None Reported Past Surgical History: Heart Catheterization Additional Past Surgical History / Comment(s): kidney biopsy, laparoscopy Past Anesthesia/Blood Transfusion Reactions: Previous Problems w/ Anesthesia, Family History of Problems w/ Anesthesia, Motion Sickness Additional Past Anesthesia/Blood Transfusion Reaction / Comment(s): had blood t ransfusion 03/2019-no problems, "takes a while to come out", 'sister had hard time coming out of it" Past Psychological History: Anxiety Smoking Status: Current every day smoker Past Alcohol Use History: Daily Past Drug Use History: None Reported - Past Family History Father Family Medical History: No Reported History Mother Family Medical History: Liver Disease Additional Family Medical History / Comment(s): fatty liver disease Medications and Allergies Home Medications Medication Instructions Recorded Confirmed Type LORazepam [Ativan] 1 mg PO BID PRN 09/23/20 11/03/23 History Amitriptyline HCl [Elavil] 50 mg PO HS 04/11/22 11/03/23 History Brimonidine Tartrate [Alphagan P 1 drop RIGHT EYE BID 04/11/22 11/03/23 History 0.2% Ophth Soln] Cyclobenzaprine [Flexeril] 10 mg PO BID PRN 04/11/22 11/03/23 History Ergocalciferol [Vitamin D2 (1250 1,250 mcg PO NAVAS 04/11/22 11/03/23 History Mcg = 60110 Iu)] Omeprazole 40 mg PO DAILY 04/11/22 11/03/23 History Aspirin EC [Ecotrin Low Dose] 81 mg PO DAILY 04/15/22 11/03/23 History Gabapentin [Neurontin] 300 mg PO TID 03/23/23 11/03/23 History Albuterol Inhaler [Ventolin Hfa 1 - 2 puff INHALATION RT-Q6H PRN 09/08/23 11/03/23 History Inhaler] Atorvastatin [Lipitor] 40 mg PO HS 09/08/23 11/03/23 History Dicyclomine HCl 20 mg PO BID 09/08/23 11/03/23 History Multivitamins, Thera [Multivitamin 1 tab PO DAILY 09/08/23 11/03/23 History (formulary)] Ticagrelor [Brilinta] 90 mg PO BID 09/08/23 11/03/23 History Tiotropium Br/Olodaterol HCl 2 puff INHALATION RT-DAILY 09/08/23 11/03/23 History [Stiolto Respimat Inhal [place]] HYDROcodone/APAP 7.5-325MG [[place] 1 tab PO TID 11/03/23 11/03/23 History 7.5-325] Levofloxacin [Levaquin] 500 mg PO DAILY 11/03/23 11/03/23 History Nicotine 21Mg/24Hr Patch [Habitrol] 1 patch TRANSDERM DAILY 11/03/23 11/03/23 History Allergies Allergy/AdvReac Type Severity Reaction Status Date / Time azithromycin AdvReac Nausea & Verified 11/03/23 11:26 [From Zithromax Z-Francisco] Vomiting & Diarrhea codeine AdvReac Nausea & Verified 11/03/23 11:26 Vomiting Surgical - Exam Vital Signs Temp Pulse Resp BP Pulse Ox 91.8 F L 93 20 98/80 99 11/03/23 10:10 11/03/23 10:10 11/03/23 10:10 11/03/23 10:10 11/03/23 10:10 Patient Seen Date: 11/03/23 Patient Seen Time: 14:15 Results - Labs 11/03/23 10:30 11/03/23 10:30 Abnormal Lab Results - Last 24 Hours (Table) 11/03/23 11/03/23 11/03/23 Range/Units 10:26 10:30 10:30 WBC (3.8-10.6) k/uL RBC (3.80-5.40) m/uL Hgb (11.4-16.0) gm/dL MCHC (31.0-37.0) g/dL Plt Count (150-450) k/uL Neutrophils # (1.3-7.7) k/uL Monocytes # (0-1.0) k/uL APTT (22.0-30.0) sec Potassium 5.4 H (3.5-5.1) mmol/L Chloride 111 H (98-107) mmol/L Carbon Dioxide 17 L (22-30) mmol/L Creatinine 2.03 H (0.52-1.04) mg/dL Glucose 131 H (74-99) mg/dL POC Glucose (mg/dL) 140 H (70-110) mg/dL Plasma Lactic Acid Rafael 5.4 H* (0.7-2.0) mmol/L AST 77 H (14-36) U/L Creatine Kinase 2027 H* (30-135) U/L 11/03/23 11/03/23 Range/Units 10:30 10:30 WBC 20.7 H (3.8-10.6) k/uL RBC 3.67 L (3.80-5.40) m/uL Hgb 11.0 L (11.4-16.0) gm/dL MCHC 30.9 L (31.0-37.0) g/dL Plt Count 505 H (150-450) k/uL Neutrophils # 17.4 H (1.3-7.7) k/uL Monocytes # 1.4 H (0-1.0) k/uL APTT 21.6 L (22.0-30.0) sec Potassium (3.5-5.1) mmol/L Chloride (98-107) mmol/L Carbon Dioxide (22-30) mmol/L Creatinine (0.52-1.04) mg/dL Glucose (74-99) mg/dL POC Glucose (mg/dL) (70-110) mg/dL Plasma Lactic Acid Rafael (0.7-2.0) mmol/L AST (14-36) U/L Creatine Kinase (30-135) U/L Diabetes panel 11/03/23 Range/Units 10:30 Sodium 139 (137-145) mmol/L Potassium 5.4 H (3.5-5.1) mmol/L Chloride 111 H (98-107) mmol/L Carbon Dioxide 17 L (22-30) mmol/L BUN 15 (7-17) mg/dL Creatinine 2.03 H (0.52-1.04) mg/dL Glucose 131 H (74-99) mg/dL Calcium 9.5 (8.4-10.2) mg/dL AST 77 H (14-36) U/L ALT 31 (4-34) U/L Alkaline Phosphatase 121 (38-126) U/L Total Protein 7.3 (6.3-8.2) g/dL Albumin 4.0 (3.5-5.0) g/dL Calcium panel 11/03/23 Range/Units 10:30 Calcium 9.5 (8.4-10.2) mg/dL Albumin 4.0 (3.5-5.0) g/dL Pituitary panel 11/03/23 Range/Units 10:30 Sodium 139 (137-145) mmol/L Potassium 5.4 H (3.5-5.1) mmol/L Chloride 111 H (98-107) mmol/L Carbon Dioxide 17 L (22-30) mmol/L BUN 15 (7-17) mg/dL Creatinine 2.03 H (0.52-1.04) mg/dL Glucose 131 H (74-99) mg/dL Calcium 9.5 (8.4-10.2) mg/dL Adrenal panel 11/03/23 Range/Units 10:30 Sodium 139 (137-145) mmol/L Potassium 5.4 H (3.5-5.1) mmol/L Chloride 111 H (98-107) mmol/L Carbon Dioxide 17 L (22-30) mmol/L BUN 15 (7-17) mg/dL Creatinine 2.03 H (0.52-1.04) mg/dL Glucose 131 H (74-99) mg/dL Calcium 9.5 (8.4-10.2) mg/dL Total Bilirubin 0.4 (0.2-1.3) mg/dL AST 77 H (14-36) U/L ALT 31 (4-34) U/L Alkaline Phosphatase 121 (38-126) U/L Total Protein 7.3 (6.3-8.2) g/dL Albumin 4.0 (3.5-5.0) g/dL
--- NOTE | 2023-11-03 16:33 | P.CNPUL ---
History of Present Illness Consult date: 11/03/23 Requesting physician: Florencio Stewart Reason for consult: dyspnea, abnormal CXR/CT Chief complaint: Status post fall, chest trauma History of present illness: This is a 57-year-old female patient with a known history of CVA with residual left-sided weakness, gastroesophageal reflux disease, GI bleed, liver disease, osteoarthritis, chronic and ongoing tobacco dependence. Early this morning the patient was outside and fell to the ground and was unable to get herself up. Her father came out and found her half on the porch and half off the porch. Patient was somewhat confused. She did hit her head and is on blood thinners. She was found to be covered in bruises. CT scan of the brain revealed interval development of extensive encephalomalacia right MCA territory related to interval infarct. Old small area of superior left frontal paramedian cortical infarct which is present in 2022. New fluid collection measuring 3.8 x 3.3 x 2.4 above the sternal notch probably arising from degenerative and subluxed left sternoclavicular joint. Multiple moderate multilevel spondylitic changes of the cervical spine. No acute fracture seen. CT scan of the chest revealed left lateral 10th, ninth and eighth rib fractures. Possible T7 spinous process fracture. No fracture seen of the shoulder. No fracture of the bilateral knees. No fracture of the bilateral clavicles. Count 20.7. Hemoglobin 11.0. Platelets 505. Sodium 139. Potassium 5.4. Bicarb 17. BUN 15. Creatinine 2.03. Lactic acid 5.4, 3.2. Creatinine kinase 2026. Troponin negative x 1. She is seen today in consultation in the emergency department. She is currently resting flat on the stretcher. She is awake and alert in no acute distress. When discussing her rib fractures he states those are old. She is maintaining good O2 saturations in the 90s on room air. Denies any worsening shortness of breath, cough or congestion. Denies any hemoptysis. Is afebrile. Hemodynamically stable. Review of Systems REVIEW OF SYSTEMS: CONSTITUTIONAL: Status post fall. denies any recent significant weight loss or weight gain. EYES: Denies change in vision. EARS, NOSE, MOUTH, THROAT: Denies headaches, denies sore throat. CARDIOVASCULAR: Denies chest pain, palpitations or syncopal episodes. RESPIRATORY: Denies shortness of breath, cough, congestion or hemoptysis. GASTROINTESTINAL: Denies change in appetite, denies abdominal pain GENITOURINARY: Denies hematuria, denies infections. MUSKULOSKELETAL: Center for generalized pain. Denies pain, denies swelling. INTEGUMENTARY: Denies rash, denies eczema. NEUROLOGICAL: History of previous stroke several months ago. Denies recent memory loss, no recent seizure activity. PSYCHIATRIC: Denies anxiety, denies depression. HEMATOLOGIC/LYMPHATIC: Denies anemia, denies enlarged lymph nodes. 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,had left facial [id number] w/ Dr Janelle Oneill,occ migraines, sinus congestion from allergies, hx pleurisy, bleeding ulcer Mar 2019, hx anemia, fatty liver disease, hiatal hernia, IBS/constipation,fatty liver History of Any Multi-Drug Resistant Organisms: None Reported Past Surgical History: Heart Catheterization Additional Past Surgical History / Comment(s): kidney biopsy, laparoscopy Past Anesthesia/Blood Transfusion Reactions: Previous Problems w/ Anesthesia, Family History of Problems w/ Anesthesia, Motion Sickness Additional Past Anesthesia/Blood Transfusion Reaction / Comment(s): had blood transfusion 03/2019-no problems, "takes a while to come out", 'sister had hard time coming out of it" Past Psychological History: Anxiety Smoking Status: Current every day smoker Past Alcohol Use History: Daily Past Drug Use History: None Reported - Past Family History Father Family Medical History: No Reported History Mother Family Medical History: Liver Disease Additional Family Medical History / Comment(s): fatty liver disease Medications and Allergies Home Medications Medication Instructions Recorded Confirmed Type LORazepam [Ativan] 1 mg PO BID PRN 09/23/20 11/03/23 History Amitriptyline HCl [Elavil] 50 mg PO HS 04/11/22 11/03/23 History Brimonidine Tartrate [Alphagan P 1 drop RIGHT EYE BID 04/11/22 11/03/23 History 0.2% Ophth Soln] Cyclobenzaprine [Flexeril] 10 mg PO BID PRN 04/11/22 11/03/23 History Ergocalciferol [Vitamin D2 (1250 1,250 mcg PO NAVAS 04/11/22 11/03/23 History Mcg = 59684 Iu)] Omeprazole 40 mg PO DAILY 04/11/22 11/03/23 History Aspirin EC [Ecotrin Low Dose] 81 mg PO DAILY 04/15/22 11/03/23 History Gabapentin [Neurontin] 300 mg PO TID 03/23/23 11/03/23 History Albuterol Inhaler [Ventolin Hfa 1 - 2 puff INHALATION RT-Q6H PRN 09/08/23 11/03/23 History Inhaler] Atorvastatin [Lipitor] 40 mg PO HS 09/08/23 11/03/23 History Dicyclomine HCl 20 mg PO BID 09/08/23 11/03/23 History Multivitamins, Thera [Multivitamin 1 tab PO DAILY 09/08/23 11/03/23 History (formulary)] Ticagrelor [Brilinta] 90 mg PO BID 09/08/23 11/03/23 History Tiotropium Br/Olodaterol HCl 2 puff INHALATION RT-DAILY 09/08/23 11/03/23 History [Stiolto Respimat Inhal [place]] HYDROcodone/APAP 7.5-325MG [[place] 1 tab PO TID 11/03/23 11/03/23 History 7.5-325] Levofloxacin [Levaquin] 500 mg PO DAILY 11/03/23 11/03/23 History Nicotine 21Mg/24Hr Patch [Habitrol] 1 patch TRANSDERM DAILY 11/03/23 11/03/23 History Allergies Allergy/AdvReac Type Severity Reaction Status Date / Time azithromycin AdvReac Nausea & Verified 11/03/23 11:26 [From Zithromax Z-Francisco] Vomiting & Diarrhea codeine AdvReac Nausea & Verified 11/03/23 11:26 Vomiting Physical Exam Vitals: Vital Signs Temp Pulse Resp BP Pulse Ox 11/03/23 13:00 97.0 F L 90 22 145/98 98 11/03/23 12:20 87 22 135/87 99 11/03/23 12:10 87 20 117/97 98 11/03/23 12:00 89 22 112/82 99 11/03/23 11:30 88 22 150/80 98 11/03/23 11:20 86 18 137/88 99 11/03/23 11:10 83 14 128/87 100 11/03/23 11:00 86 22 119/83 98 11/03/23 10:50 86 22 117/91 98 11/03/23 10:40 90 18 107/83 98 11/03/23 10:20 93 16 98/80 99 11/03/23 10:10 91.8 F L 93 20 98/80 99 Intake and Output 11/03/23 11/03/23 11/03/23 06:59 14:59 22:59 Other: Weight 71.668 kg GENERAL EXAM: Alert, pleasant 57-year-old female, laying flat on the stretcher, on room air, fairly comfortable in no apparent distress. HEAD: Normocephalic. EYES: Normal reaction of pupils, equal size. NOSE: Clear with pink turbinates. THROAT: No erythema or exudates. NECK: No masses, no JVD. CHEST: No chest wall deformity. LUNGS: Equal air entry with no crackles, wheeze, rhonchi or dullness. CVS: S1 and S2 normal with no audible murmur, regular rhythm. ABDOMEN: No hepatosplenomegaly, normal bowel sounds, no guarding or rigidity. SPINE: No scoliosis or deformity SKIN: Double bruises of indeterminant duration CENTRAL NERVOUS SYSTEM: Left-sided weakness from previous CVA, tone is normal in all 4 extremities. EXTREMITIES: There is no peripheral edema. No clubbing, no cyanosis. Peripheral pulses are intact. Results - Laboratory Findings CBC and BMP: 11/03/23 10:30 11/03/23 10:30 PT/INR, D-dimer PT 10.3 sec (10.0-12.5) 11/03/23 10:30 INR 0.9 (<1.2) 11/03/23 10:30 Abnormal lab findings: Abnormal Labs 11/03/23 11/03/23 11/03/23 10:26 10:30 10:30 WBC RBC Hgb MCHC Plt Count Neutrophils # Monocytes # APTT Potassium 5.4 H Chloride 111 H Carbon Dioxide 17 L Creatinine 2.03 H Glucose 131 H POC Glucose (mg/dL) 140 H Plasma Lactic Acid Rafael 5.4 H* AST 77 H Creatine Kinase 2027 H* 11/03/23 11/03/23 11/03/23 10:30 10:30 14:47 WBC 20.7 H RBC 3.67 L Hgb 11.0 L MCHC 30.9 L Plt Count 505 H Neutrophils # 17.4 H Monocytes # 1.4 H APTT 21.6 L Potassium Chloride Carbon Dioxide Creatinine Glucose POC Glucose (mg/dL) Plasma Lactic Acid Rafael 3.2 H* AST Creatine Kinase - Diagnostic Findings CT scan - chest: image reviewed Assessment and Plan Assessment: Acute trauma secondary to fall of unclear etiology. Patient was found nursing home on the porch and nursing home in the house by her father Multiple rib fractures including 8 through 10 on the left Multiple areas of bruising but no fractures noted on the shoulders knees cervical spine History of CVA several months ago with left-sided weakness. CT scan of the brain revealed interval development of extensive encephalomalacia right MCA territory related to interval infarct. Old small area of superior left frontal paramedian cortical infarct which is present in 2022. New fluid collection measuring 3.8 x 3.3 x 2.4 above the sternal notch probably arising from degenerative and subluxed left sternoclavicular joint. Multiple moderate multilevel spondylitic changes of the cervical spine. No acute fracture seen. CT scan of the chest revealed left lateral 10th, ninth and eighth rib fractures. Possible T7 spinous process fracture. History of GI bleed History of liver disease Osteoarthritis Gastroesophageal reflux disease Chronic and ongoing tobacco dependence Plan: The patient was seen and evaluated CAT scans, x-rays, labs and medications reviewed Patient is somewhat of a poor historian Denies any worsening shortness of breath or significant left-sided chest pain Currently stable and on room air We will continue to follow and make further recommendations based on her clinical status I have personally seen and examined the patient, performed the documentation and the assessment and plan as written. Number of minutes spent on the visit: 20.
[2023-11-03 17:07] LABS: Cocaine Screen,Urine Not Detected (NotDetected); Opiate Screen,Urine Detected (NotDetected); Phencyclidine Screen,Urine Not Detected (NotDetected); Urn Cannabinoid Scrn Detected (NotDetected)
[2023-11-03 17:08] LABS: Amphetamine Screen,Urine Not Detected (NotDetected); Barbiturate Screen,Urine Not Detected (NotDetected); Benzodiazepines Screen,Urine Detected (NotDetected); Methadone Screen, Urine Not Detected (NotDetected); Oxycodone Screen, Urine Not Detected (NotDetected); Tricyclic Antidepressant,Urine Detected (NotDetected)
[2023-11-03 17:12] LABS: Appearance,Urine Clear (Clear); Bilirubin,Urine Negative (Negative); Blood,Urine Trace (Negative); Budding Yeast,Urine Few /hpf; Color,Urine Light Yellow; Glucose,Urine (UA) Negative (Negative); Ketones,Urine Negative (Negative); Leukocyte Esterase,Urine Negative (Negative); Nitrite,Urine Negative (Negative); PH, Urine 5.5 (5.0-8.0); Protein,Urine Trace (Negative); RBC,Urine 9 /hpf (0-5); Specific Gravity,Urine 1.012 (1.001-1.035); Squamous Epithelial Cell,Urine 1 /hpf (0-4); Urobilinogen,Urine <2.0 mg/dL (<2.0); WBC,Urine 1 /hpf (0-5)
[2023-11-03] MEDS: GABAPENTIN 300 MG CAP PO SCH (18:37)
[2023-11-03] MEDS: HYDROcodone/APAP 7.5-325MG 1 EACH TAB PO SCH (18:37)
[2023-11-03 19:34] LABS: Magnesium 1.8 mg/dL (1.6-2.3)
[2023-11-03] MEDS: FORMOTEROL FUMARATE 20 MCG/2 ML NEBU INHALATION SCH (20:44)
[2023-11-03] MEDS: IPRATROPIUM 0.5 MG/2.5 ML NEBU INHALATION SCH (20:45)
[2023-11-03] MEDS: TICAGRELOR 90 MG TAB PO SCH (21:19)
[2023-11-03] MEDS: ATORVASTATIN 40 MG TAB PO SCH (21:19)
[2023-11-03] MEDS: DICYCLOMINE 20 MG TAB PO SCH (21:19)
[2023-11-03] MEDS: MORPHINE SULFATE 4 MG/ML SYRINGE IV PRN (21:20)
[2023-11-03] MEDS: BRIMONIDINE TARTRATE 0.2% DROPS 5 ML BTL RIGHT EYE SCH (23:48)
[2023-11-04] MEDS: AMITRIPTYLINE HCL 50 MG TAB PO SCH (04:14)
[2023-11-04] MEDS: HYDROcodone/APAP 5-325MG 1 EACH TAB PO PRN (04:16)
[2023-11-04] MEDS ORDERED: PANTOPRAZOLE 40 MG TABLET PO SCH (07:30)
[2023-11-04] MEDS: ASPIRIN 81 MG PO SCH (08:21)
[2023-11-04] MEDS: MULTIVITAMINS, THERA 1 EACH TAB PO SCH (08:21)
[2023-11-04] MEDS: NICOTINE 21MG/24HR PATCH TRANSDERM SCH (08:28)
[2023-11-04] MEDS: PANTOPRAZOLE 40 MG/10 ML VIAL IV SCH (08:28)
[2023-11-04 08:54] LABS: Basophils % (A) 1 %; Eosinophils # (A) 0.1 k/uL (0-0.7); Eosinophils % (A) 1 %; HCT 26.1 % (34.0-46.0); Lymphocytes # (A) 1.1 k/uL (1.0-4.8); Lymphocytes % (A) 17 %; MCH 30.2 pg (25.0-35.0); MCHC 32.1 g/dL (31.0-37.0); MCV 94.3 fL (80.0-100.0); Mean Platelet Volume 7.5; Monocytes # (A) 0.4 k/uL (0-1.0); Monocytes % (A) 7 %; Neutrophils # (A) 4.7 k/uL (1.3-7.7); Neutrophils % (A) 71 %; Platelet Count 346 k/uL (150-450); RBC 2.77 m/uL (3.80-5.40); RDW 15.4 % (11.5-15.5); WBC 6.6 k/uL (3.8-10.6)
[2023-11-04 09:12] LABS: HGB 8.4 gm/dL (11.4-16.0)
[2023-11-04 09:19] LABS: ALT 29 U/L (4-34); AST 72 U/L (14-36); African American GFR (CKD) 65 (>60 ml/min/1.73 sqM); Albumin 2.5 g/dL (3.5-5.0); Alkaline Phosphatase 90 U/L (38-126); Anion Gap 4 mmol/L; Blood Urea Nitrogen 14 mg/dL (7-17); Calcium 8.1 mg/dL (8.4-10.2); Carbon Dioxide 17 mmol/L (22-30); Chloride 117 mmol/L (98-107); Glucose 86 mg/dL (74-99); Non-African American GFR(CKD) 56 (>60 ml/min/1.73 sqM); Potassium 4.3 mmol/L (3.5-5.1); Sodium 138 mmol/L (137-145); Total Bilirubin 0.5 mg/dL (0.2-1.3); Total Protein 5.1 g/dL (6.3-8.2)
--- NOTE | 2023-11-04 12:04 | P.CNOR ---
History of Present Illness - [facility] Consult date: 11/04/23 Requesting physician: Melina Estrada Consult reason: other (Possible T7 fracture) History of present illness: Patient is a 57-year-old female who presented to the emergency department yes terday at [facility] status post fall. Patient stated that she was outside on her porch when her legs felt weak and they gave out she fell. Patient states she thinks she was on the ground at home for about 1 hour prior to her family member finding her and calling EMS. Patient does have a history of CVA for which she is on Eliquis. Orthopedics was consulted due to possible T7 spinous process fracture. Patient was seen at bedside this morning lying in the right lateral recumbent position in the ER. Patient says she is not having any significant back pain at this time. Patient is mostly complaining of pain to the right hip. She states she does follow with a neurologist Dr. Alcaraz in regards to her low back. Patient says she knows she has some degenerative disc disease and arthritis in her low back. Patient denies any previous orthopedic spine surgery. Patient notes that she was informed that she had some rib fractures on the left side. However, patient states that back in April of last year she had a fall and injured her ribs them so she is not sure if they were new or not. Patient denies any shortness of breath, nausea, vomiting, change in vision, loss of bowel/bladder control. 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,had left facial [id number] w/ Dr Janelle Oneill,occ migraines, sinus congestion from allergies, hx pleurisy, bleeding ulcer Mar 2019, hx anemia, fatty liver disease, hiatal hernia, IBS/constipation,fatty liver History of Any Multi-Drug Resistant Organisms: None Reported Past Surgical History: Heart Catheterization Additional Past Surgical History / Comment(s): kidney biopsy, laparoscopy Past Anesthesia/Blood Transfusion Reactions: Previous Problems w/ Anesthesia, Family History of Problems w/ Anesthesia, Motion Sickness Additional Past Anesthesia/Blood Transfusion Reaction / Comm: had blood transfusion 03/2019-no problems, "takes a while to come out", 'sister had hard time coming out of it" Past Psychological History: Anxiety Smoking Status: Current every day smoker Past Alcohol Use History: Daily Past Drug Use History: None Reported - Past Family History Father Family Medical History: No Reported History Mother Family Medical History: Liver Disease Additional Family Medical History / Comment(s): fatty liver disease Medications and Allergies Home Medications Medication Instructions Recorded Confirmed Type LORazepam [Ativan] 1 mg PO BID PRN 09/23/20 11/03/23 History Amitriptyline HCl [Elavil] 50 mg PO HS 04/11/22 11/03/23 History Brimonidine Tartrate [Alphagan P 1 drop RIGHT EYE BID 04/11/22 11/03/23 History 0.2% Ophth Soln] Cyclobenzaprine [Flexeril] 10 mg PO BID PRN 04/11/22 11/03/23 History Ergocalciferol [Vitamin D2 (1250 1,250 mcg PO NAVAS 04/11/22 11/03/23 History Mcg = 57212 Iu)] Omeprazole 40 mg PO DAILY 04/11/22 11/03/23 History Aspirin EC [Ecotrin Low Dose] 81 mg PO DAILY 04/15/22 11/03/23 History Gabapentin [Neurontin] 300 mg PO TID 03/23/23 11/03/23 History Albuterol Inhaler [Ventolin Hfa 1 - 2 puff INHALATION RT-Q6H PRN 09/08/23 11/03/23 History Inhaler] Atorvastatin [Lipitor] 40 mg PO HS 09/08/23 11/03/23 History Dicyclomine HCl 20 mg PO BID 09/08/23 11/03/23 History Multivitamins, Thera [Multivitamin 1 tab PO DAILY 09/08/23 11/03/23 History (formulary)] Ticagrelor [Brilinta] 90 mg PO BID 09/08/23 11/03/23 History Tiotropium Br/Olodaterol HCl 2 puff INHALATION RT-DAILY 09/08/23 11/03/23 History [Stiolto Respimat Inhal [place]] HYDROcodone/APAP 7.5-325MG [[place] 1 tab PO TID 11/03/23 11/03/23 History 7.5-325] Levofloxacin [Levaquin] 500 mg PO DAILY 11/03/23 11/03/23 History Nicotine 21Mg/24Hr Patch [Habitrol] 1 patch TRANSDERM DAILY 11/03/23 11/03/23 History Allergies Allergy/AdvReac Type Severity Reaction Status Date / Time azithromycin AdvReac Nausea & Verified 11/03/23 11:26 [From Zithromax Z-Francisco] Vomiting & Diarrhea codeine AdvReac Nausea & Verified 11/03/23 11:26 Vomiting Physical Examination Positive for some ecchymosis along the left hip diffusely. Negative for any ecchymosis open fractures, significant erythema or swelling in the spine during exam. Positive for mild tenderness to patient diffusely throughout the lower lumbar spine at midline and the bilateral SI joints. Nontender to palpation throughout cervical and thoracic spine at midline and in the paravertebral regions. l sensation is equal, symmetric, by intact throughout the upper and lower extremities on exam. Patient does have limited range of motion in the bilateral hips in flexion/extension secondary to referred pain and stiffness in the low back. Patient has full range of motion throughout bilateral knees on exam and ankles. Patient is forage motion throughout bilateral upper extremities on exam. 4+/5 in all major motor groups in bilateral upper extremities. 4-/5 in all major motor groups in bilateral lower extremities. Ne gative Homans bilaterally. Negative clonus bilaterally. Negative Idalmis bilaterally. Cap refill under 3 seconds in digits of upper extremities. Radial pulse intact, 2+ bilaterally. Results - Labs Labs: Abnormal Lab Results - Last 24 Hours (Table) 11/03/23 11/03/23 11/03/23 Range/Units 10:30 10:30 10:30 RBC (3.80-5.40) m/uL Hgb (11.4-16.0) gm/dL Hct (34.0-46.0) % APTT 21.6 L (22.0-30.0) sec Potassium 5.4 H (3.5-5.1) mmol/L Chloride 111 H (98-107) mmol/L Carbon Dioxide 17 L (22-30) mmol/L Creatinine 2.03 H (0.52-1.04) mg/dL Glucose 131 H (74-99) mg/dL Plasma Lactic Acid Rafael 5.4 H* (0.7-2.0) mmol/L Calcium (8.4-10.2) mg/dL Phosphorus (2.5-4.5) mg/dL AST 77 H (14-36) U/L Creatine Kinase 2027 H* (30-135) U/L Total Protein (6.3-8.2) g/dL Albumin (3.5-5.0) g/dL Urine Protein (Negative) Urine Blood (Negative) Urine RBC (0-5) /hpf Urine Yeast (Budding) (None) /hpf Urine Opiates Screen (NotDetected) U Tricyclic Antidepress (NotDetected) U Benzodiazepines Scrn (NotDetected) U Marijuana (THC) Screen (NotDetected) 11/03/23 11/03/23 11/03/23 Range/Units 10:30 14:47 15:36 RBC (3.80-5.40) m/uL Hgb (11.4-16.0) gm/dL Hct (34.0-46.0) % APTT (22.0-30.0) sec Potassium (3.5-5.1) mmol/L Chloride (98-107) mmol/L Carbon Dioxide (22-30) mmol/L Creatinine (0.52-1.04) mg/dL Glucose (74-99) mg/dL Plasma Lactic Acid Rafael 3.2 H* (0.7-2.0) mmol/L Calcium (8.4-10.2) mg/dL Phosphorus 5.0 H (2.5-4.5) mg/dL AST (14-36) U/L Creatine Kinase (30-135) U/L Total Protein (6.3-8.2) g/dL Albumin (3.5-5.0) g/dL Urine Protein Trace H (Negative) Urine Blood Trace H (Negative) Urine RBC 9 H (0-5) /hpf Urine Yeast (Budding) Few H (None) /hpf Urine Opiates Screen Detected H (NotDetected) U Tricyclic Antidepress Detected H (NotDetected) U Benzodiazepines Scrn Detected H (NotDetected) U Marijuana (THC) Screen Detected H (NotDetected) 11/03/23 11/03/23 11/04/23 Range/Units 17:38 20:52 05:29 RBC (3.80-5.40) m/uL Hgb (11.4-16.0) gm/dL Hct (34.0-46.0) % APTT (22.0-30.0) sec Potassium (3.5-5.1) mmol/L Chloride (98-107) mmol/L Carbon Dioxide (22-30) mmol/L Creatinine (0.52-1.04) mg/dL Glucose (74-99) mg/dL Plasma Lactic Acid Rafael 2.4 H* 2.5 H* (0.7-2.0) mmol/L Calcium (8.4-10.2) mg/dL Phosphorus (2.5-4.5) mg/dL AST (14-36) U/L Creatine Kinase 2502 H* (30-135) U/L Total Protein (6.3-8.2) g/dL Albumin (3.5-5.0) g/dL Urine Protein (Negative) Urine Blood (Negative) Urine RBC (0-5) /hpf Urine Yeast (Budding) (None) /hpf Urine Opiates Screen (NotDetected) U Tricyclic Antidepress (NotDetected) U Benzodiazepines Scrn (NotDetected) U Marijuana (THC) Screen (NotDetected) 11/04/23 11/04/23 Range/Units 08:21 08:21 RBC 2.77 L (3.80-5.40) m/uL Hgb 8.4 L D (11.4-16.0) gm/dL Hct 26.1 L (34.0-46.0) % APTT (22.0-30.0) sec Potassium (3.5-5.1) mmol/L Chloride 117 H (98-107) mmol/L Carbon Dioxide 17 L (22-30) mmol/L Creatinine 1.09 H (0.52-1.04) mg/dL Glucose (74-99) mg/dL Plasma Lactic Acid Rafael (0.7-2.0) mmol/L Calcium 8.1 L (8.4-10.2) mg/dL Phosphorus (2.5-4.5) mg/dL AST 72 H (14-36) U/L Creatine Kinase (30-135) U/L Total Protein 5.1 L (6.3-8.2) g/dL Albumin 2.5 L (3.5-5.0) g/dL Urine Protein (Negative) Urine Blood (Negative) Urine RBC (0-5) /hpf Urine Yeast (Budding) (None) /hpf Urine Opiates Screen (NotDetected) U Tricyclic Antidepress (NotDetected) U Benzodiazepines Scrn (NotDetected) U Marijuana (THC) Screen (NotDetected) H & H 11/03/23 11/04/23 Range/Units 10:30 08:21 Hgb 11.0 L 8.4 L D (11.4-16.0) gm/dL Hct 35.5 26.1 L (34.0-46.0) % Coagulation 11/03/23 Range/Units 10:30 INR 0.9 (<1.2) Result Diagrams: 11/04/23 08:21 11/04/23 08:21 - Diagnostic results Shoulder x-ray: report reviewed, image reviewed (Bilateral shoulders appear to be intact. Negative for any fracture or dislocation. Clavicle imaging is negative for any fractures.) Knee x-ray: report reviewed, image reviewed (X-rays of the bilateral knees negative for any dislocation or fractures.) Assessment and Plan Assessment: 1. Low back pain; hip pain; possible T7 spinous process fracture Plan: 1. Low back pain; hip pain; possible T7 spinous process fracture -patient is stable at bedside and on exam does not present with any focal tenderness throughout the cervical or thoracic spine midline. I will discuss the findings of the imaging and exam with my attending, Dr. Bradford before proceeding with any potential orthopedic intervention. At this time we are recommending conservative measures with the use of pain medication and PT/OT. Patient may weight-bear as tolerated with walker and assistance. We will continue to be available as needed to see patient during her stay in the hospital. 2. Appreciate medical management 3. Pain management -gabapentin; Flexeril; [place]; Tylenol 4. DVT prophylaxis -aspirin 5. GI prophylaxis -Protonix 6. PT/OT -weightbearing as tolerated with walker and assistance as needed 7. Encourage incentive spirometer use 8. Appreciate consult Time with Patient: Less than 30
--- NOTE | 2023-11-04 12:48 | P.HPIM ---
History of Present Illness H&P Date: 11/04/23 Chief Complaint: S/p fall * 57-year-old patient with past medical history significant for gastroesophageal reflux disease, history of gastrointestinal bleed, history of CVA with residual left-sided weakness, presented to the emergency department on 11/03/2023 after patient had a fall prior to presentation. Patient was noted to be laying down on the porch when was seen by her father, patient was noted to be confused it was noted that patient did hit her head and had multiple bruises on the skin. * Workup in ER included a CT of the brain which showed interval development of extensive encephalomalacia involving right MCA territory secondary to previous history of infarct. CT cervical spine showed new fluid collection about 3.8 x 3.3 x 2.4 cm above the left sternal notch likely secondary to sublux left sternoclavicular joint and degeneration. Multilevel degenerative disease of cervical spine noted worse at C4-C5 levels * CT chest abdomen pelvis showed multiple rib fractures involving left lateral 789 and 10 ribs, concern for T7 spinous process fracture * Patient was seen by trauma surgery as well as pulmonary medicine. Patient to be admitted to medical floor to be seen by neurology, surgery and pulmonary due to multiple rib fractures * Workup in ER included CBC which showed WBC of 20.7 hemoglobin 11 platelet count of 505 INR of 0.9 * Serum chemistry obtained sodium 139 potassium 5.4 chloride 111 BUN 15, creatinine of 2.03 lactate of 2.5 creatinine kinase of 7. Urinalysis obtained showed trace amount of blood, few WBCs * Urine toxicology positive for opiates, tricyclic antidepressants, benzodiazepine and marijuana * She Will be admitted to medical floor with multiple specialities on consult for further management REVIEW OF SYSTEMS: S/p fall, confusion, chest pain, CONSTITUTIONAL: No fever, no malaise, no fatigue. HEENT: No recent visual problems or hearing problems. Denied any sore throat. CARDIOVASCULAR: S/p fall, confusion, chest pain, PULMONARY:S/p fall, confusion, chest pain, GASTROINTESTINAL: No diarrhea, no nausea, no vomiting, no abdominal pain. NEUROLOGICAL: No headaches, no weakness, no numbness. HEMATOLOGICAL: Denies any bleeding or petechiae. GENITOURINARY: Denies any burning micturition, frequency, or urgency. MUSCULOSKELETAL/RHEUMATOLOGICAL: Denies any joint pain, swelling, or any muscle pain. ENDOCRINE: Denies any polyuria or polydipsia. PHYSICAL EXAMINATION: GENERAL: The patient is alert and oriented x 3 HEENT: Pupils are round and equally reacting to light. EOMI. CARDIOVASCULAR: S1 and S2 present. No murmurs, rubs, or gallops. PULMONARY: Chest is clear to auscultation, no wheezing or crackles. ABDOMEN: Soft, nontender, nondistended, Patel catheter in place MUSCULOSKELETAL: No joint swelling or deformity. EXTREMITIES: No cyanosis, clubbing, or pedal edema. NEUROLOGICAL: Gross neurological examination did not reveal any focal deficits. SKIN: Multiple bruises noted Assessment and plan * S/p fall with multiple rib fractures * T7 spinous process fracture * Acute metabolic encephalopathy * Acute rhabdomyolysis * Hyperkalemia * History of CVA with residual left-sided weakness * History of gastroesophageal reflux disease * In regards to fall, seen by trauma surgery, conservative management recommended continue fluid resuscitation for rhabdomyolysis * In regards to s/p T7 spinous fracture orthospine consult * Regards to history of CVA, will consult neurology Home medications show patient is on Lipitor and Brilinta which is continued * Regards to history of CVA will need physical therapy Occupational Therapy evaluation chronic changes noted on CT head * Regards to metabolic encephalopathy continue fluid resuscitation follow-up on CK levels, electrolyte * Physical therapy, Occupational Therapy consult 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,had left facial [id number] w/ Dr Janelle Oneill,occ migraines, sinus congestion from allergies, hx pleurisy, bleeding ulc er Mar 2019, hx anemia, fatty liver disease, hiatal hernia, IBS/constipation,fatty liver History of Any Multi-Drug Resistant Organisms: None Reported Past Surgical History: Heart Catheterization Additional Past Surgical History / Comment(s): kidney biopsy, laparoscopy Past Anesthesia/Blood Transfusion Reactions: Previous Problems w/ Anesthesia, Family History of Problems w/ Anesthesia, Motion Sickness Additional Past Anesthesia/Blood Transfusion Reaction / Comment(s): had blood transfusion 03/2019-no problems, "takes a while to come out", 'sister had hard time coming out of it" Past Psychological History: Anxiety Smoking Status: Current every day smoker Past Alcohol Use History: Daily Past Drug Use History: None Reported - Past Family History Father Family Medical History: No Reported History Mother Family Medical History: Liver Disease Additional Family Medical History / Comment(s): fatty liver disease Medications and Allergies Home Medications Medication Instructions Recorded Confirmed Type LORazepam [Ativan] 1 mg PO BID PRN 09/23/20 11/03/23 History Amitriptyline HCl [Elavil] 50 mg PO HS 04/11/22 11/03/23 History Brimonidine Tartrate [Alphagan P 1 drop RIGHT EYE BID 04/11/22 11/03/23 History 0.2% Ophth Soln] Cyclobenzaprine [Flexeril] 10 mg PO BID PRN 04/11/22 11/03/23 History Ergocalciferol [Vitamin D2 (1250 1,250 mcg PO NAVAS 04/11/22 11/03/23 History Mcg = 35309 Iu)] Omeprazole 40 mg PO DAILY 04/11/22 11/03/23 History Aspirin EC [Ecotrin Low Dose] 81 mg PO DAILY 04/15/22 11/03/23 History Gabapentin [Neurontin] 300 mg PO TID 03/23/23 11/03/23 History Albuterol Inhaler [Ventolin Hfa 1 - 2 puff INHALATION RT-Q6H PRN 09/08/23 11/03/23 History Inhaler] Atorvastatin [Lipitor] 40 mg PO HS 09/08/23 11/03/23 History Dicyclomine HCl 20 mg PO BID 09/08/23 11/03/23 History Multivitamins, Thera [Multivitamin 1 tab PO DAILY 09/08/23 11/03/23 History (formulary)] Ticagrelor [Brilinta] 90 mg PO BID 09/08/23 11/03/23 History Tiotropium Br/Olodaterol HCl 2 puff INHALATION RT-DAILY 09/08/23 11/03/23 History [Stiolto Respimat Inhal [place]] HYDROcodone/APAP 7.5-325MG [[place] 1 tab PO TID 11/03/23 11/03/23 History 7.5-325] Levofloxacin [Levaquin] 500 mg PO DAILY 11/03/23 11/03/23 History Nicotine 21Mg/24Hr Patch [Habitrol] 1 patch TRANSDERM DAILY 11/03/23 11/03/23 History Allergies Allergy/AdvReac Type Severity Reaction Status Date / Time azithromycin AdvReac Nausea & Verified 11/03/23 11:26 [From Zithromax Z-Francisco] Vomiting & Diarrhea codeine AdvReac Nausea & Verified 11/03/23 11:26 Vomiting Physical Exam Vitals: Vital Signs Temp Pulse Resp BP Pulse Ox 11/04/23 08:15 90 11/04/23 08:04 89 11/04/23 00:29 88 18 109/69 98 11/03/23 23:10 87 18 107/62 97 11/03/23 21:16 100 18 126/75 98 11/03/23 21:03 97 11/03/23 20:52 93 11/03/23 20:26 99.3 F 98 18 114/76 97 11/03/23 18:42 98.8 F 96 20 120/84 98 11/03/23 13:00 97.0 F L 90 22 145/98 98 11/03/23 12:20 87 22 135/87 99 11/03/23 12:10 87 20 117/97 98 11/03/23 12:00 89 22 112/82 99 11/03/23 11:30 88 22 150/80 98 11/03/23 11:20 86 18 137/88 99 11/03/23 11:10 83 14 128/87 100 11/03/23 11:00 86 22 119/83 98 11/03/23 10:50 86 22 117/91 98 11/03/23 10:40 90 18 107/83 98 11/03/23 10:20 93 16 98/80 99 11/03/23 10:10 91.8 F L 93 20 98/80 99 Results CBC & Chem 7: 11/04/23 08:21 11/04/23 08:21 Labs: Abnormal Lab Results - Last 24 Hours (Table) 11/03/23 11/03/23 11/03/23 Range/Units 10:26 10:30 10:30 WBC (3.8-10.6) k/uL RBC (3.80-5.40) m/uL Hgb (11.4-16.0) gm/dL Hct (34.0-46.0) % MCHC (31.0-37.0) g/dL Plt Count (150-450) k/uL Neutrophils # (1.3-7.7) k/uL Monocytes # (0-1.0) k/uL APTT (22.0-30.0) sec Potassium 5.4 H (3.5-5.1) mmol/L Chloride 111 H (98-107) mmol/L Carbon Dioxide 17 L (22-30) mmol/L Creatinine 2.03 H (0.52-1.04) mg/dL Glucose 131 H (74-99) mg/dL POC Glucose (mg/dL) 140 H (70-110) mg/dL Plasma Lactic Acid Rafael 5.4 H* (0.7-2.0) mmol/L Calcium (8.4-10.2) mg/dL Phosphorus (2.5-4.5) mg/dL AST 77 H (14-36) U/L Creatine Kinase 2027 H* (30-135) U/L Total Protein (6.3-8.2) g/dL Albumin (3.5-5.0) g/dL Urine Protein (Negative) Urine Blood (Negative) Urine RBC (0-5) /hpf Urine Yeast (Budding) (None) /hpf Urine Opiates Screen (NotDetected) U Tricyclic Antidepress (NotDetected) U Benzodiazepines Scrn (NotDetected) U Marijuana (THC) Screen (NotDetected) 11/03/23 11/03/23 11/03/23 Range/Units 10:30 10:30 10:30 WBC 20.7 H (3.8-10.6) k/uL RBC 3.67 L (3.80-5.40) m/uL Hgb 11.0 L (11.4-16.0) gm/dL Hct (34.0-46.0) % MCHC 30.9 L (31.0-37.0) g/dL Plt Count 505 H (150-450) k/uL Neutrophils # 17.4 H (1.3-7.7) k/uL Monocytes # 1.4 H (0-1.0) k/uL APTT 21.6 L (22.0-30.0) sec Potassium (3.5-5.1) mmol/L Chloride (98-107) mmol/L Carbon Dioxide (22-30) mmol/L Creatinine (0.52-1.04) mg/dL Glucose (74-99) mg/dL POC Glucose (mg/dL) (70-110) mg/dL Plasma Lactic Acid Rafael (0.7-2.0) mmol/L Calcium (8.4-10.2) mg/dL Phosphorus 5.0 H (2.5-4.5) mg/dL AST (14-36) U/L Creatine Kinase (30-135) U/L Total Protein (6.3-8.2) g/dL Albumin (3.5-5.0) g/dL Urine Protein (Negative) Urine Blood (Negative) Urine RBC (0-5) /hpf Urine Yeast (Budding) (None) /hpf Urine Opiates Screen (NotDetected) U Tricyclic Antidepress (NotDetected) U Benzodiazepines Scrn (NotDetected) U Marijuana (THC) Screen (NotDetected) 11/03/23 11/03/23 11/03/23 Range/Units 14:47 15:36 17:38 WBC (3.8-10.6) k/uL RBC (3.80-5.40) m/uL Hgb (11.4-16.0) gm/dL Hct (34.0-46.0) % MCHC (31.0-37.0) g/dL Plt Count (150-450) k/uL Neutrophils # (1.3-7.7) k/uL Monocytes # (0-1.0) k/uL APTT (22.0-30.0) sec Potassium (3.5-5.1) mmol/L Chloride (98-107) mmol/L Carbon Dioxide (22-30) mmol/L Creatinine (0.52-1.04) mg/dL Glucose (74-99) mg/dL POC Glucose (mg/dL) (70-110) mg/dL Plasma Lactic Acid Rafael 3.2 H* 2.4 H* (0.7-2.0) mmol/L Calcium (8.4-10.2) mg/dL Phosphorus (2.5-4.5) mg/dL AST (14-36) U/L Creatine Kinase (30-135) U/L Total Protein (6.3-8.2) g/dL Albumin (3.5-5.0) g/dL Urine Protein Trace H (Negative) Urine Blood Trace H (Negative) Urine RBC 9 H (0-5) /hpf Urine Yeast (Budding) Few H (None) /hpf Urine Opiates Screen Detected H (NotDetected) U Tricyclic Antidepress Detected H (NotDetected) U Benzodiazepines Scrn Detected H (NotDetected) U Marijuana (THC) Screen Detected H (NotDetected) 11/03/23 11/04/23 11/04/23 Range/Units 20:52 05:29 08:21 WBC (3.8-10.6) k/uL RBC 2.77 L (3.80-5.40) m/uL Hgb 8.4 L D (11.4-16.0) gm/dL Hct 26.1 L (34.0-46.0) % MCHC (31.0-37.0) g/dL Plt Count (150-450) k/uL Neutrophils # (1.3-7.7) k/uL Monocytes # (0-1.0) k/uL APTT (22.0-30.0) sec Potassium (3.5-5.1) mmol/L Chloride (98-107) mmol/L Carbon Dioxide (22-30) mmol/L Creatinine (0.52-1.04) mg/dL Glucose (74-99) mg/dL POC Glucose (mg/dL) (70-110) mg/dL Plasma Lactic Acid Rafael 2.5 H* (0.7-2.0) mmol/L Calcium (8.4-10.2) mg/dL Phosphorus (2.5-4.5) mg/dL AST (14-36) U/L Creatine Kinase 2502 H* (30-135) U/L Total Protein (6.3-8.2) g/dL Albumin (3.5-5.0) g/dL Urine Protein (Negative) Urine Blood (Negative) Urine RBC (0-5) /hpf Urine Yeast (Budding) (None) /hpf Urine Opiates Screen (NotDetected) U Tricyclic Antidepress (NotDetected) U Benzodiazepines Scrn (NotDetected) U Marijuana (THC) Screen (NotDetected) 11/04/23 Range/Units 08:21 WBC (3.8-10.6) k/uL RBC (3.80-5.40) m/uL Hgb (11.4-16.0) gm/dL Hct (34.0-46.0) % MCHC (31.0-37.0) g/dL Plt Count (150-450) k/uL Neutrophils # (1.3-7.7) k/uL Monocytes # (0-1.0) k/uL APTT (22.0-30.0) sec Potassium (3.5-5.1) mmol/L Chloride 117 H (98-107) mmol/L Carbon Dioxide 17 L (22-30) mmol/L Creatinine 1.09 H (0.52-1.04) mg/dL Glucose (74-99) mg/dL POC Glucose (mg/dL) (70-110) mg/dL Plasma Lactic Acid Rafael (0.7-2.0) mmol/L Calcium 8.1 L (8.4-10.2) mg/dL Phosphorus (2.5-4.5) mg/dL AST 72 H (14-36) U/L Creatine Kinase (30-135) U/L Total Protein 5.1 L (6.3-8.2) g/dL Albumin 2.5 L (3.5-5.0) g/dL Urine Protein (Negative) Urine Blood (Negative) Urine RBC (0-5) /hpf Urine Yeast (Budding) (None) /hpf Urine Opiates Screen (NotDetected) U Tricyclic Antidepress (NotDetected) U Benzodiazepines Scrn (NotDetected) U Marijuana (THC) Screen (NotDetected)
--- NOTE | 2023-11-04 13:16 | P.CNNES ---
History of Present Illness Consult date: 11/04/23 Requesting physician: Melina Estrada Reason for Consult: interval development of encephalomalacia from prior CVA History of Present Illness: this is a 57-year-old woman with history of stroke with residual left hemiparesi s, recurrent falls, GI bleed, liver disease ongoing tobacco use who presented emergency department because of fall. patient does not appear to be a great historian and some of the history is obtained from medical record. According the patient's she stated that that she felt lightheaded and her blood pressure has been low and she felt lightheaded when standing up. She denies any new weakness, numbness, visual disturbance or difficulty getting words out. She states that she resides with her father. Per the ED note it seems the patient was a outside and fell on the ground and it's unclear how she fell. It seems that she hit her head. Patient has multiple bruises. Patient states that the falls are ongoing.she is on aspirin as well as Brilinta and followed-up with Dr. Casas (stroke-interventionalist). She states she was notified by him he wanted to perform diagnositc cerebral angiogram but needed to be cleared from cardiology first. According to patient she had strokes in the past 2 over 1 in March and one in April and that April 2023 event she had strokelike symptoms and had to be transferred to [facility]. seems that the patient presented at that time with the left sided weakness and with facial droop. She did not receive any at IV thrombolytic. She denies having any intervention. some other workup during his hospital visit consisted of: on initial preon initial presentation her blood pressure is 98/80 which has improved. initial white blood cell is 20.7 thousand and repeat is 6.6. initial serum glucose is 131, plasma like acid vein is 5.4 and the most recent is normal. Potassium 5.4 calcium is 9.5. CK level is 2026 and slightly trending up. Hemglobin is 11-->8.4 AST slightly elevated ALT is normal. CT of the head is reported as interval development of extensive encephalomalacia of the right MCA territory relating to interval infarct. Old small area of small left frontal paramedian cortical infarct which was a present in 2022. Otherwise no acute intracranial abnormality seen.I personally reviewed the CT of the head and feel the patient has some inflammation over the right MCA but there is no acute subacute stroke. CT cervical spine was reported as a new fluid collection 3.8 x 3.3 x 2.4 cm above the sternal notch probably arising from degenerative and subluxed left sternal clavicular joint. Multilevel moderate spondylitic changes of cervical spine. No acute fracture seen. EKG is reported as sinus rhythm. urine drug is positive for opiates, tricyclic antidepressant, benzoyl and marijuana of note patient had hemoglobin A1c a month ago and it was normal 5.1.also TSH was normal. In March 2023 her vitamin B-12 was normal. Review of Systems the positive and negative as per HPI. 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,had left facial [id number] w/ Dr Janelle Oneill,occ migraines, sinus congestion from allergies, hx pleurisy, bleeding ulcer Mar 2019, hx anemia, fatty liver disease, hiatal hernia, IBS/constipation,fatty liver History of Any Multi-Drug Resistant Organisms: None Reported Past Surgical History: Heart Catheterization Additional Past Surgical History / Comment(s): kidney biopsy, laparoscopy Past Anesthesia/Blood Transfusion Reactions: Previous Problems w/ Anesthesia, Family History of Problems w/ Anesthesia, Motion Sickness Additional Past Anesthesia/Blood Transfusion Reaction / Comment(s): had blood transfusion 03/2019-no problems, "takes a while to come out", 'sister had hard time coming out of it" Past Psychological History: Anxiety Smoking Status: Current every day smoker Past Alcohol Use History: Daily Past Drug Use History: None Reported - Past Family History Father Family Medical History: No Reported History Mother Family Medical History: Liver Disease Additional Family Medical History / Comment(s): fatty liver disease Medications and Allergies Home Medications Medication Instructions Recorded Confirmed Type LORazepam [Ativan] 1 mg PO BID PRN 09/23/20 11/03/23 History Amitriptyline HCl [Elavil] 50 mg PO HS 04/11/22 11/03/23 History Brimonidine Tartrate [Alphagan P 1 drop RIGHT EYE BID 04/11/22 11/03/23 History 0.2% Ophth Soln] Cyclobenzaprine [Flexeril] 10 mg PO BID PRN 04/11/22 11/03/23 History Ergocalciferol [Vitamin D2 (1250 1,250 mcg PO NAVAS 04/11/22 11/03/23 History Mcg = [id number] Iu)] Omeprazole 40 mg PO DAILY 04/11/22 11/03/23 History Aspirin EC [Ecotrin Low Dose] 81 mg PO DAILY 04/15/22 11/03/23 History Gabapentin [Neurontin] 300 mg PO TID 03/23/23 11/03/23 History Albuterol Inhaler [Ventolin Hfa 1 - 2 puff INHALATION RT-Q6H PRN 09/08/23 11/03/23 History Inhaler] Atorvastatin [Lipitor] 40 mg PO HS 09/08/23 11/03/23 History Dicyclomine HCl 20 mg PO BID 09/08/23 11/03/23 History Multivitamins, Thera [Multivitamin 1 tab PO DAILY 09/08/23 11/03/23 History (formulary)] Ticagrelor [Brilinta] 90 mg PO BID 09/08/23 11/03/23 History Tiotropium Br/Olodaterol HCl 2 puff INHALATION RT-DAILY 09/08/23 11/03/23 History [Stiolto Respimat Inhal [place]] HYDROcodone/APAP 7.5-325MG [Odem 1 tab PO TID 11/03/23 11/03/23 History 7.5-325] Levofloxacin [Levaquin] 500 mg PO DAILY 11/03/23 11/03/23 History Nicotine 21Mg/24Hr Patch [Habitrol] 1 patch TRANSDERM DAILY 11/03/23 11/03/23 History Allergies Allergy/AdvReac Type Severity Reaction Status Date / Time azithromycin AdvReac Nausea & Verified 11/03/23 11:26 [From Zithromax Z-Francisco] Vomiting & Diarrhea codeine AdvReac Nausea & Verified 11/03/23 11:26 Vomiting Physical Examination - Vital Signs Vital Signs: Vital Signs Temp Pulse Resp BP Pulse Ox 11/04/23 11:13 60 18 115/72 99 11/04/23 10:52 86 18 135/77 98 11/04/23 09:00 88 16 136/78 97 11/04/23 08:15 90 11/04/23 08:04 89 11/04/23 08:00 82 16 130/74 97 11/04/23 07:00 86 16 134/70 96 11/04/23 06:00 84 18 133/82 96 11/04/23 05:00 87 18 136/80 97 11/04/23 04:00 88 18 130/78 96 11/04/23 00:29 88 18 109/69 98 11/03/23 23:10 87 18 107/62 97 11/03/23 21:16 100 18 126/75 98 11/03/23 21:03 97 11/03/23 20:52 93 11/03/23 20:26 99.3 F 98 18 114/76 97 11/03/23 18:42 98.8 F 96 20 120/84 98 11/03/23 13:00 97.0 F L 90 22 145/98 98 GENERAL: The patient is lying in bed and is not in acute distress. HENT: Supple neck. Extremities: Has multiple bruises over the lowers. NEUROLOGICAL: Higher mental function: The patient is awake, alert, oriented to self, place and time. Patient is following commands. No aphasia and no neglect. Cranial nerves: The pupils are round, equal and reactive to light. Visual fraire are full to confrontation throughout. Extraocular movement is intact no nystagmus is noted. Facial sensation is normal to touch throughout. Mild left facial weakness. Hearing is normal bilaterally to hand rub. Tongue is midline and moved [id number] without any difficulty. No dysarthria is noted. Shoulder shrug is normal bilaterally. Motor: The strength is left upper extremity is 4+ but bilateral hand hide sorter are 5/5. Left knee extension is 5-. Otherwise 5/5. Normal tone and bulk. Cerebellum: Normal finger to nose bilaterally. Sensation: Sensation is normal to touch throughout. Reflexes (right/left): 2+ throughout. Plantars are mute bilaterally. Results - Laboratory Findings CBC and BMP: 11/04/23 08:21 11/04/23 08:21 Abnormal Lab Findings: Abnormal Labs 11/03/23 11/03/23 11/03/23 10:26 10:30 10:30 WBC RBC Hgb Hct MCHC Plt Count Neutrophils # Monocytes # APTT Potassium 5.4 H Chloride 111 H Carbon Dioxide 17 L Creatinine 2.03 H Glucose 131 H POC Glucose (mg/dL) 140 H Plasma Lactic Acid Rafael 5.4 H* Calcium Phosphorus AST 77 H Creatine Kinase 2027 H* Total Protein Albumin Urine Protein Urine Blood Urine RBC Urine Yeast (Budding) Urine Opiates Screen U Tricyclic Antidepress U Benzodiazepines Scrn U Marijuana (THC) Screen 11/03/23 11/03/23 11/03/23 10:30 10:30 10:30 WBC 20.7 H RBC 3.67 L Hgb 11.0 L Hct MCHC 30.9 L Plt Count 505 H Neutrophils # 17.4 H Monocytes # 1.4 H APTT 21.6 L Potassium Chloride Carbon Dioxide Creatinine Glucose POC Glucose (mg/dL) Plasma Lactic Acid Rafael Calcium Phosphorus 5.0 H AST Creatine Kinase Total Protein Albumin Urine Protein Urine Blood Urine RBC Urine Yeast (Budding) Urine Opiates Screen U Tricyclic Antidepress U Benzodiazepines Scrn U Marijuana (THC) Screen 11/03/23 11/03/23 11/03/23 14:47 15:36 17:38 WBC RBC Hgb Hct MCHC Plt Count Neutrophils # Monocytes # APTT Potassium Chloride Carbon Dioxide Creatinine Glucose POC Glucose (mg/dL) Plasma Lactic Acid Rafael 3.2 H* 2.4 H* Calcium Phosphorus AST Creatine Kinase Total Protein Albumin Urine Protein Trace H Urine Blood Trace H Urine RBC 9 H Urine Yeast (Budding) Few H Urine Opiates Screen Detected H U Tricyclic Antidepress Detected H U Benzodiazepines Scrn Detected H U Marijuana (THC) Screen Detected H 11/03/23 11/04/23 11/04/23 20:52 05:29 08:21 WBC RBC 2.77 L Hgb 8.4 L D Hct 26.1 L MCHC Plt Count Neutrophils # Monocytes # APTT Potassium Chloride Carbon Dioxide Creatinine Glucose POC Glucose (mg/dL) Plasma Lactic Acid Rafael 2.5 H* Calcium Phosphorus AST Creatine Kinase 2502 H* Total Protein Albumin Urine Protein Urine Blood Urine RBC Urine Yeast (Budding) Urine Opiates Screen U Tricyclic Antidepress U Benzodiazepines Scrn U Marijuana (THC) Screen 11/04/23 08:21 WBC RBC Hgb Hct MCHC Plt Count Neutrophils # Monocytes # APTT Potassium Chloride 117 H Carbon Dioxide 17 L Creatinine 1.09 H Glucose POC Glucose (mg/dL) Plasma Lactic Acid Rafael Calcium 8.1 L Phosphorus AST 72 H Creatine Kinase Total Protein 5.1 L Albumin 2.5 L Urine Protein Urine Blood Urine RBC Urine Yeast (Budding) Urine Opiates Screen U Tricyclic Antidepress U Benzodiazepines Scrn U Marijuana (THC) Screen Assessment and Plan Assessment: this is a 57-year-old woman with history of right MCA stroke with residual left hemiparesis, recurrent falls who presents because of a fall. She felt light headed upon standing up and fell. She has elevated CK levels, lactic acid, slight hypotensive on presentation. recurrent falls unknown exact etiology. One of etiology is hypotensive but need to rule out other etiologies. UDS is positive for opiates, benzo, TCA and marijuana which can cause confusion rhabdomyolysis due to fall Anemia on presentation was 11 currently 8.4 History of recurrent falls with multiple bruises in the lowers history of multiple strokes and is seems the patient has a right MCA stroke with residual left-sided weakness. In April 2023 she presented the ED with left- sided weakness and facial droop and then transferred to [facility] (did not have IV thrombolytic and no intervention). Also small over the left frontal elevated the lactic acid today that resolved Leukocytosis seems reactive Minimally elevated AST Plan: I will pursue with MRI of the brain I ordered a routine EEG because of her recurrent falls. Recommend orthosatic vitals I ordered carotid duplex and 2-D echo patient is on aspirin 81 mg, Brilinta 90mg bid. If has worsening of anemia then hold antiplateletes. Patient is on Lipitor 40mg qhs. continue neuro checks Cardiac monitoring PT OT are consulted With basic surgery team was consulted for possible T7 fracture. Recommend continuing trending CK level If possible avoid benzo, sedative medications. We'll defer the rest of the medical management to primary and other specialists Upon discharge the patient needs to continue to follow up with Dr. Casas as outpatient (stroke interventionalalist). The plan is discussed with patient and her nurse. Thank you for the consultation Time with Patient: Greater than 30
--- NOTE | 2023-11-04 14:20 | P.PN ---
Subjective Progress Note Date: 11/04/23 This is a 57-year-old female patient with a known history of CVA with residual left-sided weakness, gastroesophageal reflux disease, GI bleed, liver disease, osteoarthritis, chronic and ongoing tobacco dependence. Early this morning the patient was outside and fell to the ground and was unable to get herself up. Her father came out and found her half on the porch and half off the porch. Patient was somewhat confused. She did hit her head and is on blood thinners. She was found to be covered in bruises. CT scan of the brain revealed interval development of extensive encephalomalacia right MCA territory related to interval infarct. Old small area of superior left frontal paramedian cortical i nfarct which is present in 2022. New fluid collection measuring 3.8 x 3.3 x 2.4 above the sternal notch probably arising from degenerative and subluxed left sternoclavicular joint. Multiple moderate multilevel spondylitic changes of the cervical spine. No acute fracture seen. CT scan of the chest revealed left lateral 10th, ninth and eighth rib fractures. Possible T7 spinous process fracture. No fracture seen of the shoulder. No fracture of the bilateral knees. No fracture of the bilateral clavicles. Count 20.7. Hemoglobin 11.0. Platelets 505. Sodium 139. Potassium 5.4. Bicarb 17. BUN 15. Creatinine 2.03. Lactic acid 5.4, 3.2. Creatinine kinase 2026. Troponin negative x 1. She is seen today in consultation in the emergency department. She is currently resting flat on the stretcher. She is awake and alert in no acute distress. When discussing her rib fractures he states those are old. She is maintaining good O2 saturations in the 90s on room air. Denies any worsening shortness of breath, cough or congestion. Denies any hemoptysis. Is afebrile. Hemodynamically stable. The patient is seen today November 04, 2023 in follow-up in the emergency department. She is currently resting on stretcher. Awake and alert in no acute distress. She is maintaining good O2 saturations in the 90s on room air. She has normal saline at 150 MLS per hour. She states she is feeling sore but no worsening shortness of breath, cough or congestion. White count 6.6. Hemoglob in 8.4. Platelets 346. Sodium 138. Potassium 4.3. Bicarb 17. BUN 14. Creatinine 1.09. Glucose 86. Creatinine kinase 2502. Orthopedics is following regarding possible T7 spinous process fracture. Objective - Vital Signs Vital signs: Vital Signs Temp 99.3 F 11/03/23 20:26 Pulse 60 11/04/23 11:13 Resp 18 11/04/23 11:13 BP 115/72 11/04/23 11:13 Pulse Ox 99 11/04/23 11:13 FiO2 Intake & Output 11/03/23 11/04/23 11/04/23 18:59 06:59 18:59 Weight 71.668 kg - Exam GENERAL EXAM: Alert, pleasant 57-year-old female, on room air, fairly comfortable in no apparent distress. HEAD: Normocephalic. EYES: Normal reaction of pupils, equal size. NOSE: Clear with pink turbinates. THROAT: No erythema or exudates. NECK: No masses, no JVD. CHEST: No chest wall deformity. LUNGS: Equal air entry with no crackles, wheeze, rhonchi or dullness. CVS: S1 and S2 normal with no audible murmur, regular rhythm. ABDOMEN: No hepatosplenomegaly, normal bowel sounds, no guarding or rigidity. SPINE: No scoliosis or deformity SKIN: Double bruises of indeterminant duration CENTRAL NERVOUS SYSTEM: Left-sided weakness from previous CVA, tone is normal in all 4 extremities. EXTREMITIES: There is no peripheral edema. No clubbing, no cyanosis. Peripheral pulses are intact. - Labs CBC & Chem 7: 11/04/23 08:21 11/04/23 08:21 Labs: Abnormal Lab Results - Last 24 Hours (Table) 11/03/23 11/03/23 11/03/23 Range/Units 10:30 14:47 15:36 RBC (3.80-5.40) m/uL Hgb (11.4-16.0) gm/dL Hct (34.0-46.0) % Chloride (98-107) mmol/L Carbon Dioxide (22-30) mmol/L Creatinine (0.52-1.04) mg/dL Plasma Lactic Acid Rafael 3.2 H* (0.7-2.0) mmol/L Calcium (8.4-10.2) mg/dL Phosphorus 5.0 H (2.5-4.5) mg/dL AST (14-36) U/L Creatine Kinase (30-135) U/L Total Protein (6.3-8.2) g/dL Albumin (3.5-5.0) g/dL Urine Protein Trace H (Negative) Urine Blood Trace H (Negative) Urine RBC 9 H (0-5) /hpf Urine Yeast (Budding) Few H (None) /hpf Urine Opiates Screen Detected H (NotDetected) U Tricyclic Antidepress Detected H (NotDetected) U Benzodiazepines Scrn Detected H (NotDetected) U Marijuana (THC) Screen Detected H (NotDetected) 11/03/23 11/03/23 11/04/23 Range/Units 17:38 20:52 05:29 RBC (3.80-5.40) m/uL Hgb (11.4-16.0) gm/dL Hct (34.0-46.0) % Chloride (98-107) mmol/L Carbon Dioxide (22-30) mmol/L Creatinine (0.52-1.04) mg/dL Plasma Lactic Acid Rafael 2.4 H* 2.5 H* (0.7-2.0) mmol/L Calcium (8.4-10.2) mg/dL Phosphorus (2.5-4.5) mg/dL AST (14-36) U/L Creatine Kinase 2502 H* (30-135) U/L Total Protein (6.3-8.2) g/dL Albumin (3.5-5.0) g/dL Urine Protein (Negative) Urine Blood (Negative) Urine RBC (0-5) /hpf Urine Yeast (Budding) (None) /hpf Urine Opiates Screen (NotDetected) U Tricyclic Antidepress (NotDetected) U Benzodiazepines Scrn (NotDetected) U Marijuana (THC) Screen (NotDetected) 11/04/23 11/04/23 Range/Units 08:21 08:21 RBC 2.77 L (3.80-5.40) m/uL Hgb 8.4 L D (11.4-16.0) gm/dL Hct 26.1 L (34.0-46.0) % Chloride 117 H (98-107) mmol/L Carbon Dioxide 17 L (22-30) mmol/L Creatinine 1.09 H (0.52-1.04) mg/dL Plasma Lactic Acid Rafael (0.7-2.0) mmol/L Calcium 8.1 L (8.4-10.2) mg/dL Phosphorus (2.5-4.5) mg/dL AST 72 H (14-36) U/L Creatine Kinase (30-135) U/L Total Protein 5.1 L (6.3-8.2) g/dL Albumin 2.5 L (3.5-5.0) g/dL Urine Protein (Negative) Urine Blood (Negative) Urine RBC (0-5) /hpf Urine Yeast (Budding) (None) /hpf Urine Opiates Screen (NotDetected) U Tricyclic Antidepress (NotDetected) U Benzodiazepines Scrn (NotDetected) U Marijuana (THC) Screen (NotDetected) Assessment and Plan Assessment: Acute trauma secondary to fall of unclear etiology. Patient was found penitentiary on the porch and penitentiary in the house by her father Multiple rib fractures including 8 through [address] scan of the chest revealed left lateral 10th, ninth and eighth rib fractures. Possible T7 spinous process fracture, and followed by orthopedics. Multiple areas of bruising but no fractures noted on the shoulders knees cervical spine History of CVA several months ago with left-sided weakness. CT scan of the brain revealed interval development of extensive encephalomalacia right MCA territory related to interval infarct. Old small area of superior left frontal paramedian cortical infarct which is present in 2022. New fluid collection measuring 3.8 x 3.3 x 2.4 above the sternal notch probably arising from degenerative and subluxed left sternoclavicular joint. Multiple moderate multilevel spondylitic changes of the cervical spine. No acute fracture seen. History of GI bleed History of liver disease Osteoarthritis Gastroesophageal reflux disease Chronic and ongoing tobacco dependence Plan: The patient was seen and evaluated Labs and medications reviewed Patient is somewhat of a poor historian Currently stable and on room air Encourage the increased use of the incentive spirometer We will continue to follow I have personally seen and examined the patient, performed the documentation and the assessment and plan as written. Number of minutes spent on the visit: 10.
--- NOTE | 2023-11-04 16:16 | US ---
EXAMINATION TYPE: US carotid duplex BILAT DATE OF EXAM: 11/04/2023 COMPARISON: NONE CLINICAL INDICATION: Female, 57 years old with history of stroke; stroke. Fall TECHNIQUE: Carotid duplex ultrasound examination. Indirect Doppler criteria was utilized. FINDINGS: EXAM MEASUREMENTS: RIGHT: Peak Systolic Velocity (PSV) cm/sec ----- Right CCA: 101 ----- Right ICA: 99.4 ----- Right ECA: 99.2 ICA/CCA ratio: 0.98 RIGHT: End Diastole cm/sec ----- Right CCA: 25.3 ----- Right ICA: 26.6 ----- Right ECA: 23.2 LEFT: Peak Systolic Velocity (PSV) cm/sec ----- Left CCA: 107 ----- Left ICA: 127 ----- Left ECA: 93.0 ICA/CCA ratio: 1.19 LEFT: End Diastole cm/sec ----- Left CCA: 31.6 ----- Left ICA: 46.9 ----- Left ECA: 13.2 VERTEBRALS (direction of flow): Right Vertebral: Antegrade Left Vertebral: Antegrade Rhythm: Normal [employer] STATISTICAL PROGRAMMER NOTES: Mild plaque bilateral bifurcations. No evidence of increased velocities. Tortuous bilateral ICA's IMPRESSION: No hemodynamically significant internal carotid artery stenosis on either side. Criteria for Assigning % of Stenosis / Diameter reduction (Estimation based on the indirect measurements of the internal carotid artery velocities (ICA PSV). 1. Normal (no stenosis)=ICA PSV < 125 cm/s: ratio < 2.0: ICA EDV<40 cm/s. 2. Less than 50% stenosis=ICA PSV < 125 cm/s: ratio < 2.0: ICA EDV<40 cm/s. 3. 50 to 69% stenosis=ICA PSV of 125 to 230 cm/s: ration 2.0 ? 4.0: ICA EDV 40-100 cm/s. 4. Greater than 70% stenosis to near occlusion= ICA PSV > 230 cm/s: ratio > 4.0: ICA EDV > 100 cm/s. 5. Near occlusion= ICA PSV velocities may be low or undetectable: variable ratio and ICA EDV. 6. Total occlusion=unable to detect flow.
[2023-11-04] MEDS: SYMBICORT 160-4.5 MCG INHALER INHALATION SCH (20:25)
[2023-11-04] MEDS: LORazepam 1 MG TAB PO PRN (20:26)
[2023-11-05] MEDS: PANTOPRAZOLE 40 MG TABLET PO SCH (06:54)
[2023-11-05 07:44] LABS: HCT 26.4 % (34.0-46.0); HGB 8.2 gm/dL (11.4-16.0); Hypochromasia Slight; MCH 29.9 pg (25.0-35.0); MCHC 31.2 g/dL (31.0-37.0); MCV 95.6 fL (80.0-100.0); Mean Platelet Volume 7.6; Platelet Count 361 k/uL (150-450); RBC 2.76 m/uL (3.80-5.40); RDW 15.4 % (11.5-15.5); WBC 7.3 k/uL (3.8-10.6)
[2023-11-05] MEDS: ERGOCALCIFEROL 1,250 MCG (50,000 IU) CAPSULE PO SCH (08:07)
[2023-11-05 08:37] LABS: African American GFR (CKD) 73 (>60 ml/min/1.73 sqM); Anion Gap 3 mmol/L; Blood Urea Nitrogen 13 mg/dL (7-17); Calcium 8.5 mg/dL (8.4-10.2); Carbon Dioxide 20 mmol/L (22-30); Chloride 116 mmol/L (98-107); Glucose 90 mg/dL (74-99); Non-African American GFR(CKD) 63 (>60 ml/min/1.73 sqM); Potassium 3.8 mmol/L (3.5-5.1); Sodium 139 mmol/L (137-145)
[2023-11-05 08:40] LABS: Creatine Kinase 1263 U/L (30-135)
--- NOTE | 2023-11-05 11:09 | P.PN ---
Subjective Progress Note Date: 11/05/23 I am following-up with patient and feels about the same. Denies of any neurological issues. Objective - Vital Signs Vital signs: Vital Signs Temp 97.1 F L 11/05/23 08:00 Pulse 88 11/05/23 10:59 Resp 18 11/05/23 08:00 BP 128/67 11/05/23 08:00 Pulse Ox 99 11/05/23 08:00 FiO2 Intake & Output 11/04/23 11/05/23 11/05/23 18:59 06:59 18:59 Weight 71.668 kg Other: Voiding Method Toilet Toilet # Voids 2 1 # Bowel Movements 1 - Exam HENT: Supple neck. Extremities: Has multiple bruises over the lowers. NEUROLOGICAL: Higher mental function: The patient is awake, alert, oriented to self, place and time. Patient is following commands. No aphasia and no neglect. Cranial nerves: The pupils are round, equal and reactive to light. Visual f ields are full to confrontation throughout. Extraocular movement is intact no nystagmus is noted. Facial sensation is normal to touch throughout. Mild left facial weakness. Hearing is normal bilaterally to hand rub. Tongue is midline and moved [id number] without any difficulty. No dysarthria is noted. Shoulder shrug is normal bilaterally. 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 Left knee extension is 5-. Otherwise 5/5. Normal tone and bulk. Cerebellum: Normal finger to nose bilaterally. Sensation: Sensation is normal to touch throughout. Reflexes (right/left): 2+ throughout. Plantars are mute bilaterally. some other workup during his hospital visit consisted of: on initial preon initial presentation her blood pressure is 98/80 which has improved. initial white blood cell is 20.7 thousand and repeat is 6.6. initial serum glucose is 131, plasma like acid vein is 5.4 and the most recent is normal. Potassium 5.4 calcium is 9.5. CK level is 2026--->1263 Hemglobin is 11-->8.4 AST slightly elevated ALT is normal. CT of the head is reported as interval development of extensive encephalomalacia of the right MCA territory relating to interval infarct. Old small area of small left frontal paramedian cortical infarct which was a present in 2022. Otherwise no acute intracranial abnormality seen.I personally reviewed the CT of the head and feel the patient has some inflammation over the right MCA but there is no acute subacute stroke. CT cervical spine was reported as a new fluid collection 3.8 x 3.3 x 2.4 cm ab ove the sternal notch probably arising from degenerative and subluxed left sternal clavicular joint. Multilevel moderate spondylitic changes of cervical spine. No acute fracture seen. EKG is reported as sinus rhythm. urine drug is positive for opiates, tricyclic antidepressant, benzoyl and marijuana Carotid duplex: Is reported as no hemodynamically significant internal carotid artery stenosis on either side. 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 She felt light headed upon standing up and fell. She has elevated CK levels, lactic acid, slight hypotensive on presentation. recurrent falls unknown exact etiology. One of etiology is hypotensive but need to rule out other etiologies. UDS is positive for opiates, benzo, TCA and marijuana which can cause confusion. Rule out acute stroke. rhabdomyolysis due to fall--trending down Anemia on presentation was 11 currently 8.2 History of recurrent falls with multiple bruises in the lowers history of multiple strokes and is seems the patient has a right MCA stroke with residual left-sided weakness. In April 2023 she presented the ED with left- sided weakness and facial droop and then transferred to [facility] (did not have IV thrombolytic and no intervention). Also small over the left frontal elevated the lactic acid today that resolved Leukocytosis seems reactive Minimally elevated AST Plan: Pending MRI of the brain Pending routine EEG because of her recurrent falls. Recommend orthosatic vitals Pending 2-D echo patient is on aspirin 81 mg, Brilinta 90mg bid. If has worsening of anemia then hold antiplateletes. Patient is on Lipitor 40mg qhs. continue neuro checks Cardiac monitoring PT OT are consulted Orthopedic surgery team was consulted for possible T7 fracture. Recommend continuing trend CK level If possible avoid benzo, sedative medications. We'll defer the rest of the medical management to primary and other specialists Upon discharge the patient needs to continue to follow up with Dr. Casas as outpatient (stroke interventionalalist). The plan is discussed with patient and her nurse. Dr. Peña will resume neurology service tomorrow A.M. Time with Patient: Less than 30
--- NOTE | 2023-11-05 13:28 | P.PN ---
Subjective Progress Note Date: 11/05/23 Principal diagnosis: Status post fall. This is a 57-year-old female patient with a known history of CVA with residual left-sided weakness, gastroesophageal reflux disease, GI bleed, liver disease, osteoarthritis, chronic and ongoing tobacco dependence. Early this morning the patient was outside and fell to the ground and was unable to get herself up. Her father came out and found her half on the porch and half off the porch. Patient was somewhat confused. She did hit her head and is on blood thinners. She was found to be covered in bruises. CT scan of the brain revealed interval development of extensive encephalomalacia right MCA territory related to interval infarct. Old small area of superior left frontal paramedian cortical infarct which is present in 2022. New fluid collection measuring 3.8 x 3.3 x 2.4 above the sternal notch probably arising from degenerative and subluxed left sternoclavicular joint. Multiple moderate multilevel spondylitic changes of the cervical spine. No acute fracture seen. CT scan of the chest revealed left lateral 10th, ninth and eighth rib fractures. Possible T7 spinous process fracture. No fracture seen of the shoulder. No fracture of the bilateral knees. No fracture of the bilateral clavicles. Count 20.7. Hemoglobin 11.0. Platelets 505. Sodium 139. Potassium 5.4. Bicarb 17. BUN 15. Creatinine 2.03. Lactic acid 5.4, 3.2. Creatinine kinase 2026. Troponin negative x 1. She is seen today in consultation in the emergency department. She is currently resting flat on the stretcher. She is awake and alert in no acute distress. When discussing her rib fractures he states those are old. She is maintaining good O2 saturations in the 90s on room air. Denies any worsening shortness of breath, cough or congestion. Denies any hemoptysis. Is afebrile. Hemodynamically stable. The patient is seen today November 04, 2023 in follow-up in the emergency department. She is currently resting on stretcher. Awake and alert in no acute distress. She is maintaining good O2 saturations in the 90s on room air. She has normal saline at 150 MLS per hour. She states she is feeling sore but no worsening shortness of breath, cough or congestion. White count 6.6. Hemoglobin 8.4. Platelets 346. Sodium 138. Potassium 4.3. Bicarb 17. BUN 14. Creatinine 1.09. Glucose 86. Creatinine kinase 2502. Orthopedics is following regarding possible T7 spinous process fracture. Progress note dated November 05, 2023. The patient is seen today in room 381. She has no specific complaints. The patient apparently is scheduled for an MRI of the brain, and EEG. The patient is on room air. She is not receiving any IV fluids. Current labs include a white count 7.3, hemoglobin 8.2, hematocrit 26.4, and a platelet count of 361,000. Sodium 139, potassium 3.8, chlorides 116, CO2 20, BUN 13, and creatinine 0.98. Calcium 8.5. CK is down to 1263. The Doppler of the carotids, showed no hemodynamically significant obstruction. Objective - Vital Signs Vital signs: Vital Signs Temp 97.1 F L 11/05/23 08:00 Pulse 88 11/05/23 11:08 Resp 18 11/05/23 08:00 BP 128/67 11/05/23 08:00 Pulse Ox 99 11/05/23 08:00 FiO2 Intake & Output 11/04/23 11/05/23 11/05/23 18:59 06:59 18:59 Weight 71.668 kg Other: Voiding Method Toilet Toilet # Voids 2 1 # Bowel Movements 1 - Exam No acute distress, oriented 3. On room air. HEENT examination is grossly unremarkable. Mucous membranes are moist. No oral lesions. Neck supple. Full range of motion. No adenopathy thyromegaly or neck vein distention. Cardiovascular examination reveals regular rhythm rate. S1-S2 normal. No S3 or S4. No discernible murmur noted. Heart rate 88 bpm. Lungs reveal clear breath sounds. Breath sounds are equal bilaterally. No adventitious lung sounds including wheezes rhonchi or crackles. Room air saturation is 99%. Abdomen soft bowel sounds are heard. No masses or tenderness. Extremities are intact. No cyanosis clubbing or edema. Skin reveals multiple areas of ecchymosis and bruising. Neurologic examination is brief but nonfocal. - Labs CBC & Chem 7: 11/05/23 06:22 11/05/23 06:22 Labs: Abnormal Lab Results - Last 24 Hours (Table) 11/05/23 11/05/23 Range/Units 06:22 06:22 RBC 2.76 L (3.80-5.40) m/uL Hgb 8.2 L (11.4-16.0) gm/dL Hct 26.4 L (34.0-46.0) % Chloride 116 H (98-107) mmol/L Carbon Dioxide 20 L (22-30) mmol/L Creatine Kinase 1263 H* (30-135) U/L Assessment and Plan Assessment: Acute trauma secondary to fall of unclear etiology. Multiple rib fractures including 8 through [address] scan of the chest revealed left lateral 10th, ninth and eighth rib fractures. Possible T7 spinous process fracture, and followed by orthopedics. Multiple areas of bruising but no fractures noted on the shoulders knees cervical spine History of CVA several months ago with left-sided weakness. CT scan of the brain revealed interval development of extensive encephalomalacia right MCA territory related to interval infarct. Old small area of superior left frontal paramedian cortical infarct which is present in 2022. New fluid collection measuring 3.8 x 3.3 x 2.4 above the sternal notch probably arising from degenerative and subluxed left sternoclavicular joint. Multiple moderate multilevel spondylitic changes of the cervical spine. No acute fracture seen. History of GI bleed. History of liver disease. Osteoarthritis. Gastroesophageal reflux disease. Chronic and ongoing tobacco dependence. Plan: Plan dated November 05, 2023. The patient continues, doing relatively well. She is currently not on any supplemental oxygen or IV fluids. She apparently is scheduled to have an MRI of the brain, and also have an EEG. Carotid Dopplers are normal. Labs, x-rays, and medications are reviewed. We will continue to follow. The patient denies any respiratory issues including shortness of breath, cough, wheezing, chest tightness, or phlegm production. Time with Patient: Less than 30
--- NOTE | 2023-11-05 14:02 | P.PN ---
Subjective Progress Note Date: 11/05/23 Principal diagnosis: Low back pain; hip pain; possible T7 spinous process fracture Patient was seen at bedside this morning sitting up at the edge of the bed. Patient says most of the pain she is having is in the lower back. Patient says she does have a history of degenerative disc disease and herniated disks in the low back. Patient is not complaining of any pain in the cervical spine or in the mid back. Patient is looking forward to working with therapy. Patient denies any other issues at this time Objective - Vital Signs Vital signs: Vital Signs Temp 97.1 F L 11/05/23 08:00 Pulse 88 11/05/23 11:08 Resp 18 11/05/23 08:00 BP 128/67 11/05/23 08:00 Pulse Ox 99 11/05/23 08:00 FiO2 Intake & Output 11/04/23 11/05/23 11/05/23 18:59 06:59 18:59 Weight 71.668 kg Other: Voiding Method Toilet Toilet # Voids 2 1 # Bowel Movements 1 - Exam Positive for some ecchymosis along the left hip diffusely. Negative for any ecchymosis open fractures, significant erythema or swelling in the spine during exam. Positive for mild tenderness to patient diffusely throughout the lower lumbar spine at midline and the bilateral SI joints. Nontender to palpation throughout cervical and thoracic spine at midline and in the paravertebral regions. l sensation is equal, symmetric, by intact throughout the upper and lower extremities on exam. Patient does have limited range of motion in the bilateral hips in flexion/extension secondary to referred pain and stiffness in the low back. Patient has full range of motion throughout bilateral knees on exam and ankles. Patient is forage motion throughout bilateral upper extremities on exam. 4+/5 in all major motor groups in bilateral upper extremities. 4-/5 in all major motor groups in bilateral lower extremities. Negative Homans bilaterally. Negative clonus bilaterally. Negative Idalmis bilaterally. Cap refill under 3 seconds in digits of upper extremities. Radial pulse intact, 2+ bilaterally. - Labs CBC & Chem 7: 11/05/23 06:22 11/05/23 06:22 Labs: Abnormal Lab Results - Last 24 Hours (Table) 11/05/23 11/05/23 Range/Units 06:22 06:22 RBC 2.76 L (3.80-5.40) m/uL Hgb 8.2 L (11.4-16.0) gm/dL Hct 26.4 L (34.0-46.0) % Chloride 116 H (98-107) mmol/L Carbon Dioxide 20 L (22-30) mmol/L Creatine Kinase 1263 H* (30-135) U/L Assessment and Plan Assessment: 1. Low back pain; hip pain; possible T7 spinous process fracture Plan: 1. Low back pain; hip pain; possible T7 spinous process fracture - XRay thoracic and lumbar spine ordered for further evaluation. We will await imaging results before proceeding with any potential orthopedic intervention. At this time we are recommending conservative measures with the use of pain medication and PT/OT. Patient may weight-bear as tolerated with walker and assistance. We will continue to be available as needed to see patient during her stay in the hospital. 2. Appreciate medical management 3. Pain management -gabapentin; Flexeril; Eugene; Tylenol 4. DVT prophylaxis -aspirin 5. GI prophylaxis -Protonix 6. PT/OT -weightbearing as tolerated with walker and assistance as needed 7. Encourage incentive spirometer use Time with Patient: Less than 30
--- NOTE | 2023-11-05 14:13 | P.PN ---
Subjective Progress Note Date: 11/05/23 * 57-year-old patient with past medical history significant for gastroesophageal reflux disease, history of gastrointestinal bleed, history of CVA with residual left-sided weakness, presented to the emergency department on 11/03/2023 after patient had a fall prior to presentation. Patient was noted to be laying down on the porch when was seen by her father, patient was noted to be confused it was noted that patient did hit her head and had multiple bruises on the skin. * Workup in ER included a CT of the brain which showed interval development of extensive encephalomalacia involving right MCA territory secondary to previous history of infarct. CT cervical spine showed new fluid collection about 3.8 x 3.3 x 2.4 cm above the left sternal notch likely secondary to sublux left sternoclavicular joint and degeneration. Multilevel degenerative disease of cervical spine noted worse at C4-C5 levels * CT chest abdomen pelvis showed multiple rib fractures involving left lateral 789 and 10 ribs, concern for T7 spinous process fracture * Patient was seen by trauma surgery as well as pulmonary medicine. Patient to be admitted to medical floor to be seen by neurology, surgery and pulmonary due to multiple rib fractures * Workup in ER included CBC which showed WBC of 20.7 hemoglobin 11 platelet count of 505 INR of 0.9 * Serum chemistry obtained sodium 139 potassium 5.4 chloride 111 BUN 15, creatinine of 2.03 lactate of 2.5 creatinine kinase of 7. Urinalysis obtained showed trace amount of blood, few WBCs * Urine toxicology positive for opiates, tricyclic antidepressants, benzodiazepine and marijuana * She Will be admitted to medical floor with multiple specialities on consult for further management * 11/05/23 : Patient seen and evaluated bedside, seen by orthospine, conservative management recommended, blood work reviewed hemoglobin is 8.2, fecal occult blood test ordered, follow-up on serum chemistry CPK 1263 trending down. Patient states he feels better, MRI brain EEG ordered pending, echocardiogram ordered pending REVIEW OF SYSTEMS: S/p fall, confusion, chest pain, resolved CONSTITUTIONAL: No fever, no malaise, no fatigue. HEENT: No recent visual problems or hearing problems. Denied any sore throat. CARDIOVASCULAR: S/p fall, confusion, chest pain, resolved PULMONARY:S/p fall, confusion, chest pain, resolved GASTROINTESTINAL: No diarrhea, no nausea, no vomiting, no abdominal pain. NEUROLOGICAL: No headaches, no weakness, no numbness. HEMATOLOGICAL: Denies any bleeding or petechiae. GENITOURINARY: Denies any burning micturition, frequency, or urgency. MUSCULOSKELETAL/RHEUMATOLOGICAL: Denies any joint pain, swelling, or any muscle pain. ENDOCRINE: Denies any polyuria or polydipsia. PHYSICAL EXAMINATION: GENERAL: The patient is alert and oriented x 3, ill appearance HEENT: Pupils are round and equally reacting to light. EOMI. CARDIOVASCULAR: S1 and S2 present. No murmurs, rubs, or gallops. PULMONARY: Chest is clear to auscultation, no wheezing or crackles. ABDOMEN: Soft, nontender, nondistended, Patel catheter in place MUSCULOSKELETAL: No joint swelling or deformity. EXTREMITIES: No cyanosis, clubbing, or pedal edema. NEUROLOGICAL: Gross neurological examination did not reveal any focal deficits. SKIN: Multiple bruises noted Assessment and plan * S/p fall with multiple rib fractures * T7 spinous process fracture * Acute metabolic encephalopathy * Acute rhabdomyolysis * Hyperkalemia * History of CVA with residual left-sided weakness * History of gastroesophageal reflux disease * In regards to fall, seen by trauma surgery, conservative management rec ommended continue fluid resuscitation for rhabdomyolysis, CPK trending down * In regards to s/p T7 spinous fracture orthospine consult, recommend conservative management * Regards to history of CVA, will consult neurology, Home medications show patient is on Lipitor and Brilinta which is continued MRI brain, EEG ordered * Regards to history of CVA will need physical therapy Occupational Therapy evaluation chronic changes noted on CT head * Regards to metabolic encephalopathy continue fluid resuscitation follow-up on CK levels, electrolyte * In regards to anemia continue to follow-up on H&H, fecal occult blood test ordered, continue Protonix * Physical therapy, Occupational Therapy consult Objective - Vital Signs Vital signs: Vital Signs Temp 97.1 F L 11/05/23 08:00 Pulse 96 11/05/23 08:09 Resp 18 11/05/23 08:00 BP 128/67 11/05/23 08:00 Pulse Ox 99 11/05/23 08:00 FiO2 Intake & Output 11/04/23 11/05/23 11/05/23 18:59 06:59 18:59 Weight 71.668 kg Other: Voiding Method Toilet Toilet # Voids 2 # Bowel Movements 1 - Labs CBC & Chem 7: 11/05/23 06:22 11/05/23 06:22 Labs: Abnormal Lab Results - Last 24 Hours (Table) 11/05/23 11/05/23 Range/Units 06:22 06:22 RBC 2.76 L (3.80-5.40) m/uL Hgb 8.2 L (11.4-16.0) gm/dL Hct 26.4 L (34.0-46.0) % Chloride 116 H (98-107) mmol/L Carbon Dioxide 20 L (22-30) mmol/L Creatine Kinase 1263 H* (30-135) U/L
--- NOTE | 2023-11-05 16:13 | XR ---
EXAMINATION TYPE: XR thoracic spine 2V DATE OF EXAM: 11/05/2023 4:07 PM CLINICAL INDICATION:Female, 57 years old with history of pain; COMPARISON: None TECHNIQUE: XR thoracic spine 2V views of the spine in Frontal and lateral projections. FINDINGS: No evidence of acute fracture. There is scattered multilevel disk space narrowing without loss of ve rtebral body height. There is normal alignment of the thoracic vertebral bodies. Scattered osteophyte formation along the anterior and lateral aspects of the vertebral bodies. Neural foramen are patent given limitations of this exam. Spinal canal appears patent. IMPRESSION: 1. No acute osseous pathology. 2. Mild multilevel degeneration changes throughout the spine.
--- NOTE | 2023-11-05 16:16 | XR ---
EXAMINATION TYPE: XR lumbar spine 2 or 3V DATE OF EXAM: 11/05/2023 4:07 PM CLINICAL INDICATION:Female, 57 years old with history of pain; [facility] COMPARISON: None TECHNIQUE: XR lumbar spine 2 or 3V - Frontal, lateral and coned in L5-S1 lateral views of the spine. FINDINGS: No evidence of any acute osseous pathology. No evidence of loss of vertebral body height i s seen. There is normal alignment of the lumbar vertebral bodies. Mild scattered disc space narrowing . Multilevel marginal osteophyte formation throughout the visualized spine. There is facet joint arth ropathy throughout the spine. Scattered at least mild neural foraminal stenosis. Atherosclerosis of t he arterial vasculature. Right upper quadrant surgical clips risk no obstructing calculus. IMPRESSION: 1. No acute fracture. 2. Mild to moderate multilevel disc degeneration.
[2023-11-06 07:08] LABS: HCT 26.2 % (34.0-46.0); HGB 8.2 gm/dL (11.4-16.0); Hypochromasia Slight; MCH 30.5 pg (25.0-35.0); MCHC 31.5 g/dL (31.0-37.0); MCV 96.8 fL (80.0-100.0); Mean Platelet Volume 7.4; Platelet Count 395 k/uL (150-450); RDW 15.4 % (11.5-15.5); WBC 8.9 k/uL (3.8-10.6)
[2023-11-06 07:17] LABS: African American GFR (CKD) 77 (>60 ml/min/1.73 sqM); Anion Gap 5 mmol/L; Blood Urea Nitrogen 13 mg/dL (7-17); Calcium 8.8 mg/dL (8.4-10.2); Carbon Dioxide 17 mmol/L (22-30); Chloride 119 mmol/L (98-107); Glucose 98 mg/dL (74-99); Non-African American GFR(CKD) 67 (>60 ml/min/1.73 sqM); Potassium 3.7 mmol/L (3.5-5.1); Sodium 141 mmol/L (137-145)
--- NOTE | 2023-11-06 12:10 | P.PAINPG ---
Objective - Vital Signs Vital signs: Vital Signs Temp 97.9 F 11/06/23 08:00 Pulse 90 11/06/23 09:53 Resp 18 11/06/23 08:00 BP 124/74 11/06/23 08:00 Pulse Ox 100 11/06/23 08:00 FiO2 Intake & Output 11/05/23 11/06/23 11/06/23 18:59 06:59 18:59 Other: Voiding Method Toilet Toilet Toilet # Voids 1 1 - Labs CBC & Chem 7: 11/06/23 06:12 11/06/23 06:12 Labs: Abnormal Lab Results - Last 24 Hours (Table) 11/06/23 11/06/23 Range/Units 06:12 06:12 RBC 2.70 L (3.80-5.40) m/uL Hgb 8.2 L (11.4-16.0) gm/dL Hct 26.2 L (34.0-46.0) % Chloride 119 H (98-107) mmol/L Carbon Dioxide 17 L (22-30) mmol/L PQRS Measure Charge Sheet Comment: HISTORY OF PRESENT ILLNESS: A 57 yr old inpatient female as a referral from [facility]ina Estr[facility] presents today w severe, acute LBP secondary to fall for evaluation. Pt states pain level is provoked at 9 /10 in intensity, constant, localized in the mid thoracolumbar spine, predominantly axial, sharp in character w occasional shooting pain up towards the mid back and down the tailbone. Pain is provoked by any movement. Pain is alleviated by medications (MS 1mg IVP q4h prn, [place] 5/325mg q4h prn, Tyl 650mg q6h prn, Neurontin 300mg TID, ASA 81mg), repositioning and rest . PMH: OA, GERD, Fatty Liver Disease, CVA x2 (both in 2022), HH, IBS, Anxiety PSH: Heart Catheterization, Renal Biopsy, Laparoscopy SH: Daily tobacco use, Daily ETOH use, No illicit drug use FH: Mo- Fatty Liver Disease. Fa- No Reported History All: See list Meds: See list REVIEW OF ORGAN SYSTEMS: CONSTITUTIONAL: No fevers or chills. No recent weight loss. NEUROLOGICAL: + numbness and tingling along the distal extremities. No seizure disorders or headaches. MUSCULOSKELETAL: + pain PSYCHIATRIC: Denies current depression or suicidal thoughts. Physical Examinations : Constitutional : Cooperative , not in acute distress . +patchy ecchymoses over UEs, BL hips and lateral thighs Neurologic : Cranial nerve II to XII intact. No focal neurological deficits. Psychiatric : alert & oriented x 3. Matching mood & appropriate affect. Judgment & insight intact. Musculoskeletal : Cervical Spine Motor strength in the deltoid and biceps: Normal right side. Normal Left side Motor strength biceps and the wrist extensors: Normal right side . Normal left side Motor strength in the triceps muscle: Normal right side. Normal left side Deep tendon reflexes: Normal at the biceps. Normal at Brachioradialis. Normal at triceps Vertebral body tenderness to deep palpation over Cervical facet loading test: positive bilaterally Spurling test: positive bilaterally Neck distraction test: positive bilaterally Idalmis sign: positive bilaterally Thoracic spine Vertebral body TTP over T6-T9 Lumbar spine Motor strength lower extremities ,thigh and legs 5/5 Right side , 5/5 Left side Deep tendon reflexes : Normal Knee Jerk. Normal Ankle Jerk Vertebral body tenderness over Jama Test positive L3-L5 Lumbar facet Loading Test: positive Right / positive Left Range of motion of the lumbar spine Flexion 30 degrees, extension 10 degrees Straight Leg Raise test: Left/ Right positive at degrees Mary test: positive right / positive left. Severe tenderness over the Sacroiliac joint on the Right / Left sides Gaenslen test: positive bilaterally Seated flexion test: positive bilaterally. Sacral spine : Severe tenderness over the Sacroiliac joint: right side / left side Range of motion: Flexion of the lumbar spine <60 degrees Range of motion: Extension of the lumbar spine <20 degrees Gaenslen's Test positive Mary test: positive right side / left side Thigh Thrust Test Sacral Thrust Test Imaging: Thoracic x ray from 11/05/23 reviewed Lumbar x ray from 11/05/23 reviewed Assessment/ Plan : Lumbar DDD, Possible T7 fracture Recommendation of MRI non contrast of thoracic and lumbar spine M51.34, M51.36. All questions answered. I have spent greater than 30 minutes on patient care today. Dr Summers was available by phone for the evaluation of this patient. The time was used to review the medical records including relevant urine studies and Prescription history (MAPs), review of the available imaging, evaluation and examination of the patient, coordination of care with the medical staff and if applicable referring physicians, as well as creation of the medical record PQRS Narrative: Smoking Status Current every day smoker Blood Pressure [Right Arm] 108/69 Blood Pressure [Left Arm] 124/74 Blood Pressure 123/87 Pain Intensity [Right Lower 6 Back] Pain Intensity 6 Pain Scale Used Non Verbal Pain Indicator Scale Used Numeric (1 - 10) Home Medications: Ambulatory Orders LORazepam [Ativan] 1 mg PO BID PRN 09/23/20 Amitriptyline HCl [Elavil] 50 mg PO HS 04/11/22 Brimonidine Tartrate [Alphagan P 0.2% Ophth Soln] 1 drop RIGHT EYE BID 04/11/22 Cyclobenzaprine [Flexeril] 10 mg PO BID PRN 04/11/22 Ergocalciferol [Vitamin D2 (1250 Mcg = 09182 Iu)] 1,250 mcg PO NAVAS 04/11/22 Omeprazole 40 mg PO DAILY 04/11/22 Aspirin EC [Ecotrin Low Dose] 81 mg PO DAILY 04/15/22 Gabapentin [Neurontin] 300 mg PO TID 03/23/23 Albuterol Inhaler [Ventolin Hfa Inhaler] 1 - 2 puff INHALATION RT-Q6H PRN 09/08/23 Atorvastatin [Lipitor] 40 mg PO HS 09/08/23 Dicyclomine HCl 20 mg PO BID 09/08/23 Multivitamins, Thera [Multivitamin (formulary)] 1 tab PO DAILY 09/08/23 Ticagrelor [Brilinta] 90 mg PO BID 09/08/23 Tiotropium Br/Olodaterol HCl [Stiolto Respimat Inhal [place]] 2 puff INHALATION RT-DAILY 09/08/23 HYDROcodone/APAP 7.5-325MG [[place] 7.5-325] 1 tab PO TID 11/03/23 Levofloxacin [Levaquin] 500 mg PO DAILY 11/03/23 Nicotine 21Mg/24Hr Patch [Habitrol] 1 patch TRANSDERM DAILY 11/03/23 Controlled Substance Measures - Controlled Substance Measures Is patient prescribed a controlled substance at discharge?: No
--- NOTE | 2023-11-06 12:19 | CA ---
Transthoracic Echo Report Name: Kate Mccullough Age: 57 Gender: F : 1965 Exam Date: 11/06/2023 07:48 Exam Location: [place] [facility] Ht (in): 68 Wt (lb): 158 Ordering Physician: Vance Daniel MD Attending/Referring Phys: Lockstitch Back Maker Rosa Steiner RDCS Procedure CPT: Indications: stroke Cardiac Hx: Technical Quality: Fair Contrast 1: Total Dose (mL): Contrast 2: Total Dose (mL): MEASUREMENTS (Male / Female) Normal Values 2D ECHO LV Diastolic Diameter PLAX 4.2 cm 4.2 - 5.9 / 3.9 - 5.3 cm LV Systolic Diameter PLAX 2.1 cm IVS Diastolic Thickness 1.1 cm 0.6 - 1.0 / 0.6 - 0.9 cm LVPW Diastolic Thickness 1.2 cm 0.6 - 1.0 / 0.6 - 0.9 cm LV Relative Wall Thickness 0.5 RV Internal Dim ED PLAX 1.9 cm LA Systolic Diameter LX 2.4 cm 3.0 - 4.0 / 2.7 - 3.8 cm LV Diastolic Volume MOD BP 47.2 cm??? 67 - 155 / 56 - 104 cm??? LV Systolic Volume MOD BP 19.1 cm??? 22 - 58 / 19 - 49 cm??? LV Ejection Fraction MOD BP 59.5 % >= 55 % LV Diastolic Volume MOD 4C 50.5 cm??? LV Systolic Volume MOD 4C 22.4 cm??? LV Ejection Fraction MOD 4C 55.5 % LV Diastolic Length 4C 6.8 cm LV Systolic Length 4C 5.9 cm LV Diastolic Volume MOD 2C 44.0 cm??? LV Systolic Volume MOD 2C 14.5 cm??? LV Ejection Fraction MOD 2C 66.9 % LV Diastolic Length 2C 6.8 cm LV Systolic Length 2C 5.2 cm LA Volume 52.3 cm??? 18 - 58 / 22 - 52 cm??? LA Volume Index 28.1 cm???/m??? 16 - 28 cm???/m??? M-MODE Aortic Root Diameter MM 2.9 cm LA Systolic Diameter MM 3.2 cm LA Ao Ratio MM 1.1 AV Cusp Separation MM 1.8 cm DOPPLER AV Peak Velocity 137.5 cm/s AV Peak Gradient 7.6 mmHg MV Area PHT 2.7 cm??? Mitral E Point Velocity 91.2 cm/s Mitral A Point Velocity 103.6 cm/s Mitral E to A Ratio 0.9 MV Deceleration Time 281.7 ms TR Peak Velocity 232.5 cm/s TR Peak Gradient 21.6 mmHg Right Ventricular Systolic Press 25.2 mmHg FINDINGS Left Ventricle Left ventricular ejection fraction is estimated at 60-65 %. Mildly increased septal wall thickness. Mildly increased posterior wall thickness. Normal left ventricular systolic function with no obvious regional wall motion abnormalities. Left ventricular cavity size normal. Right Ventricle Normal right ventricular size and function. Right ventricular systolic pressure within normal limits. Right Atrium Normal right atrial size. Left Atrium Normal left atrial size. Mitral Valve Structurally normal mitral valve. [id number] mitral regurgitation. Aortic Valve Trileaflet aortic valve. No aortic valve stenosis or regurgitation. Tricuspid Valve Structurally normal tricuspid valve. Moderate tricuspid regurgitation. Pulmonic Valve Structurally normal pulmonic valve. No pulmonic stenosis. No pulmonic regurgitation. Pericardium No pericardial or pleural effusion. Aorta Normal size aortic root and proximal ascending aorta. CONCLUSIONS Hyperdynamic LV with EF between 60-65% Moderate tricuspid regurgitation Normal pulmonary artery systolic pressure Previewed by: Dr. Zhang Coe MD (Electronically Signed) Final Date: 06 November 2023 12:18
--- NOTE | 2023-11-06 12:27 | P.PN ---
Subjective Progress Note Date: 11/06/23 * 57-year-old patient with past medical history significant for gastroesophageal reflux disease, history of gastrointestinal bleed, history of CVA with residual left-sided weakness, presented to the emergency department on 11/03/2023 after patient had a fall prior to presentation. Patient was noted to be laying down on the porch when was seen by her father, patient was noted to be confused it was noted that patient did hit her head and had multiple bruises on the skin. * Workup in ER included a CT of the brain which showed interval development of extensive encephalomalacia involving right MCA territory secondary to previous history of infarct. CT cervical spine showed new fluid collection about 3.8 x 3.3 x 2.4 cm above the left sternal notch likely secondary to sublux left sternoclavicular joint and degeneration. Multilevel degenerative disease of cervical spine noted worse at C4-C5 levels * CT chest abdomen pelvis showed multiple rib fractures involving left lateral 789 and 10 ribs, concern for T7 spinous process fracture * Patient was seen by trauma surgery as well as pulmonary medicine. Patient to be admitted to medical floor to be seen by neurology, surgery and pulmonary due to multiple rib fractures * Workup in ER included CBC which showed WBC of 20.7 hemoglobin 11 platelet count of 505 INR of 0.9 * Serum chemistry obtained sodium 139 potassium 5.4 chloride 111 BUN 15, creatinine of 2.03 lactate of 2.5 creatinine kinase of 7. Urinalysis obtained showed trace amount of blood, few WBCs * Urine toxicology positive for opiates, tricyclic antidepressants, benzodiazepine and marijuana * She Will be admitted to medical floor with multiple specialities on consult for further management * 11/05/23 : Patient seen and evaluated bedside, seen by orthospine, conservative management recommended, blood work reviewed hemoglobin is 8.2, fecal occult blood test ordered, follow-up on serum chemistry CPK 1263 trending down. Patient states he feels better, MRI brain EEG ordered pending, echocardiogram ordered pending * 11/06/23 : Patient seen and evaluated bedside, patient does complain of low back pain, patient seen by orthospine who continue to recommend conservative management will need physical therapy Occupational Therapy evaluation, MRI brain MRI lumbar spine and EEG pending echocardiogram shows ejection fraction 60 to 65% moderate tricuspid regurgitation REVIEW OF SYSTEMS: S/p fall, confusion, chest pain, resolved CONSTITUTIONAL: No fever, no malaise, no fatigue. HEENT: No recent visual problems or hearing problems. Denied any sore throat. CARDIOVASCULAR: S/p fall, confusion, chest pain, resolved PULMONARY:S/p fall, confusion, chest pain, resolved GASTROINTESTINAL: No diarrhea, no nausea, no vomiting, no abdominal pain. NEUROLOGICAL: No headaches, no weakness, no numbness. HEMATOLOGICAL: Denies any bleeding or petechiae. GENITOURINARY: Denies any burning micturition, frequency, or urgency. MUSCULOSKELETAL/RHEUMATOLOGICAL: Denies any joint pain, swelling, or any muscle pain. ENDOCRINE: Denies any polyuria or polydipsia. PHYSICAL EXAMINATION: GENERAL: The patient is alert and oriented x 3, ill appearance HEENT: Pupils are round and equally reacting to light. EOMI. CARDIOVASCULAR: S1 and S2 present. No murmurs, rubs, or gallops. PULMONARY: Chest is clear to auscultation, no wheezing or crackles. ABDOMEN: Soft, nontender, nondistended, Patel catheter in place MUSCULOSKELETAL: No joint swelling or deformity. EXTREMITIES: No cyanosis, clubbing, or pedal edema. NEUROLOGICAL: Gross neurological examination did not reveal any focal deficits. SKIN: Multiple bruises noted Assessment and plan * S/p fall with multiple rib fractures * T7 spinous process fracture * Acute metabolic encephalopathy * Acute rhabdomyolysis * Hyperkalemia * History of CVA with residual left-sided weakness * History of gastroesophageal reflux disease * In regards to fall, seen by trauma surgery, conservative management recommended continue fluid resuscitation for rhabdomyolysis, CPK trending down * In regards to s/p T7 spinous fracture orthospine consult, recommend cons ervative management, MRI spine ordered * Regards to history of CVA, will consult neurology, Home medications show patient is on Lipitor and Brilinta which is continued MRI brain, EEG pending * Regards to history of CVA will need physical therapy Occupational Therapy evaluation chronic changes noted on CT head * Regards to metabolic encephalopathy continue fluid resuscitation follow-up on CK levels, electrolyte * In regards to anemia continue to follow-up on H&H, fecal occult blood test ordered, continue Protonix, baseline hemoglobin 11 * Physical therapy, Occupational Therapy consult Objective - Vital Signs Vital signs: Vital Signs Temp 97.9 F 11/06/23 08:00 Pulse 90 11/06/23 09:53 Resp 18 11/06/23 08:00 BP 124/74 11/06/23 08:00 Pulse Ox 100 11/06/23 08:00 FiO2 Intake & Output 11/05/23 11/06/23 11/06/23 18:59 06:59 18:59 Other: Voiding Method Toilet Toilet Toilet # Voids 1 1 - Labs CBC & Chem 7: 11/06/23 06:12 11/06/23 06:12 Labs: Abnormal Lab Results - Last 24 Hours (Table) 11/06/23 11/06/23 Range/Units 06:12 06:12 RBC 2.70 L (3.80-5.40) m/uL Hgb 8.2 L (11.4-16.0) gm/dL Hct 26.2 L (34.0-46.0) % Chloride 119 H (98-107) mmol/L Carbon Dioxide 17 L (22-30) mmol/L
--- NOTE | 2023-11-06 12:39 | P.PN ---
Subjective Progress Note Date: 11/06/23 Principal diagnosis: Low back pain; hip pain; possible T7 spinous process fracture Patient was seen at bedside this morning sitting up at the edge of the bed. Patient denies any pain in the mid back. patient says most of the pain she is having is in the lower back. Patient says she does have a history of degenerative disc disease and herniated disks in the low back. Patient is looking forward to working with therapy. Patient denies any other issues at this time Objective - Vital Signs Vital signs: Vital Signs Temp 97.9 F 11/06/23 08:00 Pulse 90 11/06/23 09:53 Resp 18 11/06/23 08:00 BP 124/74 11/06/23 08:00 Pulse Ox 100 11/06/23 08:00 FiO2 Intake & Output 11/05/23 11/06/23 11/06/23 18:59 06:59 18:59 Other: Voiding Method Toilet Toilet Toilet # Voids 1 1 - Exam Positive for some ecchymosis along the left hip diffusely. Negative for any ecchymosis open fractures, significant erythema or swelling in the spine during exam. Positive for mild tenderness to palpationdiffusely throughout the lower lumbar spine at midline and the bilateral SI joints. Nontender to palpation throughout cervical and thoracic spine at midline and in the paravertebral regions. sensation is equal, symmetric, bilat intact throughout the upper and lower extremities on exam. Patient does have limited range of motion in the bilateral hips in flexion/extension secondary to referred pain and stiffness in the low back. Patient has full range of motion throughout bilateral knees on exam and ankles. Patient has full range of motion throughout bilateral upper extremities on exam. 4+/5 in all major motor groups in bilateral upper extremities. 4-/5 in all major motor groups in bilateral lower extremities. Negative Homans bilaterally. Negative clonus bilaterally. Negative Idalmis bilaterally. Cap refill under 3 seconds in digits of upper extremities. Radial pulse intact, 2+ bilaterally. - Labs CBC & Chem 7: 11/06/23 06:12 11/06/23 06:12 Labs: Abnormal Lab Results - Last 24 Hours (Table) 11/06/23 11/06/23 Range/Units 06:12 06:12 RBC 2.70 L (3.80-5.40) m/uL Hgb 8.2 L (11.4-16.0) gm/dL Hct 26.2 L (34.0-46.0) % Chloride 119 H (98-107) mmol/L Carbon Dioxide 17 L (22-30) mmol/L Assessment and Plan Assessment: 1. Low back pain; hip pain; possible T7 spinous process fracture Plan: 1. Low back pain; hip pain; possible T7 spinous process fracture - XRay thoracic and lumbar spine taken. Lumbar spine x-ray does show some degenerative disc disease and mild spondylosis. Negative for any fractures or spondylolisthesis. Positive for some scoliosis throughout the thoracic and lumbar spine. Thoracic spine x-ray negative for any significant vertebral body fractures. Patient does not have any pinpoint tenderness throughout the mid back. Pain management did see patient and recommending MRIs of the thoracic and lumbar spine. At this time we are not recommending any emergent/urgent orthopedic surgical intervention. At this time we are recommending conservative measures with the use of pain medication and PT/OT. Patient may weight-bear as tolerated with walker and assistance. we will be available as needed to see patient during her stay 2. Appreciate medical management 3. Pain management -gabapentin; Flexeril; [place]; Tylenol 4. DVT prophylaxis -aspirin 5. GI prophylaxis -Protonix 6. PT/OT -weightbearing as tolerated with walker and assistance as needed 7. Encourage incentive spirometer use Time with Patient: Less than 30
[2023-11-06] MEDS: MORPHINE SULFATE 2 MG/ML SYRINGE IVP STA (14:52)
--- NOTE | 2023-11-06 16:49 | P.PN ---
Subjective Progress Note Date: 11/06/23 This is a 57-year-old female patient with a known history of CVA with residual left-sided weakness, gastroesophageal reflux disease, GI bleed, liver disease, osteoarthritis, chronic and ongoing tobacco dependence. Early this morning the patient was outside and fell to the ground and was unable to get herself up. Her father came out and found her half on the porch and half off the porch. Patient was somewhat confused. She did hit her head and is on blood thinners. She was found to be covered in bruises. CT scan of the brain revealed interval development of extensive encephalomalacia right MCA territory related to interval infarct. Old small area of superior left frontal paramedian cortical infarct which is present in 2022. New fluid collection measuring 3.8 x 3.3 x 2.4 above the sternal notch probably arising from degenerative and subluxed left sternoclavicular joint. Multiple moderate multilevel spondylitic changes of the cervical spine. No acute fracture seen. CT scan of the chest revealed left lateral 10th, ninth and eighth rib fractures. Possible T7 spinous process fracture. No fracture seen of the shoulder. No fracture of the bilateral knees. No fracture of the bilateral clavicles. Count 20.7. Hemoglobin 11.0. Platelets 505. Sodium 139. Potassium 5.4. Bicarb 17. BUN 15. Creatinine 2.03. Lactic acid 5.4, 3.2. Creatinine kinase 2026. Troponin negative x 1. She is seen today in consultation in the emergency department. She is currently resting flat on the stretcher. She is awake and alert in no acute distress. When discussing her rib fractures he states those are old. She is maintaining good O2 saturations in the 90s on room air. Denies any worsening shortness of breath, cough or congestion. Denies any hemoptysis. Is afebrile. Hemodynamica lly stable. The patient is seen today November 04, 2023 in follow-up in the emergency department. She is currently resting on stretcher. Awake and alert in no acute distress. She is maintaining good O2 saturations in the 90s on room air. She has normal saline at 150 MLS per hour. She states she is feeling sore but no worsening shortness of breath, cough or congestion. White count 6.6. Hemoglo bin 8.4. Platelets 346. Sodium 138. Potassium 4.3. Bicarb 17. BUN 14. Creatinine 1.09. Glucose 86. Creatinine kinase 2502. Orthopedics is following regarding possible T7 spinous process fracture. Progress note dated November 05, 2023. The patient is seen today in room 381. She has no specific complaints. The patient apparently is scheduled for an MRI of the brain, and EEG. The patient i s on room air. She is not receiving any IV fluids. Current labs include a white count 7.3, hemoglobin 8.2, hematocrit 26.4, and a platelet count of 361,000. Sodium 139, potassium 3.8, chlorides 116, CO2 20, BUN 13, and creatinine 0.98. Calcium 8.5. CK is down to 1263. The Doppler of the caroti ds, showed no hemodynamically significant obstruction. On 10/28/2023, I am seeing the patient for a follow-up. The patient is still in the hospital for pain control. The patient is calm and comfortable and sitting up in a chair. Denies having any significant chest pain and she is complaining of some lower back pain. She is known to have previous degenerative disc disease. In addition. Oxygenation is stable and the patient is currently on room air oxygen with a pulse ox of 97%. Hemodynamically stable. Obese because of 8.9 with a hemoglobin 8.2 and platelet count of 295. BUN is at 30 with a creatinine of 0.9 and a sodium levels at 141. CPK level is on the decline is currently down to 1263. The patient is using the sinus parameter. Pain management is seeing also the patient. She has multiple rib fractures secondary to trauma/fall. Patient is currently receiving Valmy for pain control. Objective - Vital Signs Vital signs: Vital Signs Temp 97.9 F 11/06/23 08:00 Pulse 90 11/06/23 09:53 Resp 18 11/06/23 08:00 BP 124/74 11/06/23 08:00 Pulse Ox 100 11/06/23 08:00 FiO2 Intake & Output 11/05/23 11/06/23 11/06/23 18:59 06:59 18:59 Other: Voiding Method Toilet Toilet Toilet # Voids 1 1 - Exam No acute distress, oriented 3. Currently on room air oxygen. HEENT examination is grossly unremarkable. Mucous membranes are moist. No oral lesions. Neck supple. Full range of motion. No adenopathy thyromegaly or neck vein distention. Cardiovascular examination reveals regular rhythm rate. S1-S2 normal. No S3 or S4. No discernible murmur noted. . Lungs reveal clear breath sounds. Breath sounds are equal bilaterally. No adventitious lung sounds including wheezes rhonchi or crackles. Abdomen soft bowel sounds are heard. No masses or tenderness. Extremities are intact. No cyanosis clubbing or edema. Skin reveals multiple areas of ecchymosis and bruising. Neurologic examination is brief but nonfocal. - Labs CBC & Chem 7: 11/06/23 06:12 11/06/23 06:12 Labs: Abnormal Lab Results - Last 24 Hours (Table) 11/06/23 11/06/23 Range/Units 06:12 06:12 RBC 2.70 L (3.80-5.40) m/uL Hgb 8.2 L (11.4-16.0) gm/dL Hct 26.2 L (34.0-46.0) % Chloride 119 H (98-107) mmol/L Carbon Dioxide 17 L (22-30) mmol/L Assessment and Plan Plan: Acute traumatic injury secondary to fall Multiple rib fractures including 8 through [address] scan of the chest revealed left lateral 10th, ninth and eighth rib fractures, with secondary rib cage pain, currently under adequate control with the use of Valmy Possible T7 spinous process fracture, and followed by orthopedics. The patient is experiencing lower back pain. She does have some underlying degenerative ar thritis. Multiple areas of bruising but no fractures noted on the shoulders knees cervical spine History of CVA several months ago with left-sided weakness. CT scan of the brain revealed interval development of extensive encephalomalacia right MCA territory related to interval infarct. Old small area of superior left frontal paramedian cortical infarct which is present in 2022. New fluid collection measuring 3.8 x 3.3 x 2.4 above the sternal notch probably arising from degenerative and sublu xed left sternoclavicular joint. Multiple moderate multilevel spondylitic changes of the cervical spine. No acute fracture seen. History of GI bleed. History of liver disease. Osteoarthritis. Gastroesophageal reflux disease. Chronic and ongoing tobacco dependence. Plan: Continues incentive spirometer Valmy for pain control Respiratory status is stable for now the oxygenation is stable and the patient is currently on room air oxygen. MRI of the spine was ordered PT OT evaluation Will continue to follow
--- NOTE | 2023-11-06 20:57 | P.PN ---
Subjective Progress Note Date: 11/06/23 Patient was initially seen by Dr. Vance Daniel. Please refer to his note for details. Patient is a 57-year-old female with recurrent falls. Patient has history of old strokes. Patient is currently on aspirin and Brilinta, her home medications. Patient was seen for a follow-up. Patient is getting breathing treatment. Patient appears comfortable. Patient states that she has suffered from 3 falls since March 2023. The first 1 in March, she was just walking and her right leg gave out and she fell against the deck. She thought it was "nerves in her back". The second fall occurred on 04/29/2024 when she was going to the bathroom at 11 PM and she stood up and without any warning she was on the floor, hit her chest on the laundry basket. The last fall was this past . She was walking and suddenly she felt. She tried to get up and could not. Her hips, knees ankles were bruised. She believes she did not blackout. some other workup during his hospital visit consisted of: on initial preon initial presentation her blood pressure is 98/80 which has improved. initial white blood cell is 20.7 thousand and repeat is 6.6. initial serum glucose is 131, plasma like acid vein is 5.4 and the most recent is normal. Potassium 5.4 calcium is 9.5. CK level is 2026--->1263 Hemglobin is 11-->8.4 AST slightly elevated ALT is normal. CT of the head is reported as interval development of extensive encephalomalacia of the right MCA territory relating to interval infarct. Old small area of small left frontal paramedian cortical infarct which was a present in 2022. Otherwise no acute intracranial abnormality seen. CT cervical spine was reported as a new fluid collection 3.8 x 3.3 x 2.4 cm above the sternal notch probably arising from degenerative and subluxed left sternal clavicular joint. Multilevel moderate spondylitic changes of cervical spine. No acute fracture seen. EKG is reported as sinus rhythm. urine drug is positive for opiates, tricyclic antidepressant, benzoyl and marijuana Carotid duplex: Is reported as no hemodynamically significant internal carotid artery stenosis on either side. Objective - Vital Signs Vital signs: Vital Signs Temp 97.6 F 11/06/23 16:00 Pulse 86 11/06/23 20:29 Resp 18 11/06/23 16:00 BP 138/80 11/06/23 16:00 Pulse Ox 99 11/06/23 16:00 FiO2 Intake & Output 11/06/23 11/06/23 11/07/23 06:59 18:59 06:59 Intake Total 1080 Balance 1080 Intake: Oral 1080 Other: Voiding Method Toilet Toilet # Voids 1 1 - Exam Patient's mental status, speech and language functions are normal. Cranial nerves are normal. Visual fraire are full. Patient has mild left facial asymmetry. On muscle strength testing the strength is normal in the arms and legs distally and proximally. Deltoids are slightly giveaway because of pain in the ribs. Reflexes are 2+ to 3 and plantars are downgoing. Sensory to touch is equal with no neglect. Patient has multiple bruises over the forearms, upper lateral hip region, knees, ankles left shoulder, left upper forehead, lower chin region. - Labs CBC & Chem 7: 11/06/23 06:12 11/06/23 06:12 Labs: Abnormal Lab Results - Last 24 Hours (Table) 11/06/23 11/06/23 Range/Units 06:12 06:12 RBC 2.70 L (3.80-5.40) m/uL Hgb 8.2 L (11.4-16.0) gm/dL Hct 26.2 L (34.0-46.0) % Chloride 119 H (98-107) mmol/L Carbon Dioxide 17 L (22-30) mmol/L Assessment and Plan Assessment: This is a 57-year-old woman with history of right MCA stroke with residual left hemiparesis, recurrent falls who presents because of a fall. She felt light headed upon standing up and fell. She has elevated CK levels, lactic acid, slight hypotensive on presentation. recurrent falls unknown exact etiology. One of etiology is hypotensive but need to rule out other etiologies. UDS is positive for opiates, benzo, TCA and marijuana which can cause confusion. Rule out acute stroke. rhabdomyolysis due to fall--trending down Anemia on presentation was 11 currently 8.2 History of recurrent falls with multiple bruises in the lowers history of multiple strokes and is seems the patient has a right MCA stroke with residual left-sided weakness. In April 2023 she presented the ED with left- sided weakness and facial droop and then transferred to [facility] (did not have IV thrombolytic and no intervention). Also small over the left frontal elevated the lactic acid today that resolved Leukocytosis seems reactive Minimally elevated AST Plan: Pending MRI of the brain. Orthopedic spine also has added MRI of the thoracic and lumbar spine. EEG was performed today, which was borderline slow suggestive of mild encephalopathy. No epileptiform activity was seen. Recommend orthosatic vitals 2-D echo revealed left ventricular ejection fraction is 60 to 65%. Mildly increased septal wall thickness. Mildly increased posterior wall thickness. Normal left ventricular systolic function with no obvious regional wall motion abnormalities. Normal left atrial size. Mild to moderate MR. Moderate TR. patient is on aspirin 81 mg, Brilinta 90mg bid. If has worsening of anemia then hold antiplateletes. Patient is on Lipitor 40mg qhs. continue neuro checks Cardiac monitoring PT OT are consulted Orthopedic surgery team was consulted for possible T7 fracture. Recommend continuing trend CK level If possible avoid benzo, sedative medications. We'll defer the rest of the medical management to primary and other specialists Upon discharge the patient needs to continue to follow up with Dr. Casas as outpatient (stroke interventionalalist).
[2023-11-06] MEDS: FOLIC ACID 1 MG TAB PO SCH (21:10)
--- NOTE | 2023-11-06 23:41 | EEG ---
ELECTROENCEPHALOGRAM REPORT PREAMBLE: This is a 57-year-old female with recurrent falls, rule out seizure. CURRENT MEDICATIONS: 1. Elavil. 2. Aspirin. 3. Lipitor. 4. Flexeril. 5. Bentyl. 6. Latham. 7. Ativan. 8. Morphine. 9. Neurontin. EEG FINDINGS: This is a 21-channel digital EEG recorded with video component, utilizing 10/20 international system with referential and bipolar montages. Background consists of well-developed, moderately well regulated, predominantly 7 hertz theta activity seen in bihemispheric region. Background is posterior dominant and seems to be minimally reactive to eye opening and closing. Photic stimulation and hyperventilation were not done. Different stages of sleep were not seen. No focal or generalized epileptiform activity was seen. IMPRESSION: This is a borderline abnormal EEG due to minimal background slowing, suggestive of mild encephalopathy. No epileptiform activity was seen. MMODL / IJN: [id number] /
[2023-11-07 10:05] LABS: HCT 28.8 % (34.0-46.0); HGB 8.8 gm/dL (11.4-16.0); Hypochromasia Moderate; MCHC 30.6 g/dL (31.0-37.0); Macrocytosis Slight; Mean Platelet Volume 7.3; Platelet Count 500 k/uL (150-450); RBC 2.94 m/uL (3.80-5.40); RDW 15.8 % (11.5-15.5); WBC 8.5 k/uL (3.8-10.6)
[2023-11-07 10:35] LABS: African American GFR (CKD) 74 (>60 ml/min/1.73 sqM); Anion Gap 5 mmol/L; Blood Urea Nitrogen 13 mg/dL (7-17); Calcium 9.1 mg/dL (8.4-10.2); Carbon Dioxide 21 mmol/L (22-30); Chloride 115 mmol/L (98-107); Creatine Kinase 304 U/L (30-135); Glucose 103 mg/dL (74-99); Non-African American GFR(CKD) 64 (>60 ml/min/1.73 sqM); Potassium 3.5 mmol/L (3.5-5.1); Sodium 141 mmol/L (137-145)
--- NOTE | 2023-11-07 12:42 | P.PN ---
Subjective Progress Note Date: 11/07/23 * 57-year-old patient with past medical history significant for gastroesophageal reflux disease, history of gastrointestinal bleed, history of CVA with residual left-sided weakness, presented to the emergency department on 11/03/2023 after patient had a fall prior to presentation. Patient was noted to be laying down on the porch when was seen by her father, patient was noted to be confused it was noted that patient did hit her head and had multiple bruises on the skin. * Workup in ER included a CT of the brain which showed interval development of extensive encephalomalacia involving right MCA territory secondary to previous history of infarct. CT cervical spine showed new fluid collection about 3.8 x 3.3 x 2.4 cm above the left sternal notch likely secondary to sublux left sternoclavicular joint and degeneration. Multilevel degenerative disease of cervical spine noted worse at C4-C5 levels * CT chest abdomen pelvis showed multiple rib fractures involving left lateral 789 and 10 ribs, concern for T7 spinous process fracture * Patient was seen by trauma surgery as well as pulmonary medicine. Patient to be admitted to medical floor to be seen by neurology, surgery and pulmonary due to multiple rib fractures * Workup in ER included CBC which showed WBC of 20.7 hemoglobin 11 platelet count of 505 INR of 0.9 * Serum chemistry obtained sodium 139 potassium 5.4 chloride 111 BUN 15, creatinine of 2.03 lactate of 2.5 creatinine kinase of 7. Urinalysis obtained showed trace amount of blood, few WBCs * Urine toxicology positive for opiates, tricyclic antidepressants, benzodiazepine and marijuana * She Will be admitted to medical floor with multiple specialities on consult for further management * 11/05/23 : Patient seen and evaluated bedside, seen by orthospine, conservative management recommended, blood work reviewed hemoglobin is 8.2, fecal occult blood test ordered, follow-up on serum chemistry CPK 1263 trending down. Patient states he feels better, MRI brain EEG ordered pending, echocardiogram ordered pending * 11/06/23 : Patient seen and evaluated bedside, patient does complain of low back pain, patient seen by orthospine who continue to recommend conservative management will need physical therapy Occupational Therapy evaluation, MRI brain MRI lumbar spine and EEG pending echocardiogram shows ejection fraction 60 to 65% moderate tricuspid regurgitation * 11/06/33: Patient seen and evaluated bedside, EEG completed consistent with encephalopathy, no seizure noted MRI pending REVIEW OF SYSTEMS: S/p fall, confusion, chest pain, resolved CONSTITUTIONAL: No fever, no malaise, no fatigue. HEENT: No recent visual problems or hearing problems. Denied any sore throat. CARDIOVASCULAR: S/p fall, confusion, chest pain, resolved PULMONARY:S/p fall, confusion, chest pain, resolved GASTROINTESTINAL: No diarrhea, no nausea, no vomiting, no abdominal pain. NEUROLOGICAL: No headaches, no weakness, no numbness. HEMATOLOGICAL: Denies any bleeding or petechiae. GENITOURINARY: Denies any burning micturition, frequency, or urgency. MUSCULOSKELETAL/RHEUMATOLOGICAL: Denies any joint pain, swelling, or any muscle pain. ENDOCRINE: Denies any polyuria or polydipsia. PHYSICAL EXAMINATION: GENERAL: The patient is alert and oriented x 3, ill appearance HEENT: Pupils are round and equally reacting to light. EOMI. CARDIOVASCULAR: S1 and S2 present. No murmurs, rubs, or gallops. PULMONARY: Chest is clear to auscultation, no wheezing or crackles. ABDOMEN: Soft, nontender, nondistended, Patel catheter in place MUSCULOSKELETAL: No joint swelling or deformity. EXTREMITIES: No cyanosis, clubbing, or pedal edema. NEUROLOGICAL: Gross neurological examination did not reveal any focal deficits. SKIN: Multiple bruises noted Assessment and plan * S/p fall with multiple rib fractures * T7 spinous process fracture * Acute metabolic encephalopathy * Acute rhabdomyolysis * Hyperkalemia * History of CVA with residual left-sided weakness * History of gastroesophageal reflux disease * In regards to fall, seen by trauma surgery, conservative management recommended continue fluid resuscitation for rhabdomyolysis, CPK trending down * In regards to s/p T7 spinous fracture orthospine consult, recommend conservative management, MRI spine ordered * Regards to history of CVA, will consult neurology, Home medications show patient is on Lipitor and Brilinta which is continued MRI brain, EEG completed no epileptiform activity noted * Regards to history of CVA will need physical therapy Occupational Therapy evaluation chronic changes noted on CT head * Regards to metabolic encephalopathy continue fluid resuscitation follow-up on CK levels, electrolyte * In regards to anemia continue to follow-up on H&H, fecal occult blood test ordered, continue Protonix, baseline hemoglobin 11 * Physical therapy, Occupational Therapy consult Objective - Vital Signs Vital signs: Vital Signs Temp 98 F 04/30/24 08:35 Pulse 91 11/07/23 08:35 Resp 17 11/07/23 08:35 BP 102/67 11/07/23 08:35 Pulse Ox 100 11/07/23 08:35 FiO2 Intake & Output 11/06/23 11/07/23 11/07/23 18:59 06:59 18:59 Intake Total 1080 240 Balance 1080 240 Intake: Oral 1080 240 Other: Voiding Method Toilet Toilet Toilet # Voids 1 1 - Labs CBC & Chem 7: 11/07/23 08:54 11/06/23 06:12 Labs: Abnormal Lab Results - Last 24 Hours (Table) 11/07/23 Range/Units 08:54 RBC 2.94 L (3.80-5.40) m/uL Hgb 8.8 L (11.4-16.0) gm/dL Hct 28.8 L (34.0-46.0) % MCHC 30.6 L (31.0-37.0) g/dL RDW 15.8 H (11.5-15.5) % Plt Count 500 H (150-450) k/uL
--- NOTE | 2023-11-07 15:21 | P.PN ---
Subjective Progress Note Date: 11/07/23 This is a 57-year-old female patient with a known history of CVA with residual left-sided weakness, gastroesophageal reflux disease, GI bleed, liver disease, osteoarthritis, chronic and ongoing tobacco dependence. Early this morning the patient was outside and fell to the ground and was unable to get herself up. Her father came out and found her half on the porch and half off the porch. Patient was somewhat confused. She did hit her head and is on blood thinners. She was found to be covered in bruises. CT scan of the brain revealed interval development of extensive encephalomalacia right MCA territory related to interval infarct. Old small area of superior left frontal paramedian cortical infarct which is present in 2022. New fluid collection measuring 3.8 x 3.3 x 2.4 above the sternal notch probably arising from degenerative and subluxed left sternoclavicular joint. Multiple moderate multilevel spondylitic changes of the cervical spine. No acute fracture seen. CT scan of the chest revealed left lateral 10th, ninth and eighth rib fractures. Possible T7 spinous process fracture. No fracture seen of the shoulder. No fracture of the bilateral knees. No fracture of the bilateral clavicles. Count 20.7. Hemoglobin 11.0. Platelets 505. Sodium 139. Potassium 5.4. Bicarb 17. BUN 15. Creatinine 2.03. Lactic acid 5.4, 3.2. Creatinine kinase 2026. Troponin negative x 1. She is seen today in consultation in the emergency department. She is currently resting flat on the stretcher. She is awake and alert in no acute distress. When discussing her rib fractures he states those are old. She is maintaining good O2 saturations in the 90s on room air. Denies any worsening shortness of breath, cough or congestion. Denies any hemoptysis. Is afebrile. Hemodynamica lly stable. The patient is seen today November 04, 2023 in follow-up in the emergency department. She is currently resting on stretcher. Awake and alert in no acute distress. She is maintaining good O2 saturations in the 90s on room air. She has normal saline at 150 MLS per hour. She states she is feeling sore but no worsening shortness of breath, cough or congestion. White count 6.6. Hemoglo bin 8.4. Platelets 346. Sodium 138. Potassium 4.3. Bicarb 17. BUN 14. Creatinine 1.09. Glucose 86. Creatinine kinase 2502. Orthopedics is following regarding possible T7 spinous process fracture. Progress note dated November 05, 2023. The patient is seen today in room 381. She has no specific complaints. The patient apparently is scheduled for an MRI of the brain, and EEG. The patient i s on room air. She is not receiving any IV fluids. Current labs include a white count 7.3, hemoglobin 8.2, hematocrit 26.4, and a platelet count of 361,000. Sodium 139, potassium 3.8, chlorides 116, CO2 20, BUN 13, and creatinine 0.98. Calcium 8.5. CK is down to 1263. The Doppler of the caroti ds, showed no hemodynamically significant obstruction. On 10/28/2023, I am seeing the patient for a follow-up. The patient is still in the hospital for pain control. The patient is calm and comfortable and sitting up in a chair. Denies having any significant chest pain and she is complaining of some lower back pain. She is known to have previous degenerative disc disease. In addition. Oxygenation is stable and the patient is currently on room air oxygen with a pulse ox of 97%. Hemodynamically stable. Obese because of 8.9 with a hemoglobin 8.2 and platelet count of 295. BUN is at 30 with a creatinine of 0.9 and a sodium levels at 141. CPK level is on the decline is currently down to 1263. The patient is using the sinus parameter. Pain management is seeing also the patient. She has multiple rib fractures secondary to trauma/fall. Patient is currently receiving Hingham for pain control. On today's evaluation of 11/07/2023 the patient is being seen for a follow-up. No specific complaints. The main issue remains some pain in her back area. MRI of the brain and MRI of the lumbar spine was ordered. EEG showed no evidence of any seizure activity pending MRI of the brain. The patient has no respite difficulties and the patient is currently on room air oxygen. She is using the incentive spirometer. The patient is status post fall and multiple rib fractures and a T7 spinous process fracture. Mental status is appropriate at this point in time. She has previous history of CVA and some residual left- sided weakness. She is undergoing physical therapy and Occupational Therapy. On today's blood work, hemoglobin is at 8.8 which is stable compared to yesterday with a white cell count of 8.5, BUN is 13 with a creatinine of 0.9 and a sodium level of 141. Patient also showing improvement in the CPK level which is down to 304. Objective - Vital Signs Vital signs: Vital Signs Temp 98 F 11/07/23 08:35 Pulse 80 11/07/23 11:41 Resp 17 11/07/23 08:35 BP 102/67 11/07/23 08:35 Pulse Ox 100 11/07/23 08:35 FiO2 Intake & Output 11/06/23 11/07/23 11/07/23 18:59 06:59 18:59 Intake Total 1080 240 Balance 1080 240 Intake: Oral 1080 240 Other: Voiding Method Toilet Toilet Toilet # Voids 1 1 - Exam No acute distress, oriented 3. Currently on room air oxygen. HEENT examination is grossly unremarkable. Mucous membranes are moist. No oral lesions. Neck supple. Full range of motion. No adenopathy thyromegaly or neck vein distention. Cardiovascular examination reveals regular rhythm rate. S1-S2 normal. No S3 or S4. No discernible murmur noted. . Lungs reveal clear breath sounds. Breath sounds are equal bilaterally. No adventitious lung sounds including wheezes rhonchi or crackles. Abdomen soft bowel sounds are heard. No masses or tenderness. Extremities are intact. No cyanosis clubbing or edema. Skin reveals multiple areas of ecchymosis and bruising. Neurologic examination is brief but nonfocal. - Labs CBC & Chem 7: 11/07/23 08:54 11/07/23 08:54 Labs: Abnormal Lab Results - Last 24 Hours (Table) 11/07/23 11/07/23 Range/Units 08:54 08:54 RBC 2.94 L (3.80-5.40) m/uL Hgb 8.8 L (11.4-16.0) gm/dL Hct 28.8 L (34.0-46.0) % MCHC 30.6 L (31.0-37.0) g/dL RDW 15.8 H (11.5-15.5) % Plt Count 500 H (150-450) k/uL Chloride 115 H (98-107) mmol/L Carbon Dioxide 21 L (22-30) mmol/L Glucose 103 H (74-99) mg/dL Creatine Kinase 304 H (30-135) U/L Assessment and Plan Plan: Acute traumatic injury secondary to fall Multiple rib fractures including 8 through [address] scan of the chest revealed left lateral 10th, ninth and eighth rib fractures, with secondary rib cage pain, currently under adequate control with the use of Hingham Possible T7 spinous process fracture, and followed by orthopedics. The patient is experiencing lower back pain. She does have some underlying degenerative arthritis. Multiple areas of bruising but no fractures noted on the shoulders knees cervical spine History of CVA several months ago with left-sided weakness. CT scan of the brain revealed interval development of extensive encephalomalacia right MCA territory related to interval infarct. Old small area of superior left frontal paramedian cortical infarct which is present in 2022. New fluid collection measuring 3.8 x 3.3 x 2.4 above the sternal notch probably arising from degenerative and subluxed left sternoclavicular joint. Multiple moderate multilevel spondylitic changes of the cervical spine. No acute fracture seen. History of GI bleed. History of liver disease. Osteoarthritis. Gastroesophageal reflux disease. Chronic and ongoing tobacco dependence. Plan: Awaiting MRI of the brain Awaiting MRI of the lumbar spine CPK levels are improving Continues incentive spirometer Hingham for pain control Respiratory status is stable for now the oxygenation is stable and the patient is currently on room air oxygen. MRI of the spine was ordered PT OT evaluation Will continue to follow
--- NOTE | 2023-11-07 16:19 | MR ---
EXAMINATION TYPE: MR brain wo con DATE OF EXAM: 11/07/2023 4:12 PM CLINICAL INDICATION:Female, 57 years old with history of stroke; PHH, stroke COMPARISON: 04/29/2023. TECHNIQUE: Multi planar, multi sequence imaging was performed through the brain including: T1, T2, In version recovery, Diffusion weighted imaging, and gradient echo imaging. No gadolinium was given. FINDINGS: Encephalomalacia the right frontal lobe. No evidence for restricted diffusion. The rosario-white junctions, ventricular system, basal cisterns appear unremarkable. Scattered foci of high T2 signal intensity are seen within the periventricular white matter. Midline structures show n o abnormality. The susceptibility weighted images do not reveal any evidence for micro-hemorrhage. The bone marrow signal is within normal limits. Paranasal sinuses and mastoid air cells: No significant paranasal sinus disease. Visualized orbits: Orbital contents are intact. IMPRESSION: 1. Injury to the right frontal lobe with encephalomalacia. No evidence for restricted diffusion to delgado ggest acute/subacute CVA. No evidence of intracranial mass. 2. Nonspecific white matter changes, likely secondary to small vessel ischemic disease.
--- NOTE | 2023-11-07 16:24 | MR ---
EXAMINATION TYPE: MR tspine/lspine wo con DATE OF EXAM: 11/07/2023 4:18 PM CLINICAL INDICATION:Female, 57 years old with history of pain; PHH, Pain. COMPARISON: Plain film 10/28/2023 TECHNIQUE: Multi planar, multi sequence imaging was performed utilizing: T1-weighted, T2-weighted, a nd turbo inversion recovery imaging of the thoracic and lumbar spine. IV Contrast: cc . None. FINDINGS: Alignment: The thoracic and lumbar vertebral bodies have preserved heights and alignment. Cord: The conus medullaris and the distal spinal cord appear unremarkable with regards to their signa l intensity and morphology. Bones/Discs: Bone signal is within normal limits. Mild multilevel disc degeneration changes with oste ophyte formation facet joint arthropathy. THORACIC: No evidence significant spinal canal or neural foraminal stenosis. Spinal cord is within no rmal limits. LUMBAR: T12-L1: No evidence of significant spinal canal stenosis or neural foraminal stenosis. L1-L2: No evidence of significant spinal canal stenosis or neural foraminal stenosis. L2-L3: No evidence of significant spinal canal stenosis or neural foraminal stenosis. L3-L4: No evidence of significant spinal canal stenosis or neural foraminal stenosis. L4-L5: No evidence of significant spinal canal stenosis or neural foraminal stenosis. L5-S1: No evidence of significant spinal canal stenosis or neural foraminal stenosis. Other findings: None. IMPRESSION: 1. No definitive evidence of disc herniation or significant spinal canal stenosis. 2. Mild disc degeneration with associated osteoarthritic changes. No evidence of significant spinal canal or neural foraminal stenosis.
[2023-11-08 04:18] VITALS: RESP 18
[2023-11-08 09:50] VITALS: PULSE 67
[2023-11-08 09:51] VITALS: BP 109/72; TEMP 98
--- NOTE | 2023-11-08 10:13 | P.PN ---
Subjective Progress Note Date: 11/07/23 11/07/2023: Patient was seen for a follow-up. No new concerns. Patient is laying comfortably in the bed. No syncopal spells, no focal symptoms. 11/06/2023: Patient was initially seen by Dr. Vance Daniel. Please refer to his note for details. Patient is a 57-year-old female with recurrent falls. Patient has history of old strokes. Patient is currently on aspirin and Brilinta, her home medications. Patient was seen for a follow-up. Patient is getting breathing treatment. Patient appears comfortable. Patient states that she has suffered from 3 falls since March 2023. The first 1 in March, she was just walking and her right leg gave out and she fell against the deck. She thought it was "nerves in her back". The second fall occurred on 04/29/2024 when she was going to the bathroom at 11 PM and she stood up and without any warning she was on the floor, hit her chest on the laundry basket. The last fall was this past . She was walking and suddenly she felt. She tried to get up and could not. Her hips, knees ankles were bruised. She believes she did not blackout. some other workup during his hospital visit consisted of: on initial preon initial presentation her blood pressure is 98/80 which has improved. initial white blood cell is 20.7 thousand and repeat is 6.6. initial serum glucose is 131, plasma like acid vein is 5.4 and the most recent is normal. Potassium 5.4 calcium is 9.5. CK level is 2026--->1263 Hemglobin is 11-->8.4 AST slightly elevated ALT is normal. CT of the head is reported as interval development of extensive encephalomalacia of the right MCA territory relating to interval infarct. Old small area of small left frontal paramedian cortical infarct which was a present in 2022. Otherwise no acute intracranial abnormality seen. CT cervical spine was reported as a new fluid collection 3.8 x 3.3 x 2.4 cm above the sternal notch probably arising from degenerative and subluxed left st ernal clavicular joint. Multilevel moderate spondylitic changes of cervical spine. No acute fracture seen. EKG is reported as sinus rhythm. urine drug is positive for opiates, tricyclic antidepressant, benzoyl and marijuana Carotid duplex: Is reported as no hemodynamically significant internal carotid artery stenosis on either side. Objective - Vital Signs Vital signs: Vital Signs Temp 98 F 11/07/23 08:35 Pulse 112 H 11/07/23 16:40 Resp 17 11/07/23 16:40 BP 122/78 11/07/23 16:40 Pulse Ox 98 11/07/23 16:40 FiO2 Intake & Output 11/06/23 11/07/23 11/07/23 18:59 06:59 18:59 Intake Total 1080 240 Balance 1080 240 Intake: Oral 1080 240 Other: Voiding Method Toilet Toilet Toilet # Voids 1 1 2 - Exam Patient's mental status, speech and language functions are normal. Cranial nerves are normal. Visual fraire are full. Patient has mild left facial asymmetry. On muscle strength testing the strength is normal in the arms and legs distally and proximally. Deltoids are slightly giveaway because of pain in the ribs. Reflexes are 2+ to 3 and plantars are downgoing. Sensory to touch is equal with no neglect. Patient has multiple bruises over the forearms, upper lateral hip region, knees, ankles left shoulder, left upper forehead, lower chin region. - Labs CBC & Chem 7: 11/08/23 09:28 11/08/23 09:28 Labs: Abnormal Lab Results - Last 24 Hours (Table) 11/07/23 11/07/23 Range/Units 08:54 08:54 RBC 2.94 L (3.80-5.40) m/uL Hgb 8.8 L (11.4-16.0) gm/dL Hct 28.8 L (34.0-46.0) % MCHC 30.6 L (31.0-37.0) g/dL RDW 15.8 H (11.5-15.5) % Plt Count 500 H (150-450) k/uL Chloride 115 H (98-107) mmol/L Carbon Dioxide 21 L (22-30) mmol/L Glucose 103 H (74-99) mg/dL Creatine Kinase 304 H (30-135) U/L Vitamin B12 981.0 H (200.0-944.0) pg/mL Assessment and Plan Assessment: This is a 57-year-old woman with history of right MCA stroke with residual left hemiparesis, recurrent falls who presents because of a fall. She felt light headed upon standing up and fell. She has elevated CK levels, lactic acid, slight hypotensive on presentation. recurrent falls unknown exact etiology. One of etiology is hypotensive but need to rule out other etiologies. UDS is positive for opiates, benzo, TCA and marijuana which can cause confusion. Rule out acute stroke. rhabdomyolysis due to fall--trending down Anemia on presentation was 11 currently 8.2 History of recurrent falls with multiple bruises in the lowers history of multiple strokes and is seems the patient has a right MCA stroke with residual left-sided weakness. In April 2023 she presented the ED with left- sided weakness and facial droop and then transferred to [facility] (did not have IV thrombolytic and no intervention). Also small over the left frontal elevated the lactic acid today that resolved Leukocytosis seems reactive Minimally elevated AST Plan: MRI of the brain revealed injury to the right frontal lobe with encephalomalacia. No evidence for restricted diffusion to suggest acute/subacute CVA. No evidence of intracranial mass. Nonspecific white matter changes, likely secondary to small vessel ischemic disease. I personally reviewed MRI agree with the findings. MRI of the thoracic and lumbar spine showed no definitive evidence of disc herniation or significant spinal canal stenosis. Mild disc degeneration with associated osteoarthritic changes. No evidence of significant spinal canal or neuroforaminal stenosis. I personally reviewed MRI agree with the findings. EEG 11/06/2023, which was borderline slow suggestive of mild encephalopathy. No epileptiform activity was seen. Recommend orthosatic vitals 2-D echo revealed left ventricular ejection fraction is 60 to 65%. Mildly increased septal wall thickness. Mildly increased posterior wall thickness. Normal left ventricular systolic function with no obvious regional wall motion abnormalities. Normal left atrial size. Mild to moderate MR. Moderate TR. Carotid Doppler showed no hemodynamically significant stenosis on either side. Antegrade flow in both vertebral arteries. patient is on aspirin 81 mg, Brilinta 90mg bid. If has worsening of anemia then hold antiplateletes. Patient is on Lipitor 40mg qhs. continue neuro checks Cardiac monitoring PT OT are consulted Orthopedic surgery team was consulted for possible T7 fracture. Repeat CPK is almost normal 304. Vitamin B12 981. MMA 0.24 and B6 is 7, all normal. If possible avoid benzo, sedative medications. We'll defer the rest of the medical management to primary and other specialists Upon discharge the patient needs to continue to follow up with Dr. Casas as outpatient (stroke interventionalalist). Neurologically clear for discharge.
[2023-11-08 11:01] LABS: HCT 29.8 % (34.0-46.0); HGB 9.4 gm/dL (11.4-16.0); Hypochromasia Slight; MCH 30.2 pg (25.0-35.0); MCHC 31.5 g/dL (31.0-37.0); MCV 95.7 fL (80.0-100.0); Mean Platelet Volume 7.5; Platelet Count 550 k/uL (150-450); RBC 3.11 m/uL (3.80-5.40); RDW 15.7 % (11.5-15.5); WBC 9.6 k/uL (3.8-10.6)
[2023-11-08 11:29] LABS: African American GFR (CKD) 78 (>60 ml/min/1.73 sqM); Anion Gap 8 mmol/L; Blood Urea Nitrogen 13 mg/dL (7-17); Calcium 9.2 mg/dL (8.4-10.2); Carbon Dioxide 19 mmol/L (22-30); Chloride 115 mmol/L (98-107); Glucose 92 mg/dL (74-99); Non-African American GFR(CKD) 68 (>60 ml/min/1.73 sqM); Sodium 142 mmol/L (137-145)
[2023-11-08 11:36] VITALS: BMI 24.0
--- NOTE | 2023-11-09 06:25 | P.DS ---
Providers Date of admission: 11/03/23 14:08 Attending physician: Chayito Cardoso Consults: 11/03/23 13:49 Consult Physician Routine Consulting Provider: Wesley Daniel Consult Reason/Comments: Left sided rib fractures Do you want consulting provider notified?: Yes 11/03/23 13:50 Consult Physician Urgent Consulting Provider: Christos Mccoy Consult Reason/Comments: Medical management Do you want consulting provider notified?: Yes 11/03/23 13:51 Consult Physician Urgent Consulting Provider: Vance Daniel Consult Reason/Comments: Interval development of encephalomalacia from prior CVA Do you want consulting provider notified?: Yes Consult Physician Urgent Consulting Provider: Trey Bradford Consult Reason/Comments: Possible T7 fracture Do you want consulting provider notified?: Yes Primary care physician: Paxton Armendariz [facility] Course: Diagnoses: Fall with multiple rib fractures T7 spinous process fracture, evaluated by orthopedic team and cleared for discharge Acute metabolic encephalopathy, resolved Acute rhabdomyolysis, resolved moderate tricuspid regurgitation Hyperkalemia, resolved upon discharge injury to the right frontal lobe with encephalomalacia (No evidence for restricted diffusion to suggest acute/subacute CVA) with residual left-sided weakness History of gastroesophageal reflux disease Hospital course: 57-year-old patient with past medical history significant for gastroesophageal reflux disease, history of gastrointestinal bleed, history of CVA with residual left-sided weakness, presented to the emergency department on 11/03/2023 after patient had a fall prior to presentation. Patient was noted to be laying down on the porch when was seen by her father, patient was noted to be confused it was noted that patient did hit her head and had multiple bruises on the skin. Workup in ER included a CT of the brain which showed interval development of extensive encephalomalacia involving right MCA territory secondary to previous history of infarct. CT cervical spine showed new fluid collection about 3.8 x 3.3 x 2.4 cm above the left sternal notch likely secondary to sublux left sternoclavicular joint and degeneration. Multilevel degenerative disease of cervical spine noted worse at C4-C5 levels. Patient was evaluated by orthopedic team and also by trauma general surgery team who recommended conservative management . CT chest abdomen pelvis showed multiple rib fractures involving left lateral 789 and 10 ribs, concern for T7 spinous process fracture Patient also evaluated by neurologist Recommended brain MRI which showed injury to the right frontal lobe with encephalomalacia. No evidence of restricted diffusion to suggest acute/subacute CVA. No evidence of intracranial mass. Also had MRI of the thoracic and lumbar spine showing no definitive evidence of disc herniation or significant spinal canal stenosis. There is mild disc degeneration with associated osteoarthritic changes. No significant spinal canal or neural foraminal stenosis. Neurologist recommended to continue with home dose of aspirin 81 mg and Brilinta, patient confirms to me she has prescription for this medication at home when she does not need new ones Patient also evaluated by PT/OT who recommended home health care with home.. Also pulmonary team evaluated the patient who consulted urgently because of rib fracture. On the day of discharge patient is fully awake and oriented, she looks relaxed at baseline, get up and go test is normal, patient can walk with no difficulty. Patient denies chest pain or dyspnea. No change in urine or bowel habits. No fever. Patient is eager to go home today and she wants to be discharged as she was told yesterday she is going home. I got a call from the bedside nurse that patient's wants to leave early in the morning. Patient looks medically stable. Patient was cleared for discharge by all consultants including neurologist, orthopedic team, and pulmonary services and general surgery team. pt declined to give prescription for her aspirin and brilinta stating she has them at home (they are documented her home medication upon admission ) Problems and management plan were discussed with the patient and he verbalized understanding and acceptance Patient was found stable and can be discharged home in guarded prognosis however he needs follow-up as an outpatient. Patient was instructed to follow up with PCP Dr. Armendariz within one week and patient agrees Patient was instructed to follow-up with neurointerventional Dr. Liriano, and he will in 2 weeks and also patient instructed to follow-up with pediatric rn Dr. Daniel and orthopedic Dr. Bradford in 2 weeks after discharge and she agrees to call and make appointment Physical exam Gen: patient is a AAOx3, no distress CVS: S1-S2, RRR, no murmur Lungs: B/L CTA, no wheezing Abdomen: soft, no distention, no tenderness, positive bowel sounds Extremity: no leg edema or induration Time spent more than 35 minutes Plan - Discharge Summary Discharge Rx Participant: Yes New Discharge Prescriptions: New Folic Acid 1 mg PO DAILY #30 tab Continue LORazepam [Ativan] 1 mg PO BID PRN PRN Reason: Anxiety Brimonidine Tartrate [Alphagan P 0.2% Ophth Soln] 1 drop RIGHT EYE BID Ergocalciferol [Vitamin D2 (1250 Mcg = 23607 Iu)] 1,250 mcg PO NAVAS Omeprazole 40 mg PO DAILY Gabapentin [Neurontin] 300 mg PO TID Dicyclomine HCl 20 mg PO BID Atorvastatin [Lipitor] 40 mg PO HS Tiotropium Br/Olodaterol HCl [Stiolto Respimat Inhal [place]] 2 puff INHALATION RT-DAILY Amitriptyline HCl [Elavil] 50 mg PO HS Cyclobenzaprine [Flexeril] 10 mg PO BID PRN PRN Reason: Muscle Pain Aspirin EC [Ecotrin Low Dose] 81 mg PO DAILY Multivitamins, Thera [Multivitamin (formulary)] 1 tab PO DAILY Albuterol Inhaler [Ventolin Hfa Inhaler] 1 - 2 puff INHALATION RT-Q6H PRN PRN Reason: Shortness Of Breath Ticagrelor [Brilinta] 90 mg PO BID HYDROcodone/APAP 7.5-325MG [Ismay 7.5-325] 1 tab PO TID Nicotine 21Mg/24Hr Patch [Habitrol] 1 patch TRANSDERM DAILY Discontinued Levofloxacin [Levaquin] 500 mg PO DAILY Discharge Medication List LORazepam [Ativan] 1 mg PO BID PRN 09/23/20 [History] Amitriptyline HCl [Elavil] 50 mg PO HS 04/11/22 [History] Brimonidine Tartrate [Alphagan P 0.2% Oph Soln] 1 drop RIGHT EYE BID 04/11/22 [History] Cyclobenzaprine [Flexeril] 10 mg PO BID PRN 04/11/22 [History] Ergocalciferol [Vitamin D2 (1250 Mcg = 12826 Iu)] 1,250 mcg PO NAVAS 04/11/22 [History] Omeprazole 40 mg PO DAILY 04/11/22 [History] Aspirin EC [Ecotrin Low Dose] 81 mg PO DAILY 04/15/22 [History] Gabapentin [Neurontin] 300 mg PO TID 03/23/23 [History] Albuterol Inhaler [Ventolin Hfa Inhaler] 1 - 2 puff INHALATION RT-Q6H PRN 09/08/23 [History] Atorvastatin [Lipitor] 40 mg PO HS 09/08/23 [History] Dicyclomine HCl 20 mg PO BID 09/08/23 [History] Multivitamins, Thera [Multivitamin (formulary)] 1 tab PO DAILY 09/08/23 [History] Ticagrelor [Brilinta] 90 mg PO BID 09/08/23 [History] Tiotropium Br/Olodaterol HCl [Stiolto Respimat Inhal [place]] 2 puff INHALATION RT-DAILY 09/08/23 [History] HYDROcodone/APAP 7.5-325MG [Ismay 7.5-325] 1 tab PO TID 11/03/23 [History] Nicotine 21Mg/24Hr Patch [Habitrol] 1 patch TRANSDERM DAILY 11/03/23 [History] Folic Acid 1 mg PO DAILY #30 tab 11/08/23 [Rx] Follow up Appointment(s)/Referral(s): Nish Casas MD [STAFF PHYSICIAN] - 2 Weeks (neuro-assembler hydraulic backhoe) Wesley Daniel DO [Doctor of Osteopathic Medicine] - 2 Weeks (pulmonary doctor for your pulmonary nodule) [facility], [NON-STAFF] - Paxton Armendariz DO [Primary Care Provider] - 1-2 days Trey Bradford DO [Doctor of Osteopathic Medicine] - 2 Weeks (orthopedic surgeon) Patient Instructions/Handouts: Acute Kidney Injury (DC), Ischemic Stroke (DC), Fall Prevention (DC) Activity/Diet/Wound Care/Special Instructions: Heart healthy diet activity is restricted till you see your doctor Discharge Disposition: HOME WITH HOME HEALTH SERVICES
--- NOTE | 2023-11-10 09:29 | CDI ---
Documentation Clarification Form Date: 11/10/2023 09:15:09 AM From: Anna Lopez Admit Date: 11/03/2023 02:08:00 PM Patient Name: Kate Mccullough Visit Number: [id number] Discharge Date: 11/08/2023 11:25:00 AM ATTENTION: The Clinical Documentation Specialists (CDI) and [facility] Coding Staff appreciate your assistance in clarifying documentation. Please respond to the clarification below the line at the bottom and electronically sign. The CDI & [facility] Coding staff will review the response and follow-up if needed. Please note: Queries are made part of the Legal Health Record. If you have any questions, please contact the author of this message via ITS. Dr. Joshua Hill Acute Renal failure is documented in ED notes under clinical impression and on DCS Patient was given instructions for Acute Kidney Injury. [place] is not documented throughout the chart. Please clarify if patient had Acute kidney injury. History/Risk factors: Hyperkalemia, hypocalcemia, volume depletion, pernicious anemia, severe malnutrition Clinical Indicators: Labs: Cr 2.03 on 11/02 GFR Urinalysis: RBC's 9 Treatment: 11/02 0.9ns 2.5L IV total fluid boluses. 11/03/23 11:15-11/02 18:42 9ns 150cc/hr Consults: No nephrology consult Please clarify the type of acute renal failure, if known: [ y ] Acute Renal Failure [ ] Acute Kidney Injury [ ] Acute Renal Failure ruled out [ ] Acute Renal Failure with other cause, please specify [ ] Unable to determine [ ] Other, please specify MTDD
== END 2023-11-08 11:25 | disposition home health service (06) | DRG 135 ==
LOC: EC 09:56 → 3SCARD 14:08
PROVIDERS: ADMIT Internal Medicine; ATTEND Internal Medicine
DX: S22.42XA Multiple fractures of ribs, left side, initial encounter for closed fracture (principal); S22.069A Unspecified fracture of T7-T8 vertebra, initial encounter for closed fracture; W19.XXXA Unspecified fall, initial encounter; R29.6 Repeated falls; Z91.81 History of falling; D64.9 Anemia, unspecified; E87.5 Hyperkalemia; F17.200 Nicotine dependence, unspecified, uncomplicated; F41.9 Anxiety disorder, unspecified; G93.41 Metabolic encephalopathy; G93.89 Other specified disorders of brain; I07.1 Rheumatic tricuspid insufficiency; I69.354 Hemiplegia and hemiparesis following cerebral infarction affecting left non-dominant side; I69.398 Other sequelae of cerebral infarction; K21.9 Gastro-esophageal reflux disease without esophagitis; K76.0 Fatty (change of) liver, not elsewhere classified; E53.8 Deficiency of other specified B group vitamins; N17.9 Acute kidney failure, unspecified; M51.36 Other intervertebral disc degeneration, lumbar region; M47.816 Spondylosis without myelopathy or radiculopathy, lumbar region; I95.9 Hypotension, unspecified; M51.34 Other intervertebral disc degeneration, thoracic region; K44.9 Diaphragmatic hernia without obstruction or gangrene; K58.9 Irritable bowel syndrome, unspecified; M19.90 Unspecified osteoarthritis, unspecified site; G43.909 Migraine, unspecified, not intractable, without status migrainosus; D72.829 Elevated white blood cell count, unspecified; R79.89 Other specified abnormal findings of blood chemistry; T79.6XXA Traumatic ischemia of muscle, initial encounter; T14.8XXA Other injury of unspecified body region, initial encounter; M25.551 Pain in right hip; R29.810 Facial weakness; Z79.01 Long term (current) use of anticoagulants; Z79.02 Long term (current) use of antithrombotics/antiplatelets; Z79.82 Long term (current) use of aspirin; Z79.899 Other long term (current) drug therapy; Z87.19 Personal history of other diseases of the digestive system; Z88.1 Allergy status to other antibiotic agents; Z88.5 Allergy status to narcotic agent
CPT/HCPCS: 36415; 51702; 70450; 70551; 71250; 72070; 72100; 72125; 72146; 72148; 74176; 80048; 80053; 80306; 81001; 82550; 82607; 83605; 83735; 83921; 84100; 84207; 84484; 85025; 85027; 85610; 85730; 86850; 86870; 86880; 86900; 86901; 86902; 90471; 90715; 93306; 93880; 94640; 95816; 96361; 96374; 96375; 99285

== ENCOUNTER → 2023-12-20 | Outpatient (CLI) | payer OTHER ==
--- NOTE | 2023-12-20 13:36 | FL ---
ESOPHOGRAM. HISTORY: Dysphagia Esophagram was performed per the air contrast technique. The patient swallowed barium and effervesce nt crystals without difficulty or delay. Esophageal peristalsis and motility appear to be within normal limits. There is no evidence for filling defect, mass or diverticulum. No hiatal hernia seen. Subsequently single contrast cervical esophagram was performed which demonstrates a small amount of a spiration noted. IMPRESSION: Minimal aspiration seen. Otherwise unremarkable study
== END | disposition home or self-care (01) ==
LOC: RADUSWWP 09:49
PROVIDERS: ATTEND Family Medicine
DX: R13.10 Dysphagia, unspecified (principal)
CPT/HCPCS: 74220

== ENCOUNTER → 2024-01-05 | Outpatient (CLI) | payer OTHER ==
--- NOTE | 2024-01-05 13:26 | XR ---
EXAMINATION TYPE: XR knee 4V LT DATE OF EXAM: 01/05/2024 12:37 PM CLINICAL INDICATION:Female, 58 years old with history of S80.912A UNSPECIFIED SUPERFICIAL INJURY OF L EFT KN; PHH COMPARISON: None. TECHNIQUE: XR knee 4V LT; examined in Frontal, lateral and oblique projections. FINDINGS: No evidence of any acute osseous pathology, soft tissue swelling, or joint effusion is no aga. Tricompartmental osteophyte formation involving the femoral condyles, tibial plateau and patella . Mild joint space narrowing. IMPRESSION: 1. No acute osseous pathology. 2. Mild tricompartmental osteoarthritic changes.
== END | disposition home or self-care (01) ==
LOC: RADXRMAIN 11:23
PROVIDERS: ATTEND Family Medicine
DX: M17.12 Unilateral primary osteoarthritis, left knee (principal); S80.912A Unspecified superficial injury of left knee, initial encounter; W19.XXXA Unspecified fall, initial encounter

== ENCOUNTER 2024-01-19 18:26 | Emergency (ER) | payer OTHER ==
[2024-01-19 18:33] VITALS: TEMP 98.7
[2024-01-19] MEDS: PANTOPRAZOLE 40 MG/10 ML VIAL IVP STA (18:57)
[2024-01-19] MEDS: SODIUM CHLORIDE 0.9% 500 ML 500 ML IV ONE (18:58)
[2024-01-19 19:12] LABS: Anisocytosis Slight; Basophils # (A) 0.1 k/uL (0-0.2); Basophils % (A) 1 %; Eosinophils # (A) 0.2 k/uL (0-0.7); Eosinophils % (A) 2 %; HCT 34.6 % (34.0-46.0); HGB 10.9 gm/dL (11.4-16.0); Lymphocytes # (A) 1.3 k/uL (1.0-4.8); Lymphocytes % (A) 13 %; MCH 29.9 pg (25.0-35.0); MCHC 31.5 g/dL (31.0-37.0); MCV 94.9 fL (80.0-100.0); Mean Platelet Volume 7.5; Monocytes # (A) 0.5 k/uL (0-1.0); Monocytes % (A) 5 %; Neutrophils # (A) 7.6 k/uL (1.3-7.7); Neutrophils % (A) 76 %; Platelet Count 439 k/uL (150-450); RBC 3.64 m/uL (3.80-5.40); RDW 17.1 % (11.5-15.5); WBC 9.9 k/uL (3.8-10.6)
[2024-01-19 19:33] LABS: ALT 35 U/L (4-34); AST 49 U/L (14-36); African American GFR (CKD) 53 (>60 ml/min/1.73 sqM); Albumin 3.7 g/dL (3.5-5.0); Alkaline Phosphatase 124 U/L (38-126); Anion Gap 5 mmol/L; Blood Urea Nitrogen 9 mg/dL (7-17); Calcium 9.4 mg/dL (8.4-10.2); Carbon Dioxide 21 mmol/L (22-30); Chloride 112 mmol/L (98-107); Glucose 98 mg/dL (74-99); Magnesium 1.5 mg/dL (1.6-2.3); Non-African American GFR(CKD) 46 (>60 ml/min/1.73 sqM); Potassium 3.2 mmol/L (3.5-5.1); Sodium 138 mmol/L (137-145); Total Bilirubin 0.4 mg/dL (0.2-1.3); Total Protein 6.5 g/dL (6.3-8.2)
--- NOTE | 2024-01-19 19:35 | ED ---
General Adult HPI - General Chief complaint: GI Bleed Stated complaint: Diarrhea, blood in stool Time Seen by Provider: 01/19/24 18:37 Source: patient, RN notes reviewed, old records reviewed Mode of arrival: ambulatory Limitations: no limitations - History of Present Illness Initial comments: 58-year-old female presenting with dark stool and diarrhea. Patient states she had previous gastrointestinal bleed which was resulted from a gastric ulcer. Sh e states that over the past 6 days she had developed dark stool and more recently developed diarrhea. She does have abdominal cramping associated with her diarrhea. No fever. No vomiting. Patient states she is on Brilinta and aspirin with history of CVA. - Related Data Home Medications Medication Instructions Recorded Confirmed LORazepam [Ativan] 1 mg PO BID PRN 09/23/20 11/03/23 Amitriptyline HCl [Elavil] 50 mg PO HS 04/11/22 11/03/23 Brimonidine Tartrate [Alphagan P 1 drop RIGHT EYE BID 04/11/22 11/03/23 0.2% Ophth Soln] Cyclobenzaprine [Flexeril] 10 mg PO BID PRN 04/11/22 11/03/23 Ergocalciferol [Vitamin D2 (1250 1,250 mcg PO NAVAS 04/11/22 11/03/23 Mcg = 33210 Iu)] Omeprazole 40 mg PO DAILY 04/11/22 11/03/23 Aspirin EC [Ecotrin Low Dose] 81 mg PO DAILY 04/15/22 11/03/23 Gabapentin [Neurontin] 300 mg PO TID 03/23/23 11/03/23 Albuterol Inhaler [Ventolin Hfa 1 - 2 puff INHALATION RT-Q6H PRN 09/08/23 11/03/23 Inhaler] Atorvastatin [Lipitor] 40 mg PO HS 09/08/23 11/03/23 Dicyclomine HCl 20 mg PO BID 09/08/23 11/03/23 Multivitamins, Thera [Multivitamin 1 tab PO DAILY 09/08/23 11/03/23 (formulary)] Ticagrelor [Brilinta] 90 mg PO BID 09/08/23 11/03/23 Tiotropium Br/Olodaterol HCl 2 puff INHALATION RT-DAILY 09/08/23 11/03/23 [Stiolto Respimat Inhal [place]] HYDROcodone/APAP 7.5-325MG [[place] 1 tab PO TID 11/03/23 11/03/23 7.5-325] Nicotine 21Mg/24Hr Patch [Habitrol] 1 patch TRANSDERM DAILY 11/03/23 11/03/23 Previous Rx's Medication Instructions Recorded Folic Acid 1 mg PO DAILY #30 tab 11/08/23 Allergies Allergy/AdvReac Type Severity Reaction Status Date / Time azithromycin AdvReac Nausea & Verified 01/19/24 18:33 [From Zithromax Z-Francisco] Vomiting & Diarrhea codeine AdvReac Nausea & Verified 01/19/24 18:33 Vomiting Review of Systems ROS Statement: Those systems with pertinent positive or pertinent negative responses have been documented in the HPI. ROS Other: All systems not noted in ROS Statement are negative. 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,had left facial [id number] w/ Dr Janelle Oneill,occ migraines, sinus congestion from allergies, hx pleurisy, bleeding ulcer Mar 2019, hx anemia, fatty liver disease, hiatal hernia, IBS/constipation,fatty liver History of Any Multi-Drug Resistant Organisms: None Reported Past Surgical History: Heart Catheterization Additional Past Surgical History / Comment(s): kidney biopsy, laparoscopy Past Anesthesia/Blood Transfusion Reactions: Previous Problems w/ Anesthesia, Family History of Problems w/ Anesthesia, Motion Sickness Additional Past Anesthesia/Blood Transfusion Reaction / Comment(s): had blood transfusion 03/2019-no problems, "takes a while to come out", 'sister had hard time coming out of it" Past Psychological History: Anxiety Smoking Status: Current every day smoker Past Alcohol Use History: Daily Past Drug Use History: None Reported - Past Family History Father Family Medical History: No Reported History Mother Family Medical History: Liver Disease Additional Family Medical History / Comment(s): fatty liver disease General Exam Limitations: no limitations General appearance: alert, in no apparent distress Head exam: Present: atraumatic, normocephalic Eye exam: Present: normal appearance, PERRL ENT exam: Present: normal exam Neck exam: Present: normal inspection. Absent: tenderness, meningismus Respiratory exam: Present: normal lung sounds bilaterally, respiratory distress Cardiovascular Exam: Present: regular rate, normal rhythm GI/Abdominal exam: Present: soft. Absent: distended, tenderness, guarding Rectal exam: Absent: bloody stool, fecal impaction, tenderness Extremities exam: Present: normal inspection, normal capillary refill Neurological exam: Present: alert, oriented X3, CN II-XII intact Psychiatric exam: Present: normal affect, normal mood Skin exam: Present: warm, dry, intact, normal color Course Vital Signs 01/19/24 01/19/24 18:32 19:33 Temperature 98.7 F Pulse Rate 113 H 89 Respiratory 20 18 Rate Blood Pressure 128/90 109/72 O2 Sat by Pulse 99 96 Oximetry Medical Decision Making - Medical Decision Making Was pt. sent in by a medical professional or institution (GEORGE Gant, BUSINESS ECONOMIST, urgent care, hospital, or [facility]...) When possible be specific @ -No Did you speak to anyone other than the patient for history (EMS, parent, family, police, friend...)? What history was obtained from this source @ -No Did you review nursing and triage notes (agree or disagree)? Why? @ -I reviewed and agree with nursing and triage notes Were old charts reviewed (outside hosp., previous admission, EMS record, old EKG, old radiological studies, urgent care reports/EKG's, [facility] records)? Report findings @ -No old charts were reviewed Differential GI Bleed: Esophageal varices, aortoenteric fistula, Stacie-Mcfadden, gastritis, peptic ulcer disease, diverticulosis, inflammatory bowel disease, hemorrhoids, fissure, colitis, malignancy, Meckels diverticulum, this is not meant to be an all- inclusive list. EKG interpreted by me (3pts min.). @ -As above X-rays interpreted by me (1pt min.). @ -None done CT interpreted by me (1pt min.). @CT of the abdomen pelvis performed, negative for acute pathology. U/S interpreted by me (1pt. min.). @ -None done What testing was considered but not performed or refused? (CT, X-rays, U/S, labs)? Why? @ -None What meds were considered but not given or refused? Why? @ -None Did you discuss the management of the patient with other professionals (professionals i.e. , PA, BUSINESS ECONOMIST, lab, RT, psych nurse, web content & social media manager, floorwalker, teacher, aoc airspace control officer, case briefer)? Give summary @ -No Was smoking cessation discussed for >3mins.? @ -No Was critical care preformed (if so, how long)? @ -No Were there social determinants of health that impacted care today? How? (Homelessness, low income, unemployed, alcoholism, drug addiction, transportation, low edu. Level, literacy, decrease access to med. care, assisted, rehab)? @ -No Was there de-escalation of care discussed even if they declined (Discuss DNR or withdrawal of care, Hospice)? DNR status @ -No What co-morbidities impacted this encounter? (DM, HTN, Smoking, COPD, CAD, Cancer, CVA, ARF, Chemo, Hep., AIDS, mental health diagnosis, sleep apnea, morbid obesity)? @ -History of CVA on Brilinta and aspirin, history of GI bleed. Was patient admitted / discharged? Hospital course, mention meds given and route, prescriptions, significant lab abnormalities, going to OR and other pertinent info. @This is a 58-year-old female who presents with diarrhea and dark stool. Patient has previous history of GI bleed and was concerned that this could be blood. I did obtain laboratory testing including CBC, CMP and Hemoccult. Her hemoglobin is stable and on the high side of normal for her. Patient has hypokalemia and hypomagnesemia which is replaced. Her Hemoccult is negative. CT negative for acute intra-abdominal findings. I do feel this patient is stable for discharge with close monitoring of stool and return parameters. Patient is instructed to abstain from alcohol. Undiagnosed new problem with uncertain prognosis? @ -No Drug Therapy requiring intensive monitoring for toxicity (Heparin, Nitro, Insulin, Cardizem)? @ -No Were any procedures done? @ -No Diagnosis/symptom? @diarrhea Acute, or Chronic, or Acute on Chronic? @ -[acute Uncomplicated (without systemic symptoms) or Complicated (systemic symptoms)? @ -Default Side effects of treatment? @ -No Exacerbation, Progression, or Severe Exacerbation? @ -No Poses a threat to life or bodily function? How? (Chest pain, [place], [place], pneumonia, PE, COPD, DKA, ARF, appy, cholecystitis, CVA, Diverticulitis, Homicidal, Suicidal, threat to staff... and all critical care pts) @ -No - Lab Data Result diagrams: 01/19/24 19:00 01/19/24 19:00 Lab Results 01/19/24 01/19/24 01/19/24 Range/Units 19:00 19:00 19:00 WBC 9.9 (3.8-10.6) k/uL RBC 3.64 L (3.80-5.40) m/uL Hgb 10.9 L (11.4-16.0) gm/dL Hct 34.6 (34.0-46.0) % MCV 94.9 (80.0-100.0) fL MCH 29.9 (25.0-35.0) pg MCHC 31.5 (31.0-37.0) g/dL RDW 17.1 H (11.5-15.5) % Plt Count 439 (150-450) k/uL MPV 7.5 Neutrophils % 76 % Lymphocytes % 13 % Monocytes % 5 % Eosinophils % 2 % Basophils % 1 % Neutrophils # 7.6 (1.3-7.7) k/uL Lymphocytes # 1.3 (1.0-4.8) k/uL Monocytes # 0.5 (0-1.0) k/uL Eosinophils # 0.2 (0-0.7) k/uL Basophils # 0.1 (0-0.2) k/uL Anisocytosis Slight APTT 21.6 L (22.0-30.0) sec Sodium 138 (137-145) mmol/L Potassium 3.2 L (3.5-5.1) mmol/L Chloride 112 H (98-107) mmol/L Carbon Dioxide 21 L (22-30) mmol/L Anion Gap 5 mmol/L BUN 9 (7-17) mg/dL Creatinine 1.27 H (0.52-1.04) mg/dL Est GFR (CKD-EPI)AfAm 53 (>60 ml/min/1.73 sqM) Est GFR (CKD-EPI)NonAf 46 (>60 ml/min/1.73 sqM) Glucose 98 (74-99) mg/dL Plasma Lactic Acid [place] (0.7-2.0) mmol/L Calcium 9.4 (8.4-10.2) mg/dL Magnesium 1.5 L (1.6-2.3) mg/dL Total Bilirubin 0.4 (0.2-1.3) mg/dL AST 49 H (14-36) U/L ALT 35 H (4-34) U/L Alkaline Phosphatase 124 (38-126) U/L Total Protein 6.5 (6.3-8.2) g/dL Albumin 3.7 (3.5-5.0) g/dL Stool Occult Blood (Negative) 01/19/24 01/19/24 Range/Units 19:00 20:09 WBC (3.8-10.6) k/uL RBC (3.80-5.40) m/uL Hgb (11.4-16.0) gm/dL Hct (34.0-46.0) % MCV (80.0-100.0) fL MCH (25.0-35.0) pg MCHC (31.0-37.0) g/dL RDW (11.5-15.5) % Plt Count (150-450) k/uL MPV Neutrophils % % Lymphocytes % % Monocytes % % Eosinophils % % Basophils % % Neutrophils # (1.3-7.7) k/uL Lymphocytes # (1.0-4.8) k/uL Monocytes # (0-1.0) k/uL Eosinophils # (0-0.7) k/uL Basophils # (0-0.2) k/uL Anisocytosis APTT (22.0-30.0) sec Sodium (137-145) mmol/L Potassium (3.5-5.1) mmol/L Chloride (98-107) mmol/L Carbon Dioxide (22-30) mmol/L Anion Gap mmol/L BUN (7-17) mg/dL Creatinine (0.52-1.04) mg/dL Est GFR (CKD-EPI)AfAm (>60 ml/min/1.73 sqM) Est GFR (CKD-EPI)NonAf (>60 ml/min/1.73 sqM) Glucose (74-99) mg/dL Plasma Lactic Acid [place] 2.7 H* (0.7-2.0) mmol/L Calcium (8.4-10.2) mg/dL Magnesium (1.6-2.3) mg/dL Total Bilirubin (0.2-1.3) mg/dL AST (14-36) U/L ALT (4-34) U/L Alkaline Phosphatase (38-126) U/L Total Protein (6.3-8.2) g/dL Albumin (3.5-5.0) g/dL Stool Occult Blood Negative (Negative) Disposition Clinical Impression: Diarrhea Disposition: HOME SELF-CARE Condition: Fair Instructions (If sedation given, give patient instructions): Acute Diarrhea (ED) Is patient prescribed a controlled substance at d/c from ED?: No Referrals: Paxton Armendariz DO [Primary Care Provider] - 1-2 days Valeria Cordero MD [STAFF PHYSICIAN] - 1-2 days Time of Disposition: 20:45
[2024-01-19 19:36] VITALS: PULSE 89; RESP 18
[2024-01-19] MEDS: POTASSIUM CHLORIDE ER 20 MEQ TAB.ER PO STA (20:47)
[2024-01-19] MEDS: MAGNESIUM SULFATE-D5W PMX 1 GM in DEXTROSE/WATER 1 100ML.BAG IVPB ONE (20:47)
--- NOTE | 2024-01-19 20:50 | CT ---
INDICATION: Patient age:Female; 58 years old; Reason for study: ab pain/rectal bleeding; . COMPARISON: CT chest abdomen and pelvis 11/03/2023.. TECHNIQUE: Standard CT of the abdomen and pelvis following the administration of 80 cc of Isovue 30 0 IV contrast material. Coronal and sagittal reformats were performed. One or more CT dose reduction strategies were utilized during this examination. Total DLP administered was 705.1 mGycm. FINDINGS: LOWER CHEST: Redemonstrated remote left-sided rib fractures which can also be seen on the CT in refer ence. Right basilar atelectasis. ABDOMEN LIVER: Unremarkable. GALLBLADDER AND BILE DUCTS: The gallbladder is surgically absent. Mild intrahepatic biliary ductal di latation is noted which may be related to patient's cholecystectomy status. PANCREAS: Unremarkable. SPLEEN: Unremarkable. ADRENAL GLANDS: Unremarkable. KIDNEYS AND URETERS: No evidence of hydronephrosis or renal calculus. The ureters are unremarkable. PELVIS URINARY BLADDER: Incompletely distended but grossly unremarkable. REPRODUCTIVE: No pelvic masses. ABDOMEN & PELVIS STOMACH AND BOWEL: Stomach is grossly unremarkable. Small bowel is of normal caliber. There are a few scattered colonic diverticula are seen without associated fat stranding. No evidence of bowel obstru ction. PERITONEUM: No evidence of pneumoperitoneum or free fluid. VASCULATURE: No aneurysmal changes. Scattered phleboliths are noted within the pelvis. MUSCULOSKELETAL: No acute osseous abnormalities. LYMPH NODES: Unremarkable. SOFT TISSUE/ABDOMINAL WALL: Area of fat stranding is seen within the left hip. There is a thin area o f low density fluid seen within this area of fat stranding measuring approximately 3.3 cm. This area of fat stranding does not seem to communicate with the osseous structures adjacently. IMPRESSION: 1. No acute intra-abdominal/pelvic process. 2. Nonspecific soft tissue inflammation in the area of the left hip with a small fluid collection see n as described above. Findings may represent small abscess versus seroma. Findings could also represe nt small hematoma if there is a history of trauma. Correlate with clinical evaluation and physical ex am. 3. Colonic diverticulosis.
[2024-01-19 21:55] VITALS: BP 108/92
== END 2024-01-19 21:56 | disposition home or self-care (01) ==
LOC: EC 18:26
DX: R19.7 Diarrhea, unspecified (principal); Z86.73 Personal history of transient ischemic attack (TIA), and cerebral infarction without residual deficits; Z87.11 Personal history of peptic ulcer disease; F17.200 Nicotine dependence, unspecified, uncomplicated; Z88.5 Allergy status to narcotic agent; Z88.1 Allergy status to other antibiotic agents
CPT/HCPCS: 99285; 96365; 96375; 96361 ×2; 36415; 86900; 86901; 80053; 83605; 83735; 85025; 85730; 86850; 86870; 86880; 82272; 74177; J3475; Q9967; J2470

== ENCOUNTER 2024-02-18 05:20 | Inpatient (IN) | payer OTHER | END 2024-02-19 17:14 | disposition home or self-care (01) | DRG 45 | LOC: 3SCARD 05:20 | PROVIDERS: ADMIT Hospitalist; ATTEND Hospitalist | DX: I63.331 Cerebral infarction due to thrombosis of right posterior cerebral artery (principal); N17.9 Acute kidney failure, unspecified; I69.354 Hemiplegia and hemiparesis following cerebral infarction affecting left non-dominant side; E86.0 Dehydration; F10.10 Alcohol abuse, uncomplicated; E78.5 Hyperlipidemia, unspecified; R47.9 Unspecified speech disturbances; W19.XXXA Unspecified fall, initial encounter; W18.30XA Fall on same level, unspecified, initial encounter; Y92.238 Other place in hospital as the place of occurrence of the external cause; Y92.003 Bedroom of unspecified non-institutional (private) residence as the place of occurrence of the external cause; Z91.198 Patient's noncompliance with other medical treatment and regimen for other reason; Z87.891 Personal history of nicotine dependence; Z79.82 Long term (current) use of aspirin; Z79.899 Other long term (current) drug therapy; Z88.5 Allergy status to narcotic agent ==

== ENCOUNTER → 2024-03-25 | Outpatient (CLI) | payer OTHER ==
--- NOTE | 2024-03-25 12:18 | FL ---
Exam Date: 03/25/2024 11:49 AM. Modified barium swallow for dysphagia. Consistencies administered: Various consistency of barium. Fluoro time: 62 SEC FL No images were sent to PACS. Please see speech pathology report. DAP: NO DAP DOSE THIN AND PUDDING GINNY/HAYDENL [facility], , 03/25/2024 12:15 PM
== END | disposition home or self-care (01) ==
LOC: RADFLMAIN 10:51
PROVIDERS: ATTEND Family Medicine
DX: I67.9 Cerebrovascular disease, unspecified (principal); Y84.9 Medical procedure, unspecified as the cause of abnormal reaction of the patient, or of later complication, without mention of misadventure at the time of the procedure
CPT/HCPCS: 74230

== ENCOUNTER → 2024-04-02 | Outpatient (CLI) | payer OTHER ==
--- NOTE | 2024-04-08 16:26 | CT ---
EXAMINATION TYPE: CT chest wo con DATE OF EXAM: 04/02/2024 COMPARISON: 11/03/2023 HISTORY: Nicotine dependence, Pneumonia, COPD, SPN CT DLP: 165.00 mGycm, Automated exposure control for dose reduction was used. CONTRAST: Performed injected with 0 mL of Isovue 300. TECHNIQUE: Axial images were obtained at 5 mm thick sections. Reconstructed images are reviewed on [employer] computer in the coronal plane. FINDINGS: Portion of the thyroid visualized is normal. There is a groundglass opacity in the posterior right mid lung. This area has increased in size over the interval and currently measures 2.2 cm. Neoplasm should be considered. Additional workup is recom mended. No enlarged mediastinal or hilar adenopathy is evident. The ascending aorta diameter at the level o f the main pulmonary artery is 3.7 cm. The main pulmonary artery diameter at the bifurcation is 2.3 cm. Minimal pericardial effusion is present. Limited CT sections are obtained through the upper abdomen. Abdomen is essentially unremarkable. IMPRESSION: 1. Groundglass opacity posterior right lung is increased in size over the interval. Underlying neopla sm should be considered. Additional workup is recommended. [facility], , 04/08/2024 4:23 PM
== END | disposition home or self-care (01) ==
LOC: RADCTMAIN 08:14
PROVIDERS: ATTEND Internal Medicine Sleep Medicine
DX: J44.9 Chronic obstructive pulmonary disease, unspecified (principal); J18.9 Pneumonia, unspecified organism; F17.200 Nicotine dependence, unspecified, uncomplicated; J44.0 Chronic obstructive pulmonary disease with (acute) lower respiratory infection; R91.8 Other nonspecific abnormal finding of lung field
CPT/HCPCS: 71250

== ENCOUNTER 2024-04-03 11:23 | Inpatient (IN) | payer OTHER ==
--- NOTE | 2024-04-03 11:38 | ED ---
General Adult HPI - General Chief complaint: Neuro Symptoms/Deficit Stated complaint: weak Time Seen by Provider: 04/03/24 11:27 Source: patient, EMS, RN notes reviewed Mode of arrival: EMS Limitations: no limitations - History of Present Illness Initial comments: Patient is a 58-year-old female presenting to the emergency department by EMS for weakness. Onset of symptoms was yesterday early evening. Around 6 PM. Patient feels weak all over. Patient has had 9 falls since that time. Patient denies any serious injury. No isolated area of weakness. Family question to EMS if her facial weakness was worse than normal. Patient feels her facial w eakness and speech are normal for her. Patient denies any new isolated limb weakness. Patient denies headache or confusion. Patient states she was not on the ground more than a couple of minutes. Patient does admit that she feels dry. - Related Data Home Medications Medication Instructions Recorded Confirmed Amitriptyline HCl [Elavil] 50 mg PO HS 04/11/22 04/03/24 Cyclobenzaprine [Flexeril] 10 mg PO BID PRN 04/11/22 04/03/24 Ergocalciferol [Vitamin D2 (1250 1,250 mcg PO NAVAS 04/11/22 04/03/24 Mcg = 22086 Iu)] Omeprazole 40 mg PO DAILY 04/11/22 04/03/24 Aspirin EC [Ecotrin Low Dose] 81 mg PO DAILY 04/15/22 04/03/24 Albuterol Inhaler [Ventolin Hfa 1 - 2 puff INHALATION RT-Q6H PRN 09/08/23 04/03/24 Inhaler] Atorvastatin [Lipitor] 40 mg PO HS 09/08/23 04/03/24 Dicyclomine HCl 20 mg PO BID 09/08/23 04/03/24 Tiotropium Br/Olodaterol HCl 2 puff INHALATION RT-DAILY 09/08/23 04/03/24 [Stiolto Respimat Inhal [place]] LORazepam 2 mg PO BID PRN 01/19/24 04/03/24 Docusate [Colace] 100 mg PO BID PRN 04/03/24 04/03/24 HYDROcodone/APAP 7.5-325MG [[place] 1 tab PO TID PRN 04/03/24 04/03/24 7.5-325] Montelukast [Singulair] 10 mg PO HS 04/03/24 04/03/24 Ondansetron [Zofran] 4 mg PO TID PRN 04/03/24 04/03/24 Sulfamethox-Tmp 800-160Mg [Bactrim 1 tab PO Q12HR 04/03/24 04/03/24 DS 800-160 mg] Allergies Allergy/AdvReac Type Severity Reaction Status Date / Time azithromycin AdvReac Nausea & Verified 04/03/24 11:59 [From Zithromax Z-Francisco] Vomiting & Diarrhea codeine AdvReac Nausea & Verified 04/03/24 11:59 Vomiting Review of Systems ROS Statement: Those systems with pertinent positive or pertinent negative responses have been documented in the HPI. ROS Other: All systems not noted in ROS Statement are negative. Constitutional: Denies: fever Eyes: Denies: eye pain ENT: Denies: ear pain Respiratory: Denies: cough, dyspnea Cardiovascular: Denies: chest pain Endocrine: Denies: fatigue Gastrointestinal: Denies: abdominal pain Neurological: Reports: as per HPI, weakness. 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,had left facial [id number] w/ Dr Janelle Oneill,occ migraines, sinus congestion from allergies, hx pleurisy, bleeding ulcer Mar 2019, hx anemia, fatty liver disease, hiatal hernia, IBS/constipation,fatty liver History of Any Multi-Drug Resistant Organisms: None Reported Past Surgical History: Heart Catheterization Additional Past Surgical History / Comment(s): kidney biopsy, laparoscopy Past Anesthesia/Blood Transfusion Reactions: Previous Problems w/ Anesthesia, Family History of Problems w/ Anesthesia, Motion Sickness Additional Past Anesthesia/Blood Transfusion Reaction / Comment(s): had blood transfusion 03/2019-no problems, "takes a while to come out", 'sister had hard time coming out of it" Past Psychological History: Anxiety Smoking Status: Current every day smoker Past Alcohol Use History: Daily Past Drug Use History: None Reported - Past Family History Father Family Medical History: No Reported History Mother Family Medical History: Liver Disease Additional Family Medical History / Comment(s): fatty liver disease General Exam Limitations: no limitations General appearance: alert, in no apparent distress Head exam: Present: atraumatic Eye exam: Present: normal appearance, PERRL, EOMI, nystagmus (Horizontal) ENT exam: Present: mucous membranes dry Neck exam: Present: normal inspection Respiratory exam: Present: normal lung sounds bilaterally Cardiovascular Exam: Present: regular rate, normal rhythm GI/Abdominal exam: Present: soft. Absent: tenderness Extremities exam: Present: normal inspection Neurological exam: Present: alert, other (Left facial droop) Expanded Neurological exam: Present: protecting the airway Cranial nerves: EOM's Intact: Normal Motor strength exam: RUE: 5, LUE: 5, RLE: 4, LLE: 4 Eye Response: (4) open spontaneously Motor Response: (6) obeys commands Verbal Response: (5) oriented Psychiatric exam: Present: normal affect, normal mood Skin exam: Present: other (Multiple ecchymosis/bruising bilateral lower legs mostly upper shins) Course Vital Signs 04/03/24 04/03/24 11:25 12:25 Temperature 98.3 F Pulse Rate 96 88 Respiratory 18 16 Rate Blood Pressure 104/66 89/79 O2 Sat by Pulse 92 L 98 Oximetry EKG Findings - EKG Results: EKG: interpreted by ERMD (Septal Q waves.), sinus rhythm, normal axis, normal ST/T Medical Decision Making - Medical Decision Making Was pt. sent in by a medical professional or institution (, PA, RECONCILER, urgent care, hospital, or skilled nursing...) When possible be specific @ -No Did you speak to anyone other than the patient for history (EMS, parent, family, police, friend...)? What history was obtained from this source @ -No Did you review nursing and triage notes (agree or disagree)? Why? @ -I reviewed and agree with nursing and triage notes Were old charts reviewed (outside hosp., previous admission, EMS record, old EKG, old radiological studies, urgent care reports/EKG's, skilled nursing records)? Report findings @ -No old charts were reviewed Differential Diagnosis (chest pain, altered mental status, abdominal pain women, abdominal pain men, vaginal bleeding, weakness, fever, dyspnea, syncope, headache, dizziness, GI bleed, back pain, seizure, CVA, palpatations, mental health, musculoskeletal)? @ -Differential Weakness: Hypoglycemia, shock, sepsis, hyponatremia, anemia, infection, [place], ETOH, adverse medicine reaction, overdose, stroke, this is not meant to be an all-inclusive l ist. EKG interpreted by me (3pts min.). @ -As above X-rays interpreted by me (1pt min.). @ -X-ray shows no acute process CT interpreted by me (1pt min.). @ -CT scan of the brain shows chronic changes U/S interpreted by me (1pt. min.). @ -None done What testing was considered but not performed or refused? (CT, X-rays, U/S, labs)? Why? @ -None What meds were considered but not given or refused? Why? @ -None Did you discuss the management of the patient with other professionals (professionals i.e. , PA, RECONCILER, lab, RT, psych nurse, geriatric social worker, improvement intern, teacher, freedom of information officer, caser shoe parts)? Give summary @ -[facility] dr andrews,who will admit covering Dr. Bo Was smoking cessation discussed for >3mins.? @ -No Was critical care preformed (if so, how long)? @ -No Were there social determinants of health that impacted care today? How? (Homelessness, low income, unemployed, alcoholism, drug addiction, transportation, low edu. Level, literacy, decrease access to med. care, retirement, rehab)? @ -No Was there de-escalation of care discussed even if they declined (Discuss DNR or withdrawal of care, Hospice)? DNR status @ -No What co-morbidities impacted this encounter? (DM, HTN, Smoking, COPD, CAD, Cancer, CVA, ARF, Chemo, Hep., AIDS, mental health diagnosis, sleep apnea, morbid obesity)? @ -None Was patient admitted / discharged? Hospital course, mention meds given and route, prescriptions, significant lab abnormalities, going to OR and other pertinent info. @ -Patient presents with increased general weakness and frequent falls. Troponin indeterminate. Patient will be admitted for further evaluation. Admission orders written. Consults placed. Undiagnosed new problem with uncertain prognosis? @ -No Drug Therapy requiring intensive monitoring for toxicity (Heparin, Nitro, Insulin, Cardizem)? @ -No Were any procedures done? @ -No Diagnosis/symptom? @ -Weakness Acute, or Chronic, or Acute on Chronic? @ -Acute Uncomplicated (without systemic symptoms) or Complicated (systemic symptoms)? @ -Default Side effects of treatment? @ -No Exacerbation, Progression, or Severe Exacerbation? @ -No Poses a threat to life or bodily function? How? (Chest pain, [place], [place], pneumonia, PE, COPD, DKA, ARF, appy, cholecystitis, CVA, Diverticulitis, Homicidal, Suicidal, threat to staff... and all critical care pts) @ -No - Lab Data Result diagrams: 04/03/24 11:36 04/03/24 11:36 Lab Results 04/03/24 04/03/24 04/03/24 Range/Units 11:36 11:36 11:36 WBC 9.7 (3.8-10.6) k/uL RBC 3.33 L (3.80-5.40) m/uL Hgb 10.1 L (11.4-16.0) gm/dL Hct 30.3 L (34.0-46.0) % MCV 91.2 (80.0-100.0) fL MCH 30.2 (25.0-35.0) pg MCHC 33.2 (31.0-37.0) g/dL RDW 16.5 H (11.5-15.5) % Plt Count 355 (150-450) k/uL MPV 7.4 Neutrophils % 82 % Lymphocytes % 11 % Monocytes % 4 % Eosinophils % 1 % Basophils % 0 % Neutrophils # 7.9 H (1.3-7.7) k/uL Lymphocytes # 1.1 (1.0-4.8) k/uL Monocytes # 0.4 (0-1.0) k/uL Eosinophils # 0.1 (0-0.7) k/uL Basophils # 0.0 (0-0.2) k/uL Anisocytosis Slight PT 9.9 L (10.0-12.5) sec INR 0.9 (<1.2) APTT 22.1 (22.0-30.0) sec Sodium 131 L (137-145) mmol/L Potassium 4.5 (3.5-5.1) mmol/L Chloride 104 (98-107) mmol/L Carbon Dioxide 23 (22-30) mmol/L Anion Gap 4 mmol/L BUN 16 (7-17) mg/dL Creatinine 1.93 H (0.52-1.04) mg/dL Est GFR (CKD-EPI)AfAm 32 (>60 ml/min/1.73 sqM) Est GFR (CKD-EPI)NonAf 28 (>60 ml/min/1.73 sqM) Glucose 66 L (74-99) mg/dL Plasma Lactic Acid Rafael (0.7-2.0) mmol/L Calcium 9.2 (8.4-10.2) mg/dL Phosphorus 3.2 (2.5-4.5) mg/dL Total Bilirubin 0.4 (0.2-1.3) mg/dL AST 33 (14-36) U/L ALT 17 (4-34) U/L Alkaline Phosphatase 98 (38-126) U/L Creatine Kinase 335 H (30-135) U/L Troponin I (0.000-0.034) ng/mL Total Protein 5.9 L (6.3-8.2) g/dL Albumin 3.3 L (3.5-5.0) g/dL 04/03/24 04/03/24 Range/Units 11:36 11:36 WBC (3.8-10.6) k/uL RBC (3.80-5.40) m/uL Hgb (11.4-16.0) gm/dL Hct (34.0-46.0) % MCV (80.0-100.0) fL MCH (25.0-35.0) pg MCHC (31.0-37.0) g/dL RDW (11.5-15.5) % Plt Count (150-450) k/uL MPV Neutrophils % % Lymphocytes % % Monocytes % % Eosinophils % % Basophils % % Neutrophils # (1.3-7.7) k/uL Lymphocytes # (1.0-4.8) k/uL Monocytes # (0-1.0) k/uL Eosinophils # (0-0.7) k/uL Basophils # (0-0.2) k/uL Anisocytosis PT (10.0-12.5) sec INR (<1.2) APTT (22.0-30.0) sec Sodium (137-145) mmol/L Potassium (3.5-5.1) mmol/L Chloride (98-107) mmol/L Carbon Dioxide (22-30) mmol/L Anion Gap mmol/L BUN (7-17) mg/dL Creatinine (0.52-1.04) mg/dL Est GFR (CKD-EPI)AfAm (>60 ml/min/1.73 sqM) Est GFR (CKD-EPI)NonAf (>60 ml/min/1.73 sqM) Glucose (74-99) mg/dL Plasma Lactic Acid Rafael 1.4 (0.7-2.0) mmol/L Calcium (8.4-10.2) mg/dL Phosphorus (2.5-4.5) mg/dL Total Bilirubin (0.2-1.3) mg/dL AST (14-36) U/L ALT (4-34) U/L Alkaline Phosphatase (38-126) U/L Creatine Kinase (30-135) U/L Troponin I 0.072 H* (0.000-0.034) ng/mL Total Protein (6.3-8.2) g/dL Albumin (3.5-5.0) g/dL Disposition Clinical Impression: Weakness Disposition: ADMITTED IP TO THIS HOSP Is patient prescribed a controlled substance at d/c from ED?: No Referrals: Paxton Armendariz DO [Primary Care Provider] - 1-2 days Time of Disposition: 14:04
[2024-04-03] MEDS: SODIUM CHLORIDE 0.9% 1,000 ML IV STA (11:41)
[2024-04-03 11:50] LABS: Anisocytosis Slight; Basophils % (A) 0 %; Eosinophils # (A) 0.1 k/uL (0-0.7); Eosinophils % (A) 1 %; HCT 30.3 % (34.0-46.0); HGB 10.1 gm/dL (11.4-16.0); Lymphocytes # (A) 1.1 k/uL (1.0-4.8); Lymphocytes % (A) 11 %; MCH 30.2 pg (25.0-35.0); MCHC 33.2 g/dL (31.0-37.0); MCV 91.2 fL (80.0-100.0); Mean Platelet Volume 7.4; Monocytes # (A) 0.4 k/uL (0-1.0); Monocytes % (A) 4 %; Neutrophils # (A) 7.9 k/uL (1.3-7.7); Neutrophils % (A) 82 %; Platelet Count 355 k/uL (150-450); RBC 3.33 m/uL (3.80-5.40); RDW 16.5 % (11.5-15.5); WBC 9.7 k/uL (3.8-10.6)
[2024-04-03 11:58] LABS: INR 0.9 (<1.2); Partial Thromboplastin Time 22.1 sec (22.0-30.0); Prothrombin Time 9.9 sec (10.0-12.5)
[2024-04-03 12:00] LABS: ALT 17 U/L (4-34); AST 33 U/L (14-36); African American GFR (CKD) 32 (>60 ml/min/1.73 sqM); Albumin 3.3 g/dL (3.5-5.0); Alkaline Phosphatase 98 U/L (38-126); Anion Gap 4 mmol/L; Blood Urea Nitrogen 16 mg/dL (7-17); Calcium 9.2 mg/dL (8.4-10.2); Carbon Dioxide 23 mmol/L (22-30); Chloride 104 mmol/L (98-107); Creatine Kinase 335 U/L (30-135); Glucose 66 mg/dL (74-99); Non-African American GFR(CKD) 28 (>60 ml/min/1.73 sqM); Phosphorus 3.2 mg/dL (2.5-4.5); Potassium 4.5 mmol/L (3.5-5.1); Sodium 131 mmol/L (137-145); Total Bilirubin 0.4 mg/dL (0.2-1.3); Total Protein 5.9 g/dL (6.3-8.2)
--- NOTE | 2024-04-03 12:23 | CT ---
EXAMINATION TYPE: CT brain wo con CT DLP: 1107.4 mGycm, Automated exposure control for dose reduction was used. DATE OF EXAM: 04/03/2024 12:11 PM COMPARISON: Prior CT Brain from 02/18/2024. CLINICAL INDICATION:Female, 58 years old with history of weakness, TECHNIQUE: Brain: Multiple axial CT images of the brain were obtained without IV contrast. . Coronal and sagitta l reformats reviewed. FINDINGS: Brain: Extra-axial spaces: No abnormal extra-axial fluid collections. Ventricular system: Mild dilatation of the right lateral ventricle related to encephalomalacia of the right frontal lobe. Cerebral parenchyma: No acute intraparenchymal hemorrhage or mass effect. Redemonstration of encepha lomalacia involving the right frontal lobe from prior vascular insult. Redemonstration of small super ior left frontal paramedian cortical infarct. The rosario-white junction is well differentiated. Scatter ed hypoattenuating areas are seen within the periventricular white matter. Cerebellum: Unremarkable. Mass effect: No evidence of midline shift. Intracranial vasculature: Atherosclerotic calcifications of the intracranial vessels. Soft tissues: Normal. Calvarium/osseous structures: No depressed skull fracture. Paranasal sinuses and mastoid air cells: Clear Visualized orbits: Orbital contents are intact. IMPRESSION: 1. No acute intracranial process. 2. Remote bilateral lobe infarcts with encephalomalacia demonstrated. 3. Nonspecific white matter changes, likely secondary to chronic small vessel ischemic disease. [facility], , 04/03/2024 12:20 PM
[2024-04-03] MEDS: SODIUM CHLORIDE 0.9% 500 ML 500 ML IV STA (12:29)
--- NOTE | 2024-04-03 13:32 | XR ---
EXAMINATION TYPE: XR chest 2V DATE OF EXAM: 04/03/2024 COMPARISON: 1124 INDICATION: Weakness TECHNIQUE: Frontal and lateral views of the chest are obtained. FINDINGS: The heart size is normal. The pulmonary vasculature is normal. Some mild infiltration along the left costophrenic angle. Lungs otherwise appear clear. IMPRESSION: 1. Mild subsegmental atelectasis left costophrenic angle [facility], , 04/03/2024 1:30 PM
[2024-04-03] MEDS ORDERED: ACETAMINOPHEN TAB 325 MG TAB PO PRN (14:05)
[2024-04-03] MEDS ORDERED: NALOXONE 0.4 MG/ML 1 ML VIAL IV PRN (14:05)
[2024-04-03] MEDS ORDERED: ALBUTEROL NEBULIZED 2.5 MG/3 ML INHALATION PRN (14:06)
[2024-04-03] MEDS ORDERED: CYCLOBENZAPRINE 10 MG TAB PO PRN (14:07)
[2024-04-03] MEDS ORDERED: ONDANSETRON 4 MG TAB PO PRN (14:07)
[2024-04-03] MEDS ORDERED: DOCUSATE 100 MG CAP PO PRN (14:07)
[2024-04-03] MEDS: SODIUM CHLORIDE 0.9% 1,000 ML IV SCH (14:30)
[2024-04-03] MEDS: IPRATROPIUM 0.5 MG/2.5 ML NEBU INHALATION SCH (15:37)
--- NOTE | 2024-04-03 15:46 | P.CRDCN ---
History of Present Illness History of present illness: HISTORY OF PRESENT ILLNESS: This is a 58-year-old female with a past medical history significant for COPD, CVA, loop recorder insertion, osteoarthritis, anxiety, and nicotine dependence. Patient follows in the office with Dr. Cordero. We have been asked to see the patient in consultation for elevated troponins. Patient examined at the bedside in the emergency room. Patient states last night when she was trying to walk around her house her legs felt very weak and were buckling on her. She reports feeling mildly lightheaded at that time. She denied having any syncope. She denies any episodes of chest pain or shortness of breath. Due to her weakness in her lower extremities she decided to come to the emergency room. The patient was found to have acute kidney injury with a creatinine of 1.93 and creatinine kinase of 335. The patient states she has been eating and drinking well at home. The patient was also found to have mildly elevated troponin of 0.072. At the time of examination patient denies having any chest pain or pressure. She denies any previous history of CAD. She reports having a cardiac catheterization performed 8 to 10 years ago at [facility] which was normal to her knowledge. She denies having any recent stress testing. The patient does report that she continues to smoke cigarettes once in a while when she feels her anxiety is high. DIAGNOSTICS: - EKG reveals sinus mechanism Q waves inferiorly and anteriorly. low voltage QRS. - Chest xray mild subsegmental atelectasis left costophrenic angle - Laboratory data: WBC 9.7. Hemoglobin 10.1. Platelet count 355. Sodium 131. Potassium 4.5. BUN 16. Creatinine 1.93. Lactic acid 1.4. Creatinine kinase 335. Troponin 0.072. - Current home cardiac medications include aspirin 81 mg daily and Lipitor 40 mg at night - Most recent echocardiogram obtained in October 2023 revealed ejection fraction 60 to 65%, mild to moderate MR, moderate TR REVIEW OF SYSTEMS: At the time of my exam: CONSTITUTIONAL: Denies fever or chills. HEENT: Denies blurred vision, vision changes, or eye pain. Denies hemoptysis CARDIOVASCULAR: Denies chest pain. Denies orthopnea. Denies PND. Denies palpitations RESPIRATORY: Denies shortness of breath. GASTROINTESTINAL: Denies abdominal pain. Denies nausea or vomiting. HEMATOLOGIC: Denies bleeding disorders. GENITOURINARY: Denies any blood in urine. SKIN: Denies pruitis. Denies rash. PHYSICAL EXAM: VITAL SIGNS: Reviewed. GENERAL: Well-developed in no acute distress. HEENT: Head is normocephalic. Pupils are equal, round. Sclerae anicteric. Mucous membranes of the mouth are moist. Neck supple. No JVD or thyromegaly LUNGS: Respirations even and unlabored. Lungs essentially clear to auscultation bilaterally. HEART: Regular rate and rhythm. S1 and S2 heard. ABDOMEN: Soft. Nondistended. Nontender. EXTREMITIES: Normal range of motion. No clubbing or cyanosis. Peripheral pulses intact. No lower extremity edema NEUROLOGIC: Awake and alert. Oriented x 3. ASSESSMENT: Generalized weakness Acute kidney injury Elevated troponin x 1, may be secondary to poor renal clearance, however cannot rule out underlying CAD History of right hemispheric stroke History of TIA History of loop recorder insertion COPD Osteoarthritis Anxiety Nicotine dependence PLAN: Obtain 2D echo to assess cardiac structure and function Trend troponins. If rising troponins, initiate IV heparin Continue aspirin and statin Continue to monitor kidney function No plans for cardiac catheterization at this time due to PRESTON. Will consider stress testing pending echo results and troponin trend. Smoking cessation recommended Further recommendations pending patient course Nurse practitioner note has been reviewed by physician. Signing provider agrees with the documented findings, assessment, and plan of care documented by [employer] as a scribe. 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,had left facial [id number] w/ Dr Janelle Oneill,occ migraines, sinus congestion from allergies, hx pleurisy, bleeding ulcer Mar 2019, hx anemia, fatty liver disease, hiatal hernia, IBS/constipation,fatty liver History of Any Multi-Drug Resistant Organisms: None Reported Past Surgical History: Heart Catheterization Additional Past Surgical History / Comment(s): kidney biopsy, laparoscopy Past Anesthesia/Blood Transfusion Reactions: Previous Problems w/ Anesthesia, Family History of Problems w/ Anesthesia, Motion Sickness Additional Past Anesthesia/Blood Transfusion Reaction / Comment(s): had blood transfusion 03/2019-no problems, "takes a while to come out", 'sister had hard time coming out of it" Past Psychological History: Anxiety Smoking Status: Current every day smoker Past Alcohol Use History: Daily Past Drug Use History: None Reported - Past Family History Father Family Medical History: No Reported History Mother Family Medical History: Liver Disease Additional Family Medical History / Comment(s): fatty liver disease Medications and Allergies Home Medications Medication Instructions Recorded Confirmed Type Amitriptyline HCl [Elavil] 50 mg PO HS 04/11/22 04/03/24 History Cyclobenzaprine [Flexeril] 10 mg PO BID PRN 04/11/22 04/03/24 History Ergocalciferol [Vitamin D2 (1250 1,250 mcg PO NAVAS 04/11/22 04/03/24 History Mcg = 51516 Iu)] Omeprazole 40 mg PO DAILY 04/11/22 04/03/24 History Aspirin EC [Ecotrin Low Dose] 81 mg PO DAILY 04/15/22 04/03/24 History Albuterol Inhaler [Ventolin Hfa 1 - 2 puff INHALATION RT-Q6H PRN 09/08/23 04/03/24 History Inhaler] Atorvastatin [Lipitor] 40 mg PO HS 09/08/23 04/03/24 History Dicyclomine HCl 20 mg PO BID 09/08/23 04/03/24 History Tiotropium Br/Olodaterol HCl 2 puff INHALATION RT-DAILY 09/08/23 04/03/24 History [Stiolto Respimat Inhal [place]] LORazepam 2 mg PO BID PRN 01/19/24 04/03/24 History Docusate [Colace] 100 mg PO BID PRN 04/03/24 04/03/24 History HYDROcodone/APAP 7.5-325MG [[place] 1 tab PO TID PRN 04/03/24 04/03/24 History 7.5-325] Montelukast [Singulair] 10 mg PO HS 04/03/24 04/03/24 History Ondansetron [Zofran] 4 mg PO TID PRN 04/03/24 04/03/24 History Sulfamethox-Tmp 800-160Mg [Bactrim 1 tab PO Q12HR 04/03/24 04/03/24 History DS 800-160 mg] Allergies Allergy/AdvReac Type Severity Reaction Status Date / Time azithromycin AdvReac Nausea & Verified 04/03/24 11:59 [From Zithromax Z-Francisco] Vomiting & Diarrhea codeine AdvReac Nausea & Verified 04/03/24 11:59 Vomiting Physical Exam Vitals: Vital Signs Temp Pulse Resp BP Pulse Ox 04/03/24 12:25 88 16 89/79 98 04/03/24 11:25 98.3 F 96 18 104/66 92 L Intake and Output 04/02/24 04/03/24 04/03/24 22:59 06:59 14:59 Other: Weight 62.686 kg Results 04/03/24 11:36 04/03/24 11:36 Cardiac Enzymes 04/03/24 04/03/24 Range/Units 11:36 11:36 AST 33 (14-36) U/L Troponin I 0.072 H* (0.000-0.034) ng/mL Coagulation 04/03/24 Range/Units 11:36 PT 9.9 L (10.0-12.5) sec APTT 22.1 (22.0-30.0) sec CBC 04/03/24 Range/Units 11:36 WBC 9.7 (3.8-10.6) k/uL RBC 3.33 L (3.80-5.40) m/uL Hgb 10.1 L (11.4-16.0) gm/dL Hct 30.3 L (34.0-46.0) % Plt Count 355 (150-450) k/uL Comprehensive Metabolic Panel 04/03/24 Range/Units 11:36 Sodium 131 L (137-145) mmol/L Potassium 4.5 (3.5-5.1) mmol/L Chloride 104 (98-107) mmol/L Carbon Dioxide 23 (22-30) mmol/L BUN 16 (7-17) mg/dL Creatinine 1.93 H (0.52-1.04) mg/dL Glucose 66 L (74-99) mg/dL Calcium 9.2 (8.4-10.2) mg/dL AST 33 (14-36) U/L ALT 17 (4-34) U/L Alkaline Phosphatase 98 (38-126) U/L Total Protein 5.9 L (6.3-8.2) g/dL Albumin 3.3 L (3.5-5.0) g/dL Current Medications Generic Name Dose Route Start Last Admin Trade Name Freq PRN Reason Stop Dose Admin Acetaminophen 650 mg 04/03/24 14:05 Acetaminophen Tab 325 Mg Tab PO Q6HR PRN Mild Pain or Fever > 100.5 Hydrocodone Bitart/Acetaminophen 1 each 04/03/24 14:07 Hydrocodone/Apap 7.5-325mg 1 Each Tab PO TID PRN Pain Albuterol Sulfate 2.5 mg 04/03/24 14:06 Albuterol Nebulized 2.5 Mg/3 Ml INHALATION RT-Q6H PRN Shortness Of Breath Amitriptyline HCl 50 mg 04/03/24 21:00 Amitriptyline Hcl 50 Mg Tab PO HS GOLDIE Aspirin 81 mg 04/04/24 09:00 Aspirin 81 Mg PO DAILY GOLDIE Atorvastatin Calcium 40 mg 04/03/24 21:00 Atorvastatin 40 Mg Tab PO HS GOLDIE Cyclobenzaprine HCl 10 mg 04/03/24 14:07 Cyclobenzaprine 10 Mg Tab PO BID PRN Muscle Spasm Dicyclomine HCl 20 mg 04/03/24 21:00 Dicyclomine 20 Mg Tab PO BID GOLDIE Docusate Sodium 100 mg 04/03/24 14:07 Docusate 100 Mg Cap PO BID PRN Constipation Ergocalciferol 1,250 mcg 04/07/24 09:00 Ergocalciferol 1,250 Mcg (50,000 Iu) Capsule PO NAVAS GOLDIE Formoterol Fumarate 20 mcg 04/04/24 08:00 Formoterol Fumarate 20 Mcg/2 Ml Nebu INHALATION RT-BID GOLDIE Sodium Chloride 1,000 mls @ 130 mls/hr 04/03/24 11:34 04/03/24 11:41 Saline 0.9% IV 04/03/24 19:15 130 mls/hr .[id number] STA Administration Sodium Chloride 1,000 mls @ 75 mls/hr 04/03/24 14:15 04/03/24 14:30 Saline 0.9% IV 75 mls/hr .[id number] GOLDIE Administration Ipratropium [place] 0.5 mg 04/03/24 16:00 Ipratropium 0.5 Mg/2.5 Ml Nebu INHALATION RT-QID GOLDIE Lorazepam 1 mg 04/03/24 14:07 Lorazepam 1 Mg Tab PO BID PRN Anxiety Montelukast Sodium 10 mg 04/03/24 21:00 Montelukast 10 Mg Tab PO HS GOLDIE Naloxone HCl 0.2 mg 04/03/24 14:05 Naloxone 0.4 Mg/Ml 1 Ml Vial IV Q2M PRN Opioid Reversal Ondansetron HCl 4 mg 04/03/24 14:07 Ondansetron 4 Mg Tab PO TID PRN Nausea And Vomiting Pantoprazole Sodium 40 mg 04/04/24 07:30 Pantoprazole 40 Mg Tablet PO [id number]-BRKFST ON LICENSE OF [facility] Intake and Output 04/02/24 04/03/24 04/03/24 22:59 06:59 14:59 Other: Weight 62.686 kg Patient Weight 04/04/24 06:59 Weight 62.686 kg 04/03/24 11:36 04/03/24 11:36
[2024-04-03 19:33] LABS: Appearance,Urine Cloudy (Clear); Bacteria,Urine Many /hpf; Bilirubin,Urine Negative (Negative); Blood,Urine Negative (Negative); Color,Urine Light Yellow; Glucose,Urine (UA) Negative (Negative); Ketones,Urine Negative (Negative); Leukocyte Esterase,Urine Large (Negative); Mucus,Urine Rare /hpf; Nitrite,Urine Positive (Negative); Protein,Urine Trace (Negative); RBC,Urine 1 /hpf (0-5); Specific Gravity,Urine 1.014 (1.001-1.035); Squamous Epithelial Cell,Urine 2 /hpf (0-4); Urobilinogen,Urine <2.0 mg/dL (<2.0); WBC,Urine 69 /hpf (0-5)
[2024-04-03] MEDS: DICYCLOMINE 20 MG TAB PO SCH (20:19)
[2024-04-03] MEDS: AMITRIPTYLINE HCL 50 MG TAB PO SCH (20:20)
[2024-04-03] MEDS: ATORVASTATIN 40 MG TAB PO SCH (20:20)
[2024-04-03] MEDS: MONTELUKAST 10 MG TAB PO SCH (20:20)
[2024-04-03] MEDS: GABAPENTIN 300 MG CAP PO SCH (20:20)
[2024-04-03] MEDS: HYDROcodone/APAP 7.5-325MG 1 EACH TAB PO PRN (20:21)
[2024-04-03] MEDS: LORazepam 1 MG TAB PO PRN (20:21)
[2024-04-03] MEDS: HEPARIN SODIUM,PORCINE 5,000 UNIT/ML 1 ML VIAL SQ SCH (20:22)
[2024-04-04 00:50] LABS: Glucose,Whole Blood 131 mg/dL (70-110)
[2024-04-04] MEDS: ASPIRIN 81 MG PO SCH (08:07)
[2024-04-04] MEDS: PANTOPRAZOLE 40 MG TABLET PO SCH (08:07)
[2024-04-04 08:40] LABS: Anisocytosis Slight; Basophils % (A) 0 %; Eosinophils # (A) 0.2 k/uL (0-0.7); Eosinophils % (A) 3 %; HCT 34.1 % (34.0-46.0); HGB 10.8 gm/dL (11.4-16.0); Lymphocytes % (A) 17 %; MCH 29.6 pg (25.0-35.0); MCHC 31.6 g/dL (31.0-37.0); MCV 93.6 fL (80.0-100.0); Mean Platelet Volume 7.4; Monocytes # (A) 0.2 k/uL (0-1.0); Monocytes % (A) 4 %; Neutrophils # (A) 4.4 k/uL (1.3-7.7); Neutrophils % (A) 73 %; Platelet Count 346 k/uL (150-450); RBC 3.64 m/uL (3.80-5.40); RDW 16.1 % (11.5-15.5)
[2024-04-04 08:54] LABS: ALT 18 U/L (4-34); AST 41 U/L (14-36); African American GFR (CKD) 47 (>60 ml/min/1.73 sqM); Albumin 3.1 g/dL (3.5-5.0); Alkaline Phosphatase 102 U/L (38-126); Anion Gap 3 mmol/L; Blood Urea Nitrogen 12 mg/dL (7-17); Calcium 8.8 mg/dL (8.4-10.2); Carbon Dioxide 21 mmol/L (22-30); Chloride 111 mmol/L (98-107); Glucose 75 mg/dL (74-99); Non-African American GFR(CKD) 41 (>60 ml/min/1.73 sqM); Potassium 4.2 mmol/L (3.5-5.1); Sodium 135 mmol/L (137-145); Total Bilirubin 0.4 mg/dL (0.2-1.3); Total Protein 5.7 g/dL (6.3-8.2)
[2024-04-04] MEDS: FORMOTEROL FUMARATE 20 MCG/2 ML NEBU INHALATION SCH (09:06)
[2024-04-04] MEDS ORDERED: CYCLOBENZAPRINE 5 MG TAB PO PRN (11:28)
--- NOTE | 2024-04-04 13:10 | P.PN ---
Subjective Progress Note Date: 04/04/24 HISTORY OF PRESENT ILLNESS: This is a 58-year-old female with a past medical history significant for COPD, CVA, loop recorder insertion, osteoarthritis, anxiety, and nicotine dependence. Patient follows in the office with Dr. Cordero. We have been asked to see the patient in consultation for elevated troponins. Patient examined at the bedside in the emergency room. Patient states last night when she was trying to walk around her house her legs felt very weak and were buckling on her. She reports feeling mildly lightheaded at that time. She denied having any syncope. She denies any episodes of chest pain or shortness of breath. Due to her weakness in her lower extremities she decided to come to the emergency room. The patient was found to have acute kidney injury with a creatinine of 1.93 and creatinine kinase of 335. The patient states she has been eating and drinking well at home. The patient was also found to have mildly elevated troponin of 0.072. At the time of examination patient denies having any chest pain or pressure. She denies any previous history of CAD. She reports having a cardiac catheterization performed 8 to 10 years ago at [facility] which was normal to her knowledge. She denies having any recent stress testing. The patient does report that she continues to smoke cigarettes once in a while when she feels her anxiety is high. DIAGNOSTICS: - EKG reveals sinus mechanism Q waves inferiorly and anteriorly. low voltage QRS. Patients EKG changes are new compared to EKG performed in the office in July 2023 - Chest xray mild subsegmental atelectasis left costophrenic angle - Laboratory data: WBC 9.7. Hemoglobin 10.1. Platelet count 355. Sodium 131. Potassium 4.5. BUN 16. Creatinine 1.93. Lactic acid 1.4. Creatinine kinase 335. Troponin 0.072. - Current home cardiac medications include aspirin 81 mg daily and Lipitor 40 mg at night - Most recent echocardiogram obtained in October 2023 revealed ejection fraction 60 to 65%, mild to moderate MR, moderate TR 04/04 Patient seen today in follow-up and remains in the emergency center waiting for a bed on the cardiac stepdown unit. Repeat troponins were 0.082 and 0.083. Echocardiogram is pending. Blood pressure 99/65, heart rate 82, pulse ox 98% on room air. Patient denies having any chest pain no shortness of breath, no dizziness and no palpitations. She states she slept okay during the night. She states her only concern is that when she walks her knees buckle. Repeat blood work reveals improvement of her kidney function with BUN 12 and creatinine 1.4, sodium 135 and potassium 4.2, CO2 21. PHYSICAL EXAM: VITAL SIGNS: Reviewed. GENERAL: Well-developed in no acute distress. HEENT: Head is normocephalic. Pupils are equal, round. Sclerae anicteric. Mucous membranes of the mouth are moist. Neck supple. No JVD or thyromegaly LUNGS: Respirations even and unlabored. Lungs essentially clear to auscultation bilaterally. HEART: Regular rate and rhythm. S1 and S2 heard. ABDOMEN: Soft. Nondistended. Nontender. EXTREMITIES: Normal range of motion. No clubbing or cyanosis. Peripheral pulses intact. No lower extremity edema NEUROLOGIC: Awake and alert. Oriented x 3. ASSESSMENT: Generalized weakness Acute kidney injury, improved [place] troponins not indicative of acute coronary syndrome History of right hemispheric stroke History of TIA History of loop recorder insertion COPD Osteoarthritis Anxiety Nicotine dependence PLAN: Obtain 2D echo to assess cardiac structure and function Continue aspirin and statin Continue to monitor kidney function No plans for cardiac catheterization at this time due to PREST[place]. Will consider stress testing pending echo results. Smoking cessation recommended. Patient will be provided the [place] quit line information at discharge Further recommendations pending patient course Nurse practitioner note has been reviewed by physician. Signing provider agrees with the documented findings, assessment, and plan of care documented by [employer] as a scribe. Objective - Vital Signs Vital signs: Vital Signs Temp 98.3 F 04/03/24 11:25 Pulse 82 04/04/24 06:12 Resp 16 04/04/24 06:12 BP 99/65 04/04/24 06:12 Pulse Ox 98 04/04/24 06:12 FiO2 Intake & Output 04/03/24 04/04/24 04/04/24 18:59 06:59 18:59 Weight 62.686 kg - Labs CBC & Chem 7: 04/04/24 08:08 04/04/24 08:08 Labs: Abnormal Lab Results - Last 24 Hours (Table) 04/03/24 04/03/24 04/03/24 Range/Units 11:36 11:36 11:36 RBC 3.33 L (3.80-5.40) m/uL Hgb 10.1 L (11.4-16.0) gm/dL Hct 30.3 L (34.0-46.0) % RDW 16.5 H (11.5-15.5) % Neutrophils # 7.9 H (1.3-7.7) k/uL PT 9.9 L (10.0-12.5) sec Sodium 131 L (137-145) mmol/L Creatinine 1.93 H (0.52-1.04) mg/dL Glucose 66 L (74-99) mg/dL POC Glucose (mg/dL) (70-110) mg/dL Creatine Kinase 335 H (30-135) U/L Troponin I (0.000-0.034) ng/mL Total Protein 5.9 L (6.3-8.2) g/dL Albumin 3.3 L (3.5-5.0) g/dL Urine Appearance (Clear) Urine Protein (Negative) Urine Nitrite (Negative) Ur Leukocyte Esterase (Negative) Urine WBC (0-5) /hpf Urine Bacteria (None) /hpf Urine Mucus (None) /hpf 04/03/24 04/03/24 04/03/24 Range/Units 11:36 14:28 17:41 RBC (3.80-5.40) m/uL Hgb (11.4-16.0) gm/dL Hct (34.0-46.0) % RDW (11.5-15.5) % Neutrophils # (1.3-7.7) k/uL PT (10.0-12.5) sec Sodium (137-145) mmol/L Creatinine (0.52-1.04) mg/dL Glucose (74-99) mg/dL POC Glucose (mg/dL) (70-110) mg/dL Creatine Kinase (30-135) U/L Troponin I 0.072 H* 0.082 H* 0.083 H* (0.000-0.034) ng/mL Total Protein (6.3-8.2) g/dL Albumin (3.5-5.0) g/dL Urine Appearance (Clear) Urine Protein (Negative) Urine Nitrite (Negative) Ur Leukocyte Esterase (Negative) Urine WBC (0-5) /hpf Urine Bacteria (None) /hpf Urine Mucus (None) /hpf 04/03/24 04/04/24 Range/Units 18:30 00:48 RBC (3.80-5.40) m/uL Hgb (11.4-16.0) gm/dL Hct (34.0-46.0) % RDW (11.5-15.5) % Neutrophils # (1.3-7.7) k/uL PT (10.0-12.5) sec Sodium (137-145) mmol/L Creatinine (0.52-1.04) mg/dL Glucose (74-99) mg/dL POC Glucose (mg/dL) 131 H (70-110) mg/dL Creatine Kinase (30-135) U/L Troponin I (0.000-0.034) ng/mL Total Protein (6.3-8.2) g/dL Albumin (3.5-5.0) g/dL Urine Appearance Cloudy H (Clear) Urine Protein Trace H (Negative) Urine Nitrite Positive H (Negative) Ur Leukocyte Esterase Large H (Negative) Urine WBC 69 H (0-5) /hpf Urine Bacteria Many H (None) /hpf Urine Mucus Rare H (None) /hpf
--- NOTE | 2024-04-04 14:06 | P.HPIM ---
History of Present Illness H&P Date: 04/04/24 Patient is a 58-year-old female with past medical history of COPD, CVA, loop recorder insertion, osteoarthritis, anxiety, and nicotine dependence. She states that Monday evening she was walking around her house and felt like her legs were very weak and buckling under her. She reports that she fell a few times but denied hitting her head. She was able to get up with help of her father and ambulate after the last fall. She went to bed Monday night and then on Monday she decided to come to the emergency department for continued weakness. She denies chest pain, dyspnea, syncope, lightheadedness at the time. She states that she has been eating and drinking well. She notes that she sta rted Bactrim for her symptomatic UTI last Monday and it was prescribed for 10 daysshe is currently asymptomatic. She was found to have an acute kidney injury with a creatinine of 1.93 and a creatinine kinase of 335. She was also found to have a troponin of 0.072 and cardiology was consulted. At this time she denies chest pain, palpitations, dyspnea, lightheadedness, dysuria. Brain CT: No acute intracranial process, remote bilateral infarcts with encephalomalacia demonstrated. EKG showed normal sinus rhythm with low QRS voltage in the precordial leads with anteroseptal myocardial infarction-possibly old. Chest x-ray: Mild subsegmental atelectasis left costophrenic angle. WBCs 9.7, hemoglobin 10.1, hematocrit 30.3, sodium 131, potassium 4.5, creatinine 1.93, glucose 66, creatinine kinase 335. Urinalysis negative. Troponin x 3: 0.072, 0.082, 0.083. Heparin started per cardiology. Afebrile, hypotensive with systolic into the 90s/low 100s, saturating well on room air. ED documentation reviewed. Review of systems: Pertinent positives and negatives as discussed in HPI, a complete review of systems was performed and all other systems are negative. Family history: Mother-liver disease Social history: Tobacco: Current everyday Alcohol: Daily Recreational drugs: Denies Physical examination: Vital signs are reviewed. General: No acute distress. AOx4. HEENT: Head exam is unremarkable. EOMI bilaterally. ACs patent. Nares patent. Lungs: Bilateral breath sounds present; no rhonchi, wheezes, or rales. Heart: Rate and rhythm are regular. S1-S2 present. No murmur/rub/gallops. Abdomen: Soft, nontender, nondistended. Bowel sounds present. Extremities: No edema present. Symmetric movement. Psych: Normal affect and mood. Cooperative. Assessment/Plan: Elevated troponin, likely due to chronic kidney disease Cardiology consultedno cardiac catheterization at this time due to PRESTON; pending echo Neurology consulted-pending EEG Acute kidney injury Avoid nephrotoxins Decrease Flexeril to 5 mg twice daily as needed Decrease gabapentin to 100 mg 3 times daily Monitor BMP Lower extremity weakness Consult PT/OT UTI prior to admission No dysuria at this time No antibiotics at this time DVT prophylaxis: Heparin Chronic conditions: COPD, history of CVA March and April 2023 with residual effects, history of cardiac catheterization, chronic kidney disease stage IIIa, IBS, anemia, fatty liver disease, history of bleeding duodenal ulcer, osteoarthritis, GERD, anxiety, bilateral foot neuropathy The patient is admitted with an anticipated more than 2 midnight stay for evaluation of weakness CODE STATUS: [] Discussed with: Patient Anticipated discharge place: Home 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,had left facial pdkygxpm-[id number]-blxwirici w/ Dr Janelle Oneill,occ migraines, sinus congestion from allergies, hx pleurisy, bleeding ulcer Mar 2019, hx anemia, fatty liver disease, hiatal hernia, IBS/constipati on,fatty liver History of Any Multi-Drug Resistant Organisms: None Reported Past Surgical History: Heart Catheterization Additional Past Surgical History / Comment(s): kidney biopsy, laparoscopy Past Anesthesia/Blood Transfusion Reactions: Previous Problems w/ Anesthesia, Family History of Problems w/ Anesthesia, Motion Sickness Additional Past Anesthesia/Blood Transfusion Reaction / Comment(s): had blood transfusion 03/2019-no problems, "takes a while to come out", 'sister had hard time coming out of it" Past Psychological History: Anxiety Smoking Status: Current every day smoker Past Alcohol Use History: Daily Past Drug Use History: None Reported - Past Family History Father Family Medical History: No Reported History Mother Family Medical History: Liver Disease Additional Family Medical History / Comment(s): fatty liver disease Medications and Allergies Home Medications Medication Instructions Recorded Confirmed Type Amitriptyline HCl [Elavil] 50 mg PO HS 04/11/22 04/03/24 History Cyclobenzaprine [Flexeril] 10 mg PO BID PRN 04/11/22 04/03/24 History Ergocalciferol [Vitamin D2 (1250 1,250 mcg PO NAVAS 04/11/22 04/03/24 History Mcg = 18225 Iu)] Omeprazole 40 mg PO DAILY 04/11/22 04/03/24 History Aspirin EC [Ecotrin Low Dose] 81 mg PO DAILY 04/15/22 04/03/24 History Albuterol Inhaler [Ventolin Hfa 1 - 2 puff INHALATION RT-Q6H PRN 09/08/23 04/03/24 History Inhaler] Atorvastatin [Lipitor] 40 mg PO HS 09/08/23 04/03/24 History Dicyclomine HCl 20 mg PO BID 09/08/23 04/03/24 History Tiotropium Br/Olodaterol HCl 2 puff INHALATION RT-DAILY 09/08/23 04/03/24 History [Stiolto Respimat Inhal [place]] LORazepam 2 mg PO BID PRN 01/19/24 04/03/24 History Docusate [Colace] 100 mg PO BID PRN 04/03/24 04/03/24 History HYDROcodone/APAP 7.5-325MG [[place] 1 tab PO TID PRN 04/03/24 04/03/24 History 7.5-325] Montelukast [Singulair] 10 mg PO HS 04/03/24 04/03/24 History Ondansetron [Zofran] 4 mg PO TID PRN 04/03/24 04/03/24 History Sulfamethox-Tmp 800-160Mg [Bactrim 1 tab PO Q12HR 04/03/24 04/03/24 History DS 800-160 mg] Allergies Allergy/AdvReac Type Severity Reaction Status Date / Time azithromycin AdvReac Nausea & Verified 04/03/24 11:59 [From Zithromax Z-Francisco] Vomiting & Diarrhea codeine AdvReac Nausea & Verified 04/03/24 11:59 Vomiting Physical Exam Vitals: Vital Signs Temp Pulse Resp BP Pulse Ox 04/04/24 06:12 82 16 99/65 98 04/04/24 02:45 81 20 112/96 98 04/03/24 23:17 91 19 93/65 98 04/03/24 19:56 79 20 107/66 99 04/03/24 19:54 73 18 04/03/24 19:48 74 18 04/03/24 12:25 88 16 89/79 98 04/03/24 11:25 98.3 F 96 18 104/66 92 L Results CBC & Chem 7: 04/04/24 08:08 04/04/24 08:08 Labs: Abnormal Lab Results - Last 24 Hours (Table) 04/03/24 04/03/24 04/03/24 Range/Units 11:36 11:36 11:36 RBC 3.33 L (3.80-5.40) m/uL Hgb 10.1 L (11.4-16.0) gm/dL Hct 30.3 L (34.0-46.0) % RDW 16.5 H (11.5-15.5) % Neutrophils # 7.9 H (1.3-7.7) k/uL PT 9.9 L (10.0-12.5) sec Sodium 131 L (137-145) mmol/L Creatinine 1.93 H (0.52-1.04) mg/dL Glucose 66 L (74-99) mg/dL POC Glucose (mg/dL) (70-110) mg/dL Creatine Kinase 335 H (30-135) U/L Troponin I (0.000-0.034) ng/mL Total Protein 5.9 L (6.3-8.2) g/dL Albumin 3.3 L (3.5-5.0) g/dL Urine Appearance (Clear) Urine Protein (Negative) Urine Nitrite (Negative) Ur Leukocyte Esterase (Negative) Urine WBC (0-5) /hpf Urine Bacteria (None) /hpf Urine Mucus (None) /hpf 04/03/24 04/03/24 04/03/24 Range/Units 11:36 14:28 17:41 RBC (3.80-5.40) m/uL Hgb (11.4-16.0) gm/dL Hct (34.0-46.0) % RDW (11.5-15.5) % Neutrophils # (1.3-7.7) k/uL PT (10.0-12.5) sec Sodium (137-145) mmol/L Creatinine (0.52-1.04) mg/dL Glucose (74-99) mg/dL POC Glucose (mg/dL) (70-110) mg/dL Creatine Kinase (30-135) U/L Troponin I 0.072 H* 0.082 H* 0.083 H* (0.000-0.034) ng/mL Total Protein (6.3-8.2) g/dL Albumin (3.5-5.0) g/dL Urine Appearance (Clear) Urine Protein (Negative) Urine Nitrite (Negative) Ur Leukocyte Esterase (Negative) Urine WBC (0-5) /hpf Urine Bacteria (None) /hpf Urine Mucus (None) /hpf 04/03/24 04/04/24 Range/Units 18:30 00:48 RBC (3.80-5.40) m/uL Hgb (11.4-16.0) gm/dL Hct (34.0-46.0) % RDW (11.5-15.5) % Neutrophils # (1.3-7.7) k/uL PT (10.0-12.5) sec Sodium (137-145) mmol/L Creatinine (0.52-1.04) mg/dL Glucose (74-99) mg/dL POC Glucose (mg/dL) 131 H (70-110) mg/dL Creatine Kinase (30-135) U/L Troponin I (0.000-0.034) ng/mL Total Protein (6.3-8.2) g/dL Albumin (3.5-5.0) g/dL Urine Appearance Cloudy H (Clear) Urine Protein Trace H (Negative) Urine Nitrite Positive H (Negative) Ur Leukocyte Esterase Large H (Negative) Urine WBC 69 H (0-5) /hpf Urine Bacteria Many H (None) /hpf Urine Mucus Rare H (None) /hpf
--- NOTE | 2024-04-04 14:22 | P.CNNES ---
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 Patient stated that it has been a while since she had the falls but yesterday she has been having further falls and she felt her legs were buckling up. She denies any loss of consciousness. Denies any tongue bite urinary incontinence or bowel incontinence. She denies any worsening weakness from baseline from her old stroke. Denies any speech difficulty. She stated that she is on aspirin 81 mg daily. She does have chronic lower back pain but denies any radicular symptoms. Denies any history of seizure. States she follows up with Dr. Casas her neurologist as an outpatient. Patient was seen by our neurology team last on 11/07/2023 for her recurrent falls. And it was unknown etiology but one of the etiology is hypotensive as well as urine drug screen was positive for opiates benzo TCA and marijuana was cause confusion. Please refer to our notes for further details. Some of the workup during this hospital visit consisted of: Sodium is 131, calcium 9.2, CK level is 335 Troponins 0.072 and got as high as 0.083 Plasma lactic acid venous 1.4 Urine analysis seems suspicious for possible underlying urinary tract infection with leukocyte esterase is large, urine white blood cells 69 nitrate is po sitive. CT of the head is reported as no acute intracranial process. Remote bilateral lobe infarct with encephalomalacia demonstrated. I personally reviewed the CT and agree there is no acute or subacute ischemia. Patient has encephalomalacia over the right MCA territory. Review of Systems As per HPI. 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,had left facial [id number] w/ Dr Janelle Oneill,occ migraines, sinus congestion from allergies, hx pleurisy, bleeding ulcer Mar 2019, hx anemia, fatty liver disease, hiatal hernia, IBS/co nstipation,fatty liver History of Any Multi-Drug Resistant Organisms: None Reported Past Surgical History: Heart Catheterization Additional Past Surgical History / Comment(s): kidney biopsy, laparoscopy Past Anesthesia/Blood Transfusion Reactions: Previous Problems w/ Anesthesia, Family History of Problems w/ Anesthesia, Motion Sickness Additional Past Anesthesia/Blood Transfusion Reaction / Comment(s): had blood transfusion 03/2019-no problems, "takes a while to come out", 'sister had hard time coming out of it" Past Psychological History: Anxiety Smoking Status: Current every day smoker Past Alcohol Use History: Daily Past Drug Use History: None Reported - Past Family History Father Family Medical History: No Reported History Mother Family Medical History: Liver Disease Additional Family Medical History / Comment(s): fatty liver disease Medications and Allergies Home Medications Medication Instructions Recorded Confirmed Type Amitriptyline HCl [Elavil] 50 mg PO HS 04/11/22 04/03/24 History Cyclobenzaprine [Flexeril] 10 mg PO BID PRN 04/11/22 04/03/24 History Ergocalciferol [Vitamin D2 (1250 1,250 mcg PO NAVAS 04/11/22 04/03/24 History Mcg = 63489 Iu)] Omeprazole 40 mg PO DAILY 04/11/22 04/03/24 History Aspirin EC [Ecotrin Low Dose] 81 mg PO DAILY 04/15/22 04/03/24 History Albuterol Inhaler [Ventolin Hfa 1 - 2 puff INHALATION RT-Q6H PRN 09/08/23 04/03/24 History Inhaler] Atorvastatin [Lipitor] 40 mg PO HS 09/08/23 04/03/24 History Dicyclomine HCl 20 mg PO BID 09/08/23 04/03/24 History Tiotropium Br/Olodaterol HCl 2 puff INHALATION RT-DAILY 09/08/23 04/03/24 Histo ry [Stiolto Respimat Inhal [place]] LORazepam 2 mg PO BID PRN 01/19/24 04/03/24 History Docusate [Colace] 100 mg PO BID PRN 04/03/24 04/03/24 History HYDROcodone/APAP 7.5-325MG [[place] 1 tab PO TID PRN 04/03/24 04/03/24 History 7.5-325] Montelukast [Singulair] 10 mg PO HS 04/03/24 04/03/24 History Ondansetron [Zofran] 4 mg PO TID PRN 04/03/24 04/03/24 History Sulfamethox-Tmp 800-160Mg [Bactrim 1 tab PO Q12HR 04/03/24 04/03/24 History DS 800-160 mg] Allergies Allergy/AdvReac Type Severity Reaction Status Date / Time azithromycin AdvReac Nausea & Verified 04/03/24 11:59 [From Zithromax Z-Franc[place]] Vomiting & Diarrhea codeine AdvReac Nausea & Verified 04/03/24 11:59 Vomiting Physical Examination - Vital Signs Vital Signs: Vital Signs Pulse Resp BP Pulse Ox 04/04/24 13:57 75 20 145/68 98 04/04/24 13:09 75 04/04/24 13:00 74 04/04/24 11:00 65 16 130/65 95 04/04/24 10:00 85 20 118/68 96 04/04/24 09:31 75 04/04/24 09:09 72 04/04/24 08:00 84 16 140/60 98 04/04/24 06:12 82 16 99/65 98 04/04/24 02:45 81 20 112/96 98 04/03/24 23:17 91 19 93/65 98 04/03/24 19:56 79 20 107/66 99 04/03/24 19:54 73 18 04/03/24 19:48 74 18 GENERAL: The patient is lying in bed and is not in acute distress. NEUROLOGICAL: Higher mental function: The patient is awake, alert, oriented to self, place and time. Patient is following commands. No aphasia and no neglect. Cranial nerves: The pupils are round, equal and reactive to light and accommodation. Visual fraire are full to confrontation throughout. Extraocular movement is intact no nystagmus is noted. Facial sensation is normal to touch throughout. The facial strength is mild weakness over the left lower. Hearing is normal bilaterally to hand rub. Tongue is midline and moved kebk-yv-wafi without any difficulty. No dysarthria is noted. Shoulder shrug is normal bilaterally. Motor: The strength is left upper is 4+ to 5-. Left lower is 4+. Right upper is 5/5. Right lower is 3-4 (more 3). Mild decrease tone over the right lower. Cerebellum: Normal finger to nose bilaterally. Sensation: Sensation is normal to touch throughout. Reflexes (right/left): Brisk over the left uppers. Lowers are 1+. Right upper: 2+. Plantars is upgoing over the left. Mute over the right. Results - Laboratory Findings CBC and BMP: 04/04/24 08:08 04/04/24 08:08 Abnormal Lab Findings: Abnormal Labs 04/03/24 04/03/24 04/03/24 11:36 11:36 11:36 RBC 3.33 L Hgb 10.1 L Hct 30.3 L RDW 16.5 H Neutrophils # 7.9 H PT 9.9 L Sodium 131 L Chloride Carbon Dioxide Creatinine 1.93 H Glucose 66 L POC Glucose (mg/dL) AST Creatine Kinase 335 H Troponin I Total Protein 5.9 L Albumin 3.3 L Urine Appearance Urine Protein Urine Nitrite Ur Leukocyte Esterase Urine WBC Urine Bacteria Urine Mucus 04/03/24 04/03/24 04/03/24 11:36 14:28 17:41 RBC Hgb Hct RDW Neutrophils # PT Sodium Chloride Carbon Dioxide Creatinine Glucose POC Glucose (mg/dL) AST Creatine Kinase Troponin I 0.072 H* 0.082 H* 0.083 H* Total Protein Albumin Urine Appearance Urine Protein Urine Nitrite Ur Leukocyte Esterase Urine WBC Urine Bacteria Urine Mucus 04/03/24 04/04/24 04/04/24 18:30 00:48 08:08 RBC Hgb Hct RDW Neutrophils # PT Sodium 135 L Chloride 111 H Carbon Dioxide 21 L Creatinine 1.40 H Glucose POC Glucose (mg/dL) 131 H AST 41 H Creatine Kinase Troponin I Total Protein 5.7 L Albumin 3.1 L Urine Appearance Cloudy H Urine Protein Trace H Urine Nitrite Positive H Ur Leukocyte Esterase Large H Urine WBC 69 H Urine Bacteria Many H Urine Mucus Rare H 04/04/24 08:08 RBC 3.64 L Hgb 10.8 L Hct RDW 16.1 H Neutrophils # PT Sodium Chloride Carbon Dioxide Creatinine Glucose POC Glucose (mg/dL) AST Creatine Kinase Troponin I Total Protein Albumin Urine Appearance Urine Protein Urine Nitrite Ur Leukocyte Esterase Urine WBC Urine Bacteria Urine Mucus Assessment and Plan Assessment: This is a 58-year-old woman with history of multiple strokes with residual left hemiparesis, recurrent falls who presented emergency department because of further falls yesterday. She stated it has been a while since she had falls and yesterday she felt her both legs were buckling. She does have chronic lower back pain and she stated that she has disc herniation in the past. She denies any radicular symptoms. On examination she has new weakness over the right lower extremity. Recurrent falls rule out any new stroke or due to her worsening of lower back stenosis Probable acute urinary tract infection Slightly elevated troponin History of multiple stroke in which she had right MCA with residual left hemiparesis, has small left frontal stroke. As well as a history of multiple TIAs neck. History of multiple strokes and in the past we felt was unknown exact etiology but one of the etiologies is due to a hypotensive as well as her UDS is positive for opiates benzos TCA marijuana which can cause confusion. Plan: Patient is resumed on her home dose of aspirin 81 mg, Lipitor 40 mg nightly I ordered MRI of the brain and MRI lumbar spine. I ordered a routine EEG. 2D echo was ordered by cardiology team is pending Patient had a recent TSH on 09/2023, vitamin B12, vitamin B6, hemoglobin A1c and from a neurologic perspective does not need to be repeated. Continue neurochecks PT OT are consulted Cardiology team is consulted Defer the rest of the medical management to the primary and other specialist Thank you for the consultation Time with Patient: Greater than 30
--- NOTE | 2024-04-04 14:51 | HP ---
HISTORY AND PHYSICAL CHIEF COMPLAINTS: Weak and left facial droop. HISTORY OF PRESENT ILLNESS: This is a 58-year-old woman with a past medical history of multiple medical problems including GERD, history of liver disease, history of DJD, history of CVA, was complaining of left facial droop and significant weakness. The patient felt weak all over. The patient was found to have left facial droop and the patient is being admitted for further evaluation and treatment. Troponin was found to be 0.0782 and 0.082. Cardiology evaluation and Neurology evaluation in progress. There is no history of any fever, rigors, or chills at this time. The patient had history of right hemispheric stroke. Creatinine elevated at 1.93. PAST MEDICAL HISTORY: History of stroke, liver disease, GI bleed, multiple complex medical issues, cardiac catheterization. Rest of the history and rest of the chart is also reviewed. HOME MEDICATIONS: Reviewed include Zofran, dose and rest of medications noted. ALLERGIES: Zithromax. FAMILY HISTORY: History of fatty liver disease. SOCIAL HISTORY: Smoking, alcohol. REVIEW OF SYSTEMS: Fourteen-point review is negative except as mentioned earlier. PHYSICAL EXAMINATION: VITAL SIGNS: Pulse is 88, blood pressure 89/70, respirations 16. HEENT: Conjunctivae normal. NECK: No JVD. CARDIOVASCULAR: S1, S2. RESPIRATIONS: Breath sounds diminished at the bases. A few scattered rhonchi. ABDOMEN: Soft. LEGS: No edema. No swelling. NERVOUS SYSTEM: Left facial droop. Diffuse weakness and wheezing also present. SKIN: No ulcer, rash, bleeding. JOINTS: No active deforming arthropathy. LABORATORY DATA: Hemoglobin 10.1. Troponin noted and the CT of the brain which I reviewed personally by me showed remote bilateral lobe infarcts with encephalomalacia. ASSESSMENT: 1. Left facial droop and weakness, possible acute stroke. 2. History of previous bilateral strokes. 3. Acute kidney injury. 4. Troponin 0.082. Rule out acute myocardial infarction. 5. History of gastrointestinal bleed. 6. History of chronic liver disease. 7. History of EtOH. 8. History of nicotine dependence. RECOMMENDATIONS: This is a 58-year-old woman who presented with multiple complex medical issues. We will monitor the patient closely. Recommend Neurology, Cardiology consultations and neuro checks. Continue with IV fluids. Antiplatelet agents. 2D echo with Doppler. Closely follow with Cardiology. Guarded prognosis because of multiple complex medical issues. Further recommendations to follow. Please note the EKG showed diffuse ST-T changes and some QS complexes also. MMODL / IJN: [id number] /
[2024-04-04] MEDS: GABAPENTIN 100 MG CAP PO SCH (16:49)
--- NOTE | 2024-04-04 19:25 | CA ---
Transthoracic Echo Report Name: Kate Mccullough Age: 58 Gender: F : 1965 Exam Date: 04/04/2024 11:00 Exam Location: [facility] Ht (in): 68 Wt (lb): 138 Ordering Physician: Keyla Fisher Attending/Referring Phys: [id number], Phillip Tumor Registrar Ashley Patel RDCS Procedure CPT: Indications: LV function, abnormal trop Cardiac Hx: Technical Quality: Fair Contrast 1: Total Dose (mL): Contrast 2: Total Dose (mL): MEASUREMENTS (Male / Female) Normal Values 2D ECHO LV Diastolic Diameter PLAX 3.7 cm 4.2 - 5.9 / 3.9 - 5.3 cm LV Systolic Diameter PLAX 2.2 cm IVS Diastolic Thickness 1.1 cm 0.6 - 1.0 / 0.6 - 0.9 cm LVPW Diastolic Thickness 1.2 cm 0.6 - 1.0 / 0.6 - 0.9 cm LV Relative Wall Thickness 0.6 LA Volume 41.9 cm??? 18 - 58 / 22 - 52 cm??? LA Volume Index 24.2 cm???/m??? 16 - 28 cm???/m??? DOPPLER AV Peak Velocity 108.7 cm/s AV Peak Gradient 4.7 mmHg AV Mean Velocity 63.3 cm/s AV Mean Gradient 2.0 mmHg AV Velocity Time Integral 18.8 cm LVOT Peak Velocity 87.8 cm/s LVOT Peak Gradient 3.1 mmHg LVOT Velocity Time Integral 19.9 cm MV Area PHT 4.7 cm??? Mitral E Point Velocity 59.5 cm/s Mitral A Point Velocity 76.8 cm/s Mitral E to A Ratio 0.8 MV Deceleration Time 162.7 ms MV E' Velocity 6.5 cm/s Mitral E to MV E' Ratio 9.2 FINDINGS Left Ventricle Mildly increased left ventricular wall thickness. Left ventricular cavity size normal. Normal left ventricular systolic function with no obvious regional wall motion abnormalities. Left ventricular ejection fraction is estimated at 55- 60grade 1 diastolic dysfunction. %. Right Ventricle Normal right ventricular size and function. Right ventricular systolic pressure within normal limits. Right Atrium Normal right atrial size. Left Atrium Normal left atrial size. Mitral Valve Structurally normal mitral valve. Mitral valve thickened. Mild mitral annular calcification. Mild mitral regurgitation. Aortic Valve Trileaflet aortic valve. No aortic valve stenosis or regurgitation. Tricuspid Valve Structurally normal tricuspid valve. Trace tricuspid regurgitation. Pulmonic Valve Structurally normal pulmonic valve. Pericardium No pericardial effusion. Aorta Normal size aortic root and proximal ascending aorta. CONCLUSIONS Diagnosis abnormal cardiac enzymes LVH with preserved systolic function Mild mitral regurgitation Previewed by: Dr. Driss Fountain MD (Electronically Signed) Final Date: 04 April 2024 19:24
[2024-04-04 22:32] LABS: Chol/HDL Ratio 2.86 Ratio; LDL Cholesterol,Calculated 109.6 mg/dL (0.0-131.0)
--- NOTE | 2024-04-05 05:25 | EEG ---
ELECTROENCEPHALOGRAM REPORT CLINICAL HISTORY: This is a 58-year-old woman with recurrent falls. The video EEG is obtained to evaluate for seizure epileptiform activity. RELEVANT MEDICATIONS: 1. Flexeril. 2. Ativan p.r.n. EEG TYPE: This is routine 21-channel EEG with video using the 10/20 electrode placement system. DESCRIPTION: Wakefulness is only obtained. During awake state, the posterior-dominant rhythm consists of ksg-st-lyznolad voltage of 10 to 10.5 hertz activity that is well modulated, well sustained. There is no physiological stage 2 sleep architecture. There is no focal slowing. INTERICTAL AND ICTAL: None. ACTIVATION PROCEDURE: Photic stimulation did not evoke a posterior driving response. There is no abnormality during the photic stimulation. Hyperventilation is not performed. CLINICAL INTERPRETATION: This is a normal routine EEG. There is no focal slowing, epileptiform discharge, or seizure on the EEG. A normal routine EEG does not rule out underlying epilepsy. Clinical correlation is recommended. ISIAH / CHRISTIANO: [id number] /
[2024-04-05 08:31] LABS: Anisocytosis Slight; Basophils % (A) 0 %; Eosinophils # (A) 0.2 k/uL (0-0.7); Eosinophils % (A) 3 %; HCT 32.8 % (34.0-46.0); HGB 10.2 gm/dL (11.4-16.0); Hypochromasia Slight; Lymphocytes # (A) 1.2 k/uL (1.0-4.8); Lymphocytes % (A) 21 %; MCH 29.6 pg (25.0-35.0); MCHC 31.2 g/dL (31.0-37.0); MCV 94.8 fL (80.0-100.0); Mean Platelet Volume 6.8; Monocytes # (A) 0.2 k/uL (0-1.0); Monocytes % (A) 4 %; Neutrophils # (A) 3.8 k/uL (1.3-7.7); Neutrophils % (A) 68 %; Platelet Count 368 k/uL (150-450); RBC 3.46 m/uL (3.80-5.40); RDW 16.3 % (11.5-15.5); WBC 5.6 k/uL (3.8-10.6)
[2024-04-05 09:18] LABS: African American GFR (CKD) 55 (>60 ml/min/1.73 sqM); Anion Gap 1 mmol/L; Blood Urea Nitrogen 8 mg/dL (7-17); Calcium 8.6 mg/dL (8.4-10.2); Carbon Dioxide 21 mmol/L (22-30); Chloride 113 mmol/L (98-107); Glucose 89 mg/dL (74-99); Non-African American GFR(CKD) 48 (>60 ml/min/1.73 sqM); Potassium 3.8 mmol/L (3.5-5.1); Sodium 135 mmol/L (137-145)
--- NOTE | 2024-04-05 13:10 | P.PN ---
Subjective Progress Note Date: 04/05/24 Patient is a 58-year-old female with past medical history of COPD, CVA, loop recorder insertion, osteoarthritis, anxiety, and nicotine dependence. She states that Monday evening she was walking around her house and felt like her legs were very weak and buckling under her. She reports that she fell a few times but denied hitting her head. She was able to get up with help of her father and ambulate after the last fall. She went to bed Monday night and then on Monday she decided to come to the emergency department for continued weakness. She denies chest pain, dyspnea, syncope, lightheadedness at the time. She states that she has been eating and drinking well. She notes that she started Bactrim for her symptomatic UTI last Monday and it was prescribed for 10 daysshe is currently asymptomatic. She was found to have an acute kidney injury with a creatinine of 1.93 and a creatinine kinase of 335. She was also found to have a troponin of 0.072 and cardiology was consulted. At this time she denies chest pain, palpitations, dyspnea, lightheadedness, dysuria. Brain CT: No acute intracranial process, remote bilateral infarcts with encephalomalacia demonstrated. EKG showed normal sinus rhythm with low QRS voltage in the precordial leads with anteroseptal myocardial infarction-possibly old. Chest x-ray: Mild subsegmental atelectasis left costophrenic angle. WBCs 9.7, hemoglobin 10.1, hematocrit 30.3, sodium 131, potassium 4.5, creatinine 1.93, glucose 66, creatinine kinase 335. Urinalysis negative. Troponin x 3: 0.072, 0.082, 0.083. Heparin started per cardiology. Afebrile, hypotensive with systolic into the 90s/low 100s, saturating well on room air. 04/05. Patient seen and examined at bedside. Labs: WBCs 6.0, hemoglobin 10.8, sodium 135, potassium 4.2, CO2 21, creatinine 1.4. Echo: LVH with preserved systolic function, mild mitral regurgitation. EEG: normal routine EEG with no focal slowing, epileptiform discharge, or seizure. Patient states she is fee ling well. Denies chest pain, dyspnea, abdominal pain. Scheduled for MRI brain and lumbar spine today. Review of systems: Pertinent positives and negatives as discussed in HPI, a complete review of systems was performed and all other systems are negative. Physical examination: Vital signs are reviewed. General: No acute distress. AOx4. HEENT: Head exam is unremarkable. EOMI bilaterally. ACs patent. Nares patent. Lungs: Bilateral breath sounds present; no rhonchi, wheezes, or rales. Heart: Rate and rhythm are regular. S1-S2 present. No murmur/rub/gallops. Abdomen: Soft, nontender, nondistended. Bowel sounds present. Extremities: No edema present. Symmetric movement. Psych: Normal affect and mood. Cooperative. Assessment/Plan: Elevated troponin, likely due to chronic kidney disease Cardiology consultedno cardiac catheterization at this time due to [place]; echo: LVH with preserved systolic function, mild mitral regurgitation Neurology consulted-normal EEG; pending MRI brain and lumbar spine Acute kidney injury, improving Avoid nephrotoxins Decrease Flexeril to 5 mg twice daily as needed Decrease gabapentin to 100 mg 3 times daily Monitor BMP Lower extremity weakness Consult PT/OT UTI prior to admission No dysuria at this time No antibiotics at this time as she is asymptomatic and was previously treated with 10 days of Bactrim DVT prophylaxis: Heparin Chronic conditions: COPD, history of CVA March and April 2023 with residual effects, history of cardiac catheterization, chronic kidney disease stage IIIa, IBS, anemia, fatty liver disease, history of bleeding duodenal ulcer, osteoarthritis, GERD, anxiety, bilateral foot neuropathy Objective - Vital Signs Vital signs: Vital Signs Temp 97.8 F 04/04/24 23:17 Pulse 91 04/04/24 23:17 Resp 14 04/04/24 23:17 BP 103/59 04/04/24 23:17 Pulse Ox 92 L 04/04/24 23:17 FiO2 Intake & Output 04/04/24 04/05/24 04/05/24 18:59 06:59 18:59 Weight 62.686 kg Other: Voiding Method Toilet Toilet # Voids 1 - Labs CBC & Chem 7: 04/05/24 08:12 04/05/24 08:12 Labs: Abnormal Lab Results - Last 24 Hours (Table) 04/03/24 04/04/24 04/04/24 Range/Units 11:36 08:08 08:08 RBC 3.64 L (3.80-5.40) m/uL Hgb 10.8 L (11.4-16.0) gm/dL RDW 16.1 H (11.5-15.5) % Sodium 135 L (137-145) mmol/L Chloride 111 H (98-107) mmol/L Carbon Dioxide 21 L (22-30) mmol/L Creatinine 1.40 H (0.52-1.04) mg/dL AST 41 H (14-36) U/L Total Protein 5.7 L (6.3-8.2) g/dL Albumin 3.1 L (3.5-5.0) g/dL Cholesterol 205.00 H (0.00-200.00) mg/dL HDL Cholesterol 71.60 H (40.00-60.00) mg/dL
[2024-04-05 13:28] VITALS: BMI 20.9
--- NOTE | 2024-04-05 13:40 | P.PN ---
Subjective Progress Note Date: 04/05/24 I am following-up with patient and she feels she is doing somewhat better but continues to have weakness in lowers. Pending MRI's. Objective - Vital Signs Vital signs: Vital Signs Temp 98.1 F 04/05/24 08:20 Pulse 80 04/05/24 11:30 Resp 18 04/05/24 08:20 BP 102/57 04/05/24 08:20 Pulse Ox 93 L 04/05/24 08:20 FiO2 Intake & Output 04/04/24 04/05/24 04/05/24 18:59 06:59 18:59 Intake Total 250 Balance 250 Weight 62.686 kg 62.686 kg Intake: IV 10 Invasive Line 2 10 Oral 240 Other: Voiding Method Toilet Toilet Toilet # Voids 1 - Exam GENERAL: The patient is lying in bed and is not in acute distress. NEUROLOGICAL: Higher mental function: The patient is awake, alert, oriented to self, place and time. Patient is following commands. No aphasia and no neglect. Cranial nerves: The pupils are round, equal and reactive to light and accommodation. Visual fraire are full to confrontation throughout. Extraocular movement is intact no nystagmus is noted. Facial sensation is normal to touch throughout. The facial strength is mild weakness over the left lower. Hearing is normal bilaterally to hand rub. Tongue is midline and moved [id number] without any difficulty. No dysarthria is noted. Shoulder shrug is normal bilaterally. Motor: The strength is left upper is 4+ to 5-. Left lower is 4+. Right upper is 5/5. Right lower is 4-. Mild decrease tone over the right lower. Cerebellum: Normal finger to nose bilaterally. Sensation: Sensation is normal to touch throughout. Reflexes (right/left): Brisk over the left uppers. Lowers are 1+. Right upper: 2+. Plantars is upgoing over the left. Mute over the right. Some of the workup during this hospital visit consisted of: Sodium is 131, calcium 9.2, CK level is 335 Troponins 0.072 and got as high as 0.083 Plasma lactic acid venous 1.4 Urine analysis seems suspicious for possible underlying urinary tract infection with leukocyte esterase is large, urine white blood cells [address] of the head is reported as no acute intracranial process. Remote bilateral lobe infarct with encephalomalacia demonstrated. I personally reviewed the CT and agree there is no acute or subacute ischemia. Patient has encephalomalacia over the right MCA territory. EEG is normal. 2D echo: Left ventricular hypertrophy with preserved systolic function. Mild mitral regurgitation. - Labs CBC & Chem 7: 04/05/24 08:12 04/05/24 08:12 Labs: Abnormal Lab Results - Last 24 Hours (Table) 04/03/24 04/05/24 04/05/24 Range/Units 11:36 08:12 08:12 RBC 3.46 L (3.80-5.40) m/uL Hgb 10.2 L (11.4-16.0) gm/dL Hct 32.8 L (34.0-46.0) % RDW 16.3 H (11.5-15.5) % Sodium 135 L (137-145) mmol/L Chloride 113 H (98-107) mmol/L Carbon Dioxide 21 L (22-30) mmol/L Creatinine 1.23 H (0.52-1.04) mg/dL Cholesterol 205.00 H (0.00-200.00) mg/dL HDL Cholesterol 71.60 H (40.00-60.00) mg/dL Assessment and Plan Assessment: This is a 58-year-old woman with history of multiple strokes with residual left hemiparesis, recurrent falls who presented emergency department because of further falls yesterday. She stated it has been a while since she had falls and yesterday she felt her both legs were buckling. She does have chronic lower back pain and she stated that she has disc herniation in the past. She denies any radicular symptoms. On examination she has new weakness over the right lower extremity. Recurrent falls rule out any new stroke or due to her worsening of lower back stenosis Probable acute urinary tract infection Slightly elevated troponin History of multiple stroke in which she had right MCA with residual left hemiparesis, has small left frontal stroke. As well as a history of multiple TIAs neck. History of multiple strokes and in the past we felt was unknown exact etiology but one of the etiologies is due to a hypotensive as well as her UDS is positive for opiates benzos TCA marijuana which can cause confusion. Plan: Patient is resumed on her home dose of aspirin 81 mg, Lipitor 40 mg nightly Pending MRI of the brain and MRI lumbar spine. Patient had a recent TSH on 09/2023, vitamin B12, vitamin B6, hemoglobin A1c and from a neurologic perspective does not need to be repeated. Continue neurochecks PT OT are consulted Cardiology team is consulted She has a loop recorder and that need interrogation. Defer the rest of the medical management to the primary and other specialist The plan is discussed with patient and primary team. Time with Patient: Less than 30
--- NOTE | 2024-04-05 14:47 | MR ---
EXAMINATION TYPE: MR brain/lspine wo con DATE OF EXAM: 04/05/2024 COMPARISON: CT brain 04/03/2024 HISTORY: Right leg weakness. CONTRAST: Performed utilizing 0 mL intravenous Gadavist gadolinium contrast. TECHNIQUE: Multiplanar, multiecho imaging on a 3.0 Kimmie magnet is performed through the brain. Stud y is performed within 24 hours of arrival to the hospital. The craniovertebral junction is normal. The pituitary is normal. Diffusion-weighted imaging is performed. No abnormal hyperintensity is present to suggest an acute i ntracranial infarct or acute ischemic change. Old white matter changes are through the right parietal lobe compatible with ischemic change. Some mi ld ex vacuo effect is evident on the right. No suspicious acute ischemic changes adjacent. Remaining portions of the brain abnormal signal. There is some Wallerian degeneration along the right cerebral peduncle. Couple of punctate hyperintensities are within the left centrum semiovale, likely on the basis of chronic white matter ischemic change. Ventricles and sulci are otherwise appropriate for the patient age. IMPRESSION: 1. Old right parietal ischemic type changes. No acute changes identified 2. Some mild chronic appearing punctate white matter hemic type changes. EXAMINATION TYPE: MR brain/lspine wo con DATE OF EXAM: 04/05/2024 COMPARISON: None HISTORY: Right leg weakness. CONTRAST: 0 mL intravenous Gadavist. TECHNIQUE: Multiplanar, multisequence images of the lumbar spine were acquired. FINDINGS: Cord terminates at the L1 level. L5-S1: No significant disc bulge or disc herniation. No spinal canal stenosis. No foraminal stenosi s. L4-L5: No significant disc bulge or disc herniation. No spinal canal stenosis. No foraminal stenosi s. Disc desiccation is present. L3-L4: No significant disc bulge or disc herniation. No spinal canal stenosis. No foraminal stenosi s. L2-L3: No significant disc bulge or disc herniation. No spinal canal stenosis. No foraminal stenosi s. L1-L2: No significant disc bulge or disc herniation. No spinal canal stenosis. No foraminal stenosi s. T12-L1: No significant disc bulge or disc herniation. No spinal canal stenosis. No foraminal stenos is. IMPRESSION: 1. No suspicious acute changes in right lumbar spine [facility], , 04/05/2024 2:45 PM
--- NOTE | 2024-04-05 14:49 | P.PN ---
Subjective Progress Note Date: 04/05/24 HISTORY OF PRESENT ILLNESS: This is a 58-year-old female with a past medical history significant for COPD, CVA, loop recorder insertion, osteoarthritis, anxiety, and nicotine dependence. Patient follows in the office with Dr. Cordero. We have been asked to see the patient in consultation for elevated troponins. Patient examined at the bedside in the emergency room. Patient states last night when she was trying to walk around her house her legs felt very weak and were buckling on her. She reports feeling mildly lightheaded at that time. She denied having any syncope. She denies any episodes of chest pain or shortness of breath. Due to her weakness in her lower extremities she decided to come to the emergency room. The patient was found to have acute kidney injury with a creatinine of 1.93 and creatinine kinase of 335. The patient states she has been eating and drinking well at home. The patient was also found to have mildly elevated troponin of 0.072. At the time of examination patient denies having any chest pain or pressure. She denies any previous history of CAD. She reports having a cardiac catheterization performed 8 to 10 years ago at [facility] which was normal to her knowledge. She denies having any recent stress testing. The patient does report that she continues to smoke cigarettes once in a while when she feels her anxiety is high. DIAGNOSTICS: - EKG reveals sinus mechanism Q waves inferiorly and anteriorly. low voltage QRS. Patients EKG changes are new compared to EKG performed in the office in July 2023 - Chest xray mild subsegmental atelectasis left costophrenic angle - Laboratory data: WBC 9.7. Hemoglobin 10.1. Platelet count 355. Sodium 131. Potassium 4.5. BUN 16. Creatinine 1.93. Lactic acid 1.4. Creatinine kinase 335. Troponin 0.072. - Current home cardiac medications include aspirin 81 mg daily and Lipitor 40 mg at night - Most recent echocardiogram obtained in October 2023 revealed ejection fraction 60 to 65%, mild to moderate MR, moderate TR 04/04 Patient seen today in follow-up and remains in the emergency center waiting for a bed on the cardiac stepdown unit. Repeat troponins were 0.082 and 0.083. Echocardiogram is pending. Blood pressure 99/65, heart rate 82, pulse ox 98% on room air. Patient denies having any chest pain no shortness of breath, no dizziness and no palpitations. She states she slept okay during the night. She states her only concern is that when she walks her knees buckle. Repeat blood work reveals improvement of her kidney function with BUN 12 and creatinine 1.4, sodium 135 and potassium 4.2, CO2 21. 04/05 Patient is feeling better today. She states she had a good night. She denies having any chest pain, shortness of breath, palpitations, dizziness. Blood pressure 112/57, heart rate 86, pulse ox 93% on room air. Repeat blood work reveals hemoglobin 10.2. Sodium 135, potassium 3.8, BUN 8 and creatinine 1.23. Echocardiogram reveals LVH with preserved systolic function, mild MR. Results of the echocardiogram reviewed with the patient. PHYSICAL EXAM: VITAL SIGNS: Reviewed. GENERAL: Well-developed in no acute distress. HEENT: Head is normocephalic. Pupils are equal, round. Sclerae anicteric. Mucous membranes of the mouth are moist. Neck supple. No JVD or thyromegaly LUNGS: Respirations even and unlabored. Lungs essentially clear to auscultation bilaterally. HEART: Regular rate and rhythm. S1 and S2 heard. ABDOMEN: Soft. Nondistended. Nontender. EXTREMITIES: Normal range of motion. No clubbing or cyanosis. Peripheral pulses intact. No lower extremity edema NEUROLOGIC: Awake and alert. Oriented x 3. ASSESSMENT: Generalized weakness Acute kidney injury, improved Flat troponins not indicative of acute coronary syndrome History of right hemispheric stroke History of TIA History of loop recorder insertion COPD Osteoarthritis Anxiety Nicotine dependence PLAN: Continue aspirin and statin Smoking cessation recommended. Patient will be provided the [employer] quit line information at discharge Cardiology will sign off this case and follow on an as-needed basis. Please reconsult for any new concerns. Patient may follow-up in the office in one to 2 weeks. Nurse practitioner note has been reviewed by physician. Signing provider agrees with the documented findings, assessment, and plan of care documented by [employer]ORBO[employer] OPERATOR as a scribe. Objective - Vital Signs Vital signs: Vital Signs Temp 98.1 F 04/05/24 08:20 Pulse 84 04/05/24 08:23 Resp 18 04/05/24 08:20 BP 102/57 04/05/24 08:20 Pulse Ox 93 L 04/05/24 08:20 FiO2 Intake & Output 04/04/24 04/05/24 04/05/24 18:59 06:59 18:59 Intake Total 250 Balance 250 Weight 62.686 kg Intake: IV 10 Invasive Line 2 10 Oral 240 Other: Voiding Method Toilet Toilet Toilet # Voids 1 - Labs CBC & Chem 7: 04/05/24 08:12 04/05/24 08:12 Labs: Abnormal Lab Results - Last 24 Hours (Table) 04/03/24 04/05/24 04/05/24 Range/Units 11:36 08:12 08:12 RBC 3.46 L (3.80-5.40) m/uL Hgb 10.2 L (11.4-16.0) gm/dL Hct 32.8 L (34.0-46.0) % RDW 16.3 H (11.5-15.5) % Sodium 135 L (137-145) mmol/L Chloride 113 H (98-107) mmol/L Carbon Dioxide 21 L (22-30) mmol/L Creatinine 1.23 H (0.52-1.04) mg/dL Cholesterol 205.00 H (0.00-200.00) mg/dL HDL Cholesterol 71.60 H (40.00-60.00) mg/dL
--- NOTE | 2024-04-05 16:16 | P.DS ---
Providers Date of admission: 04/03/24 14:07 Attending physician: Christos Mccoy Consults: 04/03/24 14:05 Consult Physician Urgent Consulting Provider: Vitor Valdovinos Consult Reason/Comments: cardiac Do you want consulting provider notified?: Yes 04/04/24 12:15 Consult Physician Routine Consulting Provider: Vance Daniel Consult Reason/Comments: weakness Do you want consulting provider notified?: Yes Primary care physician: [place] Hospital Course: Final Diagnosis: Lower extremity weakness Acute kidney injury, improved Hospital Course: Patient is a 58-year-old female with past medical history of COPD, CVA, loop recorder insertion, osteoarthritis, anxiety, and nicotine dependence. She states that Monday evening she was walking around her house and felt like her legs were very weak and buckling under her. She reports that she fell a few times but denied hitting her head. She was able to get up with help of her father and ambulate after the last fall. She went to bed Monday night and then on Monday she decided to come to the emergency department for continued weakness. She denies chest pain, dyspnea, syncope, lightheadedness at the time. She states that she has been eating and drinking well. She notes that she started Bactrim for her symptomatic UTI last Monday and it was prescribed for 10 daysshe is currently asymptomatic. She was found to have an acute kidney injury with a creatinine of 1.93 and a creatinine kinase of 335. She was also found to have a troponin of 0.072 and cardiology was consulted. At this time she denies chest pain, palpitations, dyspnea, lightheadedness, dysuria. Brain CT: No acute intracranial process, remote bilateral infarcts with encephalomalacia demonstrated. EKG showed normal sinus rhythm with low QRS voltage in the precordial leads with anteroseptal myocardial infarction-possibly old. Chest x-ray: Mild subsegmental atelectasis left costophrenic angle. WBCs 9.7, hemoglobin 10.1, hematocrit 30.3, sodium 131, potassium 4.5, creatinine 1.93, glucose 66, creatinine kinase 335. Urinalysis negative. Troponin x 3: 0.072, 0.082, 0.083. Heparin started per cardiology. Afebrile, hypotensive with systolic into the 90s/low 100s, saturating well on room air. 04/05. Patient seen and examined at bedside. Labs: WBCs 6.0, hemoglobin 10.8, sodium 135, potassium 4.2, CO2 21, creatinine 1.4. Echo: LVH with preserved systolic function, mild mitral regurgitation. EEG: normal routine EEG with no focal slowing, epileptiform discharge, or seizure. Patient states she is feeling well. Denies chest pain, dyspnea, abdominal pain. Scheduled for MRI brain and lumbar spine today. No cardiology intervention at this time. Patient is stable for discharge from a neurological and medical standpoint. Physical examination: Vital signs are reviewed. General: No acute distress. AOx4. HEENT: Head exam is unremarkable. EOMI bilaterally. ACs patent. Nares patent. Lungs: Bilateral breath sounds present; no rhonchi, wheezes, or rales. Heart: Rate and rhythm are regular. S1-S2 present. No murmur/rub/gallops. Abdomen: Soft, nontender, nondistended. Bowel sounds present. Extremities: No edema present. Symmetric movement. Psych: Normal affect and mood. Cooperative. Dr. Janae MD I have performed a history and physical examination and medical decision making of this patient, discussed the same with the the resident, and agree with the assessment and plan as written. I performed brief physical exam. Patient Condition at Discharge: Good Plan - Discharge Summary Discharge Rx Participant: No New Discharge Prescriptions: Continue Ergocalciferol [Vitamin D2 (1250 Mcg = 62608 Iu)] 1,250 mcg PO NAVAS Omeprazole 40 mg PO DAILY Dicyclomine HCl 20 mg PO BID Atorvastatin [Lipitor] 40 mg PO HS Tiotropium Br/Olodaterol HCl [Stiolto Respimat Inhal [place]] 2 puff INHALATION RT-DAILY Ondansetron [Zofran] 4 mg PO TID PRN PRN Reason: Nausea And Vomiting HYDROcodone/APAP 7.5-325MG [[place] 7.5-325] 1 tab PO TID PRN PRN Reason: Pain Docusate [Colace] 100 mg PO BID PRN PRN Reason: Constipation Amitriptyline HCl [Elavil] 50 mg PO HS Cyclobenzaprine [Flexeril] 10 mg PO BID PRN PRN Reason: Muscle Spasm Aspirin EC [Ecotrin Low Dose] 81 mg PO DAILY Albuterol Inhaler [Ventolin Hfa Inhaler] 1 - 2 puff INHALATION RT-Q6H PRN PRN Reason: Shortness Of Breath LORazepam 2 mg PO BID PRN PRN Reason: Anxiety Montelukast [Singulair] 10 mg PO HS Discontinued Sulfamethox-Tmp 800-160Mg [Bactrim DS 800-160 mg] 1 tab PO Q12HR Discharge Medication List Amitriptyline HCl [Elavil] 50 mg PO HS 04/11/22 [History] Cyclobenzaprine [Flexeril] 10 mg PO BID PRN 04/11/22 [History] Ergocalciferol [Vitamin D2 (1250 Mcg = 02833 Iu)] 1,250 mcg PO NAVAS 04/11/22 [History] Omeprazole 40 mg PO DAILY 04/11/22 [History] Aspirin EC [Ecotrin Low Dose] 81 mg PO DAILY 04/15/22 [History] Albuterol Inhaler [Ventolin Hfa Inhaler] 1 - 2 puff INHALATION RT-Q6H PRN 09/08/23 [History] Atorvastatin [Lipitor] 40 mg PO HS 09/08/23 [History] Dicyclomine HCl 20 mg PO BID 09/08/23 [History] Tiotropium Br/Olodaterol HCl [Stiolto Respimat Inhal [place]] 2 puff INHALATION RT-DAILY 09/08/23 [History] LORazepam 2 mg PO BID PRN 01/19/24 [History] Docusate [Colace] 100 mg PO BID PRN 04/03/24 [History] HYDROcodone/APAP 7.5-325MG [[place] 7.5-325] 1 tab PO TID PRN 04/03/24 [History] Montelukast [Singulair] 10 mg PO HS 04/03/24 [History] Ondansetron [Zofran] 4 mg PO TID PRN 04/03/24 [History] Follow up Appointment(s)/Referral(s): Edwardo Casas MD [REFERRING] - 1 Week (please call to schedule ) Vitor Valdovinos DO [STAFF PHYSICIAN] - 1 Week (please call to schedule ) Paxton Armendariz DO [Primary Care Provider] - 1-2 days (please call to schedule ) Patient Instructions/Handouts: Ischemic Stroke (DC) Discharge Disposition: HOME SELF-CARE
[2024-04-05 17:06] VITALS: BP 108/75; PULSE 80; RESP 17; TEMP 97.9
[2024-04-07] MEDS ORDERED: ERGOCALCIFEROL 1,250 MCG (50,000 IU) CAPSULE PO SCH (09:00)
== END 2024-04-05 17:12 | disposition home or self-care (01) | DRG 45 ==
LOC: EC 11:23 → 6NMEDSUR 14:06 → OBSVTOIN 14:07 → 6NMEDSUR 14:22 → 3SCARD 20:16
PROVIDERS: ADMIT Hospitalist; ATTEND Hospitalist
DX: I63.9 Cerebral infarction, unspecified (principal); F17.210 Nicotine dependence, cigarettes, uncomplicated; F41.9 Anxiety disorder, unspecified; G89.29 Other chronic pain; G93.89 Other specified disorders of brain; I69.354 Hemiplegia and hemiparesis following cerebral infarction affecting left non-dominant side; J44.9 Chronic obstructive pulmonary disease, unspecified; G43.909 Migraine, unspecified, not intractable, without status migrainosus; G62.9 Polyneuropathy, unspecified; D63.1 Anemia in chronic kidney disease; J98.11 Atelectasis; K21.9 Gastro-esophageal reflux disease without esophagitis; K58.1 Irritable bowel syndrome with constipation; R79.89 Other specified abnormal findings of blood chemistry; I95.9 Hypotension, unspecified; K44.9 Diaphragmatic hernia without obstruction or gangrene; K76.0 Fatty (change of) liver, not elsewhere classified; M19.90 Unspecified osteoarthritis, unspecified site; N17.9 Acute kidney failure, unspecified; N18.31 Chronic kidney disease, stage 3a; N39.0 Urinary tract infection, site not specified; R29.6 Repeated falls; R29.810 Facial weakness; Z79.82 Long term (current) use of aspirin; Z87.11 Personal history of peptic ulcer disease; Z79.899 Other long term (current) drug therapy; Z88.1 Allergy status to other antibiotic agents; Z88.5 Allergy status to narcotic agent
CPT/HCPCS: 36415; 70450; 70551; 71046; 72148; 80048; 80053; 80061; 81001; 82550; 83605; 84100; 84484; 85025; 85610; 85730; 93005; 93306; 94640; 95816; 96360; 96361; 96372; 99285

== ENCOUNTER → 2024-10-29 | Outpatient (CLI) | payer OTHER ==
--- NOTE | 2024-10-29 12:22 | MM ---
Reason for Exam: Screening (asymptomatic). Last mammogram was performed 1 year(s) and 2 month(s) ago. Patient History: Menarche at age 15. First Full-Term at age 25. Postmenopausal. Patient used Hormonal Contraceptives for 30 years. Paternal aunt had breast cancer. Risk Values: Ada 5 year model risk: 1.5%. NCI Lifetime model risk: 7.4%. Prior Study Comparison: 05/14/2012 Screening Mammogram, [facility]. 06/18/2020 Bilateral Screening Mammogram, [facility]. 11/04/2021 Bilateral Screening Mammogram, [facility]. 08/21/2023 Bilateral MG screening mammo w CAD, [facility]. Tissue Density: The breasts are heterogeneously dense, which may obscure small masses. pt very confused... Findings: Analyzed By CAD. There is no suspicious group of microcalcifications or new suspicious mass in either breast. Overall Assessment: Benign, BI-RAD 2 Management: Screening Mammogram of both breasts in 1 year. . Patient should continue monthly self-breast exams. A clinical breast exam by your physician is recommended on an annual basis. This exam should not preclude additional follow-up of suspicious palpable abnormalities. Note on Ada scores and lifetime risk: 1. A Ada score greater than 3% is considered moderate risk. If this is the case, consider specialist referral to assess eligibility for a risk reducing agent. 2. If overall lifetime risk for the development of breast cancer is 20% or higher, the patient may qualify for future screening with alternating mammogram and breast MRI. [facility], , 10/29/2024 12:19 PM. Electronically signed and approved by: Trung Ibarra M.D. Radiologis
== END | disposition home or self-care (01) ==
LOC: RADMAMWWP 11:58
PROVIDERS: ATTEND Family Medicine
DX: Z12.31 Encounter for screening mammogram for malignant neoplasm of breast (principal); R92.333 Mammographic heterogeneous density, bilateral breasts; Z78.0 Asymptomatic menopausal state; Z80.3 Family history of malignant neoplasm of breast; Z92.0 Personal history of contraception
CPT/HCPCS: 77067

== ENCOUNTER 2025-01-07 14:28 | Observation (INO) | payer OTHER ==
--- NOTE | 2025-01-07 15:20 | ED ---
General Adult HPI - General Chief complaint: Fall Stated complaint: Weakness Time Seen by Provider: 01/07/25 14:40 Source: patient, EMS, RN notes reviewed Mode of arrival: EMS Limitations: no limitations - History of Present Illness Initial comments: 59-year-old female with past medical history of CVA, TIA, liver disease with left-sided weakness presenting to the emergency department via EMS for concerns of generalized weakness and frequent falls. States that over the past 2 weeks she has been having multiple falls at home with her most recent this morning when she fell and hit her head. She denies loss of consciousness at the time of the fall however states that she has been feeling more weak than usual. States that she does have deficits from her stroke in 2022 but is concerned that she may have been more weak this morning however this is resolved. Is denying paresthesias, chest pain, difficulty breathing, abdominal pain, urinary or bowel habit changes. - Related Data Home Medications Medication Instructions Recorded Confirmed Cyclobenzaprine [Flexeril] 10 mg PO HS PRN 04/11/22 01/07/25 Ergocalciferol [Vitamin D2 (1250 1,250 mcg PO NAVAS 04/11/22 01/07/25 Mcg = 91931 Iu)] Omeprazole 40 mg PO DAILY 04/11/22 01/07/25 Albuterol Inhaler [Ventolin Hfa 2 puff INHALATION RT-Q4H PRN 09/08/23 01/07/25 Inhaler] Atorvastatin [Lipitor] 40 mg PO HS 09/08/23 01/07/25 Dicyclomine HCl 20 mg PO QID PRN 09/08/23 01/07/25 Tiotropium Br/Olodaterol HCl 2 puff INHALATION RT-DAILY 09/08/23 01/07/25 [Stiolto Respimat Inhal [place]] LORazepam 2 mg PO BID PRN 01/19/24 01/07/25 HYDROcodone/APAP 7.5-325MG [[place] 1 tab PO TID PRN 04/03/24 01/07/25 7.5-325] Montelukast [Singulair] 10 mg PO HS 04/03/24 01/07/25 Gabapentin [Neurontin] 300 mg PO TID 11/24/24 01/07/25 Amitriptyline HCl [Elavil] 50 mg PO HS 01/07/25 01/07/25 Allergies Allergy/AdvReac Type Severity Reaction Status Date / Time azithromycin AdvReac Nausea & Verified 01/07/25 17:57 [From Zithromax Z-Francisco] Vomiting & Diarrhea codeine AdvReac Nausea & Verified 01/07/25 17:57 Vomiting Review of Systems ROS Statement: Those systems with pertinent positive or pertinent negative responses have been documented in the HPI. ROS Other: All systems not noted in ROS Statement are negative. Past Medical History Past Medical History: CVA/TIA, GERD/Reflux, GI Bleed, Liver Disease, Osteoarthritis (OA) Additional Past Medical History / Comment(s): CVA 03-20-23,04-29-23-left side weakness,had left facial zslwwlil-qwtthfkw-bqhfqaref w/ Dr Janelle Oneill,occ migraines, sinus congestion from allergies, hx pleurisy, bleeding ulcer Mar 2019, hx anemia, fatty liver disease, hiatal hernia, IBS/constipation,fatty liver, neuropathy History of Any Multi-Drug Resistant Organisms: None Reported Past Surgical History: Heart Catheterization Additional Past Surgical History / Comment(s): kidney biopsy, laparoscopy Past Anesthesia/Blood Transfusion Reactions: Previous Problems w/ Anesthesia, Family History of Problems w/ Anesthesia, Motion Sickness Additional Past Anesthesia/Blood Transfusion Reaction / Comment(s): had blood transfusion 03/2019-no problems, "takes a while to come out", 'sister had hard time coming out of it" Past Psychological History: Anxiety Smoking Status: Former smoker Past Alcohol Use History: Daily Past Drug Use History: None Reported - Past Family History Mother Family Medical History: Liver Disease Additional Family Medical History / Comment(s): fatty liver disease General Exam Limitations: no limitations Eye exam: Present: normal appearance, PERRL, EOMI. Absent: scleral icterus, conjunctival injection, periorbital swelling Neck exam: Present: normal inspection. Absent: tenderness, meningismus, lymphadenopathy Respiratory exam: Present: normal lung sounds bilaterally. Absent: respiratory distress, wheezes, rales, rhonchi, stridor Cardiovascular Exam: Present: regular rate, normal rhythm, normal heart sounds. Absent: systolic murmur, diastolic murmur, rubs, gallop, clicks GI/Abdominal exam: Present: soft, normal bowel sounds. Absent: distended, tenderness, guarding, rebound, rigid Extremities exam: Present: normal inspection, full ROM, normal capillary refill. Absent: tenderness, pedal edema, joint swelling, calf tenderness Back exam: Present: normal inspection Neurological exam: Present: other (left sided facial droop and left sided upper and lower extremity weakness) Course Vital Signs 01/07/25 14:31 Temperature 98.1 F Pulse Rate 90 Respiratory 18 Rate Blood Pressure 93/59 O2 Sat by Pulse 98 Oximetry Medical Decision Making - Medical Decision Making Was pt. sent in by a medical professional or institution (, PA, RADIOLOGICAL METALLURGIST, urgent care, hospital, or detention...) When possible be specific @ -No Did you speak to anyone other than the patient for history (EMS, parent, family, police, friend...)? What history was obtained from this source @ -No Did you review nursing and triage notes (agree or disagree)? Why? @ -I reviewed and agree with nursing and triage notes Were old charts reviewed (outside hosp., previous admission, EMS record, old EKG, old radiological studies, urgent care reports/EKG's, detention records)? Report findings @ -No old charts were reviewed Differential Diagnosis (chest pain, altered mental status, abdominal pain women, abdominal pain men, vaginal bleeding, weakness, fever, dyspnea, syncope, headache, dizziness, GI bleed, back pain, seizure, CVA, palpatations, mental health, musculoskeletal)? @ -Differential Weakness: Hypoglycemia, shock, sepsis, hyponatremia, anemia, infection, [place], ETOH, adverse medicine reaction, overdose, stroke, this is not meant to be an all-inclusive list. EKG interpreted by me (3pts min.). @ -Completed at 1529 sinus rhythm with a ventricular rate of 81, NV interval 149, QRS 80, QT 386, QTc 424. X-rays interpreted by me (1pt min.). @ -Chest x-ray reveals no acute cardiopulmonary disease CT interpreted by me (1pt min.). @ -None done U/S interpreted by me (1pt. min.). @ -None done What testing was considered but not performed or refused? (CT, X-rays, U/S, labs)? Why? @ -CTA of the head and neck was considered however was unable to be performed due to patient's decreased GFR and elevated creatinine level. What meds were considered but not given or refused? Why? @ -None Did you discuss the management of the patient with other professionals (professionals i.e. DrAdolfo, PA, RADIOLOGICAL METALLURGIST, lab, RT, psych nurse, renal social worker, territory sales manager, teacher, youth probation officer, case managers)? Give summary @ -No Was smoking cessation discussed for >3mins.? @ -No Was critical care preformed (if so, how long)? @ -No Were there social determinants of health that impacted care today? How? (Homelessness, low income, unemployed, alcoholism, drug addiction, transportation, low edu. Level, literacy, decrease access to med. care, half-way, rehab)? @ -No Was there de-escalation of care discussed even if they declined (Discuss DNR or withdrawal of care, Hospice)? DNR status @ -No What co-morbidities impacted this encounter? (DM, HTN, Smoking, COPD, CAD, Cancer, CVA, ARF, Chemo, Hep., AIDS, mental health diagnosis, sleep apnea, morbid obesity)? @ -None Was patient admitted / discharged? Hospital course, mention meds given and route, prescriptions, significant lab abnormalities, going to OR and other pertinent info. @ -Admitted. 59-year-old female presents emergency department via EMS for concerns of generalized weakness and frequent falls. Patient is wearing the c- collar no signs of distress in examination bed. Exam does reveal left-sided facial droop that is chronic for the patient. She is alert and oriented x 4 and follows commands. Patient is anemic with a hemoglobin of 9.8. CBC reveals an PRESTON with a creatinine of 2.05, BUN of 19, GFR of 26. Hypomagnesemia of 1.3. CT of the brain C-spine without contrast no acute acute cervical spine process. Patient admitted to internal medicine with neurology addition to PT/OT on consult. She is provided with 3 supplementation of magnesium and fluids. Case discussed with attending Dr. Fernando. Undiagnosed new problem with uncertain prognosis? @ -No Drug Therapy requiring intensive monitoring for toxicity (Heparin, Nitro, In sulin, Cardizem)? @ -No Were any procedures done? @ -No Diagnosis/symptom? @ -Generalized weakness, PRESTON, hypomagnesemia Acute, or Chronic, or Acute on Chronic? @ -Acute Uncomplicated (without systemic symptoms) or Complicated (systemic symptoms)? @ -Complicated Side effects of treatment? @ -No Exacerbation, Progression, or Severe Exacerbation? @ -No Poses a threat to life or bodily function? How? (Chest pain, [place], [place], pneumonia, PE, COPD, DKA, ARF, appy, cholecystitis, CVA, Diverticulitis, Homicidal, Suicidal, threat to staff... and all critical care pts) @ -No - Lab Data Result diagrams: 01/07/25 15:30 01/07/25 15:30 Lab Results 01/07/25 01/07/25 01/07/25 Range/Units 15:30 15:30 15:30 WBC 7.31 (4.50-10.00) 10*3/uL RBC 3.27 L (4.10-5.20) 10*6/uL Hgb 9.8 L (12.0-15.0) g/dL Hct 29.8 L (37.2-46.3) % MCV 91.1 (80.0-97.0) fL MCH 30.0 (27.0-32.0) pg MCHC 32.9 (32.0-37.0) g/dL Plt Count 335 (140-440) 10*3/uL MPV 9.2 L (9.5-12.2) fL Immature Gran % (Auto) 0.3 % Neutrophils % 76.7 % Lymphocytes % 13.3 % Monocytes % 8.1 % Eosinophils % 1.2 % Basophils % 0.4 % Immature Gran # 0.02 (0.00-0.04) 10*3/uL Neutrophils # 5.61 (1.80-7.70) 10*3/uL Lymphocytes # 0.97 (0.90-5.00) 10*3/uL Monocytes # 0.59 (0.20-1.00) 10*3/uL Eosinophils # 0.09 (0.04-0.35) 10*3/uL Basophils # 0.03 (0.00-0.10) 10*3/uL PT 10.9 (10.0-12.5) sec INR 1.0 (<1.2) APTT 23.1 (22.0-30.0) sec Sodium 138 (137-145) mmol/L Potassium 4.0 (3.5-5.1) mmol/L Chloride 110 H (98-107) mmol/L Carbon Dioxide 20 L (22-30) mmol/L Anion Gap 8 mmol/L BUN 19 H (7-17) mg/dL Creatinine 2.05 H (0.52-1.04) mg/dL Est GFR (CKD-EPI)AfAm 30 (>60 ml/min/1.73 sqM) Est GFR (CKD-EPI)NonAf 26 (>60 ml/min/1.73 sqM) Glucose 79 (74-99) mg/dL Plasma Lactic Acid Rafael (0.7-2.0) mmol/L Calcium 9.0 (8.4-10.2) mg/dL Magnesium 1.3 L (1.6-2.3) mg/dL Total Bilirubin 0.2 (0.2-1.3) mg/dL AST 18 (14-36) U/L ALT 9 (4-34) U/L Alkaline Phosphatase 95 (38-126) U/L Creatine Kinase 146 H (30-135) U/L Troponin I (0.000-0.034) ng/mL Total Protein 5.8 L (6.3-8.2) g/dL Albumin 3.2 L (3.5-5.0) g/dL 01/07/25 01/07/25 Range/Units 15:30 15:30 WBC (4.50-10.00) 10*3/uL RBC (4.10-5.20) 10*6/uL Hgb (12.0-15.0) g/dL Hct (37.2-46.3) % MCV (80.0-97.0) fL MCH (27.0-32.0) pg MCHC (32.0-37.0) g/dL Plt Count (140-440) 10*3/uL MPV (9.5-12.2) fL Immature Gran % (Auto) % Neutrophils % % Lymphocytes % % Monocytes % % Eosinophils % % Basophils % % Immature Gran # (0.00-0.04) 10*3/uL Neutrophils # (1.80-7.70) 10*3/uL Lymphocytes # (0.90-5.00) 10*3/uL Monocytes # (0.20-1.00) 10*3/uL Eosinophils # (0.04-0.35) 10*3/uL Basophils # (0.00-0.10) 10*3/uL PT (10.0-12.5) sec INR (<1.2) APTT (22.0-30.0) sec Sodium (137-145) mmol/L Potassium (3.5-5.1) mmol/L Chloride (98-107) mmol/L Carbon Dioxide (22-30) mmol/L Anion Gap mmol/L BUN (7-17) mg/dL Creatinine (0.52-1.04) mg/dL Est GFR (CKD-EPI)AfAm (>60 ml/min/1.73 sqM) Est GFR (CKD-EPI)NonAf (>60 ml/min/1.73 sqM) Glucose (74-99) mg/dL Plasma Lactic Acid Rafael 0.9 (0.7-2.0) mmol/L Calcium (8.4-10.2) mg/dL Magnesium (1.6-2.3) mg/dL Total Bilirubin (0.2-1.3) mg/dL AST (14-36) U/L ALT (4-34) U/L Alkaline Phosphatase (38-126) U/L Creatine Kinase (30-135) U/L Troponin I 0.012 (0.000-0.034) ng/mL Total Protein (6.3-8.2) g/dL Albumin (3.5-5.0) g/dL Disposition Clinical Impression: PRESTON (acute kidney injury), Generalized weakness Disposition: ADMITTED IP TO THIS [facility] Condition: Stable Decision to Admit Reason: Admit from EC Decision Date: 01/07/25 Decision Time: 18:20
[2025-01-07] MEDS: SODIUM CHLORIDE 0.9% 1,000 ML IV ONE (15:32)
[2025-01-07 15:47] LABS: Basophils # (A) 0.03 10*3/uL (0.00-0.10); Basophils % (A) 0.4 %; Eosinophils # (A) 0.09 10*3/uL (0.04-0.35); Eosinophils % (A) 1.2 %; HCT 29.8 % (37.2-46.3); HGB 9.8 g/dL (12.0-15.0); Lymphocytes # (A) 0.97 10*3/uL (0.90-5.00); Lymphocytes % (A) 13.3 %; MCH 30.0 pg (27.0-32.0); MCHC 32.9 g/dL (32.0-37.0); MCV 91.1 fL (80.0-97.0); Monocytes # (A) 0.59 10*3/uL (0.20-1.00); Monocytes % (A) 8.1 %; Neutrophils # (A) 5.61 10*3/uL (1.80-7.70); Neutrophils % (A) 76.7 %; Platelet Count 335 10*3/uL (140-440); RBC 3.27 10*6/uL (4.10-5.20); RDW 17.1 % (11.5-14.5); WBC 7.31 10*3/uL (4.50-10.00)
[2025-01-07 16:10] LABS: ALT 9 U/L (4-34); AST 18 U/L (14-36); African American GFR (CKD) 30 (>60 ml/min/1.73 sqM); Albumin 3.2 g/dL (3.5-5.0); Alkaline Phosphatase 95 U/L (38-126); Anion Gap 8 mmol/L; Blood Urea Nitrogen 19 mg/dL (7-17); Calcium 9.0 mg/dL (8.4-10.2); Carbon Dioxide 20 mmol/L (22-30); Chloride 110 mmol/L (98-107); Creatine Kinase 146 U/L (30-135); Glucose 79 mg/dL (74-99); Magnesium 1.3 mg/dL (1.6-2.3); Non-African American GFR(CKD) 26 (>60 ml/min/1.73 sqM); Potassium 4.0 mmol/L (3.5-5.1); Sodium 138 mmol/L (137-145); Total Protein 5.8 g/dL (6.3-8.2)
[2025-01-07 16:11] LABS: INR 1.0 (<1.2); Partial Thromboplastin Time 23.1 sec (22.0-30.0); Prothrombin Time 10.9 sec (10.0-12.5)
--- NOTE | 2025-01-07 17:00 | CT ---
EXAMINATION TYPE: CT brain cspine wo con DATE OF EXAM: 01/07/2025 COMPARISON: 11/24/2024 CLINICAL INDICATION: Female, 59 years old with history of pain; PHH, Fall. TECHNIQUE: CT scan of the head and cervical spine are performed without contrast. CT DLP: 1301.[address] CTDI: mGy Automated exposure control for dose reduction was used. FINDINGS: There is no acute intracranial hemorrhage, mass effect, or midline shift identified. The ventricles and sulci are within normal limits in size. The globes are intact and the visualized sinuses are rao ar. Cervical spine is visualized in its entirety from C1 through upper thoracic levels and demonstrates s atisfactory alignment without evidence of acute fracture or dislocation. Prevertebral soft tissue ap pears within normal limits. The C1-C2 articulation is unremarkable. IMPRESSION: There is no acute fracture or dislocation evident in the cervical spine. 2. No acute intracranial hemorrhage, mass effect, or midline shift is seen. [facility], , 01/07/2025 4:58 PM
--- NOTE | 2025-01-07 18:01 | XR ---
EXAMINATION TYPE: XR chest 2V DATE OF EXAM: 01/07/2025 5:53 PM COMPARISON: 11/24/2024 CLINICAL INDICATION: Female, 59 years old with history of Weakness: Shortness of breath TECHNIQUE: XR chest 2V views of the chest are obtained. FINDINGS: Scattered senescent parenchymal changes noted. Hyperinflation compatible with COPD. No evidence for infiltrate. No evidence for atelectasis. Heart size is stable. Mediastinal structures are stable and grossly unremarkable. No evidence for hilar prominence. Degenerative changes dorsal spine. IMPRESSION: 1. No evidence for acute pulmonary disease. [facility], , 01/07/2025 5:58 PM
[2025-01-07] MEDS ORDERED: ACETAMINOPHEN TAB 325 MG TAB PO PRN (18:14)
[2025-01-07] MEDS ORDERED: NALOXONE 0.4 MG/ML 1 ML VIAL IV PRN (18:14)
[2025-01-07] MEDS: MAGNESIUM SULFATE-D5W PMX 1 GM in DEXTROSE/WATER 1 100ML.BAG IVPB SCH (18:28)
[2025-01-07] MEDS: SODIUM CHLORIDE 0.9% 1,000 ML IV SCH ×2 (18:30→20:50)
[2025-01-07] MEDS ORDERED: CYCLOBENZAPRINE 10 MG TAB PO PRN (20:27)
[2025-01-07] MEDS ORDERED: ALBUTEROL NEBULIZED 2.5 MG/3 ML INHALATION PRN (20:27)
[2025-01-07] MEDS ORDERED: LORazepam 1 MG TAB PO PRN (20:27)
[2025-01-07] MEDS ORDERED: DICYCLOMINE 20 MG TAB PO PRN (20:27)
[2025-01-07] MEDS: ATORVASTATIN 40 MG TAB PO SCH (20:48)
[2025-01-07] MEDS: AMITRIPTYLINE HCL 50 MG TAB PO SCH (20:48)
[2025-01-07] MEDS: MONTELUKAST 10 MG TAB PO SCH (20:48)
[2025-01-07] MEDS: HYDROcodone/APAP 7.5-325MG 1 EACH TAB PO PRN (20:49)
[2025-01-07 22:37] VITALS: RESP 16
--- NOTE | 2025-01-07 23:07 | P.HPIM ---
History of Present Illness H&P Date: 01/07/25 Chief Complaint: Recurrent Falls 59 y/o female with PMHx of CVA, TIA, liver disease, left sided weakness brought to the ED by EMS for weakness and frequent falls. Patient shares that she has had around 15 falls over the past two weeks - she has never lost consciousness, lost bladder control, or bit her tongue. She feels her knees buckling before losing balance. Patient indicates she has residual left sided motor deficits and parasthesia over left arm since her stroke in 2022. She says she has no issues eating/drinking and no recent medication changes. She denies any chest pain, difficulty breathing, abdominal pain, urinary or bowel habit changes. Review of Systems Constitutional: Reports as per HPI Ears, nose, mouth and throat: Reports as per HPI Cardiovascular: Reports as per HPI Respiratory: Reports as per HPI Gastrointestinal: Reports as per HPI Genitourinary: Reports as per HPI Musculoskeletal: Reports frequent falls Integumentary: Reports as per HPI Neurological: Reports paresthesias (LUE parasthesias) Psychiatric: Reports as per HPI Endocrine: Reports as per HPI Allergic/Immunologic: Reports as per HPI Past Medical History Past Medical History: CVA/TIA, GERD/Reflux, GI Bleed, Liver Disease, Ost eoarthritis (OA) Additional Past Medical History / Comment(s): CVA 03-20-23,04-29-23-left side weakness,had left facial iypqfger-nemqvnhn-acvuvchpu w/ Dr Janelle Oneill,occ migraines, sinus congestion from allergies, hx pleurisy, bleeding ulcer Mar 2019, hx anemia, fatty liver disease, hiatal hernia, IBS/constipation,fatty liver, neuropathy History of Any Multi-Drug Resistant Organisms: None Reported Past Surgical History: Heart Catheterization Additional Past Surgical History / Comment(s): kidney biopsy, laparoscopy Past Anesthesia/Blood Transfusion Reactions: Previous Problems w/ Anesthesia, Family History of Problems w/ Anesthesia, Motion Sickness Additional Past Anesthesia/Blood Transfusion Reaction / Comment(s): had blood transfusion 03/2019-no problems, "takes a while to come out", 'sister had hard time coming out of it" Past Psychological History: Anxiety Smoking Status: Former smoker Past Alcohol Use History: Daily Past Drug Use History: None Reported - Past Family History Mother Family Medical History: Liver Disease Additional Family Medical History / Comment(s): fatty liver disease Medications and Allergies Home Medications Medication Instructions Recorded Confirmed Type Cyclobenzaprine [Flexeril] 10 mg PO HS PRN 04/11/22 01/07/25 History Ergocalciferol [Vitamin D2 (1250 1,250 mcg PO NAVAS 04/11/22 01/07/25 History Mcg = 38365 Iu)] Omeprazole 40 mg PO DAILY 04/11/22 01/07/25 History Albuterol Inhaler [Ventolin Hfa 2 puff INHALATION RT-Q4H PRN 09/08/23 01/07/25 History Inhaler] Atorvastatin [Lipitor] 40 mg PO HS 09/08/23 01/07/25 History Dicyclomine HCl 20 mg PO QID PRN 09/08/23 01/07/25 History Tiotropium Br/Olodaterol HCl 2 puff INHALATION RT-DAILY 09/08/23 01/07/25 History [Stiolto Respimat Inhal [place]] LORazepam 2 mg PO BID PRN 01/19/24 01/07/25 History HYDROcodone/APAP 7.5-325MG [[place] 1 tab PO TID PRN 04/03/24 01/07/25 History 7.5-325] Montelukast [Singulair] 10 mg PO HS 04/03/24 01/07/25 History Gabapentin [Neurontin] 300 mg PO TID 11/24/24 01/07/25 History Amitriptyline HCl [Elavil] 50 mg PO HS 01/07/25 01/07/25 History Allergies Allergy/AdvReac Type Severity Reaction Status Date / Time azithromycin AdvReac Nausea & Verified 01/07/25 17:57 [From Zithromax Z-Francisco] Vomiting & Diarrhea codeine AdvReac Nausea & Verified 01/07/25 17:57 Vomiting Physical Exam Vitals: Vital Signs Temp Pulse Resp BP Pulse Ox 01/07/25 20:52 76 18 117/91 99 01/07/25 18:44 78 18 109/70 100 01/07/25 14:31 98.1 F 90 18 93/59 98 Intake and Output 01/07/25 01/07/25 01/07/25 06:59 14:59 22:59 Other: Weight 56.699 kg - Constitutional General appearance: cooperative, no acute distress, thin - EENT Eyes: EOMI, PERRLA, normal appearance - Neck Neck: normal ROM - Respiratory Respiratory: bilateral: CTA, negative: rales, rhonchi, wheezing - Cardiovascular Rhythm: regular - Gastrointestinal General gastrointestinal: normal bowel sounds, soft - Neurologic Left sided facial droop. Left sided upper extremity weakness - Musculoskeletal Musculoskeletal: left sided weakness (LUE weakness) - Psychiatric Psychiatric: A&O x's 3, appropriate affect, intact judgment & insight Results CBC & Chem 7: 01/07/25 15:30 01/07/25 15:30 Labs: Abnormal Lab Results - Last 24 Hours (Table) 01/07/25 01/07/25 Range/Units 15:30 15:30 RBC 3.27 L (4.10-5.20) 10*6/uL Hgb 9.8 L (12.0-15.0) g/dL Hct 29.8 L (37.2-46.3) % MPV 9.2 L (9.5-12.2) fL Chloride 110 H (98-107) mmol/L Carbon Dioxide 20 L (22-30) mmol/L BUN 19 H (7-17) mg/dL Creatinine 2.05 H (0.52-1.04) mg/dL Magnesium 1.3 L (1.6-2.3) mg/dL Creatine Kinase 146 H (30-135) U/L Total Protein 5.8 L (6.3-8.2) g/dL Albumin 3.2 L (3.5-5.0) g/dL Chest x-ray: report reviewed, image reviewed CT Scan - head: report reviewed, image reviewed Assessment and Plan Assessment: Patient is a 59 y/o female with PMHx of CVA, TIA, liver dz, and stroke presentin with frequent falls over the past two weeks. Suspecting PRESTON vs Polypharmacy use d/t the medications patient is taking and elevated Cr/Bun levels. (1) Polypharmacy Current Visit: Yes Status: Chronic Priority: High Code(s): Z79.899 - OTHER PIECE MAKER (CURRENT) DRUG THERAPY SNOMED Code(s): 708211100 (2) PRESTON (acute kidney injury) Current Visit: Yes Status: Acute Priority: High Code(s): N17.9 - ACUTE KIDNEY FAILURE, UNSPECIFIED SNOMED Code(s): 68744920 (3) Falls frequently Current Visit: Yes Status: Acute Priority: High Code(s): R29.6 - REPEATED FALLS SNOMED Code(s): 392472913 (4) Hypomagnesemia Current Visit: Yes Status: Acute Priority: Medium Code(s): E83.42 - HYPOMAGNESEMIA SNOMED Code(s): 205132611 (5) History of stroke with current residual effects Current Visit: Yes Status: Chronic Priority: Low Code(s): I69.30 - UNSPECIFIED SEQUELAE OF CEREBRAL INFARCTION SNOMED Code(s): 5807042757406 (6) Back pain Current Visit: Yes Status: Chronic Priority: Low Code(s): M54.9 - DORSALGIA, UNSPECIFIED SNOMED Code(s): 658631779 Plan: #Polypharmacy use vs PRESTON -Patient's Cr was 2.05 (baseline 1.5) and BUN 19 -> Likely prerenal PRESTON -Patient is also taking lorazepam, amitryptiline, [place], Gabapentin, Flexeril which could be contributing to her falls -Patient does not endorse any issues with oral intake Plan: -Hold gabapentin -IVF NS 130/hr #Frequent Falls -Patient has been endorsing more falls in past two weeks but no changes in her medication or oral intake Plan: -Urinalysis and Drug Screen #Hypomagnesemia -Patient's Mg was 1.3 today. Could be due to poor oral intake or PPI use. More likely PPI use b/c patient's oral intake has been unaffected recently. Plan: -Hold PPI (omeprazole) #History of stroke with residual deficits -Patient had 2x strokes in 2022 and has had left sided parasthesias and weakness since. Is following up with neurologist Plan: -F/U with neurologist outpatient #Back Pain -Patient has had chronic back pain and has been taking [place] for it. Indicates she has 2 herniated discs Plan: -Continue [place] -F/U with ortho outpatient I have personally reviewed this note, the patient's clinical data, and the resident's assessment/plan. I have discussed the case with the resident, agree with the documented medical decision-making, and confirm that the care provided meets the standard for our service. Attending Physician:Dr. Funk Time with Patient: Greater than 30
[2025-01-07 23:57] LABS: Bilirubin,Urine Negative (Negative); Color,Urine Yellow; Glucose,Urine (UA) Negative (Negative); Ketones,Urine Negative (Negative); PH, Urine 6.0 (5.0-8.0); Protein,Urine Trace (Negative); Specific Gravity,Urine 1.020 (1.001-1.035)
[2025-01-07 23:58] LABS: Bacteria,Urine Many /hpf; Blood,Urine Trace (Negative); Hyaline Casts,Urine 51 /lpf (0-2); Leukocyte Esterase,Urine Large (Negative); Mucus,Urine Occasional /hpf; Nitrite,Urine Positive (Negative); RBC,Urine 6 /hpf (0-5); Squamous Epithelial Cell,Urine 3 /hpf (0-4); Urobilinogen,Urine <2.0 mg/dL (<2.0); WBC,Urine >182 /hpf (0-5)
[2025-01-08 02:33] LABS: Urine Alcohol Negative (Negative)
--- NOTE | 2025-01-08 06:53 | US ---
EXAMINATION TYPE: US kidneys/renal and bladder DATE OF EXAM: 01/07/2025 COMPARISON: PET CT 08/23/2024 CLINICAL INDICATION: Female, 59 years old with history of preston; PRESTON TECHNIQUE: Grayscale imaging of the bilateral kidneys and urinary bladder: FINDINGS: EXAM MEASUREMENTS: Right Kidney: 7.2 x 4.1 x 4.1 cm Left Kidney: 7.7 x 4.2 x 4.3 cm Right Kidney: wnl Left Kidney: wnl as best seen, slightly limited due to rib shadows Bladder: undistended, unable to evaluate There is no evidence for hydronephrosis at this point in time. No nephrolithiasis is seen. No rosemarie s are identified. Corticomedullary differentiation is maintained bilaterally. The urinary bladder is underdistended and unable to be evaluated. IMPRESSION: No hydronephrosis or nephrolithiasis. [facility], , 01/08/2025 6:50 AM
[2025-01-08 08:04] VITALS: TEMP 97.6
[2025-01-08 08:32] LABS: Basophils # (A) 0.05 X 10*3/uL (0.00-0.10); Basophils % (A) 0.7 %; Eosinophils # (A) 0.19 X 10*3/uL (0.04-0.35); Eosinophils % (A) 2.7 %; HCT 32.6 % (37.2-46.3); HGB 10.4 g/dL (12.0-15.0); Immature Grans, Automated 0.40 %; Lymphocytes # (A) 1.86 X 10*3/uL (0.90-5.00); Lymphocytes % (A) 26.5 %; MCH 30.1 pg (27.0-32.0); MCHC 31.9 g/dL (32.0-37.0); MCV 94.2 FL (80.0-97.0); Monocytes # (A) 0.59 X 10*3/uL (0.20-1.00); Monocytes % (A) 8.4 %; NRBC Per 100 WBC 0 X 10*3/uL (0.00-0.01); Neutrophils # (A) 4.31 X 10*3/uL (1.80-7.70); Neutrophils % (A) 61.3 %; Platelet Count 352 X 10*3/uL (140-440); RBC 3.46 X 10*6/uL (4.10-5.20); RDW 17.4 % (11.5-14.5); WBC 7.03 X 10*3/uL (4.50-10.00)
[2025-01-08] MEDS: ENOXAPARIN 30 MG/0.3 ML SYRINGE SQ SCH (08:37)
[2025-01-08] MEDS ORDERED: PANTOPRAZOLE 40 MG TABLET PO SCH (09:00)
[2025-01-08 09:02] LABS: ALT 9 U/L (8-44); AST 19 U/L (13-35); Albumin 3.3 g/dL (3.8-4.9); Albumin/Globulin Ratio 1.43 Ratio (1.60-3.17); Alkaline Phosphatase 103 U/L (41-126); Anion Gap 11.20 mmol/L (4.00-12.00); BUN/Creat Ratio 9.38 Ratio (12.00-20.00); Blood Urea Nitrogen 15.0 mg/dL (9.0-27.0); Calcium 8.6 mg/dL (8.7-10.3); Carbon Dioxide 18.8 mmol/L (21.6-31.8); Chloride 108 mmol/L (96-109); Globulin 2.3 g/dL (1.6-3.3); Glucose 95 mg/dL (70-110); Magnesium 2.5 mg/dL (1.5-2.4); Potassium 3.7 mmol/L (3.5-5.5); Sodium 138 mmol/L (135-145); Total Protein 5.6 g/dL (6.2-8.2)
[2025-01-08] MEDS: TIOTROPIUM 2.5 MCG INHALER INHALATION SCH (10:43)
[2025-01-08] MEDS: FORMOTEROL FUMARATE 20 MCG/2 ML NEBU INHALATION SCH (10:43)
[2025-01-08 13:06] VITALS: BP 133/84; PULSE 74
--- NOTE | 2025-01-08 14:26 | P.CNNES ---
<FelicianoCk - Last Filed: 01/08/25 14:19> History of Present Illness Consult date: 01/08/25 Requesting physician: Tanya Garcia Reason for Consult: Possible TIA, weakness, Hx of CVA History of Present Illness: Patient is a 59-year-old female past medical history of CVA/TIA, ocular migraine pain liver disease, neuropathy presented to the ED with weakness. Patient had multiple falls over the past 2 weeks. Most recent fall was yesterday morning and she reports hitting her head. She denies losing consciousness, bowel or bladder incontinence, biting her tongue. She reports feeling dizzy when she is changing position. Mentions of having residual left-sided motor deficits and paresthesias over the left arm after a stroke in 2022. She lives with her father. Denies any UTI symptoms. She does reports having lower appetite. She also reports that her legs were shaking when she experienced dizziness. Vital signs are within normal limits. Hemoglobin is 10.4, creatinine 1.6. UTI shows positive nitrite, large leukocyte esterase, many bacteria CT of the head and cervical spine shows no acute fracture or dislocation evident in cervical spine, no acute intracranial hemorrhage/mass effect/midline shift Past Medical History Past Medical History: CVA/TIA, GERD/Reflux, GI Bleed, Liver Disease, Osteoarthritis (OA) Additional Past Medical History / Comment(s): CVA 03-20-23,04-29-23-left side weakness,had left facial [id number]-qocilsad-[id number] w/ Dr Janelle Monk [facility],occ migraines, sinus congestion from allergies, hx pleurisy, bleeding ulcer Mar 2019, hx anemia, fatty liver disease, hiatal hernia, IBS/constipation,fatty liver, neuropathy History of Any Multi-Drug Resistant Organisms: None Reported Past Surgical History: Heart Catheterization Additional Past Surgical History / Comment(s): kidney biopsy, laparoscopy Past Anesthesia/Blood Transfusion Reactions: Previous Problems w/ Anesthesia, Family History of Problems w/ Anesthesia, Motion Sickness Additional Past Anesthesia/Blood Transfusion Reaction / Comment(s): had blood tr ansfusion 03/2019-no problems, "takes a while to come out", 'sister had hard time coming out of it" Past Psychological History: Anxiety Smoking Status: Former smoker Past Alcohol Use History: Daily Past Drug Use History: None Reported - Past Family History Mother Family Medical History: Liver Disease Additional Family Medical History / Comment(s): fatty liver disease Medications and Allergies Home Medications Medication Instructions Recorded Confirmed Type Ergocalciferol [Vitamin D2 (1250 1,250 mcg PO NAVAS 04/11/22 01/07/25 History Mcg = 90753 Iu)] Omeprazole 40 mg PO DAILY 04/11/22 01/07/25 History Albuterol Inhaler [Ventolin Hfa 2 puff INHALATION RT-Q4H PRN 09/08/23 01/07/25 History Inhaler] Atorvastatin [Lipitor] 40 mg PO HS 09/08/23 01/07/25 History Dicyclomine HCl 20 mg PO QID PRN 09/08/23 01/07/25 History Tiotropium Br/Olodaterol HCl 2 puff INHALATION RT-DAILY 09/08/23 01/07/25 History [Stiolto Respimat Inhal [place]] LORazepam 2 mg PO BID PRN 01/19/24 01/07/25 History HYDROcodone/APAP 7.5-325MG [[place] 1 tab PO TID PRN 04/03/24 01/07/25 History 7.5-325] Montelukast [Singulair] 10 mg PO HS 04/03/24 01/07/25 History Gabapentin [Neurontin] 300 mg PO TID 11/24/24 01/07/25 History Amitriptyline HCl [Elavil] 50 mg PO HS 01/07/25 01/07/25 History levETIRAcetam [Keppra] 500 mg PO Q12HR #90 tab 01/08/25 Rx Allergies Allergy/AdvReac Type Severity Reaction Status Date / Time azithromycin AdvReac Nausea & Verified 01/07/25 17:57 [From Zithromax Z-Francisco] Vomiting & Diarrhea codeine AdvReac Nausea & Verified 01/07/25 17:57 Vomiting Physical Examination - Vital Signs Vital Signs: Vital Signs Temp Pulse Pulse Resp BP BP BP 01/08/25 07:20 97.6 F 73 16 127/82 01/08/25 01:52 98.3 F 74 16 117/76 01/07/25 22:36 97.5 F L 71 16 122/80 01/07/25 20:52 76 18 117/91 01/07/25 18:44 78 18 109/70 01/07/25 14:31 98.1 F 90 18 93/59 Pulse Ox 01/08/25 07:20 97 01/08/25 01:52 98 01/07/25 22:36 100 01/07/25 20:52 99 01/07/25 18:44 100 01/07/25 14:31 98 Intake and Output 01/07/25 01/08/25 01/08/25 22:59 06:59 14:59 Intake Total 120 Balance 120 Intake: Oral 120 Other: # Voids 1 1 1 Weight 56.699 kg General: no distress, lying in bed comfortably. Neuro: Awake, Alert, and oriented Extraocular movements intact no nystagmus, left sided facial droop, facial sensation normal. On muscle strength testing, there is 4/5 in left UE and LE, 5/5 in right UE and LE Deep tendon reflexes are symmetric 2 at biceps, 1 at brachioradialis, 0 at the knees and plantars indeterminate Sensory to touch is equal Cerebellar function showed no ataxia for bdulgi-st-etif testing Results - Laboratory Findings CBC and BMP: 01/08/25 04:29 01/08/25 04:29 Abnormal Lab Findings: Abnormal Labs 01/07/25 01/07/25 01/07/25 15:30 15:30 22:16 RBC 3.27 L Hgb 9.8 L Hct 29.8 L MCHC RDW MPV 9.2 L Chloride 110 H Carbon Dioxide 20 L BUN 19 H Creatinine 2.05 H Est GFR (CKD-EPI) BUN/Creatinine Ratio Calcium Magnesium 1.3 L Total Bilirubin Creatine Kinase 146 H Total Protein 5.8 L Albumin 3.2 L Albumin/Globulin Ratio Urine Appearance Cloudy H Urine Protein Trace H Urine Blood Trace H Urine Nitrite Positive H Ur Leukocyte Esterase Large H Urine RBC 6 H Urine WBC >182 H Urine Bacteria Many H Hyaline Casts 51 H Urine Mucus Occasional H 01/08/25 01/08/25 04:29 04:29 RBC 3.46 L Hgb 10.4 L Hct 32.6 L MCHC 31.9 L RDW 17.4 H MPV Chloride Carbon Dioxide 18.8 L BUN Creatinine 1.6 H Est GFR (CKD-EPI) 36 L BUN/Creatinine Ratio 9.38 L Calcium 8.6 L Magnesium 2.5 H Total Bilirubin <0.2 L Creatine Kinase Total Protein 5.6 L Albumin 3.3 L Albumin/Globulin Ratio 1.43 L Urine Appearance Urine Protein Urine Blood Urine Nitrite Ur Leukocyte Esterase Urine RBC Urine WBC Urine Bacteria Hyaline Casts Urine Mucus Assessment and Plan Assessment: Generalized weakness, probably secondary to PRESTON vs polypharmacy. Concern for focal motor seizure without loss of consciousness Polypharmacy History of stroke with residual deficits PRESTON, improving Hypomagnesemia, improved Asymptomatic bacteriuria Plan: CT of the head and cervical spine shows no acute fracture or dislocation evident in cervical spine, no acute intracranial hemorrhage/mass effect/midline shift UTI shows positive nitrite, large leukocyte esterase, many bacteria, patient denying symptoms Orthostatic vitals obtained, supine 133/84, sitting 137/89, standing 121/83 Continue atorvastatin 40 mg p.o. at bedtime Continue IV fluids DVT prophylaxis: Lovenox 40 mg SQ daily Concern for focal motor seizure without loss of consciousness, patient refusing stay in the hospital and patient advised to get EEG with her neurologist on outpatient basis Dictation was produced using [employer] dictation software. please excuse any grammatical, word or spelling errors. Ck Feliciano MD PGY-2 IM <Vance Daniel - Last Filed: 01/08/25 17:59> Physical Examination - Vital Signs Vital Signs: Vital Signs Temp Pulse Pulse Pulse Pulse Pulse Resp 01/08/25 13:04 80 85 74 01/08/25 10:51 72 01/08/25 10:44 72 01/08/25 07:20 97.6 F 73 16 01/08/25 01:52 98.3 F 74 16 01/07/25 22:36 97.5 F L 71 16 01/07/25 20:52 76 18 01/07/25 18:44 78 18 BP BP BP BP BP BP Pulse Ox 01/08/25 13:04 137/89 121/83 133/84 01/08/25 10:51 01/08/25 10:44 01/08/25 07:20 127/82 97 01/08/25 01:52 117/76 98 01/07/25 22:36 122/80 100 01/07/25 20:52 117/91 99 01/07/25 18:44 109/70 100 Intake and Output 01/08/25 01/08/25 01/08/25 06:59 14:59 22:59 Intake Total 120 Balance 120 Intake: Oral 120 Other: # Voids 1 2 Results - Laboratory Findings CBC and BMP: 01/08/25 04:29 01/08/25 04:29 Abnormal Lab Findings: Abnormal Labs 01/07/25 01/07/25 01/07/25 15:30 15:30 22:16 RBC 3.27 L Hgb 9.8 L Hct 29.8 L MCHC RDW MPV 9.2 L Chloride 110 H Carbon Dioxide 20 L BUN 19 H Creatinine 2.05 H Est GFR (CKD-EPI) BUN/Creatinine Ratio Calcium Magnesium 1.3 L Total Bilirubin Creatine Kinase 146 H Total Protein 5.8 L Albumin 3.2 L Albumin/Globulin Ratio Urine Appearance Cloudy H Urine Protein Trace H Urine Blood Trace H Urine Nitrite Positive H Ur Leukocyte Esterase Large H Urine RBC 6 H Urine WBC >182 H Urine Bacteria Many H Hyaline Casts 51 H Urine Mucus Occasional H 01/08/25 01/08/25 04:29 04:29 RBC 3.46 L Hgb 10.4 L Hct 32.6 L MCHC 31.9 L RDW 17.4 H MPV Chloride Carbon Dioxide 18.8 L BUN Creatinine 1.6 H Est GFR (CKD-EPI) 36 L BUN/Creatinine Ratio 9.38 L Calcium 8.6 L Magnesium 2.5 H Total Bilirubin <0.2 L Creatine Kinase Total Protein 5.6 L Albumin 3.3 L Albumin/Globulin Ratio 1.43 L Urine Appearance Urine Protein Urine Blood Urine Nitrite Ur Leukocyte Esterase Urine RBC Urine WBC Urine Bacteria Hyaline Casts Urine Mucus Assessment and Plan Assessment: Generalized weakness, probably secondary to PRESTON vs polypharmacy. Concern for focal motor seizure without loss of consciousness since patient is having recurrent falls and states prior to that has shaking of legs without LOC or moving to arms. Her prior stroke can increase risk of strokes. Currently is back to baseline. Plan: Patient was started on Keppra 500mg bid for concern for focal motor seizure. Patient wanted to be discharged home and unable to perform EEG today. Therefore, since patient is stable recommend EEG as outpatient. I gave the EEG patient's info to coordinate EEG as outpatient. Recommend the patient to follow-up with outpatient neurologist within 2-3 weeks. I personally took history, reviewed labs and imaging and examined patient. I agree with the resident's assessment and plan. Vance Daniel M.D. Time with Patient: Greater than 30
--- NOTE | 2025-01-08 14:33 | P.DS ---
Providers Date of admission: 01/07/25 18:16 Expected date of discharge: 01/08/25 Attending physician: Gavino Perez MD Consults: 01/07/25 18:14 Consult Physician Routine Consulting Provider: Vance Daniel Consult Reason/Comments: possible TIA, weakness, hx of CVA Do you want consulting provider notified?: Yes, Notify in am Primary care physician: Lenny Malcolm MD Hospital Course: Discharge Diagnosis: Suspected focal seizures PRESTON Dehydration Hypomagnesemia Weakness and frequent falls Polypharmacy History of stroke with residual deficits Back Pain Asymptomatic bacteriuria 59 y/o female with PMHx of CVA, TIA, liver disease, left sided weakness brought to the ED by EMS for weakness and frequent falls. Patient shares that she has had around 15 falls over the past two weeks - she has never lost consciousness, lost bladder control, or bit her tongue. She feels her knees buckling before losing balance. Patient indicates she has residual left sided motor deficits and parasthesia over left arm since her stroke in 2022. She says she has no issues eating/drinking and no recent medication changes. She denies any chest pain, difficulty breathing, abdominal pain, urinary or bowel habit changes. In the ED, labs indicated potential PRESTON w/ a Cr of 2.05 (baseline of 1.5). Imaging including CXR, CT head, and US kidney/bladder were WNL. EKG showed sinus rhythm with low QRS in precordial leads and signs of a most likely old septal NM. The patient was admitted for observation and further evaluation and management. The patient's weakness and falls were thought to be due to polypharmacy vs. PRESTON. Patient's gabapentin, flexeril and omeprazole were held and normal saline was administered. Patient's Cr improved from 2.05 to 1.6. While admitted, orthostatic vitals were obtained which did not show evidence of orthostatic hypotension. UA showed evidence of bacteriuria but patient was not treated as she was asymptomatic for UTI. Discussed with neurology; they think patient may be having some focal seizure like activity of her leg that could be contributing to her frequent falls. She was placed on Keppra 500 mg BID and her flexeril was discontinued. Recommend f/u with neurology outpatient. Vital signs reviewed and stable. Physical examination: Vital signs reviewed General: non toxic, no distress, appears at stated age, normal weight Derm: no unusual rashes/lesions, warm Head: atraumatic, normocephalic, symmetric Eyes: EOMI, anicteric sclera, pupils equal round reactive to light ENT: Nose and ears atraumatic Neck: No cervical lymphadenopathy, trachea midline, supple Mouth: no lip lesion, mucus membranes moist Cardiovascular: S1S2 reg, no murmur, positive dorsalis pedis pulse bilateral Lungs: CTA bilateral, no rhonchi, no rales, no accessory muscle use Abdominal: soft, nontender to palpation, no guarding Ext: muscle strength 5 out of 5 in all 4 extremities grossly, no gross muscle atrophy Neuro: L sided facial droop and L sided upper and lower extremity weakness from prior stroke. Psych: Alert, oriented to person, place, and time A total of greater than 30 minutes of time were spent preparing this complex discharge summary. Patient was discharged on 01/08/25 at 1423. Evans Alvarado MD PGY-1 TY I have seen and evaluated the patient today. Discussed with the resident and a gree with the residents finding and plan as documented in the resident's note. Changes highlighted in blue font. Patient Condition at Discharge: Stable Plan - Discharge Summary Discharge Rx Participant: No New Discharge Prescriptions: New levETIRAcetam [Keppra] 500 mg PO Q12HR #90 tab Continue Ergocalciferol [Vitamin D2 (1250 Mcg = 60665 Iu)] 1,250 mcg PO NAVAS Omeprazole 40 mg PO DAILY Dicyclomine HCl 20 mg PO QID PRN PRN Reason: Gi Upset Atorvastatin [Lipitor] 40 mg PO HS Tiotropium Br/Olodaterol HCl [Stiolto Respimat Inhal [place]] 2 puff INHALATION RT-DAILY HYDROcodone/APAP 7.5-325MG [[place] 7.5-325] 1 tab PO TID PRN PRN Reason: Pain Amitriptyline HCl [Elavil] 50 mg PO HS Albuterol Inhaler [Ventolin Hfa Inhaler] 2 puff INHALATION RT-Q4H PRN PRN Reason: Shortness Of Breath LORazepam 2 mg PO BID PRN PRN Reason: Anxiety Montelukast [Singulair] 10 mg PO HS Gabapentin [Neurontin] 300 mg PO TID Discontinued Cyclobenzaprine [Flexeril] 10 mg PO HS PRN PRN Reason: Muscle Spasm Discharge Medication List Ergocalciferol [Vitamin D2 (1250 Mcg = 14031 Iu)] 1,250 mcg PO NAVAS 04/11/22 [History] Omeprazole 40 mg PO DAILY 04/11/22 [History] Albuterol Inhaler [Ventolin Hfa Inhaler] 2 puff INHALATION RT-Q4H PRN 09/08/23 [History] Atorvastatin [Lipitor] 40 mg PO HS 09/08/23 [History] Dicyclomine HCl 20 mg PO QID PRN 09/08/23 [History] Tiotropium Br/Olodaterol HCl [Stiolto Respimat Inhal [place]] 2 puff INHALATION RT-DAILY 09/08/23 [History] LORazepam 2 mg PO BID PRN 01/19/24 [History] HYDROcodone/APAP 7.5-325MG [[place] 7.5-325] 1 tab PO TID PRN 04/03/24 [History] Montelukast [Singulair] 10 mg PO HS 04/03/24 [History] Gabapentin [Neurontin] 300 mg PO TID 11/24/24 [History] Amitriptyline HCl [Elavil] 50 mg PO HS 01/07/25 [History] levETIRAcetam [Keppra] 500 mg PO Q12HR #90 tab 01/08/25 [Rx] Follow up Appointment(s)/Referral(s): Mary Whitley NPC [REFERRING] - 1-2 days Luly Davis MD [Medical Doctor] - 1 Week Patient Instructions/Handouts: Acute Kidney Injury (DC), New-Onset Seizure in Adults (DC), Fall Prevention (DC) Activity/Diet/Wound Care/Special Instructions: Please see PCP and neurologist. Per [place] law, no driving or use of heavy machinery for 6 months. Discharge Disposition: HOME SELF-CARE
[2025-01-08] MEDS: levETIRAcetam 500 MG TAB PO SCH (15:21)
[2025-01-08 21:27] LABS: Urine Barbiturate Negative (Negative)
[2025-01-09] MEDS ORDERED: ENOXAPARIN 40 MG/0.4 ML SYRINGE SQ SCH (09:00)
== END 2025-01-08 16:04 | disposition home or self-care (01) ==
LOC: EC 14:28 → 6NMEDSUR 18:16
PROVIDERS: ADMIT Internal Medicine; ATTEND Internal Medicine
DX: N17.9 Acute kidney failure, unspecified (principal); E86.0 Dehydration; E83.42 Hypomagnesemia; R82.71 Bacteriuria; R29.6 Repeated falls; M54.9 Dorsalgia, unspecified; F41.9 Anxiety disorder, unspecified; I25.2 Old myocardial infarction; K76.0 Fatty (change of) liver, not elsewhere classified; I69.354 Hemiplegia and hemiparesis following cerebral infarction affecting left non-dominant side; Z79.899 Other long term (current) drug therapy; Z87.891 Personal history of nicotine dependence; Z88.1 Allergy status to other antibiotic agents; Z88.5 Allergy status to narcotic agent
CPT/HCPCS: 96372; 96361; 96365; 96366; 99285; 36415; 94640 ×2; 93005; 97162; 97166; 80053 ×2; 82550; 83605; 83735 ×2; 84484; 85025 ×2; 85610; 85730; 81001; 80306; 87086; 87077; 87186; 71046; 76770; 72125; 70450; G0378 ×2; J1650; J3475

== ENCOUNTER 2025-01-09 18:37 | Emergency (ER) | payer OTHER ==
--- NOTE | 2025-01-09 18:46 | ED ---
Fall HPI - General Chief Complaint: Fall Stated Complaint: Multiple Falls Time Seen by Provider: 01/09/25 18:40 Source: patient, EMS, RN notes reviewed Mode of arrival: EMS Limitations: no limitations - History of Present Illness Initial Comments: Quick Note: This is a 59-year-old female who presents to the emergency department for multiple falls. Patient was discharged from this facility yesterday and since going home states that she has fallen multiple times. She did hit her head but denies any LOC. Not taking any blood thinners. Currently complains of a headache and left hip pain. She was able to stand and pivot from the EMS stretcher to the wheelchair. MD Complaint: fall - Related Data Home Medications Medication Instructions Recorded Confirmed Ergocalciferol [Vitamin D2 (1250 1,250 mcg PO NAVAS 04/11/22 01/07/25 Mcg = 75813 Iu)] Omeprazole 40 mg PO DAILY 04/11/22 01/07/25 Albuterol Inhaler [Ventolin Hfa 2 puff INHALATION RT-Q4H PRN 09/08/23 01/07/25 Inhaler] Atorvastatin [Lipitor] 40 mg PO HS 09/08/23 01/07/25 Dicyclomine HCl 20 mg PO QID PRN 09/08/23 01/07/25 Tiotropium Br/Olodaterol HCl 2 puff INHALATION RT-DAILY 09/08/23 01/07/25 [Stiolto Respimat Inhal [place]] LORazepam 2 mg PO BID PRN 01/19/24 01/07/25 HYDROcodone/APAP 7.5-325MG [[place] 1 tab PO TID PRN 04/03/24 01/07/25 7.5-325] Montelukast [Singulair] 10 mg PO HS 04/03/24 01/07/25 Gabapentin [Neurontin] 300 mg PO TID 11/24/24 01/07/25 Amitriptyline HCl [Elavil] 50 mg PO HS 01/07/25 01/07/25 Previous Rx's Medication Instructions Recorded levETIRAcetam [Keppra] 500 mg PO Q12HR #90 tab 01/08/25 Allergies Allergy/AdvReac Type Severity Reaction Status Date / Time azithromycin AdvReac Nausea & Verified 01/07/25 17:57 [From Zithromax Z-Francisco] Vomiting & Diarrhea codeine AdvReac Nausea & Verified 01/07/25 17:57 Vomiting Review of Systems ROS Statement: Those systems with pertinent positive or pertinent negative responses have been documented in the HPI. ROS Other: All systems not noted in ROS Statement are negative. Past Medical History Past Medical History: CVA/TIA, GERD/Reflux, GI Bleed, Liver Disease, Osteoarthritis (OA) Additional Past Medical History / Comment(s): CVA 03-20-23,04-29-23-left side weakness,had left facial xaplaozi-xawgjrim-jiwwhawag w/ Dr Janelle Oneill,occ migraines, sinus congestion from allergies, hx pleurisy, bleeding ulcer Mar 2019, hx anemia, fatty liver disease, hiatal hernia, IBS/constipation,fatty liver, neuropathy History of Any Multi-Drug Resistant Organisms: None Reported Past Surgical History: Heart Catheterization Additional Past Surgical History / Comment(s): kidney biopsy, laparoscopy Past Anesthesia/Blood Transfusion Reactions: Previous Problems w/ Anesthesia, Family History of Problems w/ Anesthesia, Motion Sickness Additional Past Anesthesia/Blood Transfusion Reaction / Comment(s): had blood transfusion 03/2019-no problems, "takes a while to come out", 'sister had hard time coming out of it" Past Psychological History: Anxiety Smoking Status: Former smoker Past Alcohol Use History: Daily Past Drug Use History: None Reported - Past Family History Mother Family Medical History: Liver Disease Additional Family Medical History / Comment(s): fatty liver disease General Exam - General Exam Comments Initial Comments: Visual Physical Exam Vital signs reviewed General: Well-appearing, nontoxic, no acute distress. Head: Normocephalic, atraumatic Eyes: PERRLA, EOMI ENT: Airway patent Chest: Nonlabored breathing Skin: No visual rash, normal skin tone Neuro: Alert and oriented 3 Musculoskeletal: No gross abnormalities Course Vital Signs 01/09/25 18:49 Temperature 97.7 F Pulse Rate 80 Respiratory 18 Rate Blood Pressure 115/78 O2 Sat by Pulse 94 L Oximetry Medical Decision Making - Medical Decision Making I performed the QuickNote portion of this chart. Signed Melina Estrada PA-C. Patient left AMA from the waiting room prior to full evaluation as well as completion and review of ordered testing. - Lab Data Result diagrams: 01/09/25 17:15 01/09/25 17:15 Lab Results 01/09/25 01/09/25 Range/Units 17:15 17:15 WBC 7.74 (4.50-10.00) 10*3/uL RBC 3.36 L (4.10-5.20) 10*6/uL Hgb 10.2 L (12.0-15.0) g/dL Hct 30.9 L (37.2-46.3) % MCV 92.0 (80.0-97.0) fL MCH 30.4 (27.0-32.0) pg MCHC 33.0 (32.0-37.0) g/dL Plt Count 328 (140-440) 10*3/uL MPV 9.6 (9.5-12.2) fL Immature Gran % (Auto) 0.3 % Neutrophils % 62.3 % Lymphocytes % 24.0 % Monocytes % 10.5 % Eosinophils % 2.3 % Basophils % 0.6 % Immature Gran # 0.02 (0.00-0.04) 10*3/uL Neutrophils # 4.82 (1.80-7.70) 10*3/uL Lymphocytes # 1.86 (0.90-5.00) 10*3/uL Monocytes # 0.81 (0.20-1.00) 10*3/uL Eosinophils # 0.18 (0.04-0.35) 10*3/uL Basophils # 0.05 (0.00-0.10) 10*3/uL Sodium 139 (137-145) mmol/L Potassium 4.0 (3.5-5.1) mmol/L Chloride 110 H (98-107) mmol/L Carbon Dioxide 19 L (22-30) mmol/L Anion Gap 10 mmol/L BUN 12 (7-17) mg/dL Creatinine 1.36 H (0.52-1.04) mg/dL Est GFR (CKD-EPI)AfAm 49 (>60 ml/min/1.73 sqM) Est GFR (CKD-EPI)NonAf 42 (>60 ml/min/1.73 sqM) Glucose 76 (74-99) mg/dL Calcium 9.6 (8.4-10.2) mg/dL Magnesium 1.7 (1.6-2.3) mg/dL Total Bilirubin 0.4 (0.2-1.3) mg/dL AST 24 (14-36) U/L ALT 11 (4-34) U/L Alkaline Phosphatase 100 (38-126) U/L Total Protein 6.2 L (6.3-8.2) g/dL Albumin 3.4 L (3.5-5.0) g/dL Disposition Clinical Impression: Frequent falls, Head injury Disposition: LEFT AGAINST MEDICAL ADVICE Referrals: Lenny Malcolm MD [Primary Care Provider] - 1-2 days Forms: Adult Foster Alf List, Assisted Living Facilities, Personal Cost Specialist
[2025-01-09 18:53] VITALS: BP 115/78; PULSE 80; RESP 18; TEMP 97.7
[2025-01-09 19:25] LABS: Basophils # (A) 0.05 10*3/uL (0.00-0.10); Basophils % (A) 0.6 %; Eosinophils # (A) 0.18 10*3/uL (0.04-0.35); Eosinophils % (A) 2.3 %; HCT 30.9 % (37.2-46.3); HGB 10.2 g/dL (12.0-15.0); Lymphocytes # (A) 1.86 10*3/uL (0.90-5.00); Lymphocytes % (A) 24.0 %; MCH 30.4 pg (27.0-32.0); MCHC 33.0 g/dL (32.0-37.0); MCV 92.0 fL (80.0-97.0); Monocytes # (A) 0.81 10*3/uL (0.20-1.00); Monocytes % (A) 10.5 %; Neutrophils # (A) 4.82 10*3/uL (1.80-7.70); Neutrophils % (A) 62.3 %; Platelet Count 328 10*3/uL (140-440); RBC 3.36 10*6/uL (4.10-5.20); RDW 17.2 % (11.5-14.5); WBC 7.74 10*3/uL (4.50-10.00)
[2025-01-09 19:34] LABS: ALT 11 U/L (4-34); AST 24 U/L (14-36); African American GFR (CKD) 49 (>60 ml/min/1.73 sqM); Albumin 3.4 g/dL (3.5-5.0); Alkaline Phosphatase 100 U/L (38-126); Anion Gap 10 mmol/L; Blood Urea Nitrogen 12 mg/dL (7-17); Calcium 9.6 mg/dL (8.4-10.2); Carbon Dioxide 19 mmol/L (22-30); Chloride 110 mmol/L (98-107); Glucose 76 mg/dL (74-99); Magnesium 1.7 mg/dL (1.6-2.3); Non-African American GFR(CKD) 42 (>60 ml/min/1.73 sqM); Potassium 4.0 mmol/L (3.5-5.1); Sodium 139 mmol/L (137-145); Total Protein 6.2 g/dL (6.3-8.2)
--- NOTE | 2025-01-09 20:22 | XR ---
EXAMINATION TYPE: XR Hip LT and AP Pelvis DATE OF EXAM: 01/09/2025 8:11 PM INDICATION: Patient age:Female; 59 years old; Reason for study: Fall; PHH. pain COMPARISON: Left hip radiograph 11/24/2024 TECHNIQUE: The left hip was examined in the frontal and lateral projections and a AP pelvis. FINDINGS: No evidence of any acute osseous pathology, joint dislocation, or soft tissue swelling. Lef t-sided pelvic phlebolith. IMPRESSION: No acute osseous pathology. [facility], , 01/09/2025 8:20 PM
--- NOTE | 2025-01-09 20:38 | CT ---
EXAMINATION TYPE: CT brain cspine wo con CT DLP: 1238.1 mGycm, Automated exposure control for dose reduction was used. DATE OF EXAM: 01/09/2025 8:16 PM COMPARISON: CT brain C-spine 01/07/2025, CT brain 11/24/2024, 04/03/2024, MRI brain/L-spine 04/05/2024. CLINICAL INDICATION:Female, 59 years old with history of Fall; fall, pain TECHNIQUE: Brain: Multiple axial CT images of the brain were obtained without IV contrast. Cspine: Axial CT images from the skull base to the inferior aspect of T2 we obtained without intraven ous contrast. Coronal and sagittal reformatted images were also reviewed. FINDINGS: Brain: Extra-axial spaces: No abnormal extra-axial fluid collections. Ventricular system: Ex vacuo dilatation of the anterior horn of the right lateral ventricle. Cerebral parenchyma: Cerebral atrophy. No acute intraparenchymal hemorrhage or mass effect. Encephal omalacia within the right frontal lobe from prior injury. The remaining rosario-white junction is well d ifferentiated. Scattered hypoattenuating areas are seen periventricular within the white matter. Cerebellum: Unremarkable. Mass effect: No evidence of midline shift. Intracranial vasculature: Atherosclerotic calcifications of the intracranial vessels. Soft tissues: Tiny posterior right parietal scalp hematoma measuring approximately 4 mm in thickness. There are a few foci of gas consistent with laceration. Calvarium/osseous structures: No depressed skull fracture. Paranasal sinuses and mastoid air cells: Clear. Aplasia of the bilateral frontal sinuses. Visualized orbits: Orbital contents are intact. Cervical spine: Fracture: None. Osseous structures: Anterior osteophytosis at C4-C5. Multilevel facet arthropathy of the upper cervic al spine. Vertebral alignment: Within normal limits. Spinal canal/Neural Foramina: No evidence of significant spinal canal narrowing. Facet joint uncovert ebral joint arthropathy scattered throughout the cervical spine with varying degrees of neural forami nal stenosis. Neck soft tissues: Prevertebral soft tissues are within normal limits. Other: The airway is patent. Mild biapical pleural scarring with paraseptal emphysematous changes. IMPRESSION: 1. No acute intracranial process. 2. 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 3. Nonspecific white matter changes, likely secondary to chronic small vessel ischemic disease. 4. No evidence of cervical spine fracture. 5. Mild multilevel degenerative disc disease. 6. Small acute right posterior parietal scalp hematoma with laceration. [facility], , 01/09/2025 8:36 PM
== END 2025-01-09 22:41 | disposition left against medical advice (07) ==
LOC: EC 18:37
DX: S09.90XA Unspecified injury of head, initial encounter (principal); Z86.73 Personal history of transient ischemic attack (TIA), and cerebral infarction without residual deficits; Z87.891 Personal history of nicotine dependence; Z88.1 Allergy status to other antibiotic agents; Z88.5 Allergy status to narcotic agent; Z53.29 Procedure and treatment not carried out because of patient's decision for other reasons; W18.30XA Fall on same level, unspecified, initial encounter
CPT/HCPCS: 36415; 70450; 72125; 73502; 80053; 83735; 85025; 93005; 99284

== ENCOUNTER 2025-01-25 12:55 | Emergency (ER) | payer OTHER ==
--- NOTE | 2025-01-25 13:10 | ED ---
General Adult HPI - General Chief complaint: Weakness Stated complaint: Failure to thrive Time Seen by Provider: 01/25/25 12:56 Source: EMS Mode of arrival: EMS Limitations: no limitations - History of Present Illness Initial comments: Dictation was produced using [employer] dictation software. please excuse any grammatical, word or spelling errors. Chief Complaint: 59-year-old female presents to the emergency department with weakness and falls History of Present Illness: Patient 59-year-old female she is a poor historian. According to EMS patient has history of CVA with chronic left-sided weakness. According EMS patient allegedly lives with elderly father. Apparently family has been trying to get patient to rehab facility for long-term care. Over the last 72 hours patient had suffered 2 falls. Patient allegedly alcoholic. There is concern that patient was able to obtain some alcohol today. She states she had some coffee with liquor. Denies any pain complaints. States that she fell twice. The ROS documented in this emergency department record has been reviewed and confirmed by me. Those systems with pertinent positive or negative responses have been documented in the HPI. All other systems are other negative and/or noncontributory. - Related Data Home Medications Medication Instructions Recorded Confirmed Ergocalciferol [Vitamin D2 (1250 1,250 mcg PO NAVAS 04/11/22 01/07/25 Mcg = 81253 Iu)] Omeprazole 40 mg PO DAILY 04/11/22 01/07/25 Albuterol Inhaler [Ventolin Hfa 2 puff INHALATION RT-Q4H PRN 09/08/23 01/07/25 Inhaler] Atorvastatin [Lipitor] 40 mg PO HS 09/08/23 01/07/25 Dicyclomine HCl 20 mg PO QID PRN 09/08/23 01/07/25 Tiotropium Br/Olodaterol HCl 2 puff INHALATION RT-DAILY 09/08/23 01/07/25 [Stiolto Respimat Inhal [place]] LORazepam 2 mg PO BID PRN 01/19/24 01/07/25 HYDROcodone/APAP 7.5-325MG [[place] 1 tab PO TID PRN 04/03/24 01/07/25 7.5-325] Montelukast [Singulair] 10 mg PO HS 04/03/24 01/07/25 Gabapentin [Neurontin] 300 mg PO TID 11/24/24 01/07/25 Amitriptyline HCl [Elavil] 50 mg PO HS 01/07/25 01/07/25 Previous Rx's Medication Instructions Recorded levETIRAcetam [Keppra] 500 mg PO Q12HR #90 tab 01/08/25 Allergies Allergy/AdvReac Type Severity Reaction Status Date / Time azithromycin AdvReac Nausea & Verified 01/07/25 17:57 [From Zithromax Z-Francisco] Vomiting & Diarrhea codeine AdvReac Nausea & Verified 01/07/25 17:57 Vomiting Review of Systems ROS Statement: Those systems with pertinent positive or pertinent negative responses have been documented in the HPI. ROS Other: All systems not noted in ROS Statement are negative. Past Medical History Past Medical History: CVA/TIA, GERD/Reflux, GI Bleed, Liver Disease, Osteoarthritis (OA) Additional Past Medical History / Comment(s): CVA 03-20-23,04-29-23-left side weakness,had left facial [id number] w/ Dr Janelle Oneill,occ migraines, sinus congestion from allergies, hx pleurisy, bleeding ulcer Mar 2019, hx anemia, fatty liver disease, hiatal hernia, IBS/constipation,fatty liver, neuropathy History of Any Multi-Drug Resistant Organisms: None Reported Past Surgical History: Heart Catheterization Additional Past Surgical History / Comment(s): kidney biopsy, laparoscopy Past Anesthesia/Blood Transfusion Reactions: Previous Problems w/ Anesthesia, Family History of Problems w/ Anesthesia, Motion Sickness Additional Past Anesthesia/Blood Transfusion Reaction / Comment(s): had blood transfusion 03/2019-no problems, "takes a while to come out", 'sister had hard time coming out of it" Past Psychological History: Anxiety Smoking Status: Former smoker Past Alcohol Use History: Daily Past Drug Use History: None Reported - Past Family History Mother Family Medical History: Liver Disease Additional Family Medical History / Comment(s): fatty liver disease General Exam - General Exam Comments Initial Comments: PHYSICAL EXAM: General Impression: Alert and oriented x3, not in acute distress HEENT: Normocephalic atraumatic, extra-ocular movements intact, pupils equal and reactive to light bilaterally, mucous membranes moist. Cardiovascular: Heart regular rate and rhythm Chest: Able to complete full sentences, no retractions, no tachypnea Abdomen: abdomen soft, non-tender, non-distended, no organomegaly Musculoskeletal: Pulses present and equal in all extremities, no peripheral edema Motor: no focal deficits noted Neurological: Left-sided facial droop, weakness to the left arm and left leg Skin: Intact with no visualized rashes Psych: Normal affect and mood Limitations: no limitations Course Vital Signs 01/25/25 01/25/25 01/25/25 12:59 13:20 14:46 Temperature 97.5 F L 98.0 F Pulse Rate 80 74 Respiratory 18 78 H 20 Rate Blood Pressure 130/82 114/83 131/88 O2 Sat by Pulse 100 100 100 Oximetry EKG Findings - EKG Comments: EKG Findings:: My EKG interpretation: Ventricular rate 77, sinus rhythm, NV 149, QRS 77, QTc 421. No NV prolongation, no QTC prolongation, no ST or T-wave changes noted. Overall, this EKG is unremarkable Medical Decision Making - Medical Decision Making Was pt. sent in by a medical professional or institution (, PA, [employer], urgent care, hospital, or jail...) When possible be specific @ -No Did you speak to anyone other than the patient for history (EMS, parent, family, police, friend...)? What history was obtained from this source @ -No Did you review nursing and triage notes (agree or disagree)? Why? @ -I reviewed and agree with nursing and triage notes Were old charts reviewed (outside hosp., previous admission, EMS record, old EKG, old radiological studies, urgent care reports/EKG's, jail records)? Report findings @ -No old charts were reviewed Differential Diagnosis (chest pain, altered mental status, abdominal pain women, abdominal pain men, vaginal bleeding, musculoskeletal, weakness, fever, dyspnea, syncope, headache, dizziness, GI bleed, back pain, seizure, CVA, palpatations, mental health)? @ -Differential Weakness: Hypoglycemia, shock, sepsis, hyponatremia, anemia, infection, MS, ETOH, adverse medicine reaction, overdose, stroke, this is not meant to be an all-inclusive list. EKG interpreted by me (3pts min.). @ -See above X-rays interpreted by me (1pt min.). @ -Chest and pelvis x-ray shows no acute processes CT interpreted by me (1pt min.). @ -None done U/S interpreted by me (1pt. min.). @ -None done What testing was considered but not performed or refused? (CT, X-rays, U/S, labs)? Why? @ -None What meds were considered but not given or refused? Why? @ -None Was smoking cessation discussed for >3mins.? @ -No Were there social determinants of health that impacted care today? How? (Homelessness, low income, unemployed, alcoholism, drug addiction, transportation, low edu. Level, literacy, decrease access to med. care, usp, rehab)? @ -No Was there de-escalation of care discussed even if they declined (Discuss DNR or withdrawal of care, Hospice)? DNR status @ -No What co-morbidities impacted this encounter? (DM, HTN, Smoking, COPD, CAD, Cancer, CVA, ARF, Chemo, Hep., AIDS, mental health diagnosis, sleep apnea, morbid obesity)? @ -CVA, debility, alcoholism Was patient admitted / discharged? Hospital course, mention meds given and route, prescriptions, significant lab abnormalities, going to OR and other pertinent info. @ -59-year-old female presents emergency department after suffering 2 falls recently. Patient also has chronic weakness having social issues at home. Vital signs stable. Patient no acute distress physical examination is stable. Labs and imaging unremarkable. Case discussed with correctional counselor/case manager who spoke with family to expedite the process of getting patient into jail. Otherwise told to follow-up with primary care doctor. Did you discuss the management of the patient with other professionals (professionals i.e. , PA, [employer], lab, RT, psych nurse, social psychologist, herbologist, teacher, disability hearing officer, correctional counselor/case manager)? Give summary @ -See above Was critical care preformed (if so, how long)? @ -No Undiagnosed new problem with uncertain prognosis? @ -No Drug Therapy requiring intensive monitoring for toxicity (Heparin, Nitro, Insulin, Cardizem)? @ -No Were any procedures done? @ -No Diagnosis/symptom? Acute, or Chronic, or Acute on Chronic? Uncomplicated ( without systemic symptoms) or Complicated (systemic symptoms)? @ -Debility Side effects of treatment? @ -No Exacerbation, Progression, or Severe Exacerbation? @ -No Poses a threat to life or bodily function? How? (Chest pain, USA, MS, pneumonia, PE, COPD, DKA, ARF, appy, cholecystitis, CVA, Diverticulitis, Homicidal, Suicidal, threat to staff... and all critical care pts) @ -No - Lab Data Result diagrams: 01/25/25 13:19 01/25/25 13:19 Lab Results 01/25/25 01/25/25 01/25/25 Range/Units 13:19 13:19 13:19 WBC 5.18 (4.50-10.00) 10*3/uL RBC 4.05 L (4.10-5.20) 10*6/uL Hgb 12.0 (12.0-15.0) g/dL Hct 36.7 L (37.2-46.3) % MCV 90.6 (80.0-97.0) fL MCH 29.6 (27.0-32.0) pg MCHC 32.7 (32.0-37.0) g/dL Plt Count 291 (140-440) 10*3/uL MPV 9.9 (9.5-12.2) fL Immature Gran % (Auto) 0.2 % Neutrophils % 62.2 % Lymphocytes % 24.3 % Monocytes % 9.1 % Eosinophils % 1.9 % Basophils % 2.3 % Immature Gran # 0.01 (0.00-0.04) 10*3/uL Neutrophils # 3.22 (1.80-7.70) 10*3/uL Lymphocytes # 1.26 (0.90-5.00) 10*3/uL Monocytes # 0.47 (0.20-1.00) 10*3/uL Eosinophils # 0.10 (0.04-0.35) 10*3/uL Basophils # 0.12 H (0.00-0.10) 10*3/uL Sodium 138 (137-145) mmol/L Potassium 4.3 (3.5-5.1) mmol/L Chloride 106 (98-107) mmol/L Carbon Dioxide 23 (22-30) mmol/L Anion Gap 9 mmol/L BUN 17 (7-17) mg/dL Creatinine 1.76 H (0.52-1.04) mg/dL Est GFR (CKD-EPI)AfAm 36 (>60 ml/min/1.73 sqM) Est GFR (CKD-EPI)NonAf 31 (>60 ml/min/1.73 sqM) Glucose 84 (74-99) mg/dL Plasma Lactic Acid Rafael 1.0 (0.7-2.0) mmol/L Calcium 10.6 H (8.4-10.2) mg/dL Magnesium 1.7 (1.6-2.3) mg/dL Total Bilirubin 0.6 (0.2-1.3) mg/dL AST 32 (14-36) U/L ALT 16 (4-34) U/L Alkaline Phosphatase 132 H (38-126) U/L Total Protein 7.4 (6.3-8.2) g/dL Albumin 4.4 (3.5-5.0) g/dL Urine Color Urine Appearance (Clear) Urine pH (5.0-8.0) Ur Specific [place] (1.001-1.035) Urine Protein (Negative) Urine Glucose (UA) (Negative) Urine Ketones (Negative) Urine Blood (Negative) Urine Nitrite (Negative) Urine Bilirubin (Negative) Urine Urobilinogen (<2.0) mg/dL Ur Leukocyte Esterase (Negative) Serum Alcohol <10 mg/dL 01/25/25 Range/Units 13:41 WBC (4.50-10.00) 10*3/uL RBC (4.10-5.20) 10*6/uL Hgb (12.0-15.0) g/dL Hct (37.2-46.3) % MCV (80.0-97.0) fL MCH (27.0-32.0) pg MCHC (32.0-37.0) g/dL Plt Count (140-440) 10*3/uL MPV (9.5-12.2) fL Immature Gran % (Auto) % Neutrophils % % Lymphocytes % % Monocytes % % Eosinophils % % Basophils % % Immature Gran # (0.00-0.04) 10*3/uL Neutrophils # (1.80-7.70) 10*3/uL Lymphocytes # (0.90-5.00) 10*3/uL Monocytes # (0.20-1.00) 10*3/uL Eosinophils # (0.04-0.35) 10*3/uL Basophils # (0.00-0.10) 10*3/uL Sodium (137-145) mmol/L Potassium (3.5-5.1) mmol/L Chloride (98-107) mmol/L Carbon Dioxide (22-30) mmol/L Anion Gap mmol/L BUN (7-17) mg/dL Creatinine (0.52-1.04) mg/dL Est GFR (CKD-EPI)AfAm (>60 ml/min/1.73 sqM) Est GFR (CKD-EPI)NonAf (>60 ml/min/1.73 sqM) Glucose (74-99) mg/dL Plasma Lactic Acid Rafael (0.7-2.0) mmol/L Calcium (8.4-10.2) mg/dL Magnesium (1.6-2.3) mg/dL Total Bilirubin (0.2-1.3) mg/dL AST (14-36) U/L ALT (4-34) U/L Alkaline Phosphatase (38-126) U/L Total Protein (6.3-8.2) g/dL Albumin (3.5-5.0) g/dL Urine Color Colorless Urine Appearance Clear (Clear) Urine pH 6.0 (5.0-8.0) Ur Specific [place] 1.016 (1.001-1.035) Urine Protein Negative (Negative) Urine Glucose (UA) Negative (Negative) Urine Ketones Negative (Negative) Urine Blood Negative (Negative) Urine Nitrite Negative (Negative) Urine Bilirubin Negative (Negative) Urine Urobilinogen <2.0 (<2.0) mg/dL Ur Leukocyte Esterase Negative (Negative) Serum Alcohol mg/dL Disposition Clinical Impression: Weakness Disposition: HOME SELF-CARE Condition: Fair Instructions (If sedation given, give patient instructions): Weakness (ED) Is patient prescribed a controlled substance at d/c from ED?: No Referrals: [facility] [NON-STAFF] - As Soon As Possible (Contact for possible help in the home at a reduced or free rate. ) Lenny Malcolm MD [Primary Care Provider] - 1-2 days Forms: Community Resources, Help In The Home, Personal Drier Operator Helper Time of Disposition: 16:03
[2025-01-25 13:28] LABS: Basophils # (A) 0.12 10*3/uL (0.00-0.10); Basophils % (A) 2.3 %; Eosinophils # (A) 0.10 10*3/uL (0.04-0.35); Eosinophils % (A) 1.9 %; HCT 36.7 % (37.2-46.3); HGB 12.0 g/dL (12.0-15.0); Lymphocytes # (A) 1.26 10*3/uL (0.90-5.00); Lymphocytes % (A) 24.3 %; MCH 29.6 pg (27.0-32.0); MCHC 32.7 g/dL (32.0-37.0); MCV 90.6 fL (80.0-97.0); Monocytes # (A) 0.47 10*3/uL (0.20-1.00); Monocytes % (A) 9.1 %; Neutrophils # (A) 3.22 10*3/uL (1.80-7.70); Neutrophils % (A) 62.2 %; Platelet Count 291 10*3/uL (140-440); RBC 4.05 10*6/uL (4.10-5.20); RDW 16.8 % (11.5-14.5); WBC 5.18 10*3/uL (4.50-10.00)
[2025-01-25 13:41] LABS: ALT 16 U/L (4-34); AST 32 U/L (14-36); African American GFR (CKD) 36 (>60 ml/min/1.73 sqM); Albumin 4.4 g/dL (3.5-5.0); Alkaline Phosphatase 132 U/L (38-126); Anion Gap 9 mmol/L; Blood Urea Nitrogen 17 mg/dL (7-17); Calcium 10.6 mg/dL (8.4-10.2); Carbon Dioxide 23 mmol/L (22-30); Chloride 106 mmol/L (98-107); Glucose 84 mg/dL (74-99); Magnesium 1.7 mg/dL (1.6-2.3); Non-African American GFR(CKD) 31 (>60 ml/min/1.73 sqM); Potassium 4.3 mmol/L (3.5-5.1); Sodium 138 mmol/L (137-145); Total Protein 7.4 g/dL (6.3-8.2)
[2025-01-25 13:51] LABS: Bilirubin,Urine Negative (Negative); Blood,Urine Negative (Negative); Color,Urine Colorless; Glucose,Urine (UA) Negative (Negative); Ketones,Urine Negative (Negative); Leukocyte Esterase,Urine Negative (Negative); Nitrite,Urine Negative (Negative); PH, Urine 6.0 (5.0-8.0); Protein,Urine Negative (Negative); Specific Gravity,Urine 1.016 (1.001-1.035); Urobilinogen,Urine <2.0 mg/dL (<2.0)
--- NOTE | 2025-01-25 14:25 | CT ---
EXAMINATION TYPE: CT brain cspine wo con DATE OF EXAM: 01/25/2025 2:14 PM COMPARISON: Previous CT head study 01/09/2025. CLINICAL INDICATION: Female, 59 years old with history of fall, weakness; Patient has had two falls t renée. Patient has a history of CVA with left sided residual deficits and is a daily drinker. Last dri nk this morning TECHNIQUE: Brain: Multiple axial CT images of the brain were obtained without IV contrast. Cspine: Axial CT images from the skull base to the inferior aspect of T2 we obtained without intraven ous contrast. Coronal and sagittal reformatted images were also reviewed. . CT DLP: 1269.1 mGycm, Automated exposure control for dose reduction was used. FINDINGS: Brain: Extra-axial spaces: No abnormal extra-axial fluid collections. Ventricular system: Mild ex vacuo dilatation of the frontal horn right lateral ventricle. Cerebral parenchyma: No acute intraparenchymal hemorrhage or mass effect. Encephalomalacia involving the right frontal/parietal lobe related to remote infarct. Scattered hypoattenuating areas are seen within the white matter. Cerebellum: Unremarkable. Mass effect: No evidence of midline shift. Intracranial vasculature: unremarkable Soft tissues: Normal. Calvarium/osseous structures: No depressed skull fracture. Paranasal sinuses and mastoid air cells: Clear. Visualized orbits: Orbital contents are intact. Cervical spine: Fracture: None. Osseous structures: Multilevel degenerative disc disease changes with endplate spurring and disc oste ophyte complex's. Vertebral alignment: Minimal anterolisthesis of C3 on C4 and mild retrolisthesis of C4 on C5. Spinal canal/Neural Foramina: Multilevel facet arthropathy and uncovertebral hypertrophy causing degr ees of multilevel neural foraminal narrowing. Spinal canal suboptimally evaluated however, there is n o evidence of high-grade spinal canal stenosis. Neck soft tissues: Prevertebral soft tissues are within normal limits. Other: The airway is patent. Emphysema in the partially visualized upper lungs. IMPRESSION: 1. No acute intracranial process. 2. Encephalomalacia involving the right frontal/parietal lobes related to remote infarct. 3. No acute fracture or traumatic dilatation of the cervical spine. [facility], Workstation: [id number], 01/25/2025 2:23 PM
--- NOTE | 2025-01-25 14:50 | XR ---
EXAMINATION TYPE: XR chest 2V DATE OF EXAM: 01/25/2025 2:45 PM COMPARISON: Prior chest radiograph 01/07/2025. CLINICAL INDICATION: Female, 59 years old with history of fall, weakness; PHH TECHNIQUE: XR chest 2V Frontal and lateral views of the chest. FINDINGS: Lungs/Pleura: There is no evidence of pleural effusion, focal consolidation, or pneumothorax. Loop r ecorder device overlying the left chest wall. Pulmonary vascularity: Unremarkable. Heart/mediastinum: Cardiomediastinal silhouette is unremarkable. Musculoskeletal: No acute osseous pathology. Other findings: None Lines/Tubes: IMPRESSION: No acute cardiopulmonary disease/process. [facility], , 01/25/2025 2:47 PM
--- NOTE | 2025-01-25 14:57 | XR ---
EXAMINATION TYPE: XR pelvis AP view DATE OF EXAM: 01/25/2025 2:45 PM COMPARISON: None. CLINICAL INDICATION: Female, 59 years old with history of fall, weakness; PHH, pain TECHNIQUE: XR pelvis AP view, examined in a single projection. FINDINGS: There is no evidence of fracture or dislocation. There is no soft tissue abnormality. No a bnormal calcifications are present. The spine appears intact. The hips appear intact. IMPRESSION: No acute osseous pathology. [facility], , 01/25/2025 2:55 PM
[2025-01-25 17:24] VITALS: BP 125/81; PULSE 71; RESP 18; TEMP 98.1
== END 2025-01-25 17:24 | disposition home or self-care (01) ==
LOC: EC 12:55
DX: R53.1 Weakness (principal); Z86.73 Personal history of transient ischemic attack (TIA), and cerebral infarction without residual deficits; Z87.891 Personal history of nicotine dependence; Z88.1 Allergy status to other antibiotic agents; Z88.5 Allergy status to narcotic agent
CPT/HCPCS: 36415; 93005; 80053; 83605; 83735; 85025; 81003; 72170; 71046; 72125; 70450; 99285; G0480; 80320

== ENCOUNTER → 2025-02-03 | Outpatient (CLI) | payer OTHER ==
[2025-02-03 19:58] LABS: Basophils # (A) 0.08 X 10*3/uL (0.00-0.10); Basophils % (A) 1.2 %; Eosinophils # (A) 0.16 X 10*3/uL (0.04-0.35); Eosinophils % (A) 2.4 %; HCT 33.4 % (37.2-46.3); HGB 10.7 g/dL (12.0-15.0); Immature Grans, Automated 0.30 %; Lymphocytes # (A) 1.39 X 10*3/uL (0.90-5.00); Lymphocytes % (A) 21.1 %; MCH 29.5 pg (27.0-32.0); MCHC 32.0 g/dL (32.0-37.0); MCV 92.0 FL (80.0-97.0); Monocytes # (A) 0.61 X 10*3/uL (0.20-1.00); Monocytes % (A) 9.3 %; NRBC Per 100 WBC 0 X 10*3/uL (0.00-0.01); Neutrophils # (A) 4.32 X 10*3/uL (1.80-7.70); Neutrophils % (A) 65.7 %; Platelet Count 343 X 10*3/uL (140-440); RBC 3.63 X 10*6/uL (4.10-5.20); RDW 17.6 % (11.5-14.5); WBC 6.58 X 10*3/uL (4.50-10.00)
[2025-02-03 20:44] LABS: ALT 19 U/L (8-44); AST 37 U/L (13-35); Albumin 4.2 g/dL (3.8-4.9); Albumin/Globulin Ratio 1.40 Ratio (1.60-3.17); Alkaline Phosphatase 107 U/L (41-126); Anion Gap 16.10 mmol/L (4.00-12.00); BUN/Creat Ratio 10.11 Ratio (12.00-20.00); Blood Urea Nitrogen 19.2 mg/dL (9.0-27.0); Calcium 9.9 mg/dL (8.7-10.3); Carbon Dioxide 17.9 mmol/L (21.6-31.8); Chloride 102 mmol/L (96-109); Ferritin 84.7 ng/mL (10.0-291.0); Globulin 3.0 g/dL (1.6-3.3); Glucose 87 mg/dL (70-110); Iron 53 UG/DL (50-170); Potassium 4.2 mmol/L (3.5-5.5); Sodium 136 mmol/L (135-145); Total Iron Binding Capacity 346 UG/DL (228-460); Total Protein 7.2 g/dL (6.2-8.2); Vitamin B12 610.0 pg/mL (200.0-944.0)
== END | disposition home or self-care (01) ==
LOC: LABWHC1 16:12
PROVIDERS: ATTEND Family Medicine
DX: R41.3 Other amnesia (principal); R53.1 Weakness; R55 Syncope and collapse; Z86.73 Personal history of transient ischemic attack (TIA), and cerebral infarction without residual deficits
CPT/HCPCS: 36415; 80053; 82607; 82728; 82746; 83540; 83550; 84425; 84443; 85025